=== PATIENT | female | born 1930 | race Caucasian/White ===

== ENCOUNTER → 2016-04-21 | Outpatient (CLI) | payer BC ==
[2016-04-21 17:35] LABS: ALT/SGPT 18 U/L (12-78); AST/SGOT 15 U/L (15-37); BLOOD UREA NITROGEN 17 mg/dl (7-18); BUN/CREATININE RATIO 27.5 (10-20); CALCIUM 9.4 mg/dl (8.5-10.1); CARBON DIOXIDE 28 mmol/L (21-32); CHLORIDE 104 mmol/L (98-107); CREATININE 0.61 mg/dl (0.60-1.20); GLUCOSE 84 mg/dl (70-99); SODIUM 141 mmol/L (136-145)
[2016-04-21 17:37] LABS: ALKALINE PHOSPHATASE 66 U/L (45-117)
[2016-04-21 17:57] LABS: BASO % 0.5 %; BASO ABS # 0.04 K/uL (0-0.2); COMPLETE YES; EOS % 2.4 %; HEMATOCRIT 42.9 % (37-47); IG% 0.3 %; LYMPH % 28.6 %; LYMPH ABS # 2.14 K/uL (1.2-3.4); MEAN CELL VOLUME 90.7 fL (80-100); MEAN CORPUSCULAR HEMOGLOBIN 30.2 pg (25-34); MEAN CORPUSCULAR HGB CONC 33.3 g/dl (32-36); MEAN PLATELET VOLUME 11.7 fL (7.4-10.4); MONO % 11.4 %; NEUT % 56.8 %; PLATELET COUNT 208 K/uL (130-400); RED BLOOD COUNT 4.73 M/uL (4.2-5.4); WHITE BLOOD COUNT 7.47 K/uL (4.8-10.8)
[2016-04-21 19:31] LABS: URINE PROTIEN/CREAT RATIO 0.9 (0-0.2); URINE TOTAL PROTEIN 74.5 mg/dl (0-11.9)
[2016-04-22 06:06] LABS: ESTIMATED AVERAGE GLUCOSE 151 mg/dl; HA1C FLAG Normal (Normal)
== END | disposition home or self-care (01) ==
LOC: C.LABBC 13:43
PROVIDERS: ATTEND Family Medicine
DX: R80.9 Proteinuria, unspecified (principal); I10 Essential (primary) hypertension; E11.8 Type 2 diabetes mellitus with unspecified complications; M81.0 Age-related osteoporosis without current pathological fracture; Z13.0 Encounter for screening for diseases of the blood and blood-forming organs and certain disorders involving the immune mechanism

== ENCOUNTER → 2016-08-08 | Outpatient (CLI) | payer BC ==
--- NOTE | 2016-08-08 16:01 | MAMMOGRAPHY REPORT ---
BILATERAL DIGITAL SCREENING MAMMOGRAM WITH CAD: 08/08/2016 CLINICAL HISTORY: Routine screening. Patient has no complaints. TECHNIQUE: Bilateral CC and MLO views were obtained. Current study was also evaluated with a Comput er Aided Detection (CAD) system. COMPARISON: Comparison is made to exams dated: 08/06/2015 mammogram, 03/13/2015 mammogram, 09/10/2014 mamm ogram, 08/04/2014 mammogram, 08/01/2013 mammogram, and 07/31/2012 mammogram - [facility] BREAST COMPOSITION: There are scattered areas of fibroglandular density in both breasts. FINDINGS: There are scattered stable benign-appearing microcalcifications. No new suspicious mass, a rchitectural distortion or cluster of microcalcifications is seen. IMPRESSION: ACR BI-RADS CATEGORY 1: NEGATIVE There is no mammographic evidence of malignancy. A 1 year screening mammogram is recommended. The pa tient will receive written notification of the results. Approximately 10% of breast cancers are not detected with mammography. A negative mammographic report should not delay biopsy if a clinically suggestive mass is present. Saida Mast M.D. ay/:08/08/2016 15:23:45 Home Lighting Adviser: Latoya SAPP(Eduard)(Hanny)([place]), [facility] letter sent: Normal 1/2 BI-RADS Code: ACR BI-RADS Category 1: Negative
== END | disposition home or self-care (01) ==
LOC: C.MAMM 11:51
PROVIDERS: ATTEND Family Medicine
DX: Z12.31 Encounter for screening mammogram for malignant neoplasm of breast (principal)

== ENCOUNTER → 2016-08-23 | Outpatient (CLI) | payer BC ==
--- NOTE | 2016-08-23 12:44 | DIAGNOSTIC IMAGING REPORT ---
LUMBAR SPINE 5 VIEWS HISTORY: Pain M54.16 Right lumbar radiculopathy COMPARISON: None. FINDINGS: There is no fracture. No subluxation. Considerable degenerative disc change throughout IMPRESSION: Considerable degenerative disc change. Electronically signed by: Burton Taylor M.D. 08/23/2016 12:42 PM Dictated Date/Time: 08/23/2016 12:41 PM
[2016-08-23 14:34] LABS: ALT/SGPT 19 U/L (12-78); AST/SGOT 12 U/L (15-37); BLOOD UREA NITROGEN 19 mg/dl (7-18); BUN/CREATININE RATIO 26.7 (10-20); CALCIUM 9.2 mg/dl (8.5-10.1); CARBON DIOXIDE 31 mmol/L (21-32); CHLORIDE 108 mmol/L (98-107); CREATININE 0.72 mg/dl (0.60-1.20); GLUCOSE 115 mg/dl (70-99); POTASSIUM 4.1 mmol/L (3.5-5.1); SODIUM 145 mmol/L (136-145)
[2016-08-23 14:36] LABS: ALB/GLOB RATIO 0.9 (0.9-2); ALKALINE PHOSPHATASE 61 U/L (45-117)
== END | disposition home or self-care (01) ==
LOC: C.LABBC 12:12
PROVIDERS: ATTEND Family Medicine
DX: M54.16 Radiculopathy, lumbar region (principal); M79.662 Pain in left lower leg; I10 Essential (primary) hypertension

== ENCOUNTER → 2016-11-17 | Outpatient (CLI) | payer BC ==
[2016-11-17 13:55] LABS: ALT/SGPT 14 U/L (12-78); BLOOD UREA NITROGEN 22 mg/dl (7-18); BUN/CREATININE RATIO 30.3 (10-20); CALCIUM 8.9 mg/dl (8.5-10.1); CARBON DIOXIDE 29 mmol/L (21-32); CHLORIDE 106 mmol/L (98-107); CHOLESTEROL 201 mg/dl (0-200); CREATININE 0.74 mg/dl (0.60-1.20); ESTIMATED AVERAGE GLUCOSE 151 mg/dl; GLUCOSE 127 mg/dl (70-99); HA1C FLAG Normal (Normal); SODIUM 139 mmol/L (136-145)
[2016-11-17 14:06] LABS: ALB/GLOB RATIO 0.9 (0.9-2); ALKALINE PHOSPHATASE 57 U/L (45-117); AST/SGOT 11 U/L (15-37); CHOLESTEROL/HDL RATIO 2.7; HDL CHOLESTEROL 75 mg/dl; LDL CHOLESTEROL CALCULATED 111 mg/dl; TRIGLYCERIDES 75 mg/dl (0-150); VERY LOW DENSITY LIPOPROT CALC 15 mg/dl
[2016-11-17 14:11] LABS: RATIO 357.5 mcg/mg (0-30.0)
== END | disposition home or self-care (01) ==
LOC: C.LABBC 09:54
PROVIDERS: ATTEND Physician Assistant
DX: E11.8 Type 2 diabetes mellitus with unspecified complications (principal)

== ENCOUNTER → 2017-02-16 | Outpatient (CLI) | payer BC ==
[~2017-02-16] MED LIST: ASPEC81 PO; ATOR-24 PO; CALC-354 PO; CHOL1000 PO; GLC/500 PO; LOSA1TAB PO; MULTCAP33 PO; NITR-5 PO; TIMO0.5S35 OPB
[2017-02-16 17:00] LABS: BASO % 0.4 %; BASO ABS # 0.03 K/uL (0-0.2); COMPLETE YES; HEMATOCRIT 42.1 % (37-47); IG% 0.2 %; LYMPH % 25.2 %; LYMPH ABS # 2.03 K/uL (1.2-3.4); MEAN CELL VOLUME 93.8 fL (80-100); MEAN CORPUSCULAR HEMOGLOBIN 30.5 pg (25-34); MEAN CORPUSCULAR HGB CONC 32.5 g/dl (32-36); MEAN PLATELET VOLUME 11.7 fL (7.4-10.4); MONO % 10.1 %; NEUT % 62.1 %; PLATELET COUNT 226 K/uL (130-400); RED BLOOD COUNT 4.49 M/uL (4.2-5.4); WHITE BLOOD COUNT 8.05 K/uL (4.8-10.8)
[2017-02-16 17:16] LABS: ALT/SGPT 16 U/L (12-78); AST/SGOT 10 U/L (15-37); BLOOD UREA NITROGEN 18 mg/dl (7-18); CALCIUM 9.2 mg/dl (8.5-10.1); CARBON DIOXIDE 30 mmol/L (21-32); CHLORIDE 102 mmol/L (98-107); CREATININE 0.69 mg/dl (0.60-1.20); GLUCOSE 85 mg/dl (70-99); POTASSIUM 3.7 mmol/L (3.5-5.1); SODIUM 138 mmol/L (136-145)
[2017-02-16 17:27] LABS: ALB/GLOB RATIO 0.9 (0.9-2); ALKALINE PHOSPHATASE 60 U/L (45-117)
[2017-02-16 17:35] LABS: LYME DISEASE AB IGG NEG (NEG); LYME DISEASE AB IGM NEG (NEG)
== END | disposition home or self-care (01) ==
LOC: C.LABBC 13:58
PROVIDERS: ATTEND Physician Assistant
DX: R53.83 Other fatigue (principal)

== ENCOUNTER 2017-02-20 16:00 | Inpatient (IN) | payer BC, OTHER ==
[~2017-02-20] VITALS: Ht 167.6 cm; Wt 76.1 kg
--- NOTE | 2017-02-20 16:25 | EMERGENCY ROOM VISIT NOTE ---
History Report prepared by Sully: Familia Vera Under the Supervision of: Dr. Tree Still D.O. First contact with patient: 16:04 Chief Complaint: EYE ASSESSMENT Stated Complaint: DOUBLE VISION, INTERMITTEN- DR REFERRED History of Present Illness The patient is an 87 year old diabetic female who presents to the Emergency Room with complaints of intermittent vision difficulties that started 2 days ago. She says that she sometimes is fine, but for hours at a time, her vision goes "completely double". She states that she is not seeing double at the moment , but feels off-balance. The patient was seen by Dr. Persaud of ophthalmology prior to arrival today, and was referred here for further evaluation. The patient denies any headaches, nausea, chest pain, shortness of breath, weakness in the arms or legs, or recent falls or hits to the head. She notes no stroke history. Source of History: patient Onset: 2 days ago Position: eye (bilateral) Symptom Intensity: referred by Dr. Persaud Quality: other (seeing double) Associated Symptoms: No headache, No chest pain, No SOB, No nausea, No weakness (arms or legs) Note: Associated symptoms: Feels off balance. Denies recent falls or hits to head. Review of Systems See HPI for pertinent positives & negatives. A total of 10 systems reviewed and were otherwise negative. Past Medical & Surgical Medical Problems: (1) Diabetes (2) HTN (hypertension) Surgical Problems: (1) History of cataract surgery Family History Family history omitted secondary to patient's advanced age. Social History Smoking Status: Never Smoker Marital Status: Occupation Status: retired Current/Historical Medications Scheduled Calcium Carbonate-Cholecalcife (Caltrate 600+D), 1 TAB PO DAILY Cholecalciferol (Vitamin D3), 1 TAB PO DAILY Losartan Potassium (Cozaar), 25 MG PO DAILY Metformin Hcl (Glucophage), 500 MG PO BID Multiple Vitamins W/ Minerals (Preservision Areds), 1 CAP PO DAILY Timolol Maleate (Ophth) (Timoptic), 1 DROPS OPB HS Allergies Coded Allergies: No Known Allergies (Unverified , 02/20/17) Physical Exam Vital Signs Date Time Temp Pulse Resp B/P (MAP) Pulse Ox O2 Delivery O2 Flow Rate FiO2 02/20/17 21:31 69 216/98 96 02/20/17 20:00 87 191/109 96 Room Air 02/20/17 18:19 80 16 180/106 98 Room Air 02/20/17 17:29 83 18 200/100 98 Room Air 02/20/17 16:57 Room Air 02/20/17 16:42 86 02/20/17 16:06 36.4 77 18 193/100 96 Room Air Physical Exam GENERAL: Patient is awake, alert, and in no acute distress. Patient is resting comfortably and showing no signs of anxiety EYES: The conjunctivae are clear. The pupils are round and reactive. EARS, NOSE, MOUTH AND THROAT: The nose is without any evidence of any deformity. Mucous membranes are moist tongue is midline NECK: The neck is nontender and supple. RESPIRATORY: Normal respiratory effort is noted there is no evidence of wheezing rhonchi or rales CARDIOVASCULAR: Regular rate and rhythm noted there no murmurs rubs or gallops normal S1 normal S2 GASTROINTESTINAL: The abdomen is soft. Bowel sounds are present in all quadrants. Abdomen is nontender MUSCULOSKELETAL/EXTREMITIES: There is no evidence of gross deformity full range of motion is noted in the hips and shoulders SKIN: There is no obvious evidence of any rash. There are no petechiae, pallor or cyanosis noted. NEUROLOGIC: Patient is awake alert and oriented x3 strength is symmetric patellar reflexes are 2+ bilaterally Medical Decision & Procedures ER Provider Diagnostic Interpretation: Radiology results as stated below per my review and radiologist interpretation: CHEST ONE VIEW PORTABLE CLINICAL HISTORY: 87 years-old Female presenting with EVALUATE ALTERED MENTAL STATUS/WEAKNESS. TECHNIQUE: Portable upright AP view of the chest was obtained. COMPARISON: None. FINDINGS: Atherosclerosis of aortic arch. Cardiac silhouette moderately enlarged. Nodular opacity at the right lung base. This is not clearly a calcified granuloma. No other focal infiltrate. No large effusion or pneumothorax. Osseous structures normal. Upper abdomen normal. IMPRESSION: 1. Nodular opacity at the right lung base, indeterminate. 2. Cardiomegaly. Electronically signed by: Matt Russ M.D. 02/20/2017 4:49 PM Dictated Date/Time: 02/20/2017 4:48 PM Laboratory Results Test 02/20/17 16:48 02/20/17 17:00 02/20/17 17:31 Prothrombin Time 11.8 SECONDS (9.0-12.0) Prothromb Time International Ratio 1.1 (0.9-1.1) Activated Partial Thromboplast Time 23.8 SECONDS (21.0-31.0) Partial Thromboplastin Ratio 0.9 Estimated Average Glucose 146 mg/dl Hemoglobin A1c 6.7 % (4.5-5.6) Magnesium Level 2.1 mg/dl (1.8-2.4) Total Bilirubin 0.3 mg/dl (0.2-1) Direct Bilirubin < 0.1 mg/dl (0-0.2) Aspartate Amino Transf (AST/SGOT) 10 U/L (15-37) Alanine Aminotransferase (ALT/SGPT) 15 U/L (12-78) Alkaline Phosphatase 63 U/L (45-117) Troponin I < 0.015 ng/ml (0-0.045) Total Protein 7.6 gm/dl (6.4-8.2) Albumin 3.7 gm/dl (3.4-5.0) Thyroid Stimulating Hormone (TSH) 1.250 uIu/ml (0.300-4.500) Bedside Hemoglobin 13.9 g/dl (12.0-16.0) Bedside Hematocrit 41 % (37-47) Bedside Sodium 142 mEq/L (135-144) Bedside Potassium 4.2 mEq/L (3.3-5.0) Bedside Chloride 103 mEq/L (101-112) Bedside Total CO2 30 mEq/l (24-31) Bedside Blood Urea Nitrogen 27 mg/dl (7-18) Bedside Creatinine 0.7 mg/dl (0.6-1.3) Bedside Glucose (other) 92 mg/dl (70-99) Bedside Ionized Calcium (Michaelle) 1.19 mmol/l (1.12-1.32) Urine Color YELLOW Urine Appearance TURBID (CLEAR) Urine pH 5.0 (4.5-7.5) Urine Specific [place] 1.021 (1.000-1.030) Urine Protein 2+ (NEG) Urine Glucose (UA) NEG (NEG) Urine Ketones NEG (NEG) Urine Occult Blood 2+ (NEG) Urine Nitrite POS (NEG) Urine Bilirubin NEG (NEG) Urine Urobilinogen NEG (NEG) Urine Leukocyte Esterase LARGE (NEG) Urine WBC (Auto) >30 /hpf (0-5) Urine RBC (Auto) 10-30 /hpf (0-4) Urine Hyaline Casts (Auto) 1-5 /lpf (0-5) Urine Epithelial Cells (Auto) 5-10 /lpf (0-5) Urine Bacteria (Auto) 4+ (NEG) Laboratory results per my review. Medications Administered Medications (Trade) Dose Ordered Sig/Abisai Route Start Time Stop Time Status Last Admin Dose Admin Ceftriaxone Sodium (Rocephin Inj) 1 gm NOW STAT IV 02/20/17 18:37 02/20/17 18:39 DC 02/20/17 19:56 1 GM Aspirin (Aspirin Chew) 324 mg NOW STAT PO 02/20/17 20:25 02/20/17 20:26 DC 02/20/17 20:31 324 MG ECG Indication: other (vision difficulties) Rate (beats per minute): 78 Rhythm: normal sinus Findings: Q waves (Inferior), no ectopy, other (no acute ST segment abnormalities) Change: no significant change ED Course 161: The patient was evaluated in room C11B. A complete history and physical examination were performed. 1652: I discussed the patient with Dr. Persaud - [facility] - Ophthalmology. 7: Ordered Rocephin Inj 1 gm IV. Medical Decision Differential diagnosis: Etiologies such as a trauma, corneal abrasion, corneal ulcer, foreign body, globe penetration, hyphema, hypopyon, and orbital cellulitis, periorbital cellulitis, as well as others were entertained. Nursing notes reviewed. 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 Through the weekend she's been complaining of diplopia. She was seen at the ophthalmology's office and was sent to the emergency department. I discussed the findings with the lottery office manager and he noted she had a subtle irregularity of the left third cranial nerve and felt that she would require an evaluation for possible compressive nerve palsy versus other intracranial findings. The patient had an MRI MRA of the brain. This did reveal an acute stroke in the left thalamus. I discussed patient's laboratory radiographic studies with her. She was treated with IV antibiotics for presumed urinary tract infection. She was also treated with aspirin. I discussed the patient's laboratory and radiographic studies with the on-call [facility] hospitalist. He is agreed to evaluate the patient in the emergency department for further management and disposition. The patient was found have elevated blood pressure. This was left to the management of the admitting group. Medication Reconcilliation Current Medication List: was personally reviewed by me Blood Pressure Screening Patient's blood pressure: Elevated blood pressure Blood pressure disposition: Elevated BP felt to be situational Consults Time Called: 1649 Consulting Physician: Dr. [facility] - Opthalmology Returned Call: 1652 I discussed the patient with Dr. [facility] - Ophthalmology. Additional Consults: Time Called: 2019 Consulted Physician: Dr Nicolás OCAMPO Hospitalist Returned Call: 2019 Impression Primary Impression: CVA (cerebral vascular accident) Additional Impressions: Diplopia UTI (urinary tract infection) Scribe Attestation The scribe's documentation has been prepared under my direction and personally reviewed by me in its entirety. I confirm that the note above accurately reflects all work, treatment, procedures, and medical decision making performed by me. Departure Information Referrals Sammie Delgado PA-C (PCP) Patient Instructions My [facility] Problem Qualifiers Primary Impression: CVA (cerebral vascular accident) CVA mechanism: unspecified Qualified Codes: I63.9 - Cerebral infarction, unspecified Additional Impressions: UTI (urinary tract infection) Urinary tract infection type: site unspecified Hematuria presence: without hematuria Qualified Codes: N39.0 - Urinary tract infection, site not specified
--- NOTE | 2017-02-20 16:51 | DIAGNOSTIC IMAGING REPORT ---
CHEST ONE VIEW PORTABLE CLINICAL HISTORY: 87 years-old Female presenting with EVALUATE ALTERED MENTAL STATUS/WEAKNESS. TECHNIQUE: Portable upright AP view of the chest was obtained. COMPARISON: None. FINDINGS: Atherosclerosis of aortic arch. Cardiac silhouette moderately enlarged. Nodular opacity at the right lung base. This is not clearly a calcified granuloma. No other focal infiltrate. No large effusion or pneumothorax. Osseous structures normal. Upper abdomen normal. IMPRESSION: 1. Nodular opacity at the right lung base, indeterminate. 2. Cardiomegaly. Electronically signed by: Matt Russ M.D. 02/20/2017 4:49 PM Dictated Date/Time: 02/20/2017 4:48 PM
[2017-02-20 17:04] LABS: BASO % 0.3 %; BASO ABS # 0.03 K/uL (0-0.2); EOS % 1.5 %; EOS ABS # 0.15 K/uL (0-0.5); HEMATOCRIT 41.4 % (37-47); HEMOGLOBIN 13.6 g/dL (12.0-16.0); IG# 0.02 K/uL (0.00-0.02); LYMPH % 22.8 %; LYMPH ABS # 2.22 K/uL (1.2-3.4); MEAN CELL VOLUME 93.5 fL (80-100); MEAN CORPUSCULAR HEMOGLOBIN 30.7 pg (25-34); MEAN CORPUSCULAR HGB CONC 32.9 g/dl (32-36); MONO % 9.3 %; MONO ABS # 0.91 K/uL (0.11-0.59); NEUT % 65.9 %; NEUT ABS # 6.41 K/uL (1.4-6.5); PLATELET COUNT 201 K/uL (130-400); RED CELL DISTRIBUTION WIDTH CV 13.5 % (11.5-14.5); WHITE BLOOD COUNT 9.74 K/uL (4.8-10.8)
[2017-02-20 17:12] LABS: ISTAT CREATININE 0.7 mg/dl (0.6-1.3); ISTAT IONIZED CALCIUM 1.19 mmol/l (1.12-1.32); ISTAT POTASSIUM 4.2 mEq/L (3.3-5.0)
[2017-02-20 17:15] LABS: INR 1.1 (0.9-1.1); PTT PATIENT 23.8 SECONDS (21.0-31.0)
[2017-02-20 17:27] LABS: ALBUMIN 3.7 gm/dl (3.4-5.0); ALT/SGPT 15 U/L (12-78); BLOOD UREA NITROGEN 22 mg/dl (7-18); CALCIUM 9.5 mg/dl (8.5-10.1); CARBON DIOXIDE 29 mmol/L (21-32); CREATININE 0.71 mg/dl (0.60-1.20); GLUCOSE 87 mg/dl (70-99); POTASSIUM 3.7 mmol/L (3.5-5.1); SODIUM 141 mmol/L (136-145)
[2017-02-20 17:38] LABS: ALKALINE PHOSPHATASE 63 U/L (45-117); AST/SGOT 10 U/L (15-37); TOTAL PROTEIN 7.6 gm/dl (6.4-8.2)
[2017-02-20] MEDS ORDERED: GLC/500 PO (17:40)
[2017-02-20] MEDS ORDERED: CALC-354 PO (17:40)
[2017-02-20] MEDS ORDERED: TIMO0.5S35 OPB (17:40)
[2017-02-20] MEDS ORDERED: CHOL1000 PO (17:40)
[2017-02-20] MEDS ORDERED: LOSA1TAB PO (17:40)
[2017-02-20] MEDS ORDERED: MULTCAP33 PO (17:47)
[2017-02-20] MEDS ORDERED: CEFTRIAXONE SOD INJ 1 GM ADDVIAL IV STA (18:37)
[2017-02-20] MEDS ORDERED: GADAVIST IV PRN (20:00)
--- NOTE | 2017-02-20 20:14 | DIAGNOSTIC IMAGING REPORT ---
MRI OF THE BRAIN WITHOUT AND WITH IV CONTRAST CLINICAL HISTORY: Diplopia and 3rd cranial nerve palsy. COMPARISON STUDY: No previous studies for comparison. TECHNIQUE: Utilizing a 1.5 Viridiana magnet and dedicated coil, multiplanar, multiecho imaging of the brain was performed pre and postcontrast administration. IV administration of 7.5 mL of Gadavist contrast was uneventful. FINDINGS: Note is made of a 4 mm focus of restricted diffusion within the left thalamus shown on axial image 12 of 44. This suggests an acute infarct. No additional acute infarcts are present. Ventricular system is unremarkable for age. Basilar cisterns are patent. There are no extra-axial collections. Old lacunar infarct within left cerebellar hemisphere is noted. White matter T2 hyperintense foci suggest small vessel disease. There is a left maxillary sinus mucous retention cyst. There is no intracranial mass or pathologic enhancement. IMPRESSION: 1. Punctate 4 mm acute infarct within the left thalamus. No mass effect or evidence of hemorrhagic conversion. 2. Mild atrophy and extensive small vessel disease. 3. No intracranial mass. Electronically signed by: Adam Dickson M.D. 02/20/2017 8:13 PM Dictated Date/Time: 02/20/2017 8:09 PM
--- NOTE | 2017-02-20 20:21 | DIAGNOSTIC IMAGING REPORT ---
MRA OF THE INTRACRANIAL CIRCULATION WITHOUT CONTRAST CLINICAL HISTORY: Diplopia and 3rd cranial nerve palsy. COMPARISON STUDY: None. TECHNIQUE: Utilizing a 1.5 Viridiana magnet and 3-D [id number] technique, unenhanced MRA of the intracranial circulation was obtained. FINDINGS: The bilateral M1, M2, A1 and A2 segments are patent. No abrupt vessel cut off is identified. There is no dissection within the major intracranial vessels. Left vertebral artery is dominant and patent. There is a possible 2 mm aneurysm arising from the proximal intracranial portion of the left vertebral artery as well as a possible 2 mm aneurysm arising from the supraclinoid left internal carotid artery. No additional aneurysms are identified. IMPRESSION: 1. No abrupt vessel cut off. 2. Possible tiny 2 mm aneurysm arising from the supraclinoid portion of the left internal carotid artery. This could reflect a tiny aneurysm or infundibulum. 3. Subtle irregularity of the proximal intracranial portion of the left vertebral artery which could reflect a tiny aneurysm, measuring 2 mm. Electronically signed by: Adam Dickson M.D. 02/20/2017 8:20 PM Dictated Date/Time: 02/20/2017 8:16 PM
[2017-02-20] MEDS ORDERED: ASPIRIN 81 MG CHEW PO STA (20:25)
[2017-02-20] MEDS ORDERED: NITROGLYCERIN 0.4 MG SL PER TAB CHARGE SL PRN (20:45)
[2017-02-20] MEDS ORDERED: PHARMACIST DISCHARGE MED REC CONSULT PRN (20:45)
[2017-02-20] MEDS ORDERED: ONDANSETRON INJ 2 MG/ML 2 ML VIAL IV PRN (20:45)
[2017-02-20] MEDS ORDERED: POLYETHYLENE (MIRALAX) 17 GM PACK PO PRN (20:45)
[2017-02-20] MEDS ORDERED: ACETAMINOPHEN 325 MG TAB PO PRN (20:45)
[2017-02-20] MEDS ORDERED: MAGNESIUM HYDROXIDE SUSP 30 ML UDC PO PRN (20:45)
[2017-02-20] MEDS ORDERED: ALUMINUM/MAGNESIUM/SIMETH (MAALOX MAX) 30 ML UDC PO PRN (20:45)
--- NOTE | 2017-02-20 21:56 | History and Physical ---
History & Physical Date & Time of Service: Feb 20, 2017 at 21:35 Chief Complaint: Double Vision, Intermitten- Dr Referred Primary Care Physician: Sammie Delgado PA-C History of Present Illness Source: patient, family This is an 87 y/o F who presents with double vision that started 2 days ago. She reports that it is intermittent and can last a few hours at a time. In the ER, currently she does not have any double vision or other neurological symptoms. She denies numbness/tingling or weakness of her extremities. She called her friend who is a retired construction management assistant yesterday and she was recommended to see Dr. Valencia. She did see him this morning and he recommended further eval in the ED. She also reports being slightly off balanced. She denies any trauma to the eye. Denies any eye pain or discharge. Does wear glasses but her prescription is not current. She was recently started on Metformin for an A1c of 6.9 She reports being on a statin previously but was taken off it a couple of years ago because she eats a grapefruit everyday. Denies history of smoking Denies previous strokes/[place] Denies chest pain, shortness of breath, Urinary symptoms. Past Medical/Surgical History Medical Problems: (1) Diabetes Status: Chronic (2) HTN (hypertension) Status: Chronic Surgical Problems: (1) History of cataract surgery Status: Resolved Social History Smoking Status: Never Smoker Alcohol Use: none Marital Status: Housing status: lives with family Occupational Status: retired Multi-Drug Resistant Organisms History of MDRO: No Allergies Coded Allergies: No Known Allergies (Unverified , 02/20/17) Home Medications Scheduled Calcium Carbonate-Cholecalcife (Caltrate 600+D), 1 TAB PO DAILY Cholecalciferol (Vitamin D3), 1 TAB PO DAILY Losartan Potassium (Cozaar), 25 MG PO DAILY Metformin Hcl (Glucophage), 500 MG PO BID Multiple Vitamins W/ Minerals (Preservision Areds), 1 CAP PO DAILY Timolol Maleate (Ophth) (Timoptic), 1 DROPS OPB HS Review of Systems Constitutional: No fever, No chills Eyes: + diplopia, No worsening of vision, No eye pain ENT: No hearing loss Respiratory: No cough, No sputum, No shortness of breath, No dyspnea on exertion, No dyspnea at rest Cardiovascular: No chest pain Abdomen: No pain, No nausea, No vomiting, No diarrhea, No constipation Genitourinary - Female: No dysuria, No urinary frequency Neurologic: + balance problems, No memory loss, No paralysis, No weakness, No numbness/tingling, No vertigo Physical Exam Vital Signs Date Time Temp Pulse Resp B/P (MAP) Pulse Ox O2 Delivery O2 Flow Rate FiO2 02/20/17 21:31 69 216/98 96 02/20/17 20:00 87 191/109 96 Room Air 02/20/17 18:19 80 16 180/106 98 Room Air 02/20/17 17:29 83 18 200/100 98 Room Air 02/20/17 16:57 Room Air 02/20/17 16:42 86 02/20/17 16:06 36.4 77 18 193/100 96 Room Air General Appearance: no apparent distress Head: normocephalic, atraumatic Eyes: normal inspection, PERRL, EOMI, sclerae normal ENT: hearing grossly normal Respiratory/Chest: lungs clear, normal breath sounds, no respiratory distress, no accessory muscle use Cardiovascular: regular rate, rhythm, no edema, no murmur, normal peripheral pulses Abdomen/GI: normal bowel sounds, non tender, soft Back: no CVA tenderness Extremities/Musculoskelatal: no calf tenderness, no pedal edema Neurologic/Psych: staff attorney II-XII nml as tested, alert, normal mood/affect, normal reflexes, oriented x 3, + motor weakness (RUE slightly weaker), + pertinent finding (no pronator drift, normal finger to nose, no dysarthria) Diagnostics Laboratory Results Results Past 24 Hours Test 02/20/17 16:48 02/20/17 17:00 02/20/17 17:31 Range/Units White Blood Count 9.74 4.8-10.8 K/uL Red Blood Count 4.43 4.2-5.4 M/uL Hemoglobin 13.6 12.0-16.0 g/dL Hematocrit 41.4 37-47 % Mean Corpuscular Volume 93.5 80-100 fL Mean Corpuscular Hemoglobin 30.7 25-34 pg Mean Corpuscular Hemoglobin Concent 32.9 32-36 g/dl Platelet Count 201 130-400 K/uL Mean Platelet Volume 11.0 7.4-10.4 fL Neutrophils (%) (Auto) 65.9 % Lymphocytes (%) (Auto) 22.8 % Monocytes (%) (Auto) 9.3 % Eosinophils (%) (Auto) 1.5 % Basophils (%) (Auto) 0.3 % Neutrophils # (Auto) 6.41 1.4-6.5 K/uL Lymphocytes # (Auto) 2.22 1.2-3.4 K/uL Monocytes # (Auto) 0.91 0.11-0.59 K/uL Eosinophils # (Auto) 0.15 0-0.5 K/uL Basophils # (Auto) 0.03 0-0.2 K/uL RDW Standard Deviation 46.0 36.4-46.3 fL RDW Coefficient of Variation 13.5 11.5-14.5 % Immature Granulocyte % (Auto) 0.2 % Immature Granulocyte # (Auto) 0.02 0.00-0.02 K/uL Prothrombin Time 11.8 9.0-12.0 SECONDS Prothromb Time International Ratio 1.1 0.9-1.1 Activated Partial Thromboplast Time 23.8 21.0-31.0 SECONDS Partial Thromboplastin Ratio 0.9 Sodium Level 141 136-145 mmol/L Potassium Level 3.7 3.5-5.1 mmol/L Chloride Level 104 98-107 mmol/L Carbon Dioxide Level 29 21-32 mmol/L Anion Gap 8.0 14.0 16-25 mmol/L Blood Urea Nitrogen 22 7-18 mg/dl Creatinine 0.71 0.60-1.20 mg/dl Est Creatinine Clear Calc Drug Dose 61.3 ml/min Estimated GFR () 90.0 Estimated GFR (Non- 77.7 BUN/Creatinine Ratio 30.6 10-20 Random Glucose 87 70-99 mg/dl Calcium Level 9.5 8.5-10.1 mg/dl Magnesium Level 2.1 1.8-2.4 mg/dl Total Bilirubin 0.3 0.2-1 mg/dl Direct Bilirubin < 0.1 0-0.2 mg/dl Aspartate Amino Transf (AST/SGOT) 10 15-37 U/L Alanine Aminotransferase (ALT/SGPT) 15 12-78 U/L Alkaline Phosphatase 63 45-117 U/L Troponin I < 0.015 0-0.045 ng/ml Total Protein 7.6 6.4-8.2 gm/dl Albumin 3.7 3.4-5.0 gm/dl Thyroid Stimulating Hormone (TSH) 1.250 0.300-4.500 uIu/ml Bedside Hemoglobin 13.9 12.0-16.0 g/dl Bedside Hematocrit 41 37-47 % Bedside Sodium 142 135-144 mEq/L Bedside Potassium 4.2 3.3-5.0 mEq/L Bedside Chloride 103 101-112 mEq/L Bedside Total CO2 30 24-31 mEq/l Bedside Blood Urea Nitrogen 27 7-18 mg/dl Bedside Creatinine 0.7 0.6-1.3 mg/dl Bedside Glucose (other) 92 70-99 mg/dl Bedside Ionized Calcium (Michaelle) 1.19 1.12-1.32 mmol/l Urine Color YELLOW Urine Appearance TURBID CLEAR Urine pH 5.0 4.5-7.5 Urine Specific [place] 1.021 1.000-1.030 Urine Protein 2+ NEG Urine Glucose (UA) NEG NEG Urine Ketones NEG NEG Urine Occult Blood 2+ NEG Urine Nitrite POS NEG Urine Bilirubin NEG NEG Urine Urobilinogen NEG NEG Urine Leukocyte Esterase LARGE NEG Urine WBC (Auto) >30 0-5 /hpf Urine RBC (Auto) 10-30 0-4 /hpf Urine Hyaline Casts (Auto) 1-5 0-5 /lpf Urine Epithelial Cells (Auto) 5-10 0-5 /lpf Urine Bacteria (Auto) 4+ NEG Microbiology Results 02/20/17 Urine Culture, Received Pending Impression Assessment and Plan 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 HTN Hold Losartan UTI: Rocephin 1 gm q24 h Cultures pending DM II Hold metformin ISS Accuchecks Can start Lantus based on bsgs DVT proph Lovenox 40 mg q24 Code: Full Resident Physician Supervision Note: I was present with Dr. Cherry during the history and exam. I discussed the case with the resident and agree with the findings and plan as documented in the note. Any exceptions or clarifications are listed here: 87 y/o F Hx HTN, DM II - [facility]est of her construction management assistant who had detected subtle visual deficits. She was sent for an MRI in the ER which confirmed an acute thalamic CVA. OE AAO x 3 S1,2 R CTAB NT, ND No CCE Full neuro exam does not reveal any significant focal deficits - her vision is affected subjectively without any overt field deficits P: Placed on ASA and statin Tx - admittted to telemetry with neurochecks - Losartan held to allow for HTN in the short-term Placed on SS for DM Documented By: Dale Monzon VTE Prophylaxis VTE Risk Assessment Done? Y/N: Yes Risk Level: Moderate
[2017-02-20 22:17] VITALS: BP_SYST 211; BP_SYST 224; BP_DIAS 106; BP_DIAS 109; PULSE 93; TEMP 36.6; O2SAT 98; BMI 27.5
[2017-02-20] MEDS ORDERED: GLUCOSE 40% GEL 15 GM TUBE PO PRN (22:30)
[2017-02-20] MEDS ORDERED: GLUCAGON FOR INJ 1 MG VIAL SQ PRN (22:30)
[2017-02-20] MEDS ORDERED: DEXTROSE 50% 50 ML SYR IV PRN (22:30)
[2017-02-20] MEDS ORDERED: GLUCOSE 10 TABS/TUBE PO PRN (22:30)
[2017-02-20 23:18] VITALS: BP 208/102; PULSE 78; TEMP 37; O2SAT 95
[2017-02-20] MEDS: ENOXAPARIN 40 MG/0.4 ML SYR SC SCH (23:18)
[2017-02-21] VITALS (8 sets, daily range): BP systolic 154–193; BP diastolic 82–105; PULSE 73–81; TEMP 36.4–36.8; O2SAT 93–96; Ht 167.6 cm; Wt 76.1 kg
[2017-02-21 06:15] LABS: BASO % 0.5 %; BASO ABS # 0.04 K/uL (0-0.2); EOS % 2.2 %; EOS ABS # 0.17 K/uL (0-0.5); HEMATOCRIT 39.5 % (37-47); HEMOGLOBIN 13.1 g/dL (12.0-16.0); LYMPH % 26.3 %; LYMPH ABS # 2.07 K/uL (1.2-3.4); MEAN CELL VOLUME 93.2 fL (80-100); MEAN CORPUSCULAR HEMOGLOBIN 30.9 pg (25-34); MEAN CORPUSCULAR HGB CONC 33.2 g/dl (32-36); MEAN PLATELET VOLUME 11.3 fL (7.4-10.4); MONO % 11.7 %; MONO ABS # 0.92 K/uL (0.11-0.59); NEUT % 59.3 %; NEUT ABS # 4.67 K/uL (1.4-6.5); PLATELET COUNT 175 K/uL (130-400); RED CELL DISTRIBUTION WIDTH CV 13.4 % (11.5-14.5); RED CELL DISTRIBUTION WIDTH SD 45.3 fL (36.4-46.3); WHITE BLOOD COUNT 7.87 K/uL (4.8-10.8)
[2017-02-21 06:43] LABS: HEMOGLOBIN A1C 6.7 % (4.5-5.6)
[2017-02-21] MEDS: INSULIN ASPART 100 UNITS/ML 3 ML PEN SC SCH ×4 (07:00→20:42)
[2017-02-21 07:04] LABS: CALCIUM 8.6 mg/dl (8.5-10.1); CREATININE 0.69 mg/dl (0.60-1.20)
[2017-02-21] MEDS: ASPIRIN 81 MG ECTAB PO SCH (09:26)
--- NOTE | 2017-02-21 09:41 | Neurology Consultation ---
Neurology Consultation Date of Consultation: Feb 21, 2017. Attending Physician: Dale Monzon M.D. Primary Care Physician: Sammie Delgado PA-C Reason for Consultation: Consultation for stroke History of Present Illness Source: patient, hospital records This is a 87-year-old right-handed female who presents with 2 days of diplopia. She reports that she started to have diplopia Monday afternoon. Describes it as vertical diplopia. Diplopia was intermittent. Seems to be appropriate and has not had a recent she's been in the hospital. She denies any other symptoms. Denies any dizziness. Denies any focal weakness or numbness. Denies any loss of vision. Denies any changes with her speech and swallowing. Denies any changes with her balance or gait. Reports poor balance at baseline and had done physical therapy over the summer and was recommended to walk with a cane. She denies any recent illnesses. She was not on any antiplatelets at the time of the events. She denies any chest pain, shortness of breath, or heart palpitation. MRI of the brain report and images reviewed by myself. The patient has a small subacute punctate left thalamus ischemic stroke and mild to moderate T2 hyperintensities in the subcortical white matter likely consistent with small vessel ischemic disease. MRA of the head was unremarkable. Total cholesterol 208, LDL 115, HDL 71, triglycerides 109, hemoglobin A1C 6.1 Past Medical/Surgical History Medical Problems: (1) CVA (cerebral vascular accident) Status: Acute (2) Diplopia Status: Acute (3) UTI (urinary tract infection) Status: Acute History of hypertension, diabetes, cataract surgery Family History Reports that her mother had a stroke in an elderly age Social History Patient is normally independent in her activities of daily living. Walks with the assistance of a cane. Denies any tobacco use. Alcohol Use: none Marital Status: Occupation Status: retired Allergies Coded Allergies: No Known Allergies (Unverified , 02/20/17) Current Inpatient Medications Current Inpatient Medications Medications (Trade) Dose Ordered Sig/Abisai Route Start Time Stop Time Status Last Admin Dose Admin Gadobutrol (Gadavist) 7.5 mmol UD PRN IV 02/20/17 20:00 02/24/17 19:59 Aspirin (Ecotrin Tab) 81 mg QAM PO 02/21/17 09:00 03/23/17 08:59 02/21/17 09:26 81 MG Miscellaneous Information (Pharmacist Discharge Med Rec Consult) 1 ea UD PRN N/A 02/20/17 20:45 03/22/17 20:44 Enoxaparin Sodium (Lovenox Inj) 40 mg QPM SC 02/20/17 22:30 03/22/17 22:29 02/20/17 23:18 40 MG Acetaminophen (Tylenol Tab) 650 mg Q4H PRN PO 02/20/17 20:45 03/22/17 20:44 Al Hydrox/Mg Hydrox/Simethicone (Maalox Max Susp) 15 ml Q4H PRN PO 02/20/17 20:45 03/22/17 20:44 Magnesium Hydroxide (Milk Of Magnesia Susp) 30 ml Q12H PRN PO 02/20/17 20:45 03/22/17 20:44 Ondansetron HCl (Zofran Inj) 4 mg Q6H PRN IV 02/20/17 20:45 03/22/17 20:44 Nitroglycerin (Nitrostat Tab) 0.4 mg UD PRN SL 02/20/17 20:45 03/22/17 20:44 Polyethylene (Miralax Powder Packet) 17 gm DAILY PRN PO 02/20/17 20:45 03/22/17 20:44 Simvastatin (Zocor Tab) 40 mg PM PO 02/21/17 21:00 03/23/17 20:59 Insulin Aspart (novoLOG ASPART) SLIDING SCALE G... ACHS SC 02/21/17 07:00 03/23/17 06:59 Glucose (Glucose 40% Gel) 15-30 GRAMS 15 GRAMS... UD PRN PO 02/20/17 22:30 03/22/17 22:29 Glucose (Glucose Chew Tab) 4-8 Tablets 4 Tabl... UD PRN PO 02/20/17 22:30 03/22/17 22:29 Dextrose (Dextrose 50% 50ML Syringe) 25-50ML OF 50% DW IV FOR... UD PRN IV 02/20/17 22:30 03/22/17 22:29 Glucagon (Glucagon Inj) 1 mg UD PRN SQ 02/20/17 22:30 03/22/17 22:29 Ceftriaxone Sodium 1 gm/ Dextrose 50 ml @ 100 mls/hr Q24H IV 02/21/17 19:00 02/26/17 18:59 Review of Systems Complete review systems otherwise negative except for the above-noted history of present illness Physical Exam Vital Signs (Past 24 Hrs): Date Time Temp Pulse Resp B/P (MAP) Pulse Ox O2 Delivery O2 Flow Rate FiO2 02/21/17 07:22 36.7 79 16 155/91 (112) 94 Room Air 02/21/17 04:00 Room Air 02/21/17 03:36 36.4 81 18 193/92 (125) 95 Room Air 02/21/17 00:01 95 Room Air 02/20/17 23:18 37.0 78 16 208/102 (137) 95 Room Air 02/20/17 22:17 36.6 93 16 224/109 98 Room Air 211/106 02/20/17 21:31 69 216/98 96 02/20/17 20:00 87 191/109 96 Room Air 02/20/17 18:19 80 16 180/106 98 Room Air 02/20/17 17:29 83 18 200/100 98 Room Air 02/20/17 16:57 Room Air 02/20/17 16:42 86 02/20/17 16:06 36.4 77 18 193/100 96 Room Air Gen.: Patient is alert and sitting in chair, in no acute distress. HEENT: Normocephalic /atraumatic, no scleral icterus Heart: Regular rate and rhythm Extremities: No gross deformities or rashes noted Neurological examination: Mental status: Patient is alert and oriented x3. Attention and concentration normal for the situation. Good fund of knowledge. Remote and recent memory intact. Speech is fluent without any dysarthria or aphasia noted Cranial nerve: Visual bella intact to counting. Funduscopic examination was unremarkable. No papilledema. Pupils equally round and reactive to light. Extraocular muscles intact without nystagmus. No facial asymmetry noted. Facial sensation intact. Tongue is midline. Good palatal elevation. Good shoulder shrug bilaterally. Hearing grossly intact to voice. Strength: 5/5 both proximal and distally in all extremities. There is no arm drift. Tone is normal. Sensation: Grossly intact to light touch in all extremities. Deep tendon reflexes: +1 in bilateral biceps, brachioradialis and patellar. Coordination: Patient had good finger to nose without dysmetria Station within the chair was normal Laboratory Results Past 24 Hours: 02/21/17 05:26 Red Blood Count 4.24, Mean Corpuscular Volume 93.2, Mean Corpuscular Hemoglobin 30.9, Mean Corpuscular Hemoglobin Concent 33.2, Mean Platelet Volume 11.3, Neutrophils (%) (Auto) 59.3, Lymphocytes (%) (Auto) 26.3, Monocytes (%) (Auto) 11.7, Eosinophils (%) (Auto) 2.2, Basophils (%) (Auto) 0.5, Neutrophils # (Auto ) 4.67, Lymphocytes # (Auto) 2.07, Monocytes # (Auto) 0.92, Eosinophils # (Auto ) 0.17, Basophils # (Auto) 0.04 02/21/17 05:26 02/21/17 07:21 Test 02/20/17 16:48 02/20/17 17:00 02/20/17 17:31 02/20/17 23:31 Prothrombin Time 11.8 SECONDS (9.0-12.0) Prothromb Time International Ratio 1.1 (0.9-1.1) Activated Partial Thromboplast Time 23.8 SECONDS (21.0-31.0) Partial Thromboplastin Ratio 0.9 Estimated Average Glucose 146 mg/dl Hemoglobin A1c 6.7 % (4.5-5.6) Magnesium Level 2.1 mg/dl (1.8-2.4) Total Bilirubin 0.3 mg/dl (0.2-1) Direct Bilirubin < 0.1 mg/dl (0-0.2) Aspartate Amino Transf (AST/SGOT) 10 U/L (15-37) Alanine Aminotransferase (ALT/SGPT) 15 U/L (12-78) Alkaline Phosphatase 63 U/L (45-117) Troponin I < 0.015 ng/ml (0-0.045) Total Protein 7.6 gm/dl (6.4-8.2) Albumin 3.7 gm/dl (3.4-5.0) Thyroid Stimulating Hormone (TSH) 1.250 uIu/ml (0.300-4.500) Bedside Hemoglobin 13.9 g/dl (12.0-16.0) Bedside Hematocrit 41 % (37-47) Bedside Sodium 142 mEq/L (135-144) Bedside Potassium 4.2 mEq/L (3.3-5.0) Bedside Chloride 103 mEq/L (101-112) Bedside Total CO2 30 mEq/l (24-31) Bedside Blood Urea Nitrogen 27 mg/dl (7-18) Bedside Creatinine 0.7 mg/dl (0.6-1.3) Bedside Glucose (other) 92 mg/dl (70-99) Bedside Ionized Calcium (Michaelle) 1.19 mmol/l (1.12-1.32) Urine Color YELLOW Urine Appearance TURBID (CLEAR) Urine pH 5.0 (4.5-7.5) Urine Specific [place] 1.021 (1.000-1.030) Urine Protein 2+ (NEG) Urine Glucose (UA) NEG (NEG) Urine Ketones NEG (NEG) Urine Occult Blood 2+ (NEG) Urine Nitrite POS (NEG) Urine Bilirubin NEG (NEG) Urine Urobilinogen NEG (NEG) Urine Leukocyte Esterase LARGE (NEG) Urine WBC (Auto) >30 /hpf (0-5) Urine RBC (Auto) 10-30 /hpf (0-4) Urine Hyaline Casts (Auto) 1-5 /lpf (0-5) Urine Epithelial Cells (Auto) 5-10 /lpf (0-5) Urine Bacteria (Auto) 4+ (NEG) Bedside Glucose 116 mg/dl (70-90) Test 02/21/17 05:26 White Blood Count 7.87 K/uL (4.8-10.8) Red Blood Count 4.24 M/uL (4.2-5.4) Hemoglobin 13.1 g/dL (12.0-16.0) Hematocrit 39.5 % (37-47) Mean Corpuscular Volume 93.2 fL (80-100) Mean Corpuscular Hemoglobin 30.9 pg (25-34) Mean Corpuscular Hemoglobin Concent 33.2 g/dl (32-36) Platelet Count 175 K/uL (130-400) Mean Platelet Volume 11.3 fL (7.4-10.4) Neutrophils (%) (Auto) 59.3 % Lymphocytes (%) (Auto) 26.3 % Monocytes (%) (Auto) 11.7 % Eosinophils (%) (Auto) 2.2 % Basophils (%) (Auto) 0.5 % Neutrophils # (Auto) 4.67 K/uL (1.4-6.5) Lymphocytes # (Auto) 2.07 K/uL (1.2-3.4) Monocytes # (Auto) 0.92 K/uL (0.11-0.59) Eosinophils # (Auto) 0.17 K/uL (0-0.5) Basophils # (Auto) 0.04 K/uL (0-0.2) RDW Standard Deviation 45.3 fL (36.4-46.3) RDW Coefficient of Variation 13.4 % (11.5-14.5) Immature Granulocyte % (Auto) 0.0 % Immature Granulocyte # (Auto) 0.00 K/uL (0.00-0.02) Anion Gap 7.0 mmol/L (3-11) Est Creatinine Clear Calc Drug Dose 62.5 ml/min Estimated GFR () 92.0 Estimated GFR (Non- 79.4 BUN/Creatinine Ratio 21.9 (10-20) Calcium Level 8.6 mg/dl (8.5-10.1) Triglycerides Level 109 mg/dl (0-150) Cholesterol Level 208 mg/dl (0-200) HDL Cholesterol 71 mg/dl LDL Cholesterol, Calculated 115 mg/dl VLDL Cholesterol, Calculated 22 mg/dl Cholesterol/HDL Ratio 2.9 Imaging As noted above in history of present illness Impression This is the 87-year-old female with a small punctate subacute left thalamus ischemic stroke and resolving diplopia. Stroke risk factors include dyslipidemia , hypertension and diabetes. No residual neurological deficits at this time. Plan I have ordered an echocardiogram and CTA of the neck to complete stroke workup to rule out cardioembolic sources for stroke or critical stenosis of the neck vessels. Agree with initiation of aspirin 81 mg daily and statin medication for secondary stroke prevention. Follow-up PT/OT and speech therapies for discharge planning. Blood pressure recommendations while in hospital 175/95-150/80 (MAPs 90-110) Avoid hypotension and dehydration Stroke risk factor modifications and recommendations: Blood pressure recommendations for the first month post hospital discharge 150/ 90-130/80, and after that blood pressure recommendations 130/80-110/70 Total cholesterol goal 100- 200 and LDL goal less than 100 Hemoglobin A1c goal less than 7 (at goal) Encourage cardiovascular exercise at least 3 times a week for 30 minutes. Follow-up in neurology clinic in 1 month for post stroke hospital follow-up. If no clear etiology for stroke, consider an outpatient Holter monitor to rule out A. fib If there is any questions or concerns, feel free to call/page me.
--- NOTE | 2017-02-21 11:33 | Family Medicine Progress Note ---
Progress Note Date of Service Feb 21, 2017. Subjective Pt evaluation today including: conversation w/ patient, conversation w/ family , physical exam, chart review, conversation w/ spa consultant, review of inpatient medication list Pain: none Voiding: no voiding problems Patient is feeling well this morning and denies any double vision overnight She denies any other stroke symptoms She is able to walk and is not unbalanced Eyes: No worsening of vision, No diplopia ENT: No hearing loss, No trouble swallowing Respiratory: No cough, No shortness of breath Cardiovascular: No chest pain, No palpitations Abdomen: No pain, No nausea Female : No dysuria, No urinary frequency Neurologic: No paralysis, No weakness, No numbness/tingling, No balance problems Medications Current Inpatient Medications Medications (Trade) Dose Ordered Sig/Abisai Route Start Time Stop Time Status Last Admin Dose Admin Gadobutrol (Gadavist) 7.5 mmol UD PRN IV 02/20/17 20:00 02/24/17 19:59 Aspirin (Ecotrin Tab) 81 mg QAM PO 02/21/17 09:00 03/23/17 08:59 02/21/17 09:26 81 MG Miscellaneous Information (Pharmacist Discharge Med Rec Consult) 1 ea UD PRN N/A 02/20/17 20:45 03/22/17 20:44 Enoxaparin Sodium (Lovenox Inj) 40 mg QPM SC 02/20/17 22:30 03/22/17 22:29 02/20/17 23:18 40 MG Acetaminophen (Tylenol Tab) 650 mg Q4H PRN PO 02/20/17 20:45 03/22/17 20:44 Al Hydrox/Mg Hydrox/Simethicone (Maalox Max Susp) 15 ml Q4H PRN PO 02/20/17 20:45 03/22/17 20:44 Magnesium Hydroxide (Milk Of Magnesia Susp) 30 ml Q12H PRN PO 02/20/17 20:45 03/22/17 20:44 Ondansetron HCl (Zofran Inj) 4 mg Q6H PRN IV 02/20/17 20:45 03/22/17 20:44 Nitroglycerin (Nitrostat Tab) 0.4 mg UD PRN SL 02/20/17 20:45 03/22/17 20:44 Polyethylene (Miralax Powder Packet) 17 gm DAILY PRN PO 02/20/17 20:45 03/22/17 20:44 Simvastatin (Zocor Tab) 40 mg PM PO 02/21/17 21:00 03/23/17 20:59 Insulin Aspart (novoLOG ASPART) SLIDING SCALE G... ACHS SC 02/21/17 07:00 03/23/17 06:59 Glucose (Glucose 40% Gel) 15-30 GRAMS 15 GRAMS... UD PRN PO 02/20/17 22:30 03/22/17 22:29 Glucose (Glucose Chew Tab) 4-8 Tablets 4 Tabl... UD PRN PO 02/20/17 22:30 03/22/17 22:29 Dextrose (Dextrose 50% 50ML Syringe) 25-50ML OF 50% DW IV FOR... UD PRN IV 02/20/17 22:30 03/22/17 22:29 Glucagon (Glucagon Inj) 1 mg UD PRN SQ 02/20/17 22:30 03/22/17 22:29 Ceftriaxone Sodium 1 gm/ Dextrose 50 ml @ 100 mls/hr Q24H IV 02/21/17 19:00 02/26/17 18:59 Objective Vital Signs Date Time Temp Pulse Resp B/P (MAP) Pulse Ox O2 Delivery O2 Flow Rate FiO2 02/21/17 07:22 36.7 79 16 155/91 (112) 94 Room Air 02/21/17 04:00 Room Air 02/21/17 03:36 36.4 81 18 193/92 (125) 95 Room Air 02/21/17 00:01 95 Room Air 02/20/17 23:18 37.0 78 16 208/102 (137) 95 Room Air 02/20/17 22:17 36.6 93 16 224/109 98 Room Air 211/106 02/20/17 21:31 69 216/98 96 02/20/17 20:00 87 191/109 96 Room Air 02/20/17 18:19 80 16 180/106 98 Room Air 02/20/17 17:29 83 18 200/100 98 Room Air 02/20/17 16:57 Room Air 02/20/17 16:42 86 02/20/17 16:06 36.4 77 18 193/100 96 Room Air Physical Exam General Appearance: WD/WN, no apparent distress Eyes: PERRL, EOMI, sclerae normal ENT: hearing grossly normal, pharynx normal Neck: supple, no JVD, no carotid bruits Respiratory/Chest: lungs clear, no respiratory distress, no accessory muscle use Cardiovascular: regular rate, rhythm, no edema, no murmur Neurologic/Psychiatric: freezer unloader II-XII nml as tested, no motor/sensory deficits, alert, normal mood/affect, oriented x 3 Assessment and Plan This is the 87-year-old female with a PMH of HTN, HLD and T2DM that presented with double vision and was found to have a small punctate subacute left thalamus ischemic stroke. Diplopia 2/2 thalamic infarct (diplopia resolved) - Confirmed via Brain MRI which also showed extensive small vessel disease - Aspirin 81, Start Simvastatin - HbA1c was 6.7, recently started on metformin as outpatient - LDL 115 and total 205, goal LDL <100 - Permissive HTN for 24-48 hours; hold Losartan for now - Blood pressure recommendations while in hospital 175/95-150/80 (MAPs 90-110) - Neurology consult - ordered echo and MRA of neck to assess for embolic source - Order PT/OT and swallow eval HTN - Hold Losartan UTI: - Rocephin 1 gm q24 h - cultures grew gram negative bacilli - sensitivities pending DM II - Hold metformin - ISS - Accuchecks DVT proph - Lovenox 40 mg q24 Code: Full Resident Physician Supervision Note: I interviewed and examined the patient. Discussed with Dr. Aleksander Mercado and agree with findings and plan as documented in the note. Any exceptions or clarifications are listed here: None This pt is having no residual diplopia, Neurology has recommended CTA of brain and neck, pending echo for cardiac embolic source, pt has not complaints and has done well with therapy modalities so far vitals are stable car is regular neurology has no focal deficits thalamic CVA will use aspirin and reduce risk factors via secondary prevention gram negative uti poa, on rocephin awaiting sensitivities Documented By: Glenn Maciel Continued [facility] stay due to: home environment unsafe for pt Discharge planning: home
--- NOTE | 2017-02-21 12:06 | ECHOCARDIOGRAM REPORT ---
*NOTICE TO RECEIVING [employer] This information is strictly Confidential and protected under [place] law. [place] law prohibits you from making any further disclosure of this information unless further disclosure is expressly permitted by the written consent of the person to whom it pertains or is authorized by law. A general authorization for the release of medical or other information is not sufficient for this purpose. Hospital accepts no responsibility if the information is made available to any other person, INCLUDING THE PATIENT. Interpretation Summary * Name: HSOBHA NICE Study Date: 02/21/2017 09:51 AM BP: 155/91 mmHg * Patient Location: C.2E\S\E212\S\1 HR: 79 * : 1930 (M/d/yyy) Gender: Female Height: 66 in * Age: 87 yrs Ethnicity: [place] Weight: 170 lb * Ordering Physician: Etta Zuñiga * Referring Physician: Steve Persaud * Performed By: Shobha Amaya RDCS * * Reason For Study: STROKE * BSA: 1.9 m2 * -- Conclusions -- * There is mild concentric left ventricular hypertrophy. * Left ventricular systolic function is normal. * Grade I diastolic dysfunction, (abnormal relaxation pattern). * No evidence of PFO during bubble study although image quality was poor. Procedure Details * A saline contrast injection was performed to assess for cardiac shunting. * The injection was performed through an intravenous line in the left arm. * The attending nurse who injected the saline contrast was AMY HODGSON RN. * A total of 20 cc of agitated saline was given. Left Ventricle * The left ventricle is normal in size. * There is mild concentric left ventricular hypertrophy. * Ejection Fraction = 60-65%. * Left ventricular systolic function is normal. * Grade I diastolic dysfunction, (abnormal relaxation pattern). * The left ventricular wall motion is normal. Right Ventricle * The right ventricle is normal in size and function. Atria * The left atrial size is normal. * Right atrial size is normal. * No evidence of PFO during bubble study although image quality was poor. Mitral Valve * The mitral valve is grossly normal. * Significant mitral regurgitation is absent. Tricuspid Valve * The tricuspid valve is not well visualized, but is grossly normal. * Significant tricuspid regurgitation is absent. Aortic Valve * The aortic valve is normal in structure and function. * No hemodynamically significant valvular aortic stenosis. * There is no significant aortic regurgitation. Great Vessels * The aortic root is normal size. Pericardium/Pleural * There is no pericardial effusion. MMode 2D Measurements and Calculations IVSd 1.5 cm IVSs 1.9 cm LVIDd 3.0 cm LVIDs 2.0 cm LVPWd 1.7 cm LVPWs 2.2 cm IVS/LVPW 0.87 FS 32.6 % EDV(Teich) 35.6 ml ESV(Teich) 13.3 ml EF(Teich) 62.6 % EDV(cubed) 27.6 ml ESV(cubed) 8.4 ml EF(cubed) 69.4 % % IVS thick 28.8 % % LVPW thick 30.5 % LV mass(C)d 174.8 grams LV mass(C)dI 93.6 grams/m\S\2 LV mass(C)s 186.6 grams LV mass(C)sI 99.9 grams/m\S\2 SV(Teich) 22.3 ml SI(Teich) 11.9 ml/m\S\2 SV(cubed) 19.1 ml SI(cubed) 10.2 ml/m\S\2 Ao root diam 3.3 cm Ao root area 8.4 cm\S\2 LVAd ap4 26.2 cm\S\2 LVLd ap4 7.5 cm EDV(MOD-sp4) 77.5 ml EDV(sp4-el) 77.6 ml LVAs ap4 13.6 cm\S\2 LVLs ap4 6.3 cm ESV(MOD-sp4) 25.3 ml ESV(sp4-el) 24.6 ml EF(MOD-sp4) 67.3 % EF(sp4-el) 68.3 % SV(MOD-sp4) 52.1 ml SI(MOD-sp4) 27.9 ml/m\S\2 SV(sp4-el) 53.0 ml SI(sp4-el) 28.4 ml/m\S\2 Doppler Measurements and Calculations MV E max gael 49.6 cm/sec MV A max gael 89.5 cm/sec MV E/A 0.55 MV dec time 0.26 sec Ao V2 max 146.4 cm/sec Ao max PG 8.6 mmHg Ao max PG (full) 4.8 mmHg LV V1 max PG 3.8 mmHg LV V1 max 97.1 cm/sec
--- NOTE | 2017-02-21 13:53 | DIAGNOSTIC IMAGING REPORT ---
NECK ANGIO WITH CONTRAST CLINICAL HISTORY: 87 years-old Female presenting with altered mental status, weakness. TECHNIQUE: Multidetector CT angiography of the neck was performed after the administration of intravenous contrast. 3-D volumetric and/or maximum intensity projection (MIP) images were subsequently reconstructed for review. IV contrast: 93 mL of Optiray 320. A dose lowering technique was used consistent with the principles of ALARA (as low as reasonably achievable). Stenosis measurements were based on NASCET-like criteria. COMPARISON: None. CT DOSE (mGy.cm): The estimated cumulative dose is 533.13 mGy.cm. FINDINGS: Ground Support Equipment Mechanic topogram: Cardiomegaly. Stippled calcification in the proximal left humerus could suggest a chondroid lesion. Atherosclerosis of aortic arch. Three-vessel aortic arch with patent origins of the branch vessels. Nonsignificant noncalcified atherosclerotic plaque narrows the proximal left subclavian artery. Calcified atherosclerotic plaque does not significantly narrow the proximal innominate artery. Bilateral common carotid arteries patent. The right internal carotid artery demonstrates slight tortuosity and irregularity proximal to the skull base at the level of C2. No luminal narrowing. There is a linear filling defect at the left carotid bulb (series 2 image 245), which raises concern for a web or limited focal dissection. Alternatively this may represent mixing artifact. The left internal carotid artery demonstrates similar tortuosity and irregularity at the level of C2. Limited intracranial evaluation demonstrates atherosclerosis of the cavernous segments of the internal carotid arteries. Left dominant vertebral artery. Collateral venous opacification in the lower cervical spine somewhat limits evaluation of the proximal courses of the vertebral arteries. Allowing for this, patent origins and courses noted. Polypoid mucosal thickening in the left maxillary sinus. No advanced degenerative change in the cervical spine. Lung apices clear. No gross evidence of lymphadenopathy. IMPRESSION: 1. No convincing evidence of acute dissection, occlusion, or significant stenosis in the cervical vessels. 2. Questionable linear filling defect in the left carotid bulb raises concern for a web or limited focal chronic dissection flap versus mixing artifact. If there is clinical concern, Doppler ultrasound of the cervical vessels could be obtained. 3. Tortuosity and irregularity of the bilateral distal internal carotid arteries proximal to the skull bases. This is likely congenital or secondary to chronic hypertension. Electronically signed by: Matt Russ M.D. 02/21/2017 1:51 PM Dictated Date/Time: 02/21/2017 1:45 PM
[2017-02-21] MEDS ORDERED: ASPEC81 PO (15:31)
--- NOTE | 2017-02-21 15:36 | Discharge Instructions ---
Discharge Instructions Date of Service Feb 21, 2017. Admission Reason for Admission: Cva, Diplopia Discharge Discharge Diagnosis / Problem: Stroke Discharge Goals Goal(s): Improve disease control Activity Recommendations Activity Limitations: per Instructions/Follow-up section Shower/Bathe: no limitations . Instructions / Follow-Up Instructions / Follow-Up You were found to have had a small stroke, you were also found to have had a urinary tract infection. You should continue antibiotics to finish a 7 day course. Follow up with your PCP within a week. Follow up with Neurology within a month. You should take as aspirin and statin daily to prevent further strokes from occurring. Risk Factors for Stroke: You can reduce your chances of stroke by working with your medical provider to adopt a healthy lifestyle. Some specific ways to lower your chance of stroke are: * If you are a smoker, now is the time to stop smoking cigarettes * If you are diabetic, improve the control of your blood sugars * Avoid excessive amounts of alcohol * Control high blood pressure * Lose weight if you are overweight * Be sure to lead an active lifestyle * Eat a healthy diet low in salt, cholesterol and fat You should know about other risk factors for stroke that you are unable to control. These include: * Age 55 years or older * Male gender * Certain racial groups: , or / * Family History of Stroke, Mini stroke or Heart Attack * Sickle Cell Disease Follow Up: It is important for you to keep your follow up appointments with your medical provider. Current Hospital Diet Patient's current hospital diet: Diabetes Type 2 Diet Discharge Diet Recommended Diet: Regular Diet, Diabetes Type 2 Diet Procedures Procedures Performed: Chest Xray, Brain MRI, Head Angiogram, CT of the neck Pending Studies Studies pending at discharge: no Laboratory Results Hemoglobin A1c Test 02/20/17 16:48 Range/Units Estimated Average Glucose 146 mg/dl Hemoglobin A1c 6.7 H 4.5-5.6 % Lipid Panel Test 02/21/17 05:26 Range/Units Triglycerides Level 109 0-150 mg/dl Cholesterol Level 208 H 0-200 mg/dl HDL Cholesterol 71 mg/dl Cholesterol/HDL Ratio 2.9 LDL Cholesterol, Calculated 115 mg/dl Medical Emergencies . Who to Call and When: Medical Emergencies: Call 911 immediately if you experience any of the following warning signs and symptoms of Stroke: * Sudden numbness or weakness of the face, arm or leg, especially on one side of the body * Sudden confusion, trouble speaking or understanding * Sudden trouble seeing in one or both eyes * Sudden trouble walking, dizziness, loss of balance or coordination * Sudden severe headache with no cause Do not delay calling 911 if you experience any warning signs or symptoms of a stroke. Delay in seeking medical attention may affect what treatments can be given to you. . Non-Emergent Contact Non-Emergency issues call your: Primary Care Provider . . "Provider Documentation" section prepared by Suzie Marx. . Stroke Core Measures Reason no t-PA for Stroke: Treatment not indicated Reason no antithrom by day 2: Treatment provided - N/A Reason no antithrom at D/C: Treatment provided - N/A Reason no statin at D/C: Treatment provided - N/A Reason no anticoag w/a fib: Treatment not indicated VTE Core Measure Inpt VTE Proph given/why not?: Enoxaparin (Lovenox)SQ, SCD's
[2017-02-21] MEDS ORDERED: ATOR-24 PO (15:41)
--- NOTE | 2017-02-21 16:32 | DIAGNOSTIC IMAGING REPORT ---
CAROTID DOPPLER NECK ART CLINICAL HISTORY: 87 years-old Female with filling defect noted on L on CTA . Questionable filling defect of the left carotid bulb seen on CTA neck of same day COMPARISON: CTA neck of same day TECHNIQUE: Multiple real time sonographic images of the carotid bifurcations were obtained assessing fernández scale, color Doppler and spectral wave form appearance FINDINGS: RIGHT INTERNAL CAROTID: The peak systolic velocity measured 41 cm/sec. The end diastolic velocity measured 11 cm/sec. The ICA to CCA ratio measured 0.9 which correlates with a stenosis of 0-50%. Minimal atherosclerotic plaquing of the right carotid bulb. LEFT INTERNAL CAROTID: The peak systolic velocity measured 55 cm/sec. The end diastolic velocity measured 15 cm/sec. The ICA to CCA ratio measured 1.3 which correlates with a stenosis of 0-50%. Minimal atherosclerotic plaquing of the left carotid bulb. No dissection identified within the left carotid bulb. There is normal antegrade vertebral flow bilaterally. IMPRESSION: 1. No hemodynamically significant stenosis or significant atherosclerotic plaquing. 2. Normal antegrade vertebral flow bilaterally. The above report was generated using voice recognition software. It may contain grammatical, syntax or spelling errors. Electronically signed by: Shreyas Pérez M.D. 02/21/2017 4:31 PM Dictated Date/Time: 02/21/2017 4:25 PM
[2017-02-21] MEDS ORDERED: NITR-5 PO (17:07)
[2017-02-21] MEDS ORDERED: CEFTRIAXONE SOD INJ 1 GM in DEXTROSE 5% ADD-VANTAGE 50ML 50 ML IV SCH (19:00)
[2017-02-21] MEDS: ENOXAPARIN 40 MG/0.4 ML SYR SC SCH (20:43)
[2017-02-21] MEDS ORDERED: SIMVASTATIN 40 MG TAB PO SCH (21:00)
[2017-02-21] MEDS ORDERED: ATORVASTATIN 40 MG TAB PO SCH (21:00)
[2017-02-22 04:39] VITALS: BP 163/91; PULSE 71; TEMP 36.6; O2SAT 94
[2017-02-22] MEDS: INSULIN ASPART 100 UNITS/ML 3 ML PEN SC SCH ×2 (07:00→11:00)
[2017-02-22 07:32] LABS: BASO % 0.3 %; BASO ABS # 0.02 K/uL (0-0.2); EOS % 2.6 %; EOS ABS # 0.16 K/uL (0-0.5); HEMATOCRIT 39.8 % (37-47); HEMOGLOBIN 13.2 g/dL (12.0-16.0); IG# 0.01 K/uL (0.00-0.02); MEAN CELL VOLUME 92.1 fL (80-100); MEAN CORPUSCULAR HEMOGLOBIN 30.6 pg (25-34); MEAN CORPUSCULAR HGB CONC 33.2 g/dl (32-36); MEAN PLATELET VOLUME 11.2 fL (7.4-10.4); MONO % 10.9 %; MONO ABS # 0.68 K/uL (0.11-0.59); NEUT ABS # 3.38 K/uL (1.4-6.5); PLATELET COUNT 189 K/uL (130-400); RED CELL DISTRIBUTION WIDTH CV 13.1 % (11.5-14.5); RED CELL DISTRIBUTION WIDTH SD 44.2 fL (36.4-46.3); WHITE BLOOD COUNT 6.25 K/uL (4.8-10.8)
[2017-02-22 07:56] VITALS: BP 174/68; PULSE 84; TEMP 36.5; O2SAT 94
[2017-02-22 08:01] LABS: CALCIUM 8.6 mg/dl (8.5-10.1); CREATININE 0.64 mg/dl (0.60-1.20); POTASSIUM 3.5 mmol/L (3.5-5.1)
[2017-02-22] MEDS: ASPIRIN 81 MG ECTAB PO SCH (08:41)
[2017-02-22 11:35] VITALS: BP 171/101; PULSE 76; TEMP 36.4; O2SAT 95
[2017-02-22 11:39] VITALS: BP 160/94
--- NOTE | 2017-02-22 12:15 | Discharge Summary ---
Discharge Summary Date of Service Feb 22, 2017. Discharge Summary Admission Date: Feb 20, 2017 at 21:42 Discharge Date: Feb 21, 2017 Discharge Disposition: Home Principal Diagnosis: Stroke Problems/Secondary Diagnoses: UTI diplopia - resolved Procedures: MRI brain - IMPRESSION: 1. Punctate 4 mm acute infarct within the left thalamus. No mass effect or evidence of hemorrhagic conversion. 2. Mild atrophy and extensive small vessel disease. 3. No masses. CTA neck - IMPRESSION: 1. No convincing evidence of acute dissection, occlusion, or significant stenosis in the cervical vessels. 2. Questionable linear filling defect in the left carotid bulb raises concern for a web or limited focal chronic dissection flap versus mixing artifact. If there is clinical concern, Doppler ultrasound of the cervical vessels could be obtained. 3. Tortuosity and irregularity of the bilateral distal internal carotid arteries proximal to the skull bases. This is likely congenital or secondary to chronic hypertension. Carotid duplex study - IMPRESSION: 1. No hemodynamically significant stenosis or significant atherosclerotic plaquing. 2. Normal antegrade vertebral flow bilaterally. echocardiogram - * -- Conclusions -- * There is mild concentric left ventricular hypertrophy. * Left ventricular systolic function is normal. * Grade I diastolic dysfunction, (abnormal relaxation pattern). * No evidence of PFO during bubble study although image quality was poor. Consultations: Neurology Medication Reconciliation New Medications: Atorvastatin (Lipitor) 40 Mg Tab 1 TAB PO DAILY for 30 Days, #30 TAB 5 Refills Nitrofurantoin Monohyd Macrocr (Macrobid) 100 Mg Cap 100 MG PO BID for 4 Days, #8 CAP Aspirin (Aspirin EC Low Dose) 81 Mg Ectab 81 MG PO QAM for 30 Days, #30 TAB Continued Medications: Calcium Carbonate-Cholecalcife (Caltrate 600+D) 1 Tab Tab 1 TAB PO DAILY Cholecalciferol (Vitamin D3) 1,000 Unit Tab 1 TAB PO DAILY for 30 Days, #30 TAB 5 Refills Losartan Potassium (Cozaar) 25 Mg Tab 25 MG PO DAILY, TAB Metformin Hcl (Glucophage) Unknown Strength Tab 500 MG PO BID, TAB Multiple Vitamins W/ Minerals (Preservision Areds) 1 Cap Cap 1 CAP PO DAILY Timolol Maleate (Ophth) (Timoptic) 0.5 % Norma 1 DROPS OPB HS for 60 Days, #10 ML 3 Refills Discharge Exam Patient had an episode of double vision that lasted for 7 minutes yesterday evening She denies any balance problems, denies arm/leg weakness, denies any palpitations, chest pain, slurred speech or difficulty swallowing Review of Systems: Constitutional: No chills, No sweats, No weight loss, No fatigue Eyes: + diplopia, No worsening of vision, No eye pain Respiratory: No cough, No sputum, No shortness of breath, No dyspnea on exertion Cardiovascular: No chest pain, No edema, No palpitations Abdomen: No pain, No nausea, No vomiting Musculoskeletal: No joint pain, No muscle pain Neurologic: No paralysis, No weakness, No numbness/tingling, No balance problems Physical Exam: General Appearance: WD/WN, no apparent distress Neck: supple, no JVD, no carotid bruits, trachea midline Respiratory/Chest: lungs clear, no respiratory distress, no accessory muscle use Cardiovascular: regular rate, rhythm, no murmur, normal peripheral pulses Abdomen / GI: normal bowel sounds, non tender, soft Neurologic/Psychiatric: 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 Diplopia 2/2 thalamic infarct (diplopia resolved) - Confirmed via Brain MRI which also showed extensive small vessel disease - MRA neck showed tortuosity and irregular bilateral internal carotid arteries ( likely congenital) - Carotid US = patent - Echo with grade 1 DD and normal EF - Aspirin 81, Start statin - HbA1c was 6.7, recently started on metformin as outpatient - LDL 115 and total 205, goal LDL <100 - Blood pressure recommendations while in hospital 175/95-150/80 (MAPs 90-110) - Blood pressure recommendations for the first month post hospital discharge 150 /90-130/80, and after that blood pressure recommendations 130/80-110/70 - Patient cleared by PT/OT and passed swallow evaluations - Patient is going to go home with 30 day event monitor to check for possible cause of the stroke - Follow up with Dr. Zuñiga in 2 weeks HTN - Continue losartan and view blood pressure recommendations above UTI: - Rocephin 1 gm q24 h - cultures grew gram negative bacilli - pansensitive - discharged on 4 days of macrobid DM II - HbA1c 6.7 - Continue metformin as outpatient DVT proph - Lovenox 40 mg q24 Code: Full Resident Physician Supervision Note: I was present with PGY2 Dr. Aleksander Mercado during the discharge history and exam. I discussed the case with the resident and agree with the findings and plan as documented in the note. Any exceptions or clarifications are listed here: none. 87yo female with h/o HTN & T2DM who presented with diplopia. Underwent extensive stroke work-up and on MRI brain a small left-sided thalamic infarct was seen. She was seen in consult by neurology, PT, OT, and speech. Aspirin for secondary stroke prevention was recommended as was high-intensity statin therapy. Her diplopia resolved prior to discharge. An exact etiology for the stroke was not found. To be complete a 30-day event monitor was recommended and will be set up for her after discharge. Discharge exam: gen - NAD eyes - EOMI, PERRL neck - no JVD heart - RRR lungs - CTA b/l abd - soft, NT ext - no edema neuro - strength 5/5 x 4 exts; no facial droop; speech clear/fluent Documented By: Zoltan Marcum MD Total Time Spent: Greater than 30 minutes This includes examination of the patient, discharge planning, medication reconciliation, and communication with other providers. Discharge Instructions Please refer to the electronic Patient Visit Report (Discharge Instructions) for additional information. Follow-Up 1. Sammie Delgado PA-C on MondayFebruary 24 at 11:15 am. 2. [facility] Neurology Office with Bernie Garcia PA-C on MondayMarch 20 at 10:00 am. Additional Copies To Sammie Delgado PA-C; Steve Persaud M.D.; Etta Zuñiga D.O.
--- NOTE | 2017-02-22 13:25 | Pharmacy Progress Note ---
Pharmacist Stroke Counseling Date of Service Feb 22, 2017. Scope Pharmacy has been consulted to provide medication discharge counseling for this patient admitted with ischemic stroke/hemorrhagic stroke/ transient ischemic attack as per the Pharmacist Discharge Counseling for Stroke Patients Protocol. Medications on Discharge New Medications: Atorvastatin (Lipitor) 40 Mg Tab 1 TAB PO DAILY for 30 Days, #30 TAB 5 Refills Nitrofurantoin Monohyd Macrocr (Macrobid) 100 Mg Cap 100 MG PO BID for 4 Days, #8 CAP Aspirin (Aspirin EC Low Dose) 81 Mg Ectab 81 MG PO QAM for 30 Days, #30 TAB Continued Medications: Calcium Carbonate-Cholecalcife (Caltrate 600+D) 1 Tab Tab 1 TAB PO DAILY Cholecalciferol (Vitamin D3) 1,000 Unit Tab 1 TAB PO DAILY for 30 Days, #30 TAB 5 Refills Losartan Potassium (Cozaar) 25 Mg Tab 25 MG PO DAILY, TAB Metformin Hcl (Glucophage) Unknown Strength Tab 500 MG PO BID, TAB Multiple Vitamins W/ Minerals (Preservision Areds) 1 Cap Cap 1 CAP PO DAILY Timolol Maleate (Ophth) (Timoptic) 0.5 % Norma 1 DROPS OPB HS for 60 Days, #10 ML 3 Refills Action The above medications, specifically ones for stroke treatment/prophylaxis, have been reviewed in detail with the patient and/or patient hospital insurance representative(s) prior to discharge. This includes indication, common adverse reactions, drug interactions, and medication administration. Medication counseling has been employed using the teach-back method to ensure understanding. Outcome The patient and/or patient hospital insurance representative(s) have demonstrated understanding of the medications. Please note, they are aware that the pharmacist will call them within 72 hours post-discharge to confirm that the appropriate medications are being taken and answer any further medication related questions the patient might have at that time. Contact information Individual to be contacted: Patient (Shobha Katy) or Tee Umaña Relationship to patient (if applicable): Friend- same number Phone number: [phone] Best time to call: Anytime (Patient says they might not get to phone first time it rings) Additional comments: Patient likes to eat grapefruit. Instructed patient to avoid grapefruit and grapefruit juice as it can increase the risk of adverse events including more serious events (described possible side effects). Thank you for allowing pharmacy to be involved in the care of this patient. Please call [phone] or [phone] with any additional questions
[2017-02-22] MEDS ORDERED: LOSA50TA54 PO (14:46)
[2017-02-22 15:29] VITALS: BP 155/87; PULSE 78; TEMP 36.4; O2SAT 98
--- NOTE | 2017-03-01 16:01 | Pharmacy Progress Note ---
Pharmacist Post D/C Phone Note Date of phone call: Mar 01, 2017. Individual with whom pharmacist spoke to: Simultaneously spoke with the patient, Shobha Katy and Tee Umaña (lives with her) The following questions were reviewed during the phone call with responses listed below each: Can you tell me the medications that you are currently taking as well as when and how you take each medication? - Taking aspirin and atorvastatin as prescribed as part of the stroke protocol When have you missed any doses of your medications? - She has been compliant with her new medications What side effects are you having from your medications? - She has tolerated the new medications without any side effects What questions do you have about your medications? - She asked if it was okay to take 2 x 25mg Losartan to use up her old supply. She was prescribed Losartan 50mg upon discharge. I assured her that taking 2 x 25mg tabs would result in the same effects as 1 x 50mg tabs. I also iterated it is crucial not to take both tablet forms concurrently which she understood. - She also mentioned the grapefruit drug interaction and questioned the necessity of not taking grapefruit. I assured her that this interaction is real and she conceded that she will willingly give up eating grapefruit. - Her final question was in regards to the time of day to take atorvastatin. Her primary care physician suggested that she take it in the evening. I assured her that evening dosing is generally a good idea with many of the statins. I also discussed that this is not absolutely necessary with atorvastatin and that compliance is the over riding importance. She thought should would not have a problem with evening dosing. What problems are you having obtaining your medications? - No problems When is your next appointment with your primary care doctor? 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 Thank you for allowing us to be involved in the care of this patient.
== END 2017-02-22 15:50 | disposition home or self-care (01) | DRG 65 ==
LOC: C.EDB 16:02 → EDBEDREQ 20:53 → ENRESERV 21:19 → C.2E 21:42
PROVIDERS: ADMIT Internal Medicine; ATTEND Internal Medicine
DX: I63.8 Other cerebral infarction (principal); Q28.1 Other malformations of precerebral vessels; N39.0 Urinary tract infection, site not specified; I67.89 Other cerebrovascular disease; B96.89 Other specified bacterial agents as the cause of diseases classified elsewhere; H53.2 Diplopia; I10 Essential (primary) hypertension; E11.9 Type 2 diabetes mellitus without complications; E78.5 Hyperlipidemia, unspecified; Z82.3 Family history of stroke; Z79.84 Long term (current) use of oral hypoglycemic drugs; Z79.899 Other long term (current) drug therapy

== ENCOUNTER 2021-05-04 13:16 | Inpatient (IN) ==
--- NOTE | 2021-05-04 13:40 | Emergency Department Note ---
History of Present Illness General Chief complaint: GI Bleed Time Seen by Provider: 05/04/21 13:29 Source: patient History of Present Illness Provider complaint: Abdominal pain and diarrhea Onset (ago): day(s) 2 Location: abdomen Pain Consistency: + constant Quality: + aching Relieved By: + none Associated symptoms: + weakness; no chest pain, no cough, no fever/chills, no nausea/vomiting or no shortness of breath This is an 89-year-old female who presents with abdominal pain and diarrhea since yesterday. She states the diarrhea is very loose and watery. She is not sure if there is any blood in it. She has also had diffuse abdominal pain which she describes as aching. No modifying factors. No associated vomiting. She has had no fevers, cough or cold symptoms, chest pain, or shortness of breath. She was just discharged from the hospital for kidney infection and had a nephrostomy tube placed in . She states that she feels weak. She is on a blood thinner for atrial fibrillation. She takes Eliquis daily. She last took a dose at 9 AM today. She denies ever having a partner integration planner or colonoscopy or endoscopy. I did later speak to her partner who came to the emergency department. He states that she has been having liquidy dark stools for 2 days. Home Medications Medication Instructions Recorded Confirmed Type aspirin 81 mg tablet,delayed 81 mg PO DAILY #90 tab 09/17/18 05/04/21 History release cholecalciferol (vitamin D3) 25 1,000 units PO DAILY cap 09/17/18 05/04/21 History mcg (1,000 unit) capsule timolol maleate 0.5 % once daily 1 drops OP HS ml 09/17/18 05/04/21 History eye drops vitamins A,C,W-nhkn-gdasva 14,320 1 cap PO BID 09/17/18 05/04/21 History unit-226 mg-200 unit capsule (PreserVision AREDS) amlodipine 5 mg tablet 5 mg PO DAILY #90 tab 10/19/20 05/04/21 Rx polyethylene glycol 3350 17 17 g PO DAILY PRN #119 g 10/21/20 05/04/21 Rx gram/dose oral powder (Miralax) telmisartan 80 mg tablet 80 mg PO DAILY #90 tab 11/13/20 05/04/21 Rx alendronate 70 mg tablet 70 mg PO WEEKLY #12 tab 11/30/20 05/04/21 Rx metformin 1,000 mg tablet 1,000 mg PO PM #90 tab 01/04/21 05/04/21 Rx rosuvastatin 20 mg tablet 20 mg PO DAILY #90 tab 01/04/21 05/04/21 Rx calcium citrate 200 mg 1 tab PO BID 04/23/21 05/04/21 History calcium-vitamin D3 3.125 mcg (125 unit) tablet apixaban 2.5 mg tablet (Eliquis) 0 mg PO BID 05/04/21 05/04/21 History diltiazem HCl 30 mg tablet 30 mg PO Q6H 05/04/21 05/04/21 History sulfamethoxazole 800 1 tab PO BID 05/04/21 05/04/21 History mg-trimethoprim 160 mg tablet Allergies Allergy/AdvReac Type Severity Reaction Status Date / Time No Known Allergies Allergy Verified 05/04/21 15:07 Past Med/Surg History Medical History Age-related macular degeneration, dry, both eyes Disc degeneration, lumbar Glaucoma Hyperlipidemia Left knee pain Microalbuminuria Osteoporosis Right lumbar radiculopathy Type II diabetes mellitus with complication Surgical History H/O hemorrhoidectomy History of tonsillectomy and adenoidectomy Family History Unknown Diabetes Denies family history of Ovarian cancer Prostate cancer Breast cancer Lung cancer Colorectal cancer Social History Smoking Status: Unknown if ever smoked Second Hand Exposure: No; Hx Alcohol Use: No Hx Substance Use: No Preferred Language: Turkmen Communication Ability: Effective Visual Impairment: Limited Hearing Ability: Normal Desilverizer Required: No marital status: / Current Living Situation: Family current occupational status: retired Feels Safe at Home: Yes Childhood Exposure to Second-Hand Smoke: No caffeine: Yes Dental Care, Regularly: Yes Physical Activity Frequency: Does not Exercise Seatbelt Use: always Sunscreen Use: Yes (does not go outside) Review of Systems See HPI for pertinent positives & negatives. and A total of 10 systems reviewed and were otherwise negative Physical Exam Vital Signs Vital Signs - 24 hr 05/04/21 14:04 05/04/21 14:47 05/04/21 15:40 Temperature 36.6 C 36.6 C Temperature Source Oral Oral Pulse Rate 94 H 88 96 H Pulse Rhythm Regular Regular Pulse Strength Normal Respiratory Rate 18 14 26 H Respiratory Effort / Characteristics Nasal Flaring Respiratory Depth Normal Normal Respiratory Pattern Regular Blood Pressure 91/57 L 88/51 L Blood Pressure Mean 68 63 Blood Pressure Position Lying Pulse Oximetry 100 99 99 Oxygen Delivery Method Room Air Room Air Sepsis Recent Fever Within 48 Hours Yes Sepsis New/Unexplained Change in Mental Status N/A Sepsis Action Taken by Nursing No Action Required 05/04/21 15:56 Temperature 36.4 C L Temperature Source Oral Pulse Rate 70 Pulse Rhythm Pulse Strength Respiratory Rate 24 Respiratory Effort / Characteristics Respiratory Depth Respiratory Pattern Blood Pressure 73/56 L Blood Pressure Mean 61 Blood Pressure Position Pulse Oximetry 99 Oxygen Delivery Method Sepsis Recent Fever Within 48 Hours Sepsis New/Unexplained Change in Mental Status Sepsis Action Taken by Nursing Constitutional: Vital signs reviewed. Hypotensive and pale. BP 91/57 Eyes: Pupils are equal round reactive to light. Conjunctiva are noninjected. ENT: Pharynx is clear without erythema or exudate. Mucous membranes are moist. Neck supple without meningeal signs. Respiratory: Clear to auscultation bilaterally. Breath sounds are equal bilaterally. Cardiovascular: Irregularly irregular rhythm. Normal rate. GI: Soft, nondistended with diffuse abdominal tenderness without guarding. Bowel sounds are present. Nephrostomy tube left flank with blood-tinged urine in the collection bag. Musculoskeletal: Bilateral pitting edema to lower extremities. No lower extremity tenderness. Integumentary: No cyanosis. or jaundice. Neurological: The patient is lethargic but answers questions appropriately. Psychiatric: Anxious appearing. Course Consultations Consultation #1: Dr. Castrejon. Discussed case with her. She will order 2000 units of Kcentra due to her critical illness. Time: 02:00 Consultation #2: Sammie Miller/Dr. Ruiz of gastroenterology. They will see her in the emergency department. They called back at 1420 to state that the patient is a [facility] patient and we should call [facility] gastroenterology. I did have the elementary secretary call. Time: 14:11 Consultation #3: Dr. Ardon of gastroenterology recommended keeping the patient n.p.o. for endoscopy once patient is more hemodynamically stable Time: 14:31 Administered Medications Prothrombin Complex Concent ( (Human) 2,000 units/ Syringe) 80 mls @ 10 mls/min IV 1430 MELONY; Protocol Stop: 05/04/21 17:00 Last Admin: 05/04/21 14:27 Dose: 10 mls/min Documented by: [id number] Parenteral Electrolytes (Plasma-Lyte A) 1,000 mls @ 999 mls/hr IV .Q1H1M ONE Stop: 05/04/21 16:13 Last Admin: 05/04/21 15:53 Dose: 999 mls/hr Documented by: [id number] Discontinued Medications Dextrose (Dextrose 50% 50 Ml Syringe) 20 ml IV NOW ONE Stop: 05/04/21 15:11 Last Admin: 05/04/21 15:47 Dose: 20 ml Documented by: [id number] Sodium Chloride (Nss 1000ml) 1,000 mls @ 999 mls/hr IV .Q1H1M MELONY Stop: 05/04/21 14:45 Last Admin: 05/04/21 14:02 Dose: 999 mls/hr Documented by: [id number] Pantoprazole Sodium (Protonix Bolus/Drip) 0 mls @ 1 mls/hr IV ONE STA Stop: 05/04/21 13:54 Last Admin: 05/04/21 14:28 Dose: Not Given Documented by: [id number] Pantoprazole Sodium 80 mg/ (Dextrose) 120 mls @ 400 mls/hr IV NOW ONE Stop: 05/04/21 14:10 Last Admin: 05/04/21 14:28 Dose: 400 mls/hr Documented by: [id number] Calcium Gluconate () 1,000 mg in 60 mls @ 240 mls/hr IV NOW STA Stop: 05/04/21 15:34 Last Admin: 05/04/21 15:48 Dose: 240 mls/hr Documented by: [id number] Insulin Human Regular (Novolin-R Insulin Per Unit Charge) 10 units IV NOW STA Stop: 05/04/21 15:11 Last Admin: 05/04/21 15:49 Dose: 10 units Documented by: [id number] Cosigned by: [id number] Critical Care Time Critical Care Time: Yes Total Critical Care Time: 75 I have personally spent approximately 75 minutes of critical care time in the direct management of this patient. This includes bedside care, interpretation of diagnostic studies, and testing, discussion with consultants, patient, and family members, and other required patient management activities. These minutes are in excess of all separately billable procedures. Medical Decision Making Differential Diagnosis C. difficile colitis, dehydration, electrolyte abnormality, GI bleed, anemia, enteritis Medical Records Attestation: I reviewed the patient's medical records. I did perform a limited focused review of portions of the patient's old chart on the electronic medical record. The patient was just discharged from the hospital April 27 at for OCTAVIO, pyelonephritis and a left UPJ stone. She had a nephrostomy tube placed. Her last available creatinine was 1.72 on April 24 per the [facility] records. She was started on Eliquis and diltiazem at . Home Medications Current Medication List: was personally reviewed by me Laboratory Data Attestation: I reviewed the patient's lab results. Result diagrams: 05/04/21 13:45 05/04/21 13:45 Lab Results 05/04/21 05/04/21 05/04/21 Range/Units 13:45 13:45 13:45 WBC 16.89 H (4.8-10.8) K/uL RBC 2.25 L (4.2-5.4) M/uL Hgb 6.9 L* (12.0-16.0) g/dL Hct 21.5 L (37-47) % MCV 95.6 (80-100) fL MCH 30.7 (25-34) pg MCHC 32.1 (32-36) g/dL RDW Std Deviation 53.6 H (36.4-46.3) fL RDW Coeff of Cas 15.3 H (11.5-14.5) % Plt Count 477 H (130-400) K/uL MPV 11.9 H (7.4-10.4) fL Immature Gran % (Auto) 3.1 % Neut % (Auto) 73.2 % Lymph % (Auto) 16.9 % [place] % (Auto) 6.1 % Eos % (Auto) 0.4 % Baso % (Auto) 0.3 % Neut # (Auto) 12.37 H (1.4-6.5) K/uL Lymph # (Auto) 2.85 (1.2-3.4) K/uL [place] # (Auto) 1.03 H (0.11-0.59) K/uL Eos # (Auto) 0.06 (0-0.5) K/uL Baso # (Auto) 0.05 (0-0.2) K/uL Immature Gran # (Auto) 0.53 H (0.00-0.02) K/uL Echinocytes 1+ Schistocytes 1+ PT 16.4 H (9.0-12.0) Seconds INR 1.6 H (0.9-1.1) APTT 23.4 (21.0-31.0) Seconds PTT Ratio 0.9 Sodium 136 (136-145) mmol/L Potassium 5.9 H (3.5-5.1) mmol/L Chloride 107 (98-107) mmol/L Carbon Dioxide 15 L (21-32) mmol/L Anion Gap 14 H (3-11) BUN 66 H (6-23) mg/dl Creatinine 1.89 H (0.6-1.2) mg/dl Est Cr Clr Drug Dosing 20.3 ml/min Est GFR ( Amer) 26.8 ml/min Est GFR (Non-Af Amer) 23.1 ml/min BUN/Creatinine Ratio 34.9 H (10-20) Glucose 246 H (70-99(Fasting)) mg/dl Lactate (0.4-2.0) mmol/L Calcium 8.9 (8.5-10.1) mg/dl Total Bilirubin 0.2 (0.2-1.0) mg/dl AST 23 (13-39) U/L ALT 35 (7-52) U/L Alkaline Phosphatase 61 (34-104) U/L Troponin I < 0.03 (0-0.04) ng/ml Total Protein 4.8 L (6.0-8.3) gm/dl Albumin 2.7 L (3.4-5.0) gm/dl Globulin 2.1 L (2.5-4.0) gm/dl Albumin/Globulin Ratio 1.3 (0.9-2) SARS-CoV-2, RNA, NAAT (NEGATIVE) Blood Type Blood Type Recheck Antibody Screen Crossmatch 05/04/21 05/04/21 05/04/21 Range/Units 14:13 14:13 14:15 WBC (4.8-10.8) K/uL RBC (4.2-5.4) M/uL Hgb (12.0-16.0) g/dL Hct (37-47) % MCV (80-100) fL MCH (25-34) pg MCHC (32-36) g/dL RDW Std Deviation (36.4-46.3) fL RDW Coeff of Cas (11.5-14.5) % Plt Count (130-400) K/uL MPV (7.4-10.4) fL Immature Gran % (Auto) % Neut % (Auto) % Lymph % (Auto) % [place] % (Auto) % Eos % (Auto) % Baso % (Auto) % Neut # (Auto) (1.4-6.5) K/uL Lymph # (Auto) (1.2-3.4) K/uL Denton # (Auto) (0.11-0.59) K/uL Eos # (Auto) (0-0.5) K/uL Baso # (Auto) (0-0.2) K/uL Immature Gran # (Auto) (0.00-0.02) K/uL Echinocytes Schistocytes PT (9.0-12.0) Seconds INR (0.9-1.1) APTT (21.0-31.0) Seconds PTT Ratio Sodium (136-145) mmol/L Potassium (3.5-5.1) mmol/L Chloride (98-107) mmol/L Carbon Dioxide (21-32) mmol/L Anion Gap (3-11) BUN (6-23) mg/dl Creatinine (0.6-1.2) mg/dl Est Cr Clr Drug Dosing ml/min Est GFR ( Amer) ml/min Est GFR (Non-Af Amer) ml/min BUN/Creatinine Ratio (10-20) Glucose (70-99(Fasting)) mg/dl Lactate 5.6 H* (0.4-2.0) mmol/L Calcium (8.5-10.1) mg/dl Total Bilirubin (0.2-1.0) mg/dl AST (13-39) U/L ALT (7-52) U/L Alkaline Phosphatase (34-104) U/L Troponin I (0-0.04) ng/ml Total Protein (6.0-8.3) gm/dl Albumin (3.4-5.0) gm/dl Globulin (2.5-4.0) gm/dl Albumin/Globulin Ratio (0.9-2) SARS-CoV-2, RNA, NAAT NEGATIVE (NEGATIVE) Blood Type A Positive Blood Type Recheck Antibody Screen NEGATIVE Crossmatch See Detail 05/04/21 Range/Units 14:39 WBC (4.8-10.8) K/uL RBC (4.2-5.4) M/uL Hgb (12.0-16.0) g/dL Hct (37-47) % MCV (80-100) fL MCH (25-34) pg MCHC (32-36) g/dL RDW Std Deviation (36.4-46.3) fL RDW Coeff of Cas (11.5-14.5) % Plt Count (130-400) K/uL MPV (7.4-10.4) fL Immature Gran % (Auto) % Neut % (Auto) % Lymph % (Auto) % [place] % (Auto) % Eos % (Auto) % Baso % (Auto) % Neut # (Auto) (1.4-6.5) K/uL Lymph # (Auto) (1.2-3.4) K/uL [place] # (Auto) (0.11-0.59) K/uL Eos # (Auto) (0-0.5) K/uL Baso # (Auto) (0-0.2) K/uL Immature Gran # (Auto) (0.00-0.02) K/uL Echinocytes Schistocytes PT (9.0-12.0) Seconds INR (0.9-1.1) APTT (21.0-31.0) Seconds PTT Ratio Sodium (136-145) mmol/L Potassium (3.5-5.1) mmol/L Chloride (98-107) mmol/L Carbon Dioxide (21-32) mmol/L Anion Gap (3-11) BUN (6-23) mg/dl Creatinine (0.6-1.2) mg/dl Est Cr Clr Drug Dosing ml/min Est GFR ( Amer) ml/min Est GFR (Non-Af Amer) ml/min BUN/Creatinine Ratio (10-20) Glucose (70-99(Fasting)) mg/dl Lactate (0.4-2.0) mmol/L Calcium (8.5-10.1) mg/dl Total Bilirubin (0.2-1.0) mg/dl AST (13-39) U/L ALT (7-52) U/L Alkaline Phosphatase (34-104) U/L Troponin I (0-0.04) ng/ml Total Protein (6.0-8.3) gm/dl Albumin (3.4-5.0) gm/dl Globulin (2.5-4.0) gm/dl Albumin/Globulin Ratio (0.9-2) SARS-CoV-2, RNA, NAAT (NEGATIVE) Blood Type Blood Type Recheck A Positive Antibody Screen Crossmatch Imaging Data Radiologist's Impression: Chest X-Ray 05/04/21 13:36 XR chest 1V portable CLINICAL HISTORY: weakness. Evaluate cardiopulmonary status COMPARISON STUDY: 02/20/2017 TECHNIQUE: 1 view of the chest FINDINGS: Single frontal view of the chest demonstrates the cardiomediastinal silhouette to be within normal limits. There is a decreased inspiratory effort with elevation of the hemidiaphragms and crowding of the bronchovascular markings at the lung bases and centrally. The lungs are clear of alveolar opacities. Subcentimeter calcified granulomas again seen at the right lung base. There is no evidence for pleural effusion. There is no evidence for vascular congestion. There is no acute osseous pathology. IMPRESSION: 1. Compared to the previous study, there is a decreased inspiratory effort with otherwise no acute chest disease. ACT 112: Negative or not required by law. Electronically signed by: Bravo Jackson M.D. 05/04/2021 3:33 PM Abdomen/Pelvis CT 05/04/21 13:[address] WITHOUT CONTRAST CT DOSE: 409.75 mGy.cm HISTORY: Generalized abdominal pain. Bloody stool. TECHNIQUE: Multiaxial CT images of the abdomen and pelvis were performed without contrast. A dose lowering technique was utilized adhering to the principles of ALARA. COMPARISON STUDY: Abdomen and pelvis CT 04/23/2021. FINDINGS: Calcified granuloma within the right lower lobe. The left lung base is clear. No pneumoperitoneum. No pneumatosis. Degenerative changes within the lower lumbar spine. Small fat-containing left inguinal hernia, unchanged. There is mild body wall edema. Subtle 2 cm hypodense focus within the left side of the bladder demonstrating peripheral density. This may represent a small amount of residual contrast or calcification within the bladder. This is best seen image 366. The bladder is decompressed. The uterus and bilateral adnexa are unremarkable. Fluid-filled nondilated loops of large and small bowel seen throughout the abdomen. This favors a gastroenteritis/diarrheal illness. No evidence for bowel obstruction. No retroperitoneal lymphadenopathy. Calcified plaque within the normal caliber abdominal aorta. Nodular contour to the right hepatic lobe measuring early cirrhosis. Punctate calcified splenic granulomas are noted. Stable hypodense lesion within the splenic dome. The adrenal glands are unremarkable. Normal pancreas. Mild wall thickening and adjacent inflammatory change at the second and third portions of the duodenum. This may represent mild duodenitis. Acute pancreatitis could also a similar appearance but is considered less likely. Stable cysts within the lower pole the right kidney measuring 5.8 cm. No right-sided hydronephrosis. Interval placement of a left percutaneous nephrostomy tube which appears in good position. The looped portion of the catheter surrounds the 2.2 cm stone within the left renal pelvis. Small focus of gas within the left renal collecting system persists. There is mild left perinephric edema, unchanged. No left-sided hydronephrosis. IMPRESSION: 1. Mild nonspecific wall thickening and adjacent inflammatory change at the se cond and third portion of the duodenum. This favors a duodenitis. Acute pancreatitis could also have a similar appearance but is considered less likely. Recommend correlation with pancreatic enzymes. 2. Nondilated fluid-filled loops of large and small bowel likely representing a diarrheal illness/gastroenteritis. 3. Interval placement left-sided percutaneous nephrostomy tube which appears in good position. The catheter loops around the 2.2 cm stone within the left renal pelvis. No hydronephrosis. Small of gas within the left renal collecting system is likely due to the nephrostomy tube. 4. Subtle 2 cm hypodense focus within the left side of the bladder demonstrating peripheral density. This may represent a small amount of residual contrast or calcification within the bladder. Consider follow-up cystoscopy for further evaluation. 5. Additional findings as described above. ACT 112: Negative or not required by law. Electronically signed by: Guillermo Siddiqui M.D. 05/04/2021 3:17 PM ECG Data Attestation: I personally reviewed and interpreted this ECG as follows: Indication: + weakness Rate (beats per minute): 96 Rhythm: + atrial fibrillation ECG Intervals/blocks: + Normal QRS ECG Findings: no PVCs or no Peaked T waves Comparison ECG Date: from (04/23/2021) Change: no significant change MDM Narrative I did evaluate the patient as noted above. She is presenting with abdominal pain and diarrhea since yesterday. She states the diarrhea is very watery. She has diffuse pain throughout her abdomen especially in the upper portion. She is tender on exam. She is hypotensive with a hemoglobin of 91/57. She did defecate in a commode here and it was filled with liquidy melanotic stools. 2 large-bore IV access was established. I did obtain informed consent for transfusion and ordered a type and cross with transfusion of 2 units. I-STAT labs demonstrate a hemoglobin of 7.1. She was given a bolus of normal saline IV. She was given a bolus of Protonix and started on a drip. I did speak to Dr. Castrejon who did order 2000 units of Kcentra. I did place an order for continuous cardiac monitoring. The monitor showed she has atrial fibrillation at a rate of 85 bpm. I did order and personally review the patient's 12-lead EKG as described above. She has atrial fibrillation without widening of the QRS or peaked T waves. I did order and personally reviewed the images of the patient's chest x-ray as described above. There is no evidence of pneumonia.I did order and review the patient's blood work as noted in the electronic medical record. Her white count is 16.8. Hemoglobin is down from 13-6.9 today. Platelet count is 477. INR is 1.6. Creatinine is 1.89 with hyperkalemia with a potassium of 5.9. I did treat her with 10 units of regular IV insulin and 20 mL of dextrose 50. I did not treat her with IV calcium and she has no significant EKG changes. Her glucose is 246 here. CO2 is 15 and BUN is 66. Lactate is e levated at 5.6. Troponin is negative. I did discuss the case with the partner integration planner on-call as noted above. I did discuss the case with the hospitalist and case consultant. I did order a CT of the abdomen and pelvis. I did review the images myself as well as the radiology report as described above. CT demonstrates a mild nonspecific thickening and inflammatory changes at the second and third portion of the duodenum. There are nondilated fluid-filled loops of large and small bowel. I did reassess the patient multiple times. I did update the patient as well as her partner. Her blood pressure improved significantly with IV fluids but then her blood pressure dropped again to 73/56. The blood transfusion was started here in the emergency department. The patient was sent to the ICU for further management. I did call back Dr. Ardon of GI to inform him of her status. Impression & Plan Acute upper gastrointestinal bleeding, Hypotension due to blood loss, Anemia due to blood loss, Acute hyperkalemia, Anticoagulated, Acute kidney injury superimposed on CKD, Hyperglycemia Discharge Plan Visit Data Chief Complaint: GI Bleed ED Provider: Glenn Jalloh Discharge Problem: Acute upper gastrointestinal bleeding, Hypotension due to blood loss, Anemia due to blood loss, Acute hyperkalemia, Anticoagulated, Acute kidney injury superimposed on CKD, Hyperglycemia Patient Disposition: Being Evaluated by Hospitalist Forms Stand Alone Forms: [facility] [employer] Prescriptions Prescriptions: No Action amlodipine 5 mg tablet 5 mg PO DAILY Qty: 90 RF: 3 telmisartan 80 mg tablet 80 mg PO DAILY Qty: 90 RF: 3 alendronate 70 mg tablet 70 mg PO WEEKLY Qty: 12 RF: 3 metformin 1,000 mg tablet 1,000 mg PO PM Qty: 90 RF: 3 rosuvastatin 20 mg tablet 20 mg PO DAILY Qty: 90 RF: 3 aspirin 81 mg tablet,delayed release (DR/EC) 81 mg PO DAILY Qty: 90 RF: 0 cholecalciferol (vitamin D3) 1,000 unit capsule 1,000 units PO DAILY RF: 0 PreserVision AREDS [id number] capsule 1 cap PO BID RF: 0 timolol maleate 0.5 % drops, once daily 1 drops OP HS RF: 0 polyethylene glycol 3350 [Miralax] 17 gram/dose powder 17 g PO DAILY PRN (Reason: constipation) Qty: 119 RF: 0 calcium citrate-vitamin D3 200 mg-3.125 mcg (125 unit) Tablet 1 tab PO BID RF: 0 sulfamethoxazole-trimethoprim 800-160 mg tablet 1 tab PO BID RF: 0 diltiazem HCl 30 mg tablet 30 mg PO Q6H RF: 0 Eliquis 2.5 mg Tablet 0 mg PO BID RF: 0 Referrals Referrals: Sabas Phillip, [Primary Care Provider] -
[2021-05-04] MEDS ORDERED: SODIUM CHLORIDE 0.9% 1000ML 1,000 ML IV SCH (13:45)
[2021-05-04] MEDS ORDERED: PANTOPRAZOLE BOLUS/DRIP 1 EA IV STA (13:53)
[2021-05-04] MEDS ORDERED: PANTOprazole 80 MG in DEXTROSE 5% 100 ML IV ONE (13:53)
[2021-05-04] MEDS ORDERED: SODIUM CHLORIDE 0.9% 250 ML IV PRN (13:53)
[2021-05-04 14:07] LABS: INR 1.6 (0.9-1.1); Partial Thromboplastin Ratio 0.9; Partial Thromboplastin Time 23.4 Seconds (21.0-31.0); Prothrombin Time 16.4 Seconds (9.0-12.0)
[2021-05-04 14:12] LABS: Basophils # (auto) 0.05 K/uL (0-0.2); Basophils % (auto) 0.3 %; Echinocytes 1+; Eosinophils # (auto) 0.06 K/uL (0-0.5); Eosinophils % (auto) 0.4 %; Hematocrit (blood only) 21.5 % (37-47); Hemoglobin 6.9 g/dL (12.0-16.0); Immature Granulocytes # (auto) 0.53 K/uL (0.00-0.02); Immature Granulocytes % (auto) 3.1 %; Lymphocytes # (auto) 2.85 K/uL (1.2-3.4); Lymphocytes % (auto) 16.9 %; Mean Corpuscular Hemoglobin 30.7 pg (25-34); Mean Corpuscular Hgb Conc 32.1 g/dL (32-36); Mean Corpuscular Volume 95.6 fL (80-100); Mean Platelet Volume 11.9 fL (7.4-10.4); Monocytes # (auto) 1.03 K/uL (0.11-0.59); Monocytes % (auto) 6.1 %; Neutrophils # (auto) 12.37 K/uL (1.4-6.5); Neutrophils % (auto) 73.2 %; Platelet Count 477 K/uL (130-400); RDW Coefficient of Variation 15.3 % (11.5-14.5); RDW Standard Deviation 53.6 fL (36.4-46.3); Red Blood Count 2.25 M/uL (4.2-5.4); Schistocytes 1+; White Blood Count 16.89 K/uL (4.8-10.8)
[2021-05-04] MEDS ORDERED: KCENTRA (500unit vial) 2000 units IVP IV SCH (14:30)
[2021-05-04] MEDS: PANTOprazole 40 MG in DEXTROSE 5% 100 ML IV SCH ×2 (14:30→21:10)
[2021-05-04 14:43] LABS: Troponin I < 0.03 ng/ml (0-0.04)
[2021-05-04 14:57] LABS: Alanine Aminotransferase 35 U/L (7-52); Albumin Globulin Ratio 1.3 (0.9-2); Albumin Level 2.7 gm/dl (3.4-5.0); Alkaline Phosphatase 61 U/L (34-104); Anion Gap 14 (3-11); Aspartate Aminotransferase 23 U/L (13-39); BUN Creatinine Ratio 34.9 (10-20); Bilirubin,Total 0.2 mg/dl (0.2-1.0); Blood Urea Nitrogen 66 mg/dl (6-23); Calcium 8.9 mg/dl (8.5-10.1); Carbon Dioxide 15 mmol/L (21-32); Chloride 107 mmol/L (98-107); Creatinine Clr Calc Pharmacy 20.3 ml/min; Est GFR (African American) 26.8 ml/min; Est GFR (Non-African American) 23.1 ml/min; Globulin 2.1 gm/dl (2.5-4.0); Glucose 246 mg/dl (70-99(Fasting)); Potassium 5.9 mmol/L (3.5-5.1); Sodium 136 mmol/L (136-145); Total Protein 4.8 gm/dl (6.0-8.3)
[2021-05-04] MEDS ORDERED: NovoLIN-R INSULIN PER UNIT CHARGE IV STA (15:10)
[2021-05-04] MEDS ORDERED: DEXTROSE 50% 50 ML SYRINGE IV ONE (15:10)
[2021-05-04] MEDS ORDERED: NORMOSOL-R 1,000 ML IV ONE (15:13)
--- NOTE | 2021-05-04 15:14 | History & Physical Report ---
Date of Service May 04, 2021 Assessment & Plan (1) Hypovolemic shock: Plan: -In the setting of acute blood loss, patient having frequent loss, dark stools. SBP initially in 90s down to 70s, has received 1L NS bolus in ED as well as 1L normosol bolus, along with 1 unit pRBCs. HR in 90s, SpO2 mid/high 90s on RA. -Transferred to ICU for further hemodynamic support. (2) GI bleed: Plan: -Patient reporting dark, watery stools for the past day or two, also reported some bright red blood in nephrostomy tube over the past day but states it has since stopped. Patient is on Eliquis for afibb/flutter diagnosed on 04/23/21 admission, last dose today @ 0900. CT A+P ordered due to possibility of intra-abdominal bleeding due to nephrostomy tube, scan showed mild nonspecific wall thickening and adjacent inflammatory change at the second and third portion of the duodenum, acute pancreatitis could also have a similar appearance but is considered less likely. -Protonix drip, IVF, started in ED. -Hgb 6.9 today in ED, was 13.7 on 04/23/21. 4 units pRBCs ordered, as well as type and cross by ED. -GI consulted by ED provider, Dr. Ardon recommended keeping pt NPO for endoscopy once she is hemodynamically stable. -Started on Zosyn for GI and coverage given duodenitis seen on CT. (3) Hyperkalemia: Plan: -K+ 5.9 in ED -Given calcium gluconate, insulin + D50, and patiromer -Will repeat BMP 2 hours after patiromer given. (4) Acute kidney injury: Plan: -BUN 66, Cr 1.89, likely prerenal due to GI bleed/hemorrhage. -Receiving IVF, vasopressor support. -Renally dose all medications, avoid nephrotoxic agents. -Trend BMP daily. (5) Left nephrolithiasis: Plan: -Nephrostomy tube placed on 04/[address] [facility] due to 2.7 cm UPJ stone w/ moderate hydroureteronephrosis and ? emphysematous pyelitis. -CT showed left-sided percutaneous nephrostomy tube which appears in good position. The catheter loops around the 2.2 cm stone within the left renal pelvis. No hydronephrosis. Small of gas within the left renal collecting system is likely due to the nephrostomy tube. -Elevated WBC at 16.9, elevated lactate initially 5.6, previous urine cx grew E.Coli, was d/c'd from [place] on Bactrim. Will start Zosyn. Blood and urine cultures pending. (6) Atrial fibrillation: Plan: -Initially diagnosed on 04/23 admission, rate controlled was achieved with diltiazem. Patient had TTE and started prophylactically on Eliquis, dose unknown, patient did take a dose this morning at 0900. -EKG currently shows patient in atrial flutter, HR in 90s. -Holding Eliquis now, Dr. Castrejon consulted by ED who ordered 2000 units of Kcentra. (7) Type II diabetes mellitus with complication: Plan: -On metformin at home, glucose 243 today. -D/C metformin during admission, pharmacy consulted for glycemic management. (8) HTN (hypertension): Plan: -Hypotensive in ED today, receiving IVF resuscitation and requiring vasopressor support. -Holding BP meds for now. (9) Hyperlipidemia: Plan: -Continue rosuvastatin. Plan: -Admit to ICU. -SCDs ordered, holding chemo ppx for now d/t ongoing blood loss. -Full Code. History of Present Illness Chief Complaint: massive GI bleed Primary Care Provider: Sabas Phillip DO Patient is an 89 y/o F with a PMH of diabetes, hypertension, and hyperlipidemia who presents today with loose, dark stools since 3 am this morning. States she had been feeling well up until this started with the exception of some mild, diffuse abdominal pain. Denies fever/chills, night sweats, chest pain, palpitations, SOB, syncope, new onset cough, increased urinary frequency, dysuria, hematuria. Patient was recently evaluated at [facility] on 04/[address] [facility] due to 2.7 cm UPJ stone w/ moderate hydroureteronephrosis and ? emphysematous pyelitis which required left percutaneous nephrostomy tube placement. During this admission, she was found to have new onset atrial flutter with RVR, rate controlled initially with diltiazem. Had TTE done, started prophylactically on Eliquis which she was been taking regularly, alst dose this morning @ 0900. In ED, patient was hypotensive with SBP in 90s, HR in 90s, afebrile with SpO2 in mid/high 90s on RA. CBC significant for WBC 16.89, Hgb 6.9. PT 16.4, INR 1.6. BMP significant for K+ 5.9, BUN 66, Cr 1.89, glucose 243. She was given 1 L NS bolus for volume resuscitation, 10 units insulin with 20 units D50 for hyperkalemia, 4 units pRBCs ordered and protonix drip started for GI bleed. Dr. Castrejon with hematology was consulted regarding anticoagulation reversal in the setting of massive GI bleed, who recommended 200 units Kcentra. [facility] consulted who recommended npo status for scheduled endoscopy tomorrow. Hospitalist service was consulted for further evaluation and admission. Patient continued to become increasingly hypotensive with BP down to 88/51 and eventually 73/56 despite fluid resuscitation. 1 L normosol bolus was ordered, first unit of pRBCs was started, and patient was transferred to ICU for vasopressor support. Additionally, calcium gluconate and patiromer was ordered for hyperkalemia. Allergies Allergy/AdvReac Type Severity Reaction Status Date / Time No Known Allergies Allergy Verified 05/04/21 15:07 Home Medications Medication Instructions Recorded Confirmed Type aspirin 81 mg tablet,delayed 81 mg PO DAILY #90 tab 09/17/18 05/04/21 History release cholecalciferol (vitamin D3) 25 1,000 units PO DAILY cap 09/17/18 05/04/21 History mcg (1,000 unit) capsule timolol maleate 0.5 % once daily 1 drops OP HS ml 09/17/18 05/04/21 History eye drops vitamins A,C,G-odad-rytfzi 14,320 1 cap PO BID 09/17/18 05/04/21 History unit-226 mg-200 unit capsule (PreserVision AREDS) amlodipine 5 mg tablet 5 mg PO DAILY #90 tab 10/19/20 05/04/21 Rx polyethylene glycol 3350 17 17 g PO DAILY PRN #119 g 10/21/20 05/04/21 Rx gram/dose oral powder (Miralax) telmisartan 80 mg tablet 80 mg PO DAILY #90 tab 11/13/20 05/04/21 Rx alendronate 70 mg tablet 70 mg PO WEEKLY #12 tab 11/30/20 05/04/21 Rx metformin 1,000 mg tablet 1,000 mg PO PM #90 tab 01/04/21 05/04/21 Rx rosuvastatin 20 mg tablet 20 mg PO DAILY #90 tab 01/04/21 05/04/21 Rx calcium citrate 200 mg 1 tab PO BID 04/23/21 05/04/21 History calcium-vitamin D3 3.125 mcg (125 unit) tablet apixaban 2.5 mg tablet (Eliquis) 0 mg PO BID 05/04/21 05/04/21 History diltiazem HCl 30 mg tablet 30 mg PO Q6H 05/04/21 05/04/21 History sulfamethoxazole 800 1 tab PO BID 05/04/21 05/04/21 History mg-trimethoprim 160 mg tablet Past Med/Surg History Medical History (Updated 05/05/21 @ 10:17 by Rivera Doss MD) Acute kidney injury Acute upper gastrointestinal bleeding Age-related macular degeneration, dry, both eyes Atrial fibrillation Bradycardia Disc degeneration, lumbar Duodenitis Glaucoma Hemorrhagic shock Hyperlipidemia Lactic acidosis Left knee pain Microalbuminuria Osteoporosis Right lumbar radiculopathy Type II diabetes mellitus with complication Surgical History H/O hemorrhoidectomy History of tonsillectomy and adenoidectomy Family History Unknown Diabetes Denies family history of Ovarian cancer Prostate cancer Breast cancer Lung cancer Colorectal cancer Social History Smoking Status: Unknown if ever smoked Second Hand Exposure: No; Preferred Language: Zimbabwean Communication Ability: Effective Visual Impairment: Limited Hearing Ability: Normal Realty Specialist Required: No Beliefs That Will Affect Care: None marital status: / Current Living Situation: Family current occupational status: retired Feels Safe at Home: Yes Childhood Exposure to Second-Hand Smoke: No caffeine: Yes Dental Care, Regularly: Yes Physical Activity Frequency: Does not Exercise Seatbelt Use: always Sunscreen Use: Yes (does not go outside) Assistive Devices: Oxygen - Continuous Review of Systems Review of Systems: Review of systems: Constitutional: No fever, sweats or chills Eyes: No diplopia, no worsening or blurred vision ENT: normal hearing, no trouble swallowing Respiratory: No cough, sputum, dyspnea at rest or on exertion Cardiovascular: No chest pain, tightness or palpitations Abdomen: Mild, diffuse pain for the past 1-2 days with dark, watery stools and ? blood; no nausea, vomiting, or constipation Musculoskeletal: No joint pain, calf pain, swelling Neurologic: No weakness, numbness/tingling, or balance problems Psychiatric: No anxiety or depression Skin: No rash or itch Physical Exam Physical Exam: General: Patient awake and mentating during my exam but appears somewhat, with pallor Head: Normocephalic, atraumatic ENT: PERRL, EOMI, no pharyngeal exudate, mucous membranes appear dry Chest: Clear to auscultation, on room air, no adventitious breath sounds Cardiac: Regular rate and rhythm, no murmur, no JVD, normal peripheral pulses, good capillary refill Abdominal: epigastric pain with light palpation, ecchymosis on lower abdomen; NABS x 4 quadrants, soft, no rebound or guarding Extremities: Normal inspection, no peripheral edema or erythema, calfs nontender to palpation Psych: Normal mood and affect Neuro: AAO x 3, strength intact bilaterally and rated 5/5, no motor deficits, speech is clear, no peripheral sensory deficits Skin: no rash or erythema Results & Data Results & Data ([facility]) Vital Signs (Past 12 Hours) Vital Signs Temp Pulse Resp BP Pulse Ox 05/04/21 14:47 88 14 99 05/04/21 14:04 36.6 C 94 H 18 91/57 L 100 Laboratory Results Abnormal lab results 05/04/21 05/04/21 05/04/21 Range/Units 13:45 13:45 13:45 WBC 16.89 H (4.8-10.8) K/uL RBC 2.25 L (4.2-5.4) M/uL Hgb 6.9 L* (12.0-16.0) g/dL Hct 21.5 L (37-47) % RDW Std Deviation 53.6 H (36.4-46.3) fL RDW Coeff of Cas 15.3 H (11.5-14.5) % Plt Count 477 H (130-400) K/uL MPV 11.9 H (7.4-10.4) fL Neut # (Auto) 12.37 H (1.4-6.5) K/uL Mineral # (Auto) 1.03 H (0.11-0.59) K/uL Immature Gran # (Auto) 0.53 H (0.00-0.02) K/uL PT 16.4 H (9.0-12.0) Seconds INR 1.6 H (0.9-1.1) Potassium 5.9 H (3.5-5.1) mmol/L Carbon Dioxide 15 L (21-32) mmol/L Anion Gap 14 H (3-11) BUN 66 H (6-23) mg/dl Creatinine 1.89 H (0.6-1.2) mg/dl BUN/Creatinine Ratio 34.9 H (10-20) Glucose 246 H (70-99(Fasting)) mg/dl Lactate (0.4-2.0) mmol/L Total Protein 4.8 L (6.0-8.3) gm/dl Albumin 2.7 L (3.4-5.0) gm/dl Globulin 2.1 L (2.5-4.0) gm/dl Crossmatch 05/04/21 05/04/21 Range/Units 14:13 14:13 WBC (4.8-10.8) K/uL RBC (4.2-5.4) M/uL Hgb (12.0-16.0) g/dL Hct (37-47) % RDW Std Deviation (36.4-46.3) fL RDW Coeff of Cas (11.5-14.5) % Plt Count (130-400) K/uL MPV (7.4-10.4) fL Neut # (Auto) (1.4-6.5) K/uL Mineral # (Auto) (0.11-0.59) K/uL Immature Gran # (Auto) (0.00-0.02) K/uL PT (9.0-12.0) Seconds INR (0.9-1.1) Potassium (3.5-5.1) mmol/L Carbon Dioxide (21-32) mmol/L Anion Gap (3-11) BUN (6-23) mg/dl Creatinine (0.6-1.2) mg/dl BUN/Creatinine Ratio (10-20) Glucose (70-99(Fasting)) mg/dl Lactate 5.6 H* (0.4-2.0) mmol/L Total Protein (6.0-8.3) gm/dl Albumin (3.4-5.0) gm/dl Globulin (2.5-4.0) gm/dl Crossmatch See Detail Diagnostic Findings Chest X-Ray 05/04/21 13:36 XR chest 1V portable CLINICAL HISTORY: weakness. Evaluate cardiopulmonary status COMPARISON STUDY: 02/20/2017 TECHNIQUE: 1 view of the chest FINDINGS: Single frontal view of the chest demonstrates the cardiomediastinal silhouette to be within normal limits. There is a decreased inspiratory effort with elevation of the hemidiaphragms and crowding of the bronchovascular markings at the lung bases and centrally. The lungs are clear of alveolar opacities. Subcentimeter calcified granulomas again seen at the right lung base. There is no evidence for pleural effusion. There is no evidence for vascular congestion. There is no acute osseous pathology. IMPRESSION: 1. Compared to the previous study, there is a decreased inspiratory effort with otherwise no acute chest disease. Abdomen/Pelvis CT 05/04/21 13:[address] WITHOUT CONTRAST CT DOSE: 409.75 mGy.cm HISTORY: Generalized abdominal pain. Bloody stool. TECHNIQUE: Multiaxial CT images of the abdomen and pelvis were performed without contrast. A dose lowering technique was utilized adhering to the principles of ALARA. COMPARISON STUDY: Abdomen and pelvis CT 04/23/2021. FINDINGS: Calcified granuloma within the right lower lobe. The left lung base is clear. No pneumoperitoneum. No pneumatosis. Degenerative changes within the lower lumbar spine. Small fat-containing left inguinal hernia, unchanged. There is mild body wall edema. Subtle 2 cm hypodense focus within the left side of the bladder demonstrating peripheral density. This may represent a small amount of residual contrast or calcification within the bladder. This is best seen image 366. The bladder is decompressed. The uterus and bilateral adnexa are unremarkable. Fluid-filled nondilated loops of large and small bowel seen throughout the abdomen. This favors a gastroenteritis/diarrheal illness. No evidence for bowel obstruction. No retroperitoneal lymphadenopathy. Calcified plaque within the normal caliber abdominal aorta. Nodular contour to the right hepatic lobe measuring early cirrhosis. Punctate calcified splenic granulomas are noted. Stable hypodense lesion within the splenic dome. The adrenal glands are unremarkable. Normal pancreas. Mild wall thickening and adjacent inflammatory change at the second and third portions of the duodenum. This may represent mild duodenitis. Acute pancreatitis could also a similar appearance but is considered less likely. Stable cysts within the lower pole the right kidney measuring 5.8 cm. No right-sided hydronephrosis. Interval placement of a left percutaneous nephrostomy tube which appears in good position. The looped portion of the catheter surrounds the 2.2 cm stone within the left renal pelvis. Small focus of gas within the left renal collecting system persists. There is mild left perinephric edema, unchanged. No left-sided hydronephrosis. IMPRESSION: 1. Mild nonspecific wall thickening and adjacent inflammatory change at the second and third portion of the duodenum. This favors a duodenitis. Acute pancreatitis could also have a similar appearance but is considered less likely. Recommend correlation with pancreatic enzymes. 2. Nondilated fluid-filled loops of large and small bowel likely representing a diarrheal illness/gastroenteritis. 3. Interval placement left-sided percutaneous nephrostomy tube which appears in good position. The catheter loops around the 2.2 cm stone within the left renal pelvis. No hydronephrosis. Small of gas within the left renal collecting system is likely due to the nephrostomy tube. 4. Subtle 2 cm hypodense focus within the left side of the bladder demonstrating peripheral density. This may represent a small amount of residual contrast or calcification within the bladder. Consider follow-up cystoscopy for further evaluation. 5. Additional findings as described above. ECG Additional Comments: Atrial fibrillation Inferior infarct , age undetermined Abnormal ECG When compared with ECG of 23-APR-2021 18:40, Incomplete right bundle branch block is no longer Present Minimal criteria for Anterior infarct are no longer Present Inferior infarct is now Present Code Status & VTE Plan Code Status Full Code. VTE Prophylaxis Plan VTE Prophylaxis will be ordered: Yes Critical Care Time 60 Supervising Physician Co-Signing Physician Notes Patient was seen and examined independently I discussed the case with Melany Cordon PAC I reviewed pertinent past medical social family history and also the plan of care and agree with the plan of care. Pt with acute blood loss anemia and hypovolemic shock. volume and blood given, protonix gtt, this is in setting of Eliquis started approx one week ago on the setting of new onset afib. Sent to ICU needed pressor support, may be endoscopy 05/05/21 Pt is very pale tachycardic and tachypneic, she is awake and alert, still having bloody bowel movements, bowel sounds are hyperactive management of shock in icu Any exceptions will be noted below PG Care Time/CCT Total # of Minutes Spent Total Time Spent with Patient: Total time spent is greater than 50% in coordination of care (as documented) at patient's floor/unit and/or counseling patient: Coding Level of Care Code 34511 Initial Inpt Care Lvl 3 Diagnoses Hypovolemic shock R57.1 GI bleed K92.2 Hyperkalemia E87.5 Type II diabetes mellitus with complication E11.8 HTN (hypertension) I10 Hyperlipidemia E78.5 Atrial fibrillation I48.91 Left nephrolithiasis N20.0 Acute kidney injury N17.9
--- NOTE | 2021-05-04 15:18 | CT Scan Report ---
ABDOMEN AND PELVIS CT WITHOUT CONTRAST CT DOSE: 409.75 mGy.cm HISTORY: Generalized abdominal pain. Bloody stool. TECHNIQUE: Multiaxial CT images of the abdomen and pelvis were performed without contrast. A dose lo wering technique was utilized adhering to the principles of ALARA. COMPARISON STUDY: Abdomen and pelvis CT 04/23/2021. FINDINGS: Calcified granuloma within the right lower lobe. The left lung base is clear. No pneumoperi toneum. No pneumatosis. Degenerative changes within the lower lumbar spine. Small fat-containing left inguinal hernia, unchanged. There is mild body wall edema. Subtle 2 cm hypodense focus within the le ft side of the bladder demonstrating peripheral density. This may represent a small amount of residua l contrast or calcification within the bladder. This is best seen image 366. The bladder is decompres sed. The uterus and bilateral adnexa are unremarkable. Fluid-filled nondilated loops of large and sma ll bowel seen throughout the abdomen. This favors a gastroenteritis/diarrheal illness. No evidence fo r bowel obstruction. No retroperitoneal lymphadenopathy. Calcified plaque within the normal caliber a bdominal aorta. Nodular contour to the right hepatic lobe measuring early cirrhosis. Punctate calcifi ed splenic granulomas are noted. Stable hypodense lesion within the splenic dome. The adrenal glands are unremarkable. Normal pancreas. Mild wall thickening and adjacent inflammatory change at the secon d and third portions of the duodenum. This may represent mild duodenitis. Acute pancreatitis could al so a similar appearance but is considered less likely. Stable cysts within the lower pole the right k idney measuring 5.8 cm. No right-sided hydronephrosis. Interval placement of a left percutaneous neph rostomy tube which appears in good position. The looped portion of the catheter surrounds the 2.2 cm stone within the left renal pelvis. Small focus of gas within the left renal collecting system persis ts. There is mild left perinephric edema, unchanged. No left-sided hydronephrosis. IMPRESSION: 1. Mild nonspecific wall thickening and adjacent inflammatory change at the second and third portion of the duodenum. This favors a duodenitis. Acute pancreatitis could also have a similar appearance bu t is considered less likely. Recommend correlation with pancreatic enzymes. 2. Nondilated fluid-filled loops of large and small bowel likely representing a diarrheal illness/gas troenteritis. 3. Interval placement left-sided percutaneous nephrostomy tube which appears in good position. The ca theter loops around the 2.2 cm stone within the left renal pelvis. No hydronephrosis. Small of gas wi thin the left renal collecting system is likely due to the nephrostomy tube. 4. Subtle 2 cm hypodense focus within the left side of the bladder demonstrating peripheral density. This may represent a small amount of residual contrast or calcification within the bladder. Consider follow-up cystoscopy for further evaluation. 5. Additional findings as described above. ACT 112: Negative or not required by law. Electronically signed by: Guillermo Siddiqui M.D. 05/04/2021 3:17 PM
[2021-05-04] MEDS ORDERED: CALCIUM GLUCONATE 1,000 MG/60 ML BAG IV STA (15:20)
--- NOTE | 2021-05-04 15:34 | XRay Report ---
XR chest 1V portable CLINICAL HISTORY: weakness. Evaluate cardiopulmonary status COMPARISON STUDY: 02/20/2017 TECHNIQUE: 1 view of the chest FINDINGS: Single frontal view of the chest demonstrates the cardiomediastinal silhouette to be within normal li mits. There is a decreased inspiratory effort with elevation of the hemidiaphragms and crowding of th e bronchovascular markings at the lung bases and centrally. The lungs are clear of alveolar opacities . Subcentimeter calcified granulomas again seen at the right lung base. There is no evidence for pleu ral effusion. There is no evidence for vascular congestion. There is no acute osseous pathology. IMPRESSION: 1. Compared to the previous study, there is a decreased inspiratory effort with otherwise no acute ch est disease. ACT 112: Negative or not required by law. Electronically signed by: Bravo Jackson M.D. 05/04/2021 3:33 PM
[2021-05-04] MEDS ORDERED: PATIROMER CALCIUM SORBITEX 8.4 GM PACK PO ONE (15:45)
[2021-05-04] MEDS ORDERED: ATROPINE SULFATE 0.1 MG/ML 10ML SYR IV ONE (16:25)
[2021-05-04] MEDS ORDERED: DOPamine 400MG / 250ML D5W IV ONE (16:26)
[2021-05-04] MEDS ORDERED: PIPERACILL/TAZOBAC CONSULT ACTIVE PRN (16:40)
--- NOTE | 2021-05-04 16:42 | Critical Care Consultation ---
Date of Consultation May 04, 2021 Assessment & Plan (1) Hemorrhagic shock: (2) Bradycardia: (3) Acute upper gastrointestinal bleeding: (4) Duodenitis: (5) Acute kidney injury: (6) Lactic acidosis: 89-year-old female with a past medical history of hypertension, atrial flutter/fib on Eliquis and recent large UPJ stone with left nephrostomy tube presenting to the hospital with hemorrhagic shock and possible sepsis. Neurologic: Mild delirium at times secondary to metabolic encephalopathy and hypoperfusion. Pulmonary: Continue supplemental oxygen via oxime mask. Maintaining her airway. Will need to consider intubation if worsening encephalopathy or worsening cardiogenic pulmonary edema. Cardiovascular: Maintain mean arterial pressure above 65. Patient with bradycardia likely related to hyperkalemia and metabolic derangements. Continue dopamine to maintain maps above 65. Given 2 A of bicarb emergently due to acidotic state with improvement of heart rate. Bedside [id number] echo completed. EF appears to be intact. No large pericardial effusion. IVC approximately 2.5 cm. EKG without clear signs of ischemia. We will hold anticoagulation at this point given the acute GI bleed. Hold all antihypertensives and beta blockade. Currently pacer pads in place. Will need to consider temporary intravenous pacer if she continues with bradycardia. Gastrointestinal: Concern for upper GI bleed. Kcentra given. Holding Eliquis. GI consulted. CT abdomen/pelvis with evidence of duodenitis. Will initiate Zosyn. Renal: OCTAVIO secondary to prerenal azotemia. Left nephrostomy tube in place. Woodard catheter in place. Given D50 and insulin to correct hyperkalemia. Given calcium chloride due to arrhythmia. Worsening lactic acidosis seen. Bicarb trending down due to hypoperfused state. Will initiate bicarb drip. We will give as needed boluses of crystalloids as needed and consider infusion of albumin. Infectious disease: Blood cultures pending. Obtain urinalysis. Obtain urinalysis from nephrostomy tube as well. Will initiate Zosyn for possible sepsis from duodenitis. Previous urine cultures positive for E. coli. Hematologic: DIC labs checked without evidence of DIC. Fibrinogen low, but not within the threshold to require cryoprecipitate. 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 Endocrine: We will check a TSH. Insulin drip per ICU protocol for hyperglycemia. F/E/N: N.p.o. Lines and tubes: 2 18-gauge IVs in place in 1 20-gauge IV. Nephrostomy tube on the left and Woodard catheter. VTE prophylaxis: SCDs CODE STATUS: Full Family at bedside: Patient's partner updated at bedside Disposition: Remain in the ICU I have personally spent 98 minutes of critical care time in the direct management of this patient. This is a life/limb threatening event. This includes time spent evaluating patient, direct bedside care, chart review, placing orders, interpretation of diagnostic studies, discussion with consultants, patient, and family members, as well as other required patient management activities. This time is exclusive of all separately billable procedures, and teaching time and separate from and in addition to any other critical care service time. Thank you for allowing us to participate in the care of this patient. History of Present Illness Reason for Consultation: Massive GI bleed with hemorrhagic shock Attending Physician: Glenn Maciel MD History of Present Illness 89-year-old female with a past medical history of diabetes, hypertension, hyperlipidemia and atrial fibrillation who was recently at and transferred to [facility] at that time due to a 2.7 cm UPJ stone with moderate hydronephrosis and pyelitis. She underwent a left percutaneous nephrostomy tube. During that admission she was discovered to be in atrial flutter with RVR and was ultimately started on Eliquis. Patient's partner was able to give collateral history in addition to the patient. She felt short of breath and had dark stools this morning. She had also been feeling unwell for the past week prior to the hospital admission. CT abdomen/pelvis was obtained which showed duodenitis. She was found to have acute blood loss anemia with a hemoglobin of 6.9. ER gave the patient Kcentra due to an elevated INR and due to the fact the patient is on Eliquis. Peripheral smear suggested schistocytes. Patient had an 18-gauge right AC IV and a 20-gauge left wrist IV in place. When she arrived to the ICU approximately half an unit of blood had infused. I called the blood bank and emergently 2 additional units of blood were released. We infused these bags of blood simultaneously via pressure bag. She was found to have A. fib with bradycardia and aberrancy to rates in the 30s while in the ICU. I gave her a gram of calcium chloride, 0.5 mg of atropine and started the patient on a dopamine drip. Eventually after approximately an hour and a half, her heart rates did improve to the mid 60s and low 70s. Maps have remained in the mid 60s. We additionally gave her a dose of Zosyn due to concerns of duodenitis seen on the CT abdomen/pelvis. Patient is currently alert. She is complaining of pain at the site of the Woodard catheter placement. She denies any abdominal pain. She denies chest pain. She is currently on a Protonix infusion. GI is consulted. Allergies Allergy/AdvReac Type Severity Reaction Status Date / Time No Known Allergies Allergy Verified 05/04/21 15:07 Home Medications Medication Instructions Recorded Confirmed Type aspirin 81 mg tablet,delayed 81 mg PO DAILY #90 tab 09/17/18 05/04/21 History release cholecalciferol (vitamin D3) 25 1,000 units PO DAILY cap 09/17/18 05/04/21 History mcg (1,000 unit) capsule timolol maleate 0.5 % once daily 1 drops OP HS ml 09/17/18 05/04/21 History eye drops vitamins A,C,L-uppb-tlarlz 14,320 1 cap PO BID 09/17/18 05/04/21 History unit-226 mg-200 unit capsule (PreserVision AREDS) amlodipine 5 mg tablet 5 mg PO DAILY #90 tab 10/19/20 05/04/21 Rx polyethylene glycol 3350 17 17 g PO DAILY PRN #119 g 10/21/20 05/04/21 Rx gram/dose oral powder (Miralax) telmisartan 80 mg tablet 80 mg PO DAILY #90 tab 11/13/20 05/04/21 Rx alendronate 70 mg tablet 70 mg PO WEEKLY #12 tab 11/30/20 05/04/21 Rx metformin 1,000 mg tablet 1,000 mg PO PM #90 tab 01/04/21 05/04/21 Rx rosuvastatin 20 mg tablet 20 mg PO DAILY #90 tab 01/04/21 05/04/21 Rx calcium citrate 200 mg 1 tab PO BID 04/23/21 05/04/21 History calcium-vitamin D3 3.125 mcg (125 unit) tablet apixaban 2.5 mg tablet (Eliquis) 0 mg PO BID 05/04/21 05/04/21 History diltiazem HCl 30 mg tablet 30 mg PO Q6H 05/04/21 05/04/21 History sulfamethoxazole 800 1 tab PO BID 05/04/21 05/04/21 History mg-trimethoprim 160 mg tablet Patient History Medical History (Updated 05/04/21 @ 18:13 by Cuong Shields MD) Acute kidney injury Age-related macular degeneration, dry, both eyes Bradycardia Disc degeneration, lumbar Duodenitis Glaucoma Hemorrhagic shock Hyperlipidemia Lactic acidosis Left knee pain Microalbuminuria Osteoporosis Right lumbar radiculopathy Type II diabetes mellitus with complication Surgical History H/O hemorrhoidectomy History of tonsillectomy and adenoidectomy Family History Unknown Diabetes Denies family history of Ovarian cancer Prostate cancer Breast cancer Lung cancer Colorectal cancer Social History Smoking Status: Unknown if ever smoked Second Hand Exposure: No; Preferred Language: Tristanian Communication Ability: Effective Visual Impairment: Limited Hearing Ability: Normal Beater Operator Required: No Beliefs That Will Affect Care: None marital status: / Current Living Situation: Family current occupational status: retired Other Information That Helps Us Care for You: No Feels Safe at Home: Yes Safety Concerns: Feels Safe At This Time Childhood Exposure to Second-Hand Smoke: No caffeine: Yes Dental Care, Regularly: Yes Physical Activity Frequency: Does not Exercise Seatbelt Use: always Sunscreen Use: Yes (does not go outside) Review of Systems Review of Systems: All systems reviewed & are unremarkable except as noted in HPI & below Physical Exam Physical Exam: Constitutional: Pale and clammy appearing female in moderate distress laying in bed. Eyes: Pupils are equal round and reactive to light. Conjunctivae are normal. Anicteric sclera. Ears nose, mouth and throat: Oral mucosa is very dry. Neck: Trachea is midline. Visual inspection is normal. Respiratory: Clear to auscultation bilaterally. No use of accessory muscles. No significant clubbing noted. Cardiovascular: Irregular rhythm. No murmurs. 1+ edema in the lower extremities. Decreased capillary refill. Gastrointestinal: Normal bowel sounds, soft, nontender and nondistended. No hepatosplenomegaly noted. Musculoskeletal: No cyanosis. Patient is able to move all extremities. Skin: No rashes, warm dry and intact. Neurologic: No obvious focal neurological deficits seen. Psychiatric: Alert and oriented x3 with a euthymic affect. Results & Data Results & Data ([facility]) Vital Signs (Past 12 Hours) Vital Signs Temp Pulse Resp BP Pulse Ox 05/04/21 16:38 36.4 C L 69 24 120/53 L 100 05/04/21 16:37 36.4 C L 69 24 120/53 L 100 05/04/21 15:56 36.4 C L 70 24 73/56 L 99 05/04/21 15:40 36.6 C 96 H 26 H 88/51 L 99 05/04/21 14:47 88 14 99 05/04/21 14:04 36.6 C 94 H 18 91/57 L 100 Coding Level of Care Code 85715 Prolonged Care (int'l) Diagnoses Hemorrhagic shock R57.8 Bradycardia R00.1 Acute upper gastrointestinal bleeding K92.2 Duodenitis K29.80 Acute kidney injury N17.9 Lactic acidosis E87.2 Time Spent (min) 98
[2021-05-04] MEDS ORDERED: cefTRIAXone SODIUM 1,000 MG in DEXTROSE 5% 50 ML IV SCH (16:49)
[2021-05-04] MEDS ORDERED: NORMOSOL-R 1,000 ML IV SCH (16:49)
[2021-05-04] MEDS ORDERED: ICU PROTOCOL FOR HYPERGLYCEMIA SCH (16:49)
[2021-05-04] MEDS ORDERED: ICU PROTOCOL FOR HYPERGLYCEMIA PRN (16:49)
[2021-05-04] MEDS ORDERED: PIPERACILLIN/TAZOBACTAM 3.375 GM in DEXTROSE 5% 100 ML IV ONE (17:00)
[2021-05-04 17:11] LABS: Fibrinogen 221 mg/dl (184-400)
[2021-05-04] MEDS ORDERED: CALCIUM CHLORIDE 10% 10 ML SYR IV ONE (17:12)
[2021-05-04 17:14] LABS: Hematocrit (blood only) 29.4 % (37-47); Hemoglobin 9.8 g/dL (12.0-16.0); Mean Corpuscular Hemoglobin 29.3 pg (25-34); Mean Corpuscular Hgb Conc 33.3 g/dL (32-36); Mean Platelet Volume 11.7 fL (7.4-10.4); Platelet Count 301 K/uL (130-400); RDW Coefficient of Variation 15.8 % (11.5-14.5); RDW Standard Deviation 50.3 fL (36.4-46.3); Red Blood Count 3.34 M/uL (4.2-5.4); White Blood Count 22.95 K/uL (4.8-10.8)
[2021-05-04 17:19] LABS: D Dimer 1970 ug/L FEU (0-500)
[2021-05-04] MEDS ORDERED: STAT IV Infusion **Titration per Protocol STA ×2 (17:19→17:22)
[2021-05-04] MEDS ORDERED: CALCIUM CHLORIDE 10% 1,000 MG in DEXTROSE 5% 50 ML IV STA (17:19)
[2021-05-04 17:24] LABS: BUN Creatinine Ratio 34.7 (10-20); Calcium 8.3 mg/dl (8.5-10.1); Creatinine Clr Calc Pharmacy 19.8 ml/min; Est GFR (African American) 26.1 ml/min; Est GFR (Non-African American) 22.5 ml/min; Potassium 5.3 mmol/L (3.5-5.1)
[2021-05-04] MEDS ORDERED: SODIUM BICARB 8.4% INJ 50 MEQ/50 ML SYR IV ONE (17:28)
[2021-05-04] MEDS ORDERED: DOPamine / D5W 400 MG/250 ML BAG IV SCH ×2 (17:30)
[2021-05-04 17:35] LABS: Basophils # (auto) 0.04 K/uL (0-0.2); Basophils % (auto) 0.2 %; Echinocytes 2+; Eosinophils # (auto) 0.02 K/uL (0-0.5); Eosinophils % (auto) 0.1 %; Immature Granulocytes # (auto) 0.81 K/uL (0.00-0.02); Immature Granulocytes % (auto) 3.5 %; Lymphocytes # (auto) 1.66 K/uL (1.2-3.4); Lymphocytes % (auto) 7.2 %; Monocytes # (auto) 2.16 K/uL (0.11-0.59); Monocytes % (auto) 9.4 %; Neutrophils # (auto) 18.26 K/uL (1.4-6.5); Neutrophils % (auto) 79.6 %
[2021-05-04] MEDS ORDERED: SODIUM BICARB 8.4% INJ 50 MEQ/50 ML SYR IV STA (17:42)
[2021-05-04 17:57] LABS: Base Excess ABG -4.6 mEq/L (-9-1.8); HCO3 ABG 19 mmol/L (19-24); Oxygen Saturation ABG 98.8 % (90-95); PCO2 ABG 29 mmHg (35-46); PO2 ABG 126 mmHg (80-95); pH ABG 7.43 (7.35-7.45)
[2021-05-04 17:58] LABS: Allen Test Pos (Pos)
[2021-05-04] MEDS: ICU ELECTROLYTE REPLACEMENT PROTOCOL SCH (18:05)
[2021-05-04] MEDS ORDERED: STAT IV STA (18:14)
[2021-05-04 19:53] LABS: INR 1.4 (0.9-1.1); Prothrombin Time 14.7 Seconds (9.0-12.0)
[2021-05-04] MEDS: SODIUM BICARBONATE 8.4% 100 MEQ in DEXTROSE 5% 1,000 ML IV SCH (19:58)
[2021-05-04 20:45] LABS: Hematocrit (blood only) 32.9 % (37-47); Hemoglobin 11.1 g/dL (12.0-16.0); Mean Corpuscular Hemoglobin 28.6 pg (25-34); Mean Corpuscular Hgb Conc 33.7 g/dL (32-36); Mean Corpuscular Volume 84.8 fL (80-100); Mean Platelet Volume 11.7 fL (7.4-10.4); Platelet Count 253 K/uL (130-400); RDW Coefficient of Variation 16.4 % (11.5-14.5); Red Blood Count 3.88 M/uL (4.2-5.4); White Blood Count 22.95 K/uL (4.8-10.8)
[2021-05-04] MEDS ORDERED: TIMOLOL MALEATE 0.5% OP SOLN 5 ML BTL OP SCH (21:00)
[2021-05-04] MEDS ORDERED: CALCIUM CITRATE VITAMIN D3 PO SCH (21:00)
[2021-05-04 21:16] LABS: Basophils # (auto) 0.05 K/uL (0-0.2); Basophils % (auto) 0.2 %; Echinocytes 1+; Eosinophils # (auto) 0.01 K/uL (0-0.5); Immature Granulocytes # (auto) 0.63 K/uL (0.00-0.02); Immature Granulocytes % (auto) 2.7 %; Lymphocytes # (auto) 1.95 K/uL (1.2-3.4); Lymphocytes % (auto) 8.5 %; Monocytes # (auto) 1.33 K/uL (0.11-0.59); Monocytes % (auto) 5.8 %; Neutrophils # (auto) 18.98 K/uL (1.4-6.5); Neutrophils % (auto) 82.8 %; Polychromasia 1+
[2021-05-05] MEDS: PANTOprazole 40 MG in DEXTROSE 5% 100 ML IV SCH ×5 (00:58→21:49)
[2021-05-05] MEDS: PIPERACILLIN/TAZOBACTAM 3.375 GM in DEXTROSE 5% 100 ML IV SCH ×2 (00:58→08:38)
[2021-05-05 05:56] LABS: Basophils # (auto) 0.06 K/uL (0-0.2); Basophils % (auto) 0.3 %; Eosinophils # (auto) 0.02 K/uL (0-0.5); Eosinophils % (auto) 0.1 %; Hemoglobin 10.4 g/dL (12.0-16.0); Immature Granulocytes # (auto) 0.19 K/uL (0.00-0.02); Lymphocytes # (auto) 2.09 K/uL (1.2-3.4); Lymphocytes % (auto) 11.4 %; Mean Corpuscular Hemoglobin 29.1 pg (25-34); Mean Corpuscular Hgb Conc 34.7 g/dL (32-36); Mean Corpuscular Volume 83.8 fL (80-100); Mean Platelet Volume 11.8 fL (7.4-10.4); Monocytes # (auto) 1.56 K/uL (0.11-0.59); Monocytes % (auto) 8.5 %; Neutrophils # (auto) 14.41 K/uL (1.4-6.5); Neutrophils % (auto) 78.7 %; Platelet Count 258 K/uL (130-400); RDW Coefficient of Variation 16.9 % (11.5-14.5); RDW Standard Deviation 51.5 fL (36.4-46.3); Red Blood Count 3.58 M/uL (4.2-5.4); White Blood Count 18.33 K/uL (4.8-10.8)
[2021-05-05 06:00] LABS: INR 1.4 (0.9-1.1); Prothrombin Time 14.3 Seconds (9.0-12.0)
[2021-05-05 06:13] LABS: Calcium 8.7 mg/dl (8.5-10.1); Creatinine Clr Calc Pharmacy 23.7 ml/min; Est GFR (African American) 31.8 ml/min; Est GFR (Non-African American) 27.4 ml/min; Magnesium 1.6 mg/dl (1.7-2.4); Phosphorus 3.5 mg/dl (2.5-4.9)
[2021-05-05] MEDS: ICU ELECTROLYTE REPLACEMENT PROTOCOL SCH ×2 (06:46→17:03)
[2021-05-05] MEDS ORDERED: MAGNESIUM SULFATE / D5W 1 GM/100 ML BAG IV ONE (07:00)
[2021-05-05 07:07] LABS: Appearance Urine Cloudy (Clear); Bilirubin Urine Negative (Negative); Blood Urine 3+ (Negative); Color Urine Yellow; Epithelial Cell Urine Auto >30 /lpf (0-5); Glucose Urine UA Negative (Negative); Ketones Urine Negative (Negative); Leukocyte Esterase Urine 2+ (Negative); Nitrite Urine Negative (Negative); Protein Urine Negative (Negative); Specific Gravity Urine 1.018 (1.000-1.030); Urobilinogen Urine Negative (Negative)
[2021-05-05 07:44] LABS: Calcium Oxalate Crystals Urine Present (None Prsent); RBC Urine Automated >30 /hpf (0-4)
[2021-05-05 07:45] LABS: Bacteria Urine Automated 1+ (Negative)
--- NOTE | 2021-05-05 08:15 | Critical Care Progress Note ---
Date of Service May 05, 2021 Assessment & Plan (1) Hemorrhagic shock: (2) Bradycardia: (3) Acute upper gastrointestinal bleeding: (4) Duodenitis: (5) Acute kidney injury: (6) Lactic acidosis: Plan: 89-year-old female with a past medical history of hypertension, atrial flutter/fib on Eliquis and recent large UPJ stone with left nephrostomy tube presenting to the hospital with hemorrhagic shock and possible sepsis. Neurologic: No significant issues at present. Some anxiety. Pulmonary: Continue supplemental oxygen via oxygen mask. Will consider diuresis more stable. Cardiovascular: Maintain mean arterial pressure above 65. Patient with bradycardia likely related to hyperkalemia and metabolic derangements. Continue dopamine to maintain maps above 65. Given 2 A of bicarb emergently due to acidotic state with improvement of heart rate. Bedside [id number] echo completed. EF appears to be intact. No large pericardial effusion. IVC approximately 2.5 cm. EKG without clear signs of ischemia. We will hold anticoagulation at this p oint given the acute GI bleed. Hold all antihypertensives and beta blockade. We will obtain a formal echocardiogram. Tropnins negative. Gastrointestinal: Concern for upper GI bleed. Kcentra given. Holding Eliquis. GI consulted. CT abdomen/pelvis with evidence of duodenitis. Continue zosyn. Renal: OCTAVIO secondary to prerenal azotemia. Left nephrostomy tube in place. Zelaya catheter in place. Given D50 and insulin to correct hyperkalemia. Given calcium chloride due to arrhythmia 05/04/21. Lactic acidosis is resolving with resolution of the hypoperfused state. Will discontinue bicarbonate drip. We will start lactated Ringer's at 80 cc/h. Infectious disease: Blood cultures pending. U/A from zelaya reviewed. Obtain urinalysis from nephrostomy tube as well. Continue Zosyn. Previous urine cultures positive for E. coli. White count is trending down. Hematologic: DIC labs checked without evidence of DIC. Likely upper GI bleeding with continued evidence of possible bleeding. Monitor hemoglobin closely. She is status post 4 units of blood received 05/04/2021. She was previously on Eliquis. This was partially reversed with Kcentra. INR currently is 1.4. Platelet count within normal limits. Endocrine: TSH within normal limits. Insulin drip per ICU protocol for hyperglycemia. F/E/N: N.p.o. Lines and tubes: 2 18-gauge IVs in place in 1 20-gauge IV. Nephrostomy tube on the left and Zelaya catheter. VTE prophylaxis: SCDs CODE STATUS: Full Family at bedside: Patient's partner updated at bedside 05/04/21 Disposition: Possible downgrade later today pending GI eval Admission and Anticipated Discharge Date Admission Date: May 04, 2021 Subjective Patient seen and examined at bedside. She has significantly more alert and oriented today. She is sleeping with her wounds with room and was easily arousable. She is complaining about pain in her back, but cannot localize the pain. Denies any chest pain. No fevers or chills. Remains hemodynamically stable. Currently on vasopressors. Heart rate in the low 100s. On 6 L oxygen mask. Review of Systems Review of Systems: All systems reviewed & are unremarkable except as noted in HPI & below Physical Exam Physical Exam: Constitutional: Elderly appearing female no apparent distress lying in bed. Eyes: Pupils are equal round and reactive to light. Conjunctivae are normal. Anicteric sclera. Ears nose, mouth and throat: Oral mucosa is dry. Neck: Trachea is midline. Visual inspection is normal. Respiratory: Clear to auscultation bilaterally. No use of accessory muscles. No significant clubbing noted. Cardiovascular: Irregular rhythm. No murmurs. 1+ edema in the lower extremities. Decreased capillary refill. Gastrointestinal: Normal bowel sounds, soft, nontender and nondistended. No hepatosplenomegaly noted. Musculoskeletal: No cyanosis. Patient is able to move all extremities. Skin: No rashes, warm dry and intact. Neurologic: No obvious focal neurological deficits seen. Psychiatric: Alert and oriented x3 with a euthymic affect. Results & Data Results & Data ([facility]) Vital Signs (Past 12 Hours) Vital Signs Temp Pulse Resp BP Pulse Ox 05/05/21 06:46 37.1 C 113 H 33 H 106/61 96 05/05/21 06:45 37.1 C 108 H 22 100 05/05/21 06:31 37.0 C 106 H 18 132/74 100 05/05/21 06:15 37.0 C 103 H 19 123/63 100 05/05/21 06:00 37.0 C 97 H 6 L 134/59 L 100 05/05/21 05:00 37.1 C 102 H 20 99 05/05/21 04:00 36.7 C 92 H 19 108/56 L 100 05/05/21 03:00 37.0 C 89 23 115/54 L 100 05/05/21 02:00 37.2 C 100 H 23 107/59 L 100 05/05/21 01:00 37.2 C 103 H 24 110/58 L 99 05/05/21 00:00 37.1 C 114 H 27 H 123/69 100 05/04/21 23:00 37.2 C 91 H 24 119/60 99 05/04/21 22:15 37.1 C 96 H 26 H 122/53 L 98 05/04/21 22:00 37.1 C 98 H 5 L 108/59 L 100 05/04/21 21:45 37.0 C 100 H 23 123/63 98 05/04/21 21:30 37.0 C 110 H 25 H 115/70 100 05/04/21 21:16 36.5 C 106 H 24 113/40 L 100 05/04/21 21:15 36.9 C 73 19 124/65 97 05/04/21 21:00 36.8 C 107 H 25 H 119/61 100 05/04/21 20:45 36.8 C 108 H 9 L 109/58 L 100 05/04/21 20:30 36.5 C 105 H 24 83/68 L 100 05/04/21 20:15 36.5 C 113 H 8 L 111/58 L 100 Coding Level of Care Code 91151 Subseq Hosp Care Lvl 3 Diagnoses Hemorrhagic shock R57.8 Bradycardia R00.1 Acute upper gastrointestinal bleeding K92.2 Duodenitis K29.80 Acute kidney injury N17.9 Lactic acidosis E87.2
[2021-05-05] MEDS ORDERED: MAGNESIUM SULFATE / D5W 1 GM/100 ML BAG IV SCH (08:30)
[2021-05-05] MEDS: CHOLECALCIFEROL 1,000 UNITS 25 MCG TAB PO SCH (08:40)
[2021-05-05] MEDS: ROSUVASTATIN CALCIUM 20 MG TAB PO SCH (08:40)
[2021-05-05] MEDS: LACTATED RINGER'S 1,000 ML IV SCH ×2 (08:40→23:54)
[2021-05-05] MEDS: SODIUM BICARBONATE 8.4% 100 MEQ in DEXTROSE 5% 1,000 ML IV SCH (08:41)
--- NOTE | 2021-05-05 09:21 | Gastrointestinal Consultation ---
Date of Consultation May 05, 2021 Assessment & Plan (1) Duodenitis: (2) Acute upper gastrointestinal bleeding: Patient is a 89 y.o. female with a history of atrial fibrillation admitted with weakness, melena and acute blood loss anemia and abnormal CT imaging suggestive of duodenitis at the level of the third portion, likely the source of GIB. * NPO for now. * Urgent Push enteroscopy in the OR today with Dr. Ardon. * Agree with holding NOAC. * Maintain 2 large bore IVs at all times. * Transfuse to maintain hemoglobin >8. * Continue PPI ggt at 8 mg/hr. * Further recommendations will be made pending results of testing. Supervising Physician Co-Signing Physician Notes I personally evaluated the patient and agree with the findings as documented by YAHAIRA Mcgill Exam: Constitutional: WD/WN, vitals as above General: EOM intact bilaterally Neck: normal visual inspection Respiratory: normal respiratory effort, lungs clear to auscultation Cardiovascular: RRR, no murmur, no edema Gastrointestinal: abdomennormal to inspection, nondistended, soft, nontender, no hepatosplenomegaly Musculoskeletal: no cyanosis, head normal to inspection Skin: no rashes, warm and dry Neurologic: moves all extremities Psychiatric: A and O x3, euthymic affect History of Present Illness Reason for Consultation: GIB Requesting Physician: Dr. Kraus Attending Physician: Glenn Maciel MD History of Present Illness Patient is a 89 y.o. 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 She has been noted to have dropped about 3 g in her hemoglobin since admission despite blood transfusion. Per nursing, the patient continues with copious amounts of melena, dark red blood with clots and some bright red blood per rectum. She has been made NPO and placed on a PPI ggt. She was previously on pressers but Dopamine has been d/c'd early this morning. She is noted to have OCTAVIO and she is slightly hypotensive and tachycardic. CT a/p with findings of thickening of the third portion of the duodenum. In regard to symptoms, she reports intermittent abdominal pain. N/V prior to admission but none since arrival. Denies any chest pain or shortness of breath. Remains on 4L oxymask for support. Anesthesia has been consulted and patient would need to be evaluated in the OR for any invasive GI work up. Allergies Allergy/AdvReac Type Severity Reaction Status Date / Time No Known Allergies Allergy Verified 05/04/21 15:07 Home Medications Medication Instructions Recorded Confirmed Type aspirin 81 mg tablet,delayed 81 mg PO DAILY #90 tab 09/17/18 05/04/21 History release cholecalciferol (vitamin D3) 25 1,000 units PO DAILY cap 09/17/18 05/04/21 History mcg (1,000 unit) capsule timolol maleate 0.5 % once daily 1 drops OP HS ml 09/17/18 05/04/21 History eye drops vitamins A,C,K-tuut-izylmp 14,320 1 cap PO BID 09/17/18 05/04/21 History unit-226 mg-200 unit capsule (PreserVision AREDS) amlodipine 5 mg tablet 5 mg PO DAILY #90 tab 10/19/20 05/04/21 Rx polyethylene glycol 3350 17 17 g PO DAILY PRN #119 g 10/21/20 05/04/21 Rx gram/dose oral powder (Miralax) telmisartan 80 mg tablet 80 mg PO DAILY #90 tab 11/13/20 05/04/21 Rx alendronate 70 mg tablet 70 mg PO WEEKLY #12 tab 11/30/20 05/04/21 Rx metformin 1,000 mg tablet 1,000 mg PO PM #90 tab 01/04/21 05/04/21 Rx rosuvastatin 20 mg tablet 20 mg PO DAILY #90 tab 01/04/21 05/04/21 Rx calcium citrate 200 mg 1 tab PO BID 04/23/21 05/04/21 History calcium-vitamin D3 3.125 mcg (125 unit) tablet apixaban 2.5 mg tablet (Eliquis) 0 mg PO BID 05/04/21 05/04/21 History diltiazem HCl 30 mg tablet 30 mg PO Q6H 05/04/21 05/04/21 History sulfamethoxazole 800 1 tab PO BID 05/04/21 05/04/21 History mg-trimethoprim 160 mg tablet Patient History Medical History (Updated 05/05/21 @ 10:17 by Rivera Doss MD) Acute kidney injury Acute upper gastrointestinal bleeding Age-related macular degeneration, dry, both eyes Atrial fibrillation Bradycardia Disc degeneration, lumbar Duodenitis Glaucoma Hemorrhagic shock Hyperlipidemia Lactic acidosis Left knee pain Microalbuminuria Osteoporosis Right lumbar radiculopathy Type II diabetes mellitus with complication Surgical History H/O hemorrhoidectomy History of tonsillectomy and adenoidectomy Family History Unknown Diabetes Denies family history of Ovarian cancer Prostate cancer Breast cancer Lung cancer Colorectal cancer Social History Smoking Status: Unknown if ever smoked Second Hand Exposure: No; Preferred Language: Sami Communication Ability: Effective Visual Impairment: Limited Hearing Ability: Normal Oyster Grower Required: No Beliefs That Will Affect Care: None marital status: / Current Living Situation: Family current occupational status: retired Feels Safe at Home: Yes Childhood Exposure to Second-Hand Smoke: No caffeine: Yes Dental Care, Regularly: Yes Physical Activity Frequency: Does not Exercise Seatbelt Use: always Sunscreen Use: Yes (does not go outside) Assistive Devices: Oxygen - Continuous Review of Systems Constitutional: as per Subjective / HPI Respiratory: as per Subjective / HPI Cardiovascular: as per Subjective / HPI Gastrointestinal: as per Subjective / HPI Physical Exam Constitutional: + frail appearing Eyes: + anicteric sclerae and EOM intact bilaterally Neck: normal visual inspection Respiratory: normal respiratory effort; no respiratory distress Auscultation: lungs clear to auscultation bilaterally Cardiovascular: Rate/Rhythm: + tachycardic and + irregularly irregular Gastrointestinal (Abdomen): Inspection/Auscultation: abdomen normal to in spection and + hyperactive bowel sounds Percussion/Palpation: abdomen soft; abdomen nontender, no guarding and abdomen not rigid Musculoskeletal: Extremities: + lower leg abnormality Bilateral (edema) Skin: + pallor Neurologic: slightly lethargic Psychiatric: A+Ox3, euthymic affect Results & Data ([place]) Vital Signs (Past 12 Hours) Vital Signs Temp Pulse Resp BP Pulse Ox 05/05/21 09:00 37.2 C 109 H 20 103/48 L 99 05/05/21 08:45 37.3 C 102 H 19 100 05/05/21 08:30 37.2 C 105 H 20 99 05/05/21 08:15 37.3 C 107 H 22 99 05/05/21 08:00 37.2 C 97 H 24 146/77 H 97 05/05/21 07:45 37.1 C 106 H 21 145/71 H 100 05/05/21 07:30 37.1 C 101 H 23 122/63 100 05/05/21 07:15 36.9 C 95 H 20 126/65 100 05/05/21 07:00 37.1 C 105 H 25 H 119/65 99 05/05/21 06:46 37.1 C 113 H 33 H 106/61 96 05/05/21 06:45 37.1 C 108 H 22 100 05/05/21 06:31 37.0 C 106 H 18 132/74 100 05/05/21 06:15 37.0 C 103 H 19 123/63 100 05/05/21 06:00 37.0 C 97 H 6 L 134/59 L 100 05/05/21 05:00 37.1 C 102 H 20 99 05/05/21 04:00 36.7 C 92 H 19 108/56 L 100 05/05/21 03:00 37.0 C 89 23 115/54 L 100 05/05/21 02:00 37.2 C 100 H 23 107/59 L 100 05/05/21 01:00 37.2 C 103 H 24 110/58 L 99 05/05/21 00:00 37.1 C 114 H 27 H 123/69 100 05/04/21 23:00 37.2 C 91 H 24 119/60 99 05/04/21 22:15 37.1 C 96 H 26 H 122/53 L 98 05/04/21 22:00 37.1 C 98 H 5 L 108/59 L 100 05/04/21 21:45 37.0 C 100 H 23 123/63 98 05/04/21 21:30 37.0 C 110 H 25 H 115/70 100 Diagnostic Findings Laboratory Results WBC 18.33 K/uL (4.8-10.8) H 05/05/21 05:44 RBC 3.58 M/uL (4.2-5.4) L 05/05/21 05:44 Hgb 10.4 g/dL (12.0-16.0) L 05/05/21 05:44 Hct 30.0 % (37-47) L 05/05/21 05:44 MCV 83.8 fL (80-100) 05/05/21 05:44 MCH 29.1 pg (25-34) 05/05/21 05:44 MCHC 34.7 g/dL (32-36) 05/05/21 05:44 RDW Std Deviation 51.5 fL (36.4-46.3) H 05/05/21 05:44 RDW Coeff of Cas 16.9 % (11.5-14.5) H 05/05/21 05:44 Plt Count 258 K/uL (130-400) 05/05/21 05:44 MPV 11.8 fL (7.4-10.4) H 05/05/21 05:44 Immature Gran % (Auto) 1.0 % 05/05/21 05:44 Neut % (Auto) 78.7 % 05/05/21 05:44 Lymph % (Auto) 11.4 % 05/05/21 05:44 Charlton % (Auto) 8.5 % 05/05/21 05:44 Eos % (Auto) 0.1 % 05/05/21 05:44 Baso % (Auto) 0.3 % 05/05/21 05:44 Neut # (Auto) 14.41 K/uL (1.4-6.5) H 05/05/21 05:44 Lymph # (Auto) 2.09 K/uL (1.2-3.4) 05/05/21 05:44 Charlton # (Auto) 1.56 K/uL (0.11-0.59) H 05/05/21 05:44 Eos # (Auto) 0.02 K/uL (0-0.5) 05/05/21 05:44 Baso # (Auto) 0.06 K/uL (0-0.2) 05/05/21 05:44 Immature Gran # (Auto) 0.19 K/uL (0.00-0.02) H 05/05/21 05:44 Polychromasia 1+ 05/04/21 20:36 Echinocytes 1+ 05/04/21 20:36 Schistocytes 1+ 05/04/21 13:45 PT 14.3 Seconds (9.0-12.0) H 05/05/21 05:38 INR 1.4 (0.9-1.1) H 05/05/21 05:38 APTT 23.4 Seconds (21.0-31.0) 05/04/21 13:45 PTT Ratio 0.9 05/04/21 13:45 Fibrinogen 221 mg/dl (184-400) 05/04/21 16:40 Fibrin Degrad Products 10-40 mcg/ml (<10) H 05/04/21 16:41 D-Dimer 1970 ug/L FEU (0-500) H* 05/04/21 16:40 ABG pH 7.43 (7.35-7.45) 05/04/21 17:39 ABG pCO2 29 mmHg (35-46) L 05/04/21 17:39 ABG pO2 126 mmHg (80-95) H 05/04/21 17:39 ABG HCO3 19 mmol/L (19-24) 05/04/21 17:39 ABG O2 Saturation 98.8 % (90-95) H 05/04/21 17:39 ABG Base Excess -4.6 mEq/L (-9-1.8) 05/04/21 17:39 Rafa Test Pos (Pos) 05/04/21 17:39 Barometric Pressure 729.5 mm/Hg 05/04/21 17:39 Oxygen Given 7L 05/04/21 17:39 Sodium 137 mmol/L (136-145) 05/05/21 05:44 Potassium 5.0 mmol/L (3.5-5.1) 05/05/21 05:44 Chloride 108 mmol/L (98-107) H 05/05/21 05:44 Carbon Dioxide 23 mmol/L (21-32) 05/05/21 05:44 Anion Gap 6 (3-11) 05/05/21 05:44 BUN 64 mg/dl (6-23) H 05/05/21 05:44 Creatinine 1.64 mg/dl (0.6-1.2) H 05/05/21 05:44 Est Cr Clr Drug Dosing 23.7 ml/min 05/05/21 05:44 Est GFR ( Amer) 31.8 ml/min 05/05/21 05:44 Est GFR (Non-Af Amer) 27.4 ml/min 05/05/21 05:44 BUN/Creatinine Ratio 39.0 (10-20) H 05/05/21 05:44 Glucose 201 mg/dl (70-99(Fasting)) H 05/05/21 05:44 Lactate 2.3 mmol/L (0.4-2.0) H* 05/04/21 20:36 Calcium 8.7 mg/dl (8.5-10.1) 05/05/21 05:44 Phosphorus 3.5 mg/dl (2.5-4.9) 05/05/21 05:44 Magnesium 1.6 mg/dl (1.7-2.4) L 05/05/21 05:44 Total Bilirubin 0.2 mg/dl (0.2-1.0) 05/04/21 13:45 AST 23 U/L (13-39) 05/04/21 13:45 ALT 35 U/L (7-52) 05/04/21 13:45 Alkaline Phosphatase 61 U/L (34-104) 05/04/21 13:45 Lactate Dehydrogenase 118 U/L (86-244) 05/04/21 16:41 Troponin I 0.04 ng/ml (0-0.04) 05/04/21 17:44 Total Protein 4.8 gm/dl (6.0-8.3) L 05/04/21 13:45 Albumin 2.7 gm/dl (3.4-5.0) L 05/04/21 13:45 Globulin 2.1 gm/dl (2.5-4.0) L 05/04/21 13:45 Albumin/Globulin Ratio 1.3 (0.9-2) 05/04/21 13:45 Lipase 92 U/L (11-82) H 05/04/21 16:41 TSH 3.121 uIu/ml (0.300-4.500) 05/04/21 16:41 Urine Color Yellow 05/05/21 06:24 Urine Appearance Cloudy (Clear) A 05/05/21 06:24 Urine pH 5.0 (4.5-7.5) 05/05/21 06:24 Ur Specific [place] Site 1.018 (1.000-1.030) 05/05/21 06:24 Urine Protein Negative (Negative) 05/05/21 06:24 Urine Glucose (UA) Negative (Negative) 05/05/21 06:24 Urine Ketones Negative (Negative) 05/05/21 06:24 Urine Blood 3+ (Negative) H 05/05/21 06:24 Urine Nitrite Negative (Negative) 05/05/21 06:24 Urine Bilirubin Negative (Negative) 05/05/21 06:24 Urine Urobilinogen Negative (Negative) 05/05/21 06:24 Ur Leukocyte Esterase 2+ (Negative) H 05/05/21 06:24 Urine WBC (Auto) 10-30 /hpf (0-5) H 05/05/21 06:24 Urine RBC (Auto) >30 /hpf (0-4) H 05/05/21 06:24 U Hyaline Cast (Auto) 1-5 /lpf (0-5) 05/05/21 06:24 U Epithel Cells (Auto) >30 /lpf (0-5) H 05/05/21 06:24 Urine Bacteria (Auto) 1+ (Negative) H 05/05/21 06:24 Ur Renal Epithelial Cell Not Reportable 05/05/21 06:24 Calcium Oxalate Crystal Present (None Prsent) A 05/05/21 06:24 Urine Yeast Not Reportable 05/05/21 06:24 Nasal Screen MRSA (PCR) Negative (Negative) 05/05/21 06:24 SARS-CoV-2, RNA, NAAT NEGATIVE (NEGATIVE) 05/04/21 14:15 Blood Type A Positive 05/04/21 14:13 Blood Type Recheck A Positive 05/04/21 14:39 Antibody Screen NEGATIVE 05/04/21 14:13 Crossmatch See Detail 05/04/21 14:13 Impressions Chest X-Ray 05/04/21 13:36 XR chest 1V portable CLINICAL HISTORY: weakness. Evaluate cardiopulmonary status COMPARISON STUDY: 02/20/2017 TECHNIQUE: 1 view of the chest FINDINGS: Single frontal view of the chest demonstrates the cardiomediastinal silhouette to be within normal limits. There is a decreased inspiratory effort with elevation of the hemidiaphragms and crowding of the bronchovascular markings at the lung bases and centrally. The lungs are clear of alveolar opacities. Subcentimeter calcified granulomas again seen at the right lung base. There is no evidence for pleural effusion. There is no evidence for vascular congestion. There is no acute osseous pathology. IMPRESSION: 1. Compared to the previous study, there is a decreased inspiratory effort with otherwise no acute chest disease. ACT 112: Negative or not required by law. Electronically signed by: Bravo Jackson M.D. 05/04/2021 3:33 PM Abdomen/Pelvis CT 05/04/21 13:[address] WITHOUT CONTRAST CT DOSE: 409.75 mGy.cm HISTORY: Generalized abdominal pain. Bloody stool. TECHNIQUE: Multiaxial CT images of the abdomen and pelvis were performed without contrast. A dose lowering technique was utilized adhering to the principles of ALARA. COMPARISON STUDY: Abdomen and pelvis CT 04/23/2021. FINDINGS: Calcified granuloma within the right lower lobe. The left lung base is clear. No pneumoperitoneum. No pneumatosis. Degenerative changes within the lower lumbar spine. Small fat-containing left inguinal hernia, unchanged. There is mild body wall edema. Subtle 2 cm hypodense focus within the left side of the bladder demonstrating peripheral density. This may represent a small amount of residual contrast or calcification within the bladder. This is best seen image 366. The bladder is decompressed. The uterus and bilateral adnexa are unremarkable. Fluid-filled nondilated loops of large and small bowel seen throughout the abdomen. This favors a gastroenteritis/diarrheal illness. No evidence for bowel obstruction. No retroperitoneal lymphadenopathy. Calcified plaque within the normal caliber abdominal aorta. Nodular contour to the right hepatic lobe measuring early cirrhosis. Punctate calcified splenic granulomas are noted. Stable hypodense lesion within the splenic dome. The adrenal glands are unremarkable. Normal pancreas. Mild wall thickening and adjacent inflammatory change at the second and third portions of the duodenum. This may represent mild duodenitis. Acute pancreatitis could also a similar appearance but is considered less likely. Stable cysts within the lower pole the right kidney measuring 5.8 cm. No right-sided hydronephrosis. Interval placement of a left percutaneous nephrostomy tube which appears in good position. The looped portion of the catheter surrounds the 2.2 cm stone within the left renal pelvis. Small focus of gas within the left renal collecting system persists. There is mild left perinephric edema, unchanged. No left-sided hydronephrosis. IMPRESSION: 1. Mild nonspecific wall thickening and adjacent inflammatory change at the second and third portion of the duodenum. This favors a duodenitis. Acute pancreatitis could also have a similar appearance but is considered less likely. Recommend correlation with pancreatic enzymes. 2. Nondilated fluid-filled loops of large and small bowel likely representing a diarrheal illness/gastroenteritis. 3. Interval placement left-sided percutaneous nephrostomy tube which appears in good position. The catheter loops around the 2.2 cm stone within the left renal pelvis. No hydronephrosis. Small of gas within the left renal collecting system is likely due to the nephrostomy tube. 4. Subtle 2 cm hypodense focus within the left side of the bladder demonstrating peripheral density. This may represent a small amount of residual contrast or calcification within the bladder. Consider follow-up cystoscopy for further evaluation. 5. Additional findings as described above. ACT 112: Negative or not required by law. Electronically signed by: Guillermo Siddiqui M.D. 05/04/2021 3:17 PM PG Care Time/CCT Total # of Minutes Spent Total Time Spent with Patient: Total time spent is greater than 50% in coordination of care (as documented) at patient's floor/unit and/or counseling patient: Coding Level of Care Code 77191 Initial Inpt Care Lvl 3 Diagnoses Duodenitis K29.80 Acute upper gastrointestinal bleeding K92.2
[2021-05-05] MEDS ORDERED: STAT IV Infusion **Titration per Protocol STA (09:39)
--- NOTE | 2021-05-05 10:11 | Anesthesiology Consultation ---
Date of Service May 05, 2021 Assessment & Plan (1) Encounter for pre-operative examination: Renzo neg 05/04/21 Chart Review ICU note 05/05/21: Cardiovascular: Maintain mean arterial pressure above 65. Patient with bradycardia likely related to hyperkalemia and metabolic derangements. Continue dopamine to maintain maps above 65. Given 2 A of bicarb emergently due to acidotic state with improvement of heart rate. Bedside [id number] echo completed. EF appears to be intact. No large pericardial effusion. IVC approximately 2.5 cm. EKG without clear signs of ischemia. We will hold anticoagulation at this point given the acute GI bleed. Hold all antihypertensives and beta blockade. We will obtain a formal echocardiogram. Tropnins negative. History Surgery Operation Date: 05/05/21 10:45 Proposed Procedures p Push Enteroscopy - Edwin Ardon MD Height/Weight Height: 5 ft 4 in Weight: 79.2 kg Allergies Allergy/AdvReac Type Severity Reaction Status Date / Time No Known Allergies Allergy Verified 05/04/21 15:07 Medications Home Medications Medication Instructions Recorded Confirmed Last Taken aspirin 81 mg tablet,delayed 81 mg PO DAILY #90 tab 09/17/18 05/04/21 05/04/21 release cholecalciferol (vitamin D3) 25 1,000 units PO DAILY cap 09/17/18 05/04/21 05/04/21 mcg (1,000 unit) capsule timolol maleate 0.5 % once daily 1 drops OP HS ml 09/17/18 05/04/21 05/03/21 eye drops vitamins A,C,N-ffas-dzrhyf 14,320 1 cap PO BID 09/17/18 05/04/21 05/04/21 09:00 unit-226 mg-200 unit capsule (PreserVision AREDS) amlodipine 5 mg tablet 5 mg PO DAILY #90 tab 10/19/20 05/04/21 05/04/21 polyethylene glycol 3350 17 17 g PO DAILY PRN #119 g 10/21/20 05/04/21 Unknown gram/dose oral powder (Miralax) telmisartan 80 mg tablet 80 mg PO DAILY #90 tab 11/13/20 05/04/21 05/04/21 alendronate 70 mg tablet 70 mg PO WEEKLY #12 tab 11/30/20 05/04/21 05/04/21 metformin 1,000 mg tablet 1,000 mg PO PM #90 tab 01/04/21 05/04/21 05/03/21 rosuvastatin 20 mg tablet 20 mg PO DAILY #90 tab 01/04/21 05/04/21 05/04/21 calcium citrate 200 mg 1 tab PO BID 04/23/21 05/04/21 05/04/21 08:00 calcium-vitamin D3 3.125 mcg (125 unit) tablet apixaban 2.5 mg tablet (Eliquis) 0 mg PO BID 05/04/21 05/04/21 Unknown diltiazem HCl 30 mg tablet 30 mg PO Q6H 05/04/21 05/04/21 05/04/21 12:00 sulfamethoxazole 800 1 tab PO BID 05/04/21 05/04/21 05/04/21 09:00 mg-trimethoprim 160 mg tablet Active Medications Generic Name Dose Route Start Last Admin Trade Name Freq PRN Reason Stop Dose Admin Pantoprazole Sodium 40 mg/ 100 mls @ 20 mls/hr 05/04/21 14:15 05/05/21 06:17 Dextrose IV 06/03/21 14:14 8 mg/hr Q5H MELONY 20 mls/hr Administration 8 MG/HR Lactated Ringer's 1,000 mls @ 80 mls/hr 05/05/21 08:15 05/05/21 08:40 Lr IV 06/04/21 08:14 80 mls/hr .[id number] MELONY Administration Miscellaneous 1 ea 05/04/21 18:00 05/05/21 06:46 Icu Electrolyte Replacement Protocol N/A 05/11/21 17:59 1 ea BID@06,18 MELONY Administration Protocol Rosuvastatin Calcium 20 mg 05/05/21 09:00 05/05/21 08:40 Rosuvastatin Calcium 20 Mg Tab PO 06/04/21 08:59 Not Given DAILY MELONY Vitamin D 1,000 units 05/05/21 09:00 05/05/21 08:40 Cholecalciferol 1,000 Units 25 Mcg Tab PO 06/04/21 08:59 Not Given DAILY MELONY Past Medical History Medical History (Updated 05/05/21 @ 10:17 by Rivera Doss MD) Acute kidney injury Acute upper gastrointestinal bleeding Age-related macular degeneration, dry, both eyes Atrial fibrillation Bradycardia Disc degeneration, lumbar Duodenitis Glaucoma Hemorrhagic shock Hyperlipidemia Lactic acidosis Left knee pain Microalbuminuria Osteoporosis Right lumbar radiculopathy Type II diabetes mellitus with complication Past Family History Family History Unknown Diabetes Denies family history of Ovarian cancer Prostate cancer Breast cancer Lung cancer Colorectal cancer Past Surgical History Surgical History H/O hemorrhoidectomy History of tonsillectomy and adenoidectomy Social History Smoking Status: Unknown if ever smoked Physical Exam Vital Signs Last Vital Signs Temp 37.2 C 05/05/21 09:00 Pulse 109 H 05/05/21 09:00 Resp 20 05/05/21 09:00 BP 103/48 L 05/05/21 09:00 Pulse Ox 99 05/05/21 09:00 Testing Laboratory Results 05/05/21 05:44 05/05/21 05:44 PT 14.3 Seconds (9.0-12.0) H 05/05/21 05:38 INR 1.4 (0.9-1.1) H 05/05/21 05:38 APTT 23.4 Seconds (21.0-31.0) 05/04/21 13:45 Urine Color Yellow 05/05/21 06:24 Urine Appearance Cloudy (Clear) A 05/05/21 06:24 Urine pH 5.0 (4.5-7.5) 05/05/21 06:24 Ur Specific [place] 1.018 (1.000-1.030) 05/05/21 06:24 Urine Protein Negative (Negative) 05/05/21 06:24 Urine Glucose (UA) Negative (Negative) 05/05/21 06:24 Urine Ketones Negative (Negative) 05/05/21 06:24 Urine Nitrite Negative (Negative) 05/05/21 06:24 Ur Leukocyte Esterase 2+ (Negative) H 05/05/21 06:24 Urine WBC (Auto) 10-30 /hpf (0-5) H 05/05/21 06:24 Urine RBC (Auto) >30 /hpf (0-4) H 05/05/21 06:24 U Hyaline Cast (Auto) 1-5 /lpf (0-5) 05/05/21 06:24 U Epithel Cells (Auto) >30 /lpf (0-5) H 05/05/21 06:24 Urine Bacteria (Auto) 1+ (Negative) H 05/05/21 06:24 Blood Type A Positive 05/04/21 14:13 Antibody Screen NEGATIVE 05/04/21 14:13 Electrocardiogram Date: 05/04/21 HR 55. Poor data quality, interpretation may be adversely affected Sinus bradycardia with marked sinus arrhythmia with Premature ventricular complexes or Fusion complexes Incomplete right bundle branch block Cannot rule out Inferior infarct (cited on or before 04-MAY-2021) Cannot rule out Anterior infarct , age undetermined Abnormal ECG When compared with ECG of 04-MAY-2021 15:12, (unconfirmed) Sinus rhythm has replaced Atrial fibrillation Vent. rate has decreased BY 41 BPM Incomplete right bundle branch block is now Present .. Chest X-Ray Date: 05/04/21 XR chest 1V portable CLINICAL HISTORY: weakness. Evaluate cardiopulmonary status COMPARISON STUDY: 02/20/2017 TECHNIQUE: 1 view of the chest FINDINGS: Single frontal view of the chest demonstrates the cardiomediastinal silhouette to be within normal limits. There is a decreased inspiratory effort with elevation of the hemidiaphragms and crowding of the bronchovascular markings at the lung bases and centrally. The lungs are clear of alveolar opacities. Subcentimeter calcified granulomas again seen at the right lung base. There is no evidence for pleural effusion. There is no evidence for vascular congestion. There is no acute osseous pathology. IMPRESSION: 1. Compared to the previous study, there is a decreased inspiratory effort with otherwise no acute chest disease Echocardiogram Date: 04/26/21 Normal LV size and systolic function. EF 65% No wall motion abnormalities No LVH. No significant valvular abnormality.
[2021-05-05] MEDS: NOREPINEPHRINE/D5W 8 MG/508 ML BAG IV SCH (10:37)
[2021-05-05] MEDS ORDERED: PROPOFOL IV EMULSION 10 MG/ML 20 ML VIAL IV ONE (11:16)
[2021-05-05] MEDS ORDERED: LIDOCAINE 2% 2 ML VIAL/AMP(20MG/ML) INFIL ONE (11:16)
[2021-05-05] MEDS ORDERED: KETAMINE 50 MG/5 ML SYRINGE ONE (11:16)
[2021-05-05 11:24] LABS: Basophils # (auto) 0.07 K/uL (0-0.2); Basophils % (auto) 0.4 %; Eosinophils # (auto) 0.06 K/uL (0-0.5); Eosinophils % (auto) 0.3 %; Hematocrit (blood only) 29.3 % (37-47); Hemoglobin 10.1 g/dL (12.0-16.0); Immature Granulocytes # (auto) 0.17 K/uL (0.00-0.02); Immature Granulocytes % (auto) 0.9 %; Lymphocytes % (auto) 11.5 %; Mean Corpuscular Hemoglobin 29.1 pg (25-34); Mean Corpuscular Volume 84.4 fL (80-100); Mean Platelet Volume 11.8 fL (7.4-10.4); Monocytes # (auto) 1.68 K/uL (0.11-0.59); Monocytes % (auto) 9.2 %; Neutrophils # (auto) 14.17 K/uL (1.4-6.5); Neutrophils % (auto) 77.7 %; Platelet Count 265 K/uL (130-400); RDW Coefficient of Variation 17.2 % (11.5-14.5); RDW Standard Deviation 52.4 fL (36.4-46.3); Red Blood Count 3.47 M/uL (4.2-5.4); White Blood Count 18.25 K/uL (4.8-10.8)
[2021-05-05] MEDS ORDERED: BENZOCAINE/TETRACAIN/BUTAM 50 APPLN/5 GM CAN EXT ONE (11:28)
[2021-05-05 11:32] LABS: Mean Corpuscular Hgb Conc 34.5 g/dL (32-36)
[2021-05-05] MEDS: INSULIN ASPART PER UNIT SC SCH ×3 (11:48→20:51)
[2021-05-05] MEDS ORDERED: fentaNYL citrate 100 MCG/2 ML VIAL ONE (12:22)
[2021-05-05] MEDS ORDERED: ONDANSETRON INJ 2 MG/ML 2 ML VIAL IV PRN (13:13)
[2021-05-05] MEDS ORDERED: fentaNYL citrate 100 MCG/2 ML VIAL IV PRN ×2 (13:13→18:16)
[2021-05-05] MEDS ORDERED: ATROPINE SULFATE 0.1 MG/ML 10ML SYR IV PRN (13:13)
[2021-05-05] MEDS ORDERED: ePHEDrine sulfate 50 MG/ML AMP IV PRN (13:13)
--- NOTE | 2021-05-05 13:13 | Procedure Note ---
Procedure Note Date of Service May 05, 2021 Note GI procedure note/post op note EGD findings: multiple actively bleeding duodenal ulcers found in the bulb and the duodenal sweep, surrounded by malignant appearing tissue, biopsied. suctioned and washed, treated with epi, bipolar, and clips with hemostasis achieved. no ulcers in the stomach or d2,d3. 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
--- NOTE | 2021-05-05 13:20 | GI REPORT ---
Patient Name: Shobha Burns Procedure Date: 05/05/2021 10:46 AM Date of : 1930 Admit Type: Inpatient Age: 89 Gender: Female Attending MD: Edwin Ardon MD Procedure: Small bowel enteroscopy Providers: Edwin Ardon MD Referring MD: Glenn Maciel Indications: Hematochezia, Melena Medicines: Monitored Anesthesia Care Complications: No immediate complications. Estimated blood loss: None. Estimated Blood Loss: Estimated blood loss: none. Procedure: Pre-Anesthesia Assessment: - Prior Anticoagulants: The patient has taken Eliquis (apixaban), last dose was 1 day prior to procedure. - ASA Grade Assessment: IV - A patient with severe systemic disease that is a constant threat to life. After obtaining informed consent, the endoscope was passed under direct vision. Throughout the procedure, the patient's blood pressure, pulse, and oxygen saturations were monitored continuously. The Colonoscope was introduced through the mouth, and advanced to the third part of duodenum. After obtaining informed consent, the endoscope was passed under direct vision. Throughout the procedure, the patient's blood pressure, pulse, and oxygen saturations were monitored continuously.The small bowel enteroscopy was accomplished without difficulty. The patient tolerated the procedure well. Findings: The esophagus was normal. Hematin (altered blood/ngnsod-niqakj-bexr material) was found in the gastric fundus. suctioned out. A medium-sized infiltrative mass with bleeding was found in the duodenal bulb and in the first portion of the duodenum. several bleeding ulcers associated with this abnormal tissue/malignant appearing mucosa were noted as well. Area was successfully injected with 6 mL of a 1:10,000 solution of epinephrine for hemostasis. Coagulation for hemostasis using bipolar probe was successful. Estimated blood loss: none. For hemostasis, three hemostatic clips were successfully placed. There was no bleeding at the end of the procedure. Impression: - Normal esophagus. - Hematin (altered blood/yucbxi-glhwre-fxfy material) in the gastric fundus. - Duodenal mass. Injected. Treated with bipolar cautery. Clips were placed. - No specimens collected. Recommendation: - Return patient to ICU for ongoing care. --NPO, can advance to clear liquid diet tonight if stable --f/u path results --protonix drip for 72 hours then BID thereafter --supportive care, IVFs --hold eliquis for 14 days Edwin Ardon MD 05/05/2021 1:20:16 PM This report has been signed electronically. Note Initiated On: 05/05/2021 10:46 AM Number of Addenda: 0 I attest to the content of the Intraoperative Record and orders documented therein, exceptions below {[id number]}
[2021-05-05] MEDS ORDERED: ONDANSETRON INJ 2 MG/ML 2 ML VIAL ONE (13:23)
--- NOTE | 2021-05-05 13:33 | Anesthesiology Progress Note ---
Date of Service May 05, 2021 Anesthesia Post Procedure Vital Signs Vital Signs: Temp Pulse Pulse Pulse Resp BP BP 05/05/21 13:15 36.1 C L 93 H 16 121/47 L 05/05/21 10:52 37.2 C 05/05/21 10:25 37.2 C 104 H 20 05/05/21 09:00 37.2 C 109 H 20 103/48 L 05/05/21 08:45 37.3 C 102 H 19 05/05/21 08:30 37.2 C 105 H 20 05/05/21 08:15 37.3 C 107 H 22 05/05/21 08:00 37.2 C 97 H 24 146/77 H 05/05/21 07:45 37.1 C 106 H 21 145/71 H 05/05/21 07:30 37.1 C 101 H 23 122/63 05/05/21 07:15 36.9 C 95 H 20 126/65 05/05/21 07:00 37.1 C 105 H 25 H 119/65 05/05/21 06:46 37.1 C 113 H 33 H 106/61 05/05/21 06:45 37.1 C 108 H 22 05/05/21 06:31 37.0 C 106 H 18 132/74 05/05/21 06:15 37.0 C 103 H 19 123/63 05/05/21 06:00 37.0 C 97 H 6 L 134/59 L 05/05/21 05:00 37.1 C 102 H 20 05/05/21 04:00 36.7 C 92 H 19 108/56 L 05/05/21 03:00 37.0 C 89 23 115/54 L 05/05/21 02:00 37.2 C 100 H 23 107/59 L 05/05/21 01:00 37.2 C 103 H 24 110/58 L 05/05/21 00:00 37.1 C 114 H 27 H 123/69 05/04/21 23:00 37.2 C 91 H 24 119/60 05/04/21 22:15 37.1 C 96 H 26 H 122/53 L 05/04/21 22:00 37.1 C 98 H 5 L 108/59 L 05/04/21 21:45 37.0 C 100 H 23 123/63 05/04/21 21:30 37.0 C 110 H 25 H 115/70 05/04/21 21:16 36.5 C 106 H 24 113/40 L 05/04/21 21:15 36.9 C 73 19 124/65 05/04/21 21:00 36.8 C 107 H 25 H 119/61 05/04/21 20:45 36.8 C 108 H 9 L 109/58 L 05/04/21 20:30 36.5 C 105 H 24 83/68 L 05/04/21 20:15 36.5 C 113 H 8 L 111/58 L 05/04/21 20:00 36.5 C 107 H 22 107/56 L 05/04/21 19:45 36.6 C 110 H 22 118/49 L 05/04/21 18:33 36.3 C L 121 H 28 H 88/63 L 05/04/21 17:45 69 23 108/58 L 05/04/21 17:37 54 L 28 H 141/80 H 05/04/21 17:30 47 L 26 H 05/04/21 17:16 47 L 31 H 90/51 L 05/04/21 17:15 56 L 19 05/04/21 17:12 51 L 19 105/49 L 05/04/21 17:07 32 L 16 108/46 L 05/04/21 16:55 93 H 108/46 L 05/04/21 16:46 72 25 H 113/59 L 05/04/21 16:45 73 28 H 05/04/21 16:39 75 24 113/59 L 05/04/21 16:38 36.4 C L 69 24 120/53 L 05/04/21 16:37 36.4 C L 69 24 120/53 L 05/04/21 16:30 58 L 24 05/04/21 16:21 58 L 25 H 93/64 L 05/04/21 16:18 75 23 05/04/21 15:56 36.4 C L 70 24 73/56 L 05/04/21 15:40 36.6 C 96 H 26 H 88/51 L 05/04/21 14:47 88 14 05/04/21 14:04 36.6 C 94 H 18 91/57 L BP Pulse Ox 05/05/21 13:15 99 05/05/21 10:52 05/05/21 10:25 131/59 L 98 05/05/21 09:00 99 05/05/21 08:45 100 05/05/21 08:30 99 05/05/21 08:15 99 05/05/21 08:00 97 05/05/21 07:45 100 05/05/21 07:30 100 05/05/21 07:15 100 05/05/21 07:00 99 05/05/21 06:46 96 05/05/21 06:45 100 05/05/21 06:31 100 05/05/21 06:15 100 05/05/21 06:00 100 05/05/21 05:00 99 05/05/21 04:00 100 05/05/21 03:00 100 05/05/21 02:00 100 05/05/21 01:00 99 05/05/21 00:00 100 05/04/21 23:00 99 05/04/21 22:15 98 05/04/21 22:00 100 05/04/21 21:45 98 05/04/21 21:30 100 05/04/21 21:16 100 05/04/21 21:15 97 05/04/21 21:00 100 05/04/21 20:45 100 05/04/21 20:30 100 05/04/21 20:15 100 05/04/21 20:00 97 05/04/21 19:45 98 05/04/21 18:33 100 05/04/21 17:45 97 05/04/21 17:37 98 05/04/21 17:30 96 05/04/21 17:16 96 05/04/21 17:15 98 05/04/21 17:12 05/04/21 17:07 05/04/21 16:55 05/04/21 16:46 05/04/21 16:45 88 L 05/04/21 16:39 95 05/04/21 16:38 100 05/04/21 16:37 100 05/04/21 16:30 92 05/04/21 16:21 05/04/21 16:18 05/04/21 15:56 99 05/04/21 15:40 99 05/04/21 14:47 99 03/01/22 14:04 100 Transfer of Care Handoff Completed per policy Notes Mental Status: alert / awake / arousable and participated in evaluation Patient Amnestic to Procedure: Yes Nausea / Vomiting: adequately controlled Pain: adequately controlled Airway Patency, RR, SpO2: stable & adequate BP & HR: stable & adequate Hydration State: stable & adequate Anesthetic Complications: no major complications apparent and Pt Satisfied with anesthetic care
--- NOTE | 2021-05-05 13:42 | XCELERA ---
[id number]
[2021-05-05 14:36] LABS: iSTAT Creatinine 1.8 mg/dl (0.6-1.3); iSTAT Hemoglobin 7.1 g/dl (12.0-16.0); iSTAT Ionized Calcium 1.2 mmol/l (1.12-1.32); iSTAT Potassium 5.6 mmol/L (3.3-5.0)
--- NOTE | 2021-05-05 16:09 | Cardiology Consultation ---
Date of Consultation May 05, 2021 Assessment & Plan (1) Atrial fibrillation: -the patient was recently diagnosed with paroxysmal atrial fibrillation. -she does demonstrate a rapid ventricular response when in her dysrhythmia. -Eliquis currently on hold due to GI bleeding. -diltiazem currently on hold due to hypotension. -her acute illness is likely a factor in her dysrhythmia. (2) Bradycardia: -she has demonstrated sinus bradycardia, type 2 second-degree AV block, and Wenckebach. -this was in the face of her acute illness. -seems reasonable to follow her on telemetry. -she may eventually require permanent pacemaking. -a possible duodenal malignancy may play into our decision. -will ask Dr. Riley for his opinion tomorrow. (3) Hyperlipidemia: -resume rosuvastatin when able. History of Present Illness Attending Physician: Glenn Maciel MD History of Present Illness Mrs. Burns is an 89-year-old female admitted yesterday with hypovolemic for shock from an upper GI bleeding. This consultation was ordered to address her tachycardia/bradycardia syndrome. The patient's recent history began on April 21 when she presented to our emergency room with left flank pain. CT scan of the abdomen showed a large, 2.7 cm stone within the left UPJ and moderate hydro utero nephrosis. The patient developed atrial fibrillation with a rapid ventricular response treated with intravenous diltiazem. Fortunately, she converted to sinus rhythm. She was transferred [facility] on April 24 were she had a left percutaneous nephrostomy tube placed. She also developed atrial fibrillation wi th a rapid ventricular response treated with diltiazem. She was started on Eliquis. An echocardiogram noted normal systolic function without valvular pathology. She was discharged home in stable fashion on April 28. Two days prior to presentation, the patient began to note abdominal discomfort and watery stools which were very dark in color. She presented to our emergency room and was found to have a hemoglobin of 6.9. Her Eliquis therapy was reversed with Kcentra and she received 4 units of packed red blood cells. She required dopamine for blood pressure support. She has demonstrated atrial fibrillation with a rapid ventricular response. She has also demonstrated bradycardia with evidence of type 2 second-degree AV block. The patient underwent an endoscopy today which revealed several bleeding to wall normal ulcers which looks suspicious for a malignancy. Electrocautery was performed and biopsies were sent to pathology. Currently, the patient is resting comfortably in bed and without complaints. Past medical and surgical history 1. Hypertension 2. Hypercholesterolemia 3. Paroxysmal atrial fibrillation 4. Diabetes mellitus 5. Osteoporosis 6. Glaucoma 7. Right lumbar radiculopathy 8. Macular degeneration 9. Hemorrhoidectomy 10. Tonsillectomy Social history , lives with her No tobacco alcohol Family history Noncontributory Review of systems A 10 review systems was negative except that described above. Allergies Allergy/AdvReac Type Severity Reaction Status Date / Time No Known Allergies Allergy Verified 05/04/21 15:07 Home Medications Medication Instructions Recorded Confirmed Type aspirin 81 mg tablet,delayed 81 mg PO DAILY #90 tab 09/17/18 05/04/21 History release cholecalciferol (vitamin D3) 25 1,000 units PO DAILY cap 09/17/18 05/04/21 History mcg (1,000 unit) capsule timolol maleate 0.5 % once daily 1 drops OP HS ml 09/17/18 05/04/21 History eye drops vitamins A,C,Q-fvfm-tecvno 14,320 1 cap PO BID 09/17/18 05/04/21 History unit-226 mg-200 unit capsule (PreserVision AREDS) amlodipine 5 mg tablet 5 mg PO DAILY #90 tab 10/19/20 05/04/21 Rx polyethylene glycol 3350 17 17 g PO DAILY PRN #119 g 10/21/20 05/04/21 Rx gram/dose oral powder (Miralax) telmisartan 80 mg tablet 80 mg PO DAILY #90 tab 11/13/20 05/04/21 Rx alendronate 70 mg tablet 70 mg PO WEEKLY #12 tab 11/30/20 05/04/21 Rx metformin 1,000 mg tablet 1,000 mg PO PM #90 tab 01/04/21 05/04/21 Rx rosuvastatin 20 mg tablet 20 mg PO DAILY #90 tab 01/04/21 05/04/21 Rx calcium citrate 200 mg 1 tab PO BID 04/23/21 05/04/21 History calcium-vitamin D3 3.125 mcg (125 unit) tablet apixaban 2.5 mg tablet (Eliquis) 0 mg PO BID 05/04/21 05/04/21 History diltiazem HCl 30 mg tablet 30 mg PO Q6H 05/04/21 05/04/21 History sulfamethoxazole 800 1 tab PO BID 05/04/21 05/04/21 History mg-trimethoprim 160 mg tablet Patient History Medical History (Updated 05/05/21 @ 10:17 by Rivera Doss MD) Acute kidney injury Acute upper gastrointestinal bleeding Age-related macular degeneration, dry, both eyes Atrial fibrillation Bradycardia Disc degeneration, lumbar Duodenitis Glaucoma Hemorrhagic shock Hyperlipidemia Lactic acidosis Left knee pain Microalbuminuria Osteoporosis Right lumbar radiculopathy Type II diabetes mellitus with complication Surgical History H/O hemorrhoidectomy History of tonsillectomy and adenoidectomy Family History Unknown Diabetes Denies family history of Ovarian cancer Prostate cancer Breast cancer Lung cancer Colorectal cancer Social History Smoking Status: Unknown if ever smoked Second Hand Exposure: No; Preferred Language: Swedish Communication Ability: Effective Visual Impairment: Limited Hearing Ability: Normal Manager Of Case Required: No Beliefs That Will Affect Care: None marital status: / Current Living Situation: Family current occupational status: retired Feels Safe at Home: Yes Childhood Exposure to Second-Hand Smoke: No caffeine: Yes Dental Care, Regularly: Yes Physical Activity Frequency: Does not Exercise Seatbelt Use: always Sunscreen Use: Yes (does not go outside) Assistive Devices: Oxygen - Continuous Results & Data ([facility]) Vital Signs (Past 12 Hours) Vital Signs Temp Pulse Pulse Pulse Resp BP BP 05/05/21 14:30 37.3 C 105 H 21 123/54 L 05/05/21 14:16 37.3 C 107 H 20 134/61 05/05/21 14:15 37.3 C 108 H 17 05/05/21 14:09 37.3 C 106 H 14 05/05/21 13:55 100 H 16 108/49 L 05/05/21 13:45 97 H 16 123/50 L 05/05/21 13:35 36.7 C 92 H 16 114/43 L 05/05/21 13:25 114 H 16 110/45 L 05/05/21 13:15 36.1 C L 93 H 16 121/47 L 05/05/21 12:00 37.2 C 102 H 19 130/66 05/05/21 11:45 37.3 C 103 H 19 05/05/21 11:30 37.2 C 105 H 19 125/54 L 05/05/21 11:15 37.1 C 101 H 18 05/05/21 11:00 37.2 C 106 H 17 05/05/21 10:52 37.2 C 05/05/21 10:45 37.3 C 96 H 16 05/05/21 10:30 37.1 C 104 H 19 144/67 H 05/05/21 10:25 37.2 C 104 H 20 05/05/21 10:15 37.3 C 104 H 17 05/05/21 10:00 37.3 C 93 H 18 131/59 L 05/05/21 09:53 37.3 C 93 H 17 127/64 05/05/21 09:45 37.3 C 95 H 10 L 05/05/21 09:30 37.3 C 109 H 21 05/05/21 09:15 37.3 C 106 H 19 05/05/21 09:00 37.2 C 109 H 20 103/48 L 05/05/21 08:45 37.3 C 102 H 19 05/05/21 08:30 37.2 C 105 H 20 05/05/21 08:15 37.3 C 107 H 22 05/05/21 08:00 37.2 C 97 H 24 146/77 H 05/05/21 07:45 37.1 C 106 H 21 145/71 H 05/05/21 07:30 37.1 C 101 H 23 122/63 05/05/21 07:15 36.9 C 95 H 20 126/65 05/05/21 07:00 37.1 C 105 H 25 H 119/65 05/05/21 06:46 37.1 C 113 H 33 H 106/61 05/05/21 06:45 37.1 C 108 H 22 05/05/21 06:31 37.0 C 106 H 18 132/74 05/05/21 06:15 37.0 C 103 H 19 123/63 05/05/21 06:00 37.0 C 97 H 6 L 134/59 L 05/05/21 05:00 37.1 C 102 H 20 05/05/21 04:00 36.7 C 92 H 19 108/56 L BP Pulse Ox 05/05/21 14:30 95 05/05/21 14:16 99 05/05/21 14:15 97 05/05/21 14:09 97 05/05/21 13:55 100 05/05/21 13:45 100 05/05/21 13:35 100 05/05/21 13:25 99 05/05/21 13:15 99 05/05/21 12:00 100 05/05/21 11:45 100 05/05/21 11:30 100 05/05/21 11:15 100 05/05/21 11:00 100 05/05/21 10:52 05/05/21 10:45 100 05/05/21 10:30 100 05/05/21 10:25 131/59 L 98 05/05/21 10:15 100 05/05/21 10:00 100 05/05/21 09:53 100 05/05/21 09:45 100 05/05/21 09:30 100 05/05/21 09:15 100 05/05/21 09:00 99 05/05/21 08:45 100 05/05/21 08:30 99 05/05/21 08:15 99 05/05/21 08:00 97 05/05/21 07:45 100 05/05/21 07:30 100 05/05/21 07:15 100 05/05/21 07:00 99 05/05/21 06:46 96 05/05/21 06:45 100 05/05/21 06:31 100 05/05/21 06:15 100 05/05/21 06:00 100 05/05/21 05:00 99 05/05/21 04:00 100 Laboratory Results CBC notes hemoglobin 10.1, hematocrit 29.3, white count 18.25, and platelet count [id number]. Electrolytes note a sodium of 137, potassium 5.0, chloride 108, bicarb 23, BUN 64, creatinine 1.64, glucose of 201. Magnesium level is low at 1.6. Initial troponin was less than 0.03 with a follow-up value of 0.04. Diagnostic Findings Initial EKG noted normal sinus rhythm with frequent PACs and old inferior ND pattern. Second tracing noted sinus rhythm with evidence of type 2 second- degree AV block. Echocardiogram notes hyperdynamic systolic function with ejection fraction greater than 70%. There was evidence of left ventricular hypertrophy. coffee taster is described above. PG Care Time/CCT Total # of Minutes Spent Total Time Spent with Patient: Total time spent is greater than 50% in coordination of care (as documented) at patient's floor/unit and/or counseling patient: Coding Level of Care Code 49026 Initial Inpt Care Lvl 3 Diagnoses Atrial fibrillation I48.91 Bradycardia R00.1 Hyperlipidemia E78.5
--- NOTE | 2021-05-05 16:17 | Electrocardiogram Report ---
Test Reason : Blood Pressure : / mmHG Vent. Rate : 096 BPM Atrial Rate : 096 BPM P-R Int : 000 ms QRS Dur : 074 ms QT Int : 362 ms P-R-T Axes : 000 -23 043 degrees QTc Int : 457 ms Normal sinus rhythm with frequent Premature atrial complexes Inferior infarct , age undetermined Abnormal ECG When compared with ECG of 23-APR-2021 18:40, Incomplete right bundle branch block is no longer Present Minimal criteria for Anterior infarct are no longer Present Inferior infarct is now Present Confirmed by Tree Verduzco ([id number]) on 05/05/2021 4:16:55 PM Referred By: REFERRED SELF Confirmed By:Tree Verduzco
--- NOTE | 2021-05-05 16:19 | Electrocardiogram Report ---
Test Reason : Blood Pressure : / mmHG Vent. Rate : 055 BPM Atrial Rate : 055 BPM P-R Int : 180 ms QRS Dur : 112 ms QT Int : 408 ms P-R-T Axes : 039 -12 007 degrees QTc Int : 390 ms Poor data quality, interpretation may be adversely affected Sinus bradycardia with with 2nd degree A-V block (Mobitz II) Incomplete right bundle branch block Poor R wave progression, consider anterior VT vs. lead placement vs. LVH Abnormal ECG When compared with ECG of 04-MAY-2021 15:12, (unconfirmed) Significant changes have occurred Confirmed by Tree Verduzco ([id number]) on 05/05/2021 4:18:53 PM Referred By: REFERRED SELF Confirmed By:Tree Verduzco
[2021-05-05] MEDS: AMPICILLIN/SULBACTAM SOD 3,000 MG in 0.9 % SODIUM CHLORIDE 100 ML IV SCH ×2 (16:33→23:54)
--- NOTE | 2021-05-05 18:00 | Hospitalist Progress Note ---
Date of Service May 05, 2021 Assessment & Plan (1) Hypovolemic shock: Plan: resolved-In the setting of acute blood loss, patient having frequent loss, dark stools. did receive 4 units prbc (2) Atrial fibrillation: Plan: -Initially diagnosed on 04/23 admission, rate controlled was achieved with diltiazem. Patient had TTE and started prophylactically on Eliquis, dose unknown, patient did take a dose the morning of admission has both tachy and valerie rhythms, requiring dopamine while needing pressors for her acutee hemorrhagic shock -EKG currently shows patient in atrial flutter, HR in 90s. Cardiology is following (3) GI bleed: Plan: -Patient reporting dark, watery stools for the past day or two, also reported some bright red blood in nephrostomy tube over the past day but states it has since stopped. Patient is on Eliquis for afibb/flutter diagnosed on 04/23/21 admission, last dose today @ 0900. CT A+P ordered due to possibility of intra-abdominal bleeding due to nephrostomy tube, scan showed mild nonspecific wall thickening and adjacent inflammatory change at the second and third portion of the duodenum, acute pancreatitis could also have a similar appearance but is considered less likely. -Protonix drip, IVF, started in ED. -GI consulted by ED provider, Dr. Ardon endoscopy shows mass in stomach needed epi injections and clip,as was actively bleeding with visable vessel -Started on Zosyn for GI and coverage given duodenitis seen on CT. (4) Hyperkalemia: Plan: resolved (5) Acute kidney injury: Plan: -resolving with CKD 3 (6) Left nephrolithiasis: Plan: -Nephrostomy tube placed on 04/24 at [facility] due to 2.7 cm UPJ stone w/ moderate hydroureteronephrosis and ? emphysematous pyelitis. -CT showed left-sided percutaneous nephrostomy tube which appears in good position. The catheter loops around the 2.2 cm stone within the left renal pelvis. No hydronephrosis. Small of gas within the left renal collecting system is likely due to the nephrostomy tube. - remains on unasyn. Blood and urine cultures pending. (7) Type II diabetes mellitus with complication: Plan: -On metformin at home, glucose 243 today. -D/C metformin during admission, pharmacy consulted for glycemic management. (8) HTN (hypertension): Plan: -Holding BP meds for now. (9) Hyperlipidemia: Plan: -hold rosuvastatin. Plan: -continues in ICU high re bleed risk -SCDs ordered, holding chemo ppx for now d/t ongoing blood loss. -Full Code. Admission and Anticipated Discharge Date Admission Date: May 04, 2021 Subjective pt is now hemodynamically stable, upper endoscpy did show active bleeding with concern of mass that looks suspicious for malignancy Review of Systems Review of Systems: Mild distress and fatigue no headache, no visual changes no speech or swallowing issues no chest pain, pressure or palpitations no shortness of breath, cough or wheezes Centralized epigastric abdominal pain and persistent melena no dysuria, hematuria or frequency no focal joint pain or swelling no back pain, CVA tenderness or radicular pain no bruising, bleeding or rashes no focal signs of weakness or numbness or altered sensation no complaints of anxiety or depression.. Physical Exam Physical Exam: The patient appeared well nourished and normally developed. Vital signs as documented. Head exam is normocephalic atraumatic Neck is without JVD, thyromegaly, or carotid bruits. Lungs are clear to auscultation, but diminished at the bases Cardiac exam, regular but rate controlled Abdominal exam gastric discomfort so nephrostomy tube is noted in her left CVA area Extremities are nonedematous and both pedal pulses are present Neurologic exam is alert and oriented, no focal loss of strength or sensation Skin is without bruises or rashes Psychologically is without concerns for anxiety or depression.. Results & Data Results & Data ([facility]) Vital Signs (Past 12 Hours) Vital Signs Temp Pulse Pulse Pulse Resp BP BP 05/05/21 16:45 99.1 F 103 H 15 05/05/21 16:30 99.1 F 100 H 22 123/67 05/05/21 16:15 99.3 F 104 H 19 05/05/21 16:00 99.3 F 107 H 16 136/59 L 05/05/21 15:45 99.3 F 107 H 21 05/05/21 15:30 99.3 F 104 H 24 132/59 L 05/05/21 15:15 99.3 F 103 H 21 05/05/21 15:00 99.3 F 102 H 18 136/58 L 05/05/21 14:45 99.3 F 105 H 17 05/05/21 14:30 99.1 F 105 H 21 123/54 L 05/05/21 14:16 99.1 F 107 H 20 134/61 05/05/21 14:15 99.1 F 108 H 17 05/05/21 14:09 99.1 F 106 H 14 05/05/21 13:55 100 H 16 108/49 L 05/05/21 13:45 97 H 16 123/50 L 05/05/21 13:35 98.1 F 92 H 16 114/43 L 05/05/21 13:25 114 H 16 110/45 L 05/05/21 13:15 97.0 F L 93 H 16 121/47 L 05/05/21 12:00 99.0 F 102 H 19 130/66 05/05/21 11:45 99.1 F 103 H 19 05/05/21 11:30 99.0 F 105 H 19 125/54 L 05/05/21 11:15 98.8 F 101 H 18 05/05/21 11:00 99.0 F 106 H 17 05/05/21 10:52 99.0 F 05/05/21 10:45 99.1 F 96 H 16 05/05/21 10:30 98.8 F 104 H 19 144/67 H 05/05/21 10:25 99.0 F 104 H 20 05/05/21 10:15 99.1 F 104 H 17 05/05/21 10:00 99.1 F 93 H 18 131/59 L 05/05/21 09:53 99.1 F 93 H 17 127/64 05/05/21 09:45 99.1 F 95 H 10 L 05/05/21 09:30 99.1 F 109 H 21 05/05/21 09:15 99.1 F 106 H 19 05/05/21 09:00 99.0 F 109 H 20 103/48 L 05/05/21 08:45 99.1 F 102 H 19 05/05/21 08:30 99.0 F 105 H 20 05/05/21 08:15 99.1 F 107 H 22 05/05/21 08:00 99.0 F 97 H 24 146/77 H 05/05/21 07:45 98.8 F 106 H 21 145/71 H 05/05/21 07:30 98.8 F 101 H 23 122/63 05/05/21 07:15 98.4 F 95 H 20 126/65 05/05/21 07:00 98.8 F 105 H 25 H 119/65 05/05/21 06:46 98.8 F 113 H 33 H 106/61 05/05/21 06:45 98.8 F 108 H 22 05/05/21 06:31 98.6 F 106 H 18 132/74 05/05/21 06:15 98.6 F 103 H 19 123/63 05/05/21 06:00 98.6 F 97 H 6 L 134/59 L BP Pulse Ox 05/05/21 16:45 87 L 05/05/21 16:30 92 05/05/21 16:15 95 05/05/21 16:00 97 05/05/21 15:45 95 05/05/21 15:30 95 05/05/21 15:15 96 05/05/21 15:00 93 05/05/21 14:45 94 05/05/21 14:30 95 05/05/21 14:16 99 05/05/21 14:15 97 05/05/21 14:09 97 05/05/21 13:55 100 05/05/21 13:45 100 05/05/21 13:35 100 05/05/21 13:25 99 05/05/21 13:15 99 05/05/21 12:00 100 05/05/21 11:45 100 05/05/21 11:30 100 05/05/21 11:15 100 05/05/21 11:00 100 05/05/21 10:52 05/05/21 10:45 100 05/05/21 10:30 100 05/05/21 10:25 131/59 L 98 05/05/21 10:15 100 05/05/21 10:00 100 05/05/21 09:53 100 05/05/21 09:45 100 05/05/21 09:30 100 05/05/21 09:15 100 05/05/21 09:00 99 05/05/21 08:45 100 05/05/21 08:30 99 05/05/21 08:15 99 05/05/21 08:00 97 05/05/21 07:45 100 05/05/21 07:30 100 05/05/21 07:15 100 05/05/21 07:00 99 05/05/21 06:46 96 05/05/21 06:45 100 05/05/21 06:31 100 05/05/21 06:15 100 05/05/21 06:00 100 PG Care Time/CCT Total # of Minutes Spent Total Time Spent with Patient: Total time spent is greater than 50% in coordination of care (as documented) at patient's floor/unit and/or counseling patient: Coding Level of Care Code 58800 Subseq Hosp Care Lvl 3 Diagnoses Hypovolemic shock R57.1 GI bleed K92.2 Hyperkalemia E87.5 Acute kidney injury N17.9 Left nephrolithiasis N20.0 Atrial fibrillation I48.91 Type II diabetes mellitus with complication E11.8 HTN (hypertension) I10 Hyperlipidemia E78.5
[2021-05-05] MEDS ORDERED: LORazepam 2 MG/1 ML VIAL IV PRN (18:15)
[2021-05-06] MEDS: INSULIN ASPART PER UNIT SC SCH ×6 (01:57→23:44)
[2021-05-06] MEDS: PANTOprazole 40 MG in DEXTROSE 5% 100 ML IV SCH ×5 (03:00→19:55)
[2021-05-06 05:29] LABS: Basophils # (auto) 0.05 K/uL (0-0.2); Basophils % (auto) 0.4 %; Eosinophils # (auto) 0.12 K/uL (0-0.5); Eosinophils % (auto) 0.9 %; Hematocrit (blood only) 25.2 % (37-47); Hemoglobin 8.6 g/dL (12.0-16.0); Immature Granulocytes % (auto) 0.8 %; Lymphocytes # (auto) 1.68 K/uL (1.2-3.4); Lymphocytes % (auto) 13.1 %; Mean Corpuscular Hemoglobin 29.7 pg (25-34); Mean Corpuscular Hgb Conc 34.1 g/dL (32-36); Mean Corpuscular Volume 86.9 fL (80-100); Mean Platelet Volume 11.6 fL (7.4-10.4); Monocytes # (auto) 1.35 K/uL (0.11-0.59); Monocytes % (auto) 10.6 %; Neutrophils # (auto) 9.49 K/uL (1.4-6.5); Neutrophils % (auto) 74.2 %; Platelet Count 249 K/uL (130-400); RDW Coefficient of Variation 17.3 % (11.5-14.5); RDW Standard Deviation 54.7 fL (36.4-46.3); White Blood Count 12.79 K/uL (4.8-10.8)
[2021-05-06 06:11] LABS: Calcium 8.4 mg/dl (8.5-10.1); Creatinine Clr Calc Pharmacy 27.2 ml/min; Est GFR (African American) 37.5 ml/min; Est GFR (Non-African American) 32.4 ml/min; Phosphorus 3.3 mg/dl (2.5-4.9); Potassium 4.4 mmol/L (3.5-5.1)
[2021-05-06] MEDS: ICU ELECTROLYTE REPLACEMENT PROTOCOL SCH ×2 (06:17→17:06)
[2021-05-06] MEDS ORDERED: MAGNESIUM SULFATE / D5W 1 GM/100 ML BAG IV ONE (06:19)
[2021-05-06] MEDS: AMPICILLIN/SULBACTAM SOD 3,000 MG in 0.9 % SODIUM CHLORIDE 100 ML IV SCH ×2 (07:54→19:55)
[2021-05-06] MEDS: ROSUVASTATIN CALCIUM 20 MG TAB PO SCH (08:06)
[2021-05-06] MEDS: CHOLECALCIFEROL 1,000 UNITS 25 MCG TAB PO SCH (08:06)
[2021-05-06] MEDS: NOREPINEPHRINE/D5W 8 MG/508 ML BAG IV SCH (08:07)
--- NOTE | 2021-05-06 09:15 | Critical Care Progress Note ---
Date of Service May 06, 2021 Assessment & Plan (1) Hemorrhagic shock: (2) Bradycardia: (3) Acute upper gastrointestinal bleeding: (4) Duodenitis: (5) Acute kidney injury: (6) Lactic acidosis: Plan: 89-year-old female with a past medical history of hypertension, atrial flutter/fib on Eliquis and recent large UPJ stone with left nephrostomy tube presenting to the hospital with hemorrhagic shock and possible sepsis. Neurologic: No significant issues at present. Some anxiety. Pulmonary: Continue supplemental oxygen via oxygen mask. Cardiovascular: Possible tachybradycardia syndrome/sick sinus syndrome. Suspect this is provoked by her shock state which is now resolving. Appreciate cardiology input. We will hold AV magdaleno blocking agents and anticoagulation at this point in time. EF within normal limits. Echo reviewed. Gastrointestinal: Concern for mass in the small intestine. GI following. Continue Protonix continue IV Zosyn for duodenitis. Renal: OCTAVIO secondary to prerenal azotemia. Left nephrostomy tube in place. Woodard catheter in place. Has resolved. Infectious disease: Thus far urine cultures and blood cultures negative. Sent for presumptive duodenitis. Hematologic: Bleeding closely. Status post 4 units of packed RBCs. Received Kcentra upon hospitalization. Was previously on Eliquis due to a flutter. We will hold anticoagulation indefinitely. Endocrine: TSH within normal limits. F/E/N: N.p.o. Lines and tubes: 2 18-gauge IVs in place in 1 20-gauge IV. Nephrostomy tube on the left and Woodard catheter. VTE prophylaxis: SCDs CODE STATUS: Full Family at bedside: Patient's daughter updated at bedside yesterday. Disposition: Possible downgrade later today pending GI eval Admission and Anticipated Discharge Date Admission Date: May 04, 2021 Subjective Patient seen and examined. Hemodynamically stable. Denies abdominal complaints currently. Status post EGD yesterday with clips and bipolar cautery. Continues to have maroon-colored stools. Review of Systems Review of Systems: All systems reviewed & are unremarkable except as noted in Subjective Physical Exam Physical Exam: Constitutional: Elderly appearing female no apparent distress lying in bed. Eyes: Pupils are equal round and reactive to light. Conjunctivae are normal. Anicteric sclera. Ears nose, mouth and throat: Oral mucosa is dry. Neck: Trachea is midline. Visual inspection is normal. Respiratory: Clear to auscultation bilaterally. No use of accessory muscles. No significant clubbing noted. Cardiovascular: Irregular rhythm. No murmurs. 1+ edema in the lower extremities. Decreased capillary refill. Gastrointestinal: Normal bowel sounds, soft, nontender and nondistended. No hepatosplenomegaly noted. Musculoskeletal: No cyanosis. Patient is able to move all extremities. Skin: No rashes, warm dry and intact. Neurologic: No obvious focal neurological deficits seen. Psychiatric: Alert and oriented x3 with a euthymic affect. Results & Data Results & Data ([facility]) Vital Signs (Past 12 Hours) Vital Signs Temp Pulse Resp BP Pulse Ox 05/06/21 09:00 37.3 C 100 H 8 L 134/59 L 92 05/06/21 08:30 37.2 C 107 H 16 124/70 86 L 05/06/21 08:00 37.2 C 111 H 20 131/75 84 L 05/06/21 07:30 37.1 C 102 H 29 H 109/59 L 78 L 05/06/21 07:00 37.0 C 107 H 15 144/65 H 93 05/06/21 06:00 37.1 C 120 H 17 146/74 H 87 L 05/06/21 05:30 36.8 C 124 H 11 L 127/70 85 L 05/06/21 05:00 37.1 C 101 H 4 L 130/64 87 L 05/06/21 04:30 37.1 C 109 H 18 126/77 84 L 05/06/21 04:00 37.3 C 106 H 12 127/82 83 L 05/06/21 03:30 37.3 C 106 H 0 L 128/48 L 83 L 05/06/21 03:00 37.3 C 107 H 0 L 107/49 L 85 L 05/06/21 02:30 37.3 C 0 L 0 L 104/62 87 L 05/06/21 02:00 37.3 C 90 0 L 104/57 L 86 L 05/06/21 01:30 37.2 C 110 H 20 99/66 L 84 L 05/06/21 01:00 37.0 C 116 H 19 135/67 83 L 05/06/21 00:30 37.2 C 95 H 14 118/70 82 L 05/06/21 00:00 37.3 C 105 H 16 123/60 88 L 05/05/21 23:30 37.3 C 119 H 27 H 137/60 86 L 05/05/21 23:00 37.3 C 97 H 29 H 143/59 H 89 L 05/05/21 22:30 37.3 C 101 H 21 118/65 82 L 05/05/21 22:00 37.3 C 101 H 23 122/66 81 L 05/05/21 21:30 37.2 C 105 H 15 137/58 L 92 Coding Level of Care Code 57169 Subseq Hosp Care Lv 3 Diagnoses Hemorrhagic shock R57.8 Bradycardia R00.1 Acute upper gastrointestinal bleeding K92.2 Duodenitis K29.80 Acute kidney injury N17.9 Lactic acidosis E87.2
[2021-05-06 10:04] LABS: Hematocrit (blood only) 24.6 % (37-47); Hemoglobin 8.2 g/dL (12.0-16.0)
[2021-05-06] MEDS: LACTATED RINGER'S 1,000 ML IV SCH ×2 (12:20→15:37)
--- NOTE | 2021-05-06 12:54 | Anesthesiology Consultation ---
Date of Service May 06, 2021 Assessment & Plan Chart Review Chart Review: Acceptable Risk for Surgery and Patient NOT seen in Pre Admission Testing Consults Requested none ASA ASA4 Proposed Anesthesia Anesthesia Type: MAC Risk / Benefits Reviewed With: PT / POA / Parent / Guardian, Accepts Plan and Informed Consent Obtained History Surgery Operation Date: 05/05/21 10:45 Proposed Procedures p Push Enteroscopy - Edwin Ardon MD Operation Date: 05/06/21 17:00 Proposed Procedures p Esophagogastroduodenoscopy Dr. Ardon - Edwin Ardon MD Height/Weight Height: 5 ft 4 in Weight: 76.5 kg Allergies Allergy/AdvReac Type Severity Reaction Status Date / Time No Known Allergies Allergy Verified 05/04/21 15:07 Medications Home Medications Medication Instructions Recorded Confirmed Last Taken aspirin 81 mg tablet,delayed 81 mg PO DAILY #90 tab 09/17/18 05/04/21 05/04/21 release cholecalciferol (vitamin D3) 25 1,000 units PO DAILY cap 09/17/18 05/04/21 05/04/21 mcg (1,000 unit) capsule timolol maleate 0.5 % once daily 1 drops OP HS ml 09/17/18 05/04/21 05/03/21 eye drops vitamins A,C,F-qqew-mvegiv 14,320 1 cap PO BID 09/17/18 05/04/21 05/04/21 09:00 unit-226 mg-200 unit capsule (PreserVision AREDS) amlodipine 5 mg tablet 5 mg PO DAILY #90 tab 10/19/20 05/04/21 05/04/21 polyethylene glycol 3350 17 17 g PO DAILY PRN #119 g 10/21/20 05/04/21 Unknown gram/dose oral powder (Miralax) telmisartan 80 mg tablet 80 mg PO DAILY #90 tab 11/13/20 05/04/21 05/04/21 alendronate 70 mg tablet 70 mg PO WEEKLY #12 tab 11/30/20 05/04/21 05/04/21 metformin 1,000 mg tablet 1,000 mg PO PM #90 tab 01/04/21 05/04/21 05/03/21 rosuvastatin 20 mg tablet 20 mg PO DAILY #90 tab 01/04/21 05/04/21 05/04/21 calcium citrate 200 mg 1 tab PO BID 04/23/21 05/04/21 05/04/21 08:00 calcium-vitamin D3 3.125 mcg (125 unit) tablet apixaban 2.5 mg tablet (Eliquis) 0 mg PO BID 05/04/21 05/04/21 Unknown diltiazem HCl 30 mg tablet 30 mg PO Q6H 05/04/21 05/04/21 05/04/21 12:00 sulfamethoxazole 800 1 tab PO BID 05/04/21 05/04/21 05/04/21 09:00 mg-trimethoprim 160 mg tablet Active Medications Generic Name Dose Route Start Last Admin Trade Name Pumaq PRN Reason Stop Dose Admin Pantoprazole Sodium 40 mg/ 100 mls @ 20 mls/hr 05/04/21 14:15 05/06/21 12:45 Dextrose IV 06/03/21 14:14 0 mg/hr Q5H MELONY 0 mls/hr Infusion 8 MG/HR Lactated Ringer's 1,000 mls @ 80 mls/hr 05/05/21 08:15 05/06/21 12:45 Lr IV 06/04/21 08:14 Infused .[id number] MELONY Infusion Norepinephrine Bitartrate 8 mg in 508 mls @ 15.088 mls/hr 05/05/21 09:45 05/06/21 08:07 Levophed/D5w IV 06/04/21 09:44 Not Given .Q24H MELONY Protocol 0.05 MCG/KG/MIN Ampicillin Sodium/Sulbactam 108 mls @ 216 mls/hr 05/05/21 16:00 05/06/21 08:25 Sodium 3,000 mg/ Sodium IV 05/12/21 23:59 Infused Chloride Q12 MELONY Infusion Protocol Insulin Aspart 0 units 05/06/21 12:00 05/06/21 12:46 Insulin Aspart Per Unit SC 06/05/21 11:59 Not Given Q6 MELONY Miscellaneous 1 ea 05/04/21 18:00 05/06/21 06:17 Icu Electrolyte Replacement Protocol N/A 05/11/21 17:59 1 ea BID@06,18 MELONY Administration Protocol Rosuvastatin Calcium 20 mg 05/05/21 09:00 05/06/21 08:06 Rosuvastatin Calcium 20 Mg Tab PO 06/04/21 08:59 20 mg DAILY MELONY Administration Vitamin D 1,000 units 05/05/21 09:00 05/06/21 08:06 Cholecalciferol 1,000 Units 25 Mcg Tab PO 06/04/21 08:59 1,000 units DAILY MELONY Administration NPO Date Last Intake of Fluids: 05/04/21 Time Last Intake of Fluids: 09:00 Date Last Intake of Solids: 05/04/21 Time Last Intake of Solids: 09:00 Past Medical History Medical History (Updated 05/05/21 @ 10:17 by Rivera Doss MD) Acute kidney injury Acute upper gastrointestinal bleeding Age-related macular degeneration, dry, both eyes Atrial fibrillation Bradycardia Disc degeneration, lumbar Duodenitis Glaucoma Hemorrhagic shock Hyperlipidemia Lactic acidosis Left knee pain Microalbuminuria Osteoporosis Right lumbar radiculopathy Type II diabetes mellitus with complication Exercise / Class Metabolic Activity III < 4 Walking/Shop/Light housework Past Family History Family History Unknown Diabetes Denies family history of Ovarian cancer Prostate cancer Breast cancer Lung cancer Colorectal cancer Past Surgical History Surgical History H/O hemorrhoidectomy History of tonsillectomy and adenoidectomy Past Anesthesia History No Hx of Anesthesia Complications and No Family Hx of Anesthesia Complications History of PONV No Hx of PONV and No Hx of Motion Sickness Social History Smoking Status: Unknown if ever smoked Physical Exam Vital Signs Last Vital Signs Temp 37.5 C 05/06/21 11:30 Pulse 110 H 05/06/21 11:30 Resp 23 05/06/21 11:30 BP 134/79 05/06/21 11:30 Pulse Ox 93 05/06/21 11:30 ENMT Mouth: no dentition abnormality Thyromental Distance: > or= 3.5 Finger Breadths Mallampati Class: II Neck normal visual inspection Respiratory normal respiratory effort Auscultation: lungs clear to auscultation bilaterally Cardiovascular Rate/Rhythm: regular rate and regular rhythm Psychiatric Orientation: alert Testing Laboratory Results 05/06/21 09:46 05/06/21 05:02 PT 14.3 Seconds (9.0-12.0) H 05/05/21 05:38 INR 1.4 (0.9-1.1) H 05/05/21 05:38 APTT 23.4 Seconds (21.0-31.0) 05/04/21 13:45 Urine Color Yellow 05/05/21 06:24 Urine Appearance Cloudy (Clear) A 05/05/21 06:24 Urine pH 5.0 (4.5-7.5) 05/05/21 06:24 Ur Specific Roy 1.018 (1.000-1.030) 05/05/21 06:24 Urine Protein Negative (Negative) 05/05/21 06:24 Urine Glucose (UA) Negative (Negative) 05/05/21 06:24 Urine Ketones Negative (Negative) 05/05/21 06:24 Urine Nitrite Negative (Negative) 05/05/21 06:24 Ur Leukocyte Esterase 2+ (Negative) H 05/05/21 06:24 Urine WBC (Auto) 10-30 /hpf (0-5) H 05/05/21 06:24 Urine RBC (Auto) >30 /hpf (0-4) H 05/05/21 06:24 U Hyaline Cast (Auto) 1-5 /lpf (0-5) 05/05/21 06:24 U Epithel Cells (Auto) >30 /lpf (0-5) H 05/05/21 06:24 Urine Bacteria (Auto) 1+ (Negative) H 05/05/21 06:24 Blood Type A Positive 05/04/21 14:13 Antibody Screen NEGATIVE 05/04/21 14:13 05/05/21 06:24 Urine Culture - Preliminary Urine,Straight Cath No growth - Less than 1,000 colonies/mL, Final report to follow. 05/04/21 13:45 Aerobic Blood Culture - Preliminary Blood No growth in Aerobic bottle after 24 hours. Anaerobic Blood Culture - Preliminary No growth in Anaerobic bottle after 24 hours. 05/04/21 14:13 Aerobic Blood Culture - Preliminary Blood No growth in Aerobic bottle after 24 hours. Anaerobic Blood Culture - Preliminary No growth in Anaerobic bottle after 24 hours. 05/06/21 05/06/21 05/06/21 12:25 07:51 03:28 POC Glucose 117 H 139 H 118 H Electrocardiogram Date: 05/04/21 HR 55. Poor data quality, interpretation may be adversely affected Sinus bradycardia with marked sinus arrhythmia with Premature ventricular complexes or Fusion complexes Incomplete right bundle branch block Cannot rule out Inferior infarct (cited on or before 04-MAY-2021) Cannot rule out Anterior infarct , age undetermined Abnormal ECG When compared with ECG of 04-MAY-2021 15:12, (unconfirmed) Sinus rhythm has replaced Atrial fibrillation Vent. rate has decreased BY 41 BPM Incomplete right bundle branch block is now Present .. Chest X-Ray Date: 05/04/21 XR chest 1V portable CLINICAL HISTORY: weakness. Evaluate cardiopulmonary status COMPARISON STUDY: 02/20/2017 TECHNIQUE: 1 view of the chest FINDINGS: Single frontal view of the chest demonstrates the cardiomediastinal silhouette to be within normal limits. There is a decreased inspiratory effort with elevation of the hemidiaphragms and crowding of the bronchovascular markings at the lung bases and centrally. The lungs are clear of alveolar opacities. Subcentimeter calcified granulomas again seen at the right lung base. There is no evidence for pleural effusion. There is no evidence for vascular congestion. There is no acute osseous pathology. IMPRESSION: 1. Compared to the previous study, there is a decreased inspiratory effort with otherwise no acute chest disease Echocardiogram Date: 04/26/21 Normal LV size and systolic function. EF 65% No wall motion abnormalities No LVH. No significant valvular abnormality.
[2021-05-06] MEDS ORDERED: LIDOCAINE 2% 2 ML VIAL/AMP(20MG/ML) INFIL ONE (13:17)
[2021-05-06] MEDS ORDERED: PROPOFOL IV EMULSION 10 MG/ML 20 ML VIAL IV ONE (13:17)
--- NOTE | 2021-05-06 13:19 | Hospitalist Progress Note ---
Date of Service May 06, 2021 Assessment & Plan (1) Hypovolemic shock: Plan: resolved with IV fluids and blood transfusion. did receive 4 units prbc to date (2) Atrial fibrillation: Plan: -Initially diagnosed on 04/23 admission, rate controlled was achieved with diltiazem. Patient had TTE and started prophylactically on Eliquis, dose unknown, patient did take a dose the morning of admission has both tachy and valerie rhythms, required dopamine transiently for her acute hemorrhagic shock -EKG currently shows patient in atrial flutter, HR in 90s. Cardiology is following (3) GI bleed: Plan: -Patient reporting dark, watery stools prior to admission . also reported some bright red blood in nephrostomy tube over the past day but states it has since stopped. Patient is on Eliquis for afib/flutter diagnosed on 04/23/[address] A+P showed mild nonspecific wall thickening and adjacent inflammatory change at the second and third portion of the duodenum. -Protonix drip, IVF. -GI consult appreciated. Dr. Ardon endoscopy shows mass in stomach needed epi injections and clip, and was actively bleeding with visable vessel -now on Zosyn for GI and coverage given duodenitis seen on CT. (4) Hyperkalemia: Plan: resolved (5) Acute kidney injury: Plan: -resolving with CKD 3. Monitor intake and output. Serial labs (6) Left nephrolithiasis: Plan: -Nephrostomy tube placed on 04/24 at [facility] due to 2.7 cm UPJ stone w/ moderate hydroureteronephrosis and ? emphysematous pyelitis. -CT showed left-sided percutaneous nephrostomy tube which appears in good position. The catheter loops around the 2.2 cm stone within the left renal pelvis. No hydronephrosis. Small amount of gas within the left renal collecting system is likely due to the nephrostomy tube. - remains on Zosyn (7) Type II diabetes mellitus with complication: Plan: -On metformin at home. Currently on hold. SSI. ADA diet. (8) HTN (hypertension): Plan: Med management (9) Hyperlipidemia: Plan: -hold rosuvastatin. Resume at discharge Plan: -SCDs ordered, holding chemo ppx for now d/t ongoing blood loss. -Full Code. Disposition: Eventual discharge to home Admission and Anticipated Discharge Date Admission Date: May 04, 2021 Subjective Alert and pleasant. No acute distress. Creatinine has improved to 1.4. Glucose 120 this morning. Metformin remains on hold. She remains on Zosyn and a Protonix drip. Pathology report from EGD is still pending. Av remains on hold. I believe she has received 4 units of packed red blood cells so far this admission Review of Systems Review of Systems: Constitutional-no fever or chills ENT-no blurred vision, no double vision, no epistaxis, no sore throat Respiratory-no cough, no wheezing, no shortness of breath Cardiac-no palpitations, no chest pain, no syncope GI-no nausea, vomiting, diarrhea, melena, hematochezia -no urinary retention, no urinary incontinence, no dysuria, no hematuria Musculoskeletal-no joint pain, no muscle tenderness Skin-no bruising, no rashes, no pruritus Neuro-no isolated weakness, no paresthesia, no weakness Psych-no depression, no anxiety Physical Exam Physical Exam: General-alert and oriented x3, no fevers, no chills HEENT-head atraumatic and normocephalic, TMs intact bilaterally, pupils equal and reactive to light, extraocular muscles intact Neck-no lymphadenopathy or thyromegaly, trachea midline Chest-clear to auscultation percussion. No rales wheezing or rhonchi Cardiac-regular rate and rhythm, normal S1 and S2, no murmurs Abdomen-normal bowel sounds, nontender, no hepatosplenomegaly Extremities-no cyanosis, clubbing, or edema Neuro-cranial nerves II through XII intact, motor and sensory function within normal limits, strength symmetrical 5/5, no focal deficits Psych-normal affect, normal mood Results & Data Results & Data ([facility]) Vital Signs (Past 12 Hours) Vital Signs Temp Pulse Pulse Pulse Resp BP BP 05/06/21 12:57 37.1 C 106 H 18 97/69 L 05/06/21 11:30 37.5 C 110 H 23 134/79 05/06/21 11:00 37.4 C 112 H 23 147/72 H 05/06/21 10:45 107 H 05/06/21 10:30 37.4 C 108 H 22 127/68 05/06/21 10:00 37.3 C 109 H 21 145/84 H 05/06/21 09:30 37.3 C 100 H 13 137/56 L 05/06/21 09:00 37.3 C 100 H 8 L 134/59 L 05/06/21 08:30 37.2 C 107 H 16 124/70 05/06/21 08:00 37.2 C 110 H 20 131/75 05/06/21 07:30 37.1 C 102 H 29 H 109/59 L 05/06/21 07:00 37.0 C 107 H 15 144/65 H 05/06/21 06:00 37.1 C 120 H 17 146/74 H 05/06/21 05:30 36.8 C 124 H 11 L 127/70 05/06/21 05:00 37.1 C 101 H 4 L 130/64 05/06/21 04:30 37.1 C 109 H 18 126/77 05/06/21 04:00 37.3 C 106 H 12 127/82 05/06/21 03:30 37.3 C 106 H 0 L 128/48 L 05/06/21 03:00 37.3 C 107 H 0 L 107/49 L 05/06/21 02:30 37.3 C 0 L 0 L 104/62 05/06/21 02:00 37.3 C 90 0 L 104/57 L 05/06/21 01:30 37.2 C 110 H 20 99/66 L Pulse Ox 05/06/21 12:57 96 05/06/21 11:30 93 05/06/21 11:00 93 05/06/21 10:45 05/06/21 10:30 89 L 05/06/21 10:00 88 L 05/06/21 09:30 93 05/06/21 09:00 92 05/06/21 08:30 86 L 05/06/21 08:00 84 L 05/06/21 07:30 78 L 05/06/21 07:00 93 05/06/21 06:00 87 L 05/06/21 05:30 85 L 05/06/21 05:00 87 L 05/06/21 04:30 84 L 05/06/21 04:00 83 L 05/06/21 03:30 83 L 05/06/21 03:00 85 L 05/06/21 02:30 87 L 05/06/21 02:00 86 L 05/06/21 01:30 84 L Laboratory Results 05/06/21 09:46 05/06/21 05:02 PG Care Time/CCT Total # of Minutes Spent Total Time Spent with Patient: Total time spent is greater than 50% in coordination of care (as documented) at patient's floor/unit and/or counseling patient: Coding Level of Care Code 17245 Subseq Hosp Care Lvl 3 Diagnoses Hypovolemic shock R57.1 Atrial fibrillation I48.91 GI bleed K92.2 Hyperkalemia E87.5 Acute kidney injury N17.9 Left nephrolithiasis N20.0 Type II diabetes mellitus with complication E11.8 HTN (hypertension) I10 Hyperlipidemia E78.5
--- NOTE | 2021-05-06 13:26 | History & Physical Bridge Note ---
Date of Service May 06, 2021 History & Physical Bridge Note I have examined the patient, reviewed the History & Physical and in the interval since the performance of the History & Physical I have noted the following changes of clinical significance: no changes noted still with some black tarry stools, hgb is 8.2 this morning from 10 yesterday, will proceed with EGD to reevaluate ulcers today Proceed with EGD. risks/benefits and procedure discussed with patient, who agrees to proceed
--- NOTE | 2021-05-06 13:53 | GI REPORT ---
Patient Name: Shobha Burns Procedure Date: 05/06/2021 1:26 PM Date of : 1930 Admit Type: Inpatient Age: 89 Gender: Female Attending MD: Edwin Ardon MD Procedure: Upper GI endoscopy Providers: Edwin Ardon MD Referring MD: Rayray Duncan Indications: Melena Medicines: Monitored Anesthesia Care Complications: No immediate complications. Estimated blood loss: None. Estimated Blood Loss: Estimated blood loss: none. Procedure: Pre-Anesthesia Assessment: - Prior Anticoagulants: The patient has taken no previous anticoagulant or antiplatelet agents. - ASA Grade Assessment: II - A patient with mild systemic disease. - ASA Grade Assessment: IV - A patient with severe systemic disease that is a constant threat to life. After obtaining informed consent, the endoscope was passed under direct vision. Throughout the procedure, the patient's blood pressure, pulse, and oxygen saturations were monitored continuously. The Endoscope was introduced through the mouth, and advanced to the second part of duodenum. The upper GI endoscopy was accomplished without difficulty. The patient tolerated the procedure well. Findings: The examined esophagus was normal. The entire examined stomach was normal. A medium-sized infiltrative mass with no bleeding was found in the duodenal bulb and in the first portion of the duodenum. the ulcers that were bleeding on prior EGD were no longer bleeding, no evidence of blood. Impression: - Normal esophagus. - Normal stomach. 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 - No specimens collected. Recommendation: - Return patient to hospital [place] for ongoing care. - Advance diet as tolerated today. -protonix drip for 72 hours total then BID thereafter -f/u path results from biopsies on EGD 05/05 Edwin Ardon MD 05/06/2021 1:53:09 PM This report has been signed electronically. Note Initiated On: 05/06/2021 1:26 PM Number of Addenda: 0 I attest to the content of the Intraoperative Record and orders documented therein, exceptions below {[id number]}
--- NOTE | 2021-05-06 14:09 | Anesthesiology Progress Note ---
Date of Service May 06, 2021 Anesthesia Post Procedure Vital Signs Vital Signs: Temp Pulse Pulse Pulse Resp BP BP 05/06/21 14:01 110 H 18 129/66 05/06/21 13:46 110 H 12 113/50 L 05/06/21 12:57 37.1 C 106 H 18 97/69 L 05/06/21 12:00 37.5 C 115 H 21 05/06/21 11:30 37.5 C 110 H 23 134/79 05/06/21 11:00 37.4 C 112 H 23 147/72 H 05/06/21 10:45 107 H 05/06/21 10:30 37.4 C 108 H 22 127/68 05/06/21 10:00 37.3 C 109 H 21 145/84 H 05/06/21 09:30 37.3 C 100 H 13 137/56 L 05/06/21 09:00 37.3 C 100 H 8 L 134/59 L 05/06/21 08:30 37.2 C 107 H 16 124/70 05/06/21 08:00 37.2 C 110 H 20 131/75 05/06/21 07:30 37.1 C 102 H 29 H 109/59 L 05/06/21 07:00 37.0 C 107 H 15 144/65 H 05/06/21 06:00 37.1 C 120 H 17 146/74 H 05/06/21 05:30 36.8 C 124 H 11 L 127/70 05/06/21 05:00 37.1 C 101 H 4 L 130/64 05/06/21 04:30 37.1 C 109 H 18 126/77 05/06/21 04:00 37.3 C 106 H 12 127/82 05/06/21 03:30 37.3 C 106 H 0 L 128/48 L 05/06/21 03:00 37.3 C 107 H 0 L 107/49 L 05/06/21 02:30 37.3 C 0 L 0 L 104/62 05/06/21 02:00 37.3 C 90 0 L 104/57 L 05/06/21 01:30 37.2 C 110 H 20 99/66 L 05/06/21 01:00 37.0 C 116 H 19 135/67 05/06/21 00:30 37.2 C 95 H 14 118/70 05/06/21 00:00 37.3 C 105 H 16 123/60 05/05/21 23:30 37.3 C 119 H 27 H 137/60 05/05/21 23:00 37.3 C 97 H 29 H 143/59 H 05/05/21 22:30 37.3 C 101 H 21 118/65 05/05/21 22:00 37.3 C 101 H 23 122/66 05/05/21 21:30 37.2 C 105 H 15 137/58 L 05/05/21 21:00 37.3 C 112 H 10 L 05/05/21 20:30 37.3 C 110 H 15 124/74 05/05/21 20:00 37.2 C 106 H 10 L 119/60 05/05/21 19:31 37.3 C 85 10 L 98/63 L 05/05/21 19:00 37.3 C 102 H 19 134/61 05/05/21 18:15 37.1 C 102 H 16 05/05/21 18:00 37.0 C 106 H 22 139/63 05/05/21 17:45 37.2 C 102 H 19 05/05/21 17:30 37.3 C 105 H 24 125/57 L 05/05/21 17:15 37.4 C 105 H 19 05/05/21 17:00 37.3 C 101 H 18 132/60 05/05/21 16:45 37.3 C 103 H 15 05/05/21 16:30 37.3 C 100 H 22 123/67 05/05/21 16:15 37.4 C 104 H 19 05/05/21 16:00 37.4 C 107 H 16 136/59 L 05/05/21 15:45 37.4 C 107 H 21 05/05/21 15:30 37.4 C 104 H 24 132/59 L 05/05/21 15:15 37.4 C 103 H 21 05/05/21 15:00 37.4 C 102 H 18 136/58 L 05/05/21 14:45 37.4 C 105 H 17 05/05/21 14:30 37.3 C 105 H 21 123/54 L 05/05/21 14:16 37.3 C 107 H 20 134/61 05/05/21 14:15 37.3 C 108 H 17 Pulse Ox 05/06/21 14:01 93 05/06/21 13:46 93 05/06/21 12:57 96 05/06/21 12:00 94 05/06/21 11:30 93 05/06/21 11:00 93 05/06/21 10:45 05/06/21 10:30 89 L 05/06/21 10:00 88 L 05/06/21 09:30 93 05/06/21 09:00 92 05/06/21 08:30 86 L 05/06/21 08:00 84 L 05/06/21 07:30 78 L 05/06/21 07:00 93 05/06/21 06:00 87 L 05/06/21 05:30 85 L 05/06/21 05:00 87 L 05/06/21 04:30 84 L 05/06/21 04:00 83 L 05/06/21 03:30 83 L 05/06/21 03:00 85 L 05/06/21 02:30 87 L 05/06/21 02:00 86 L 05/06/21 01:30 84 L 05/06/21 01:00 83 L 05/06/21 00:30 82 L 05/06/21 00:00 88 L 05/05/21 23:30 86 L 05/05/21 23:00 89 L 05/05/21 22:30 82 L 05/05/21 22:00 81 L 05/05/21 21:30 92 05/05/21 21:00 92 05/05/21 20:30 91 05/05/21 20:00 94 05/05/21 19:31 92 05/05/21 19:00 88 L 05/05/21 18:15 92 05/05/21 18:00 94 05/05/21 17:45 94 05/05/21 17:30 93 05/05/21 17:15 95 05/05/21 17:00 91 05/05/21 16:45 87 L 05/05/21 16:30 92 05/05/21 16:15 95 05/05/21 16:00 97 05/05/21 15:45 95 05/05/21 15:30 95 05/05/21 15:15 96 05/05/21 15:00 93 05/05/21 14:45 94 05/05/21 14:30 95 05/05/21 14:16 99 05/05/21 14:15 97 Pain Intensity Bilateral Leg: Pain Intensity: 4 Transfer of Care Handoff Completed per policy Notes Mental Status: alert / awake / arousable Patient Amnestic to Procedure: Yes Nausea / Vomiting: adequately controlled Pain: adequately controlled Airway Patency, RR, SpO2: stable & adequate BP & HR: stable & adequate Hydration State: stable & adequate Anesthetic Complications: no major complications apparent
[2021-05-06] MEDS ORDERED: METOPROLOL TARTRATE 1 MG/ML VIAL IV ONE (15:49)
[2021-05-06] MEDS ORDERED: ACETAMINOPHEN 500 MG TAB ONE (15:49)
[2021-05-06] MEDS ORDERED: ACETAMINOPHEN 500 MG TAB PO STA (15:52)
[2021-05-06] MEDS ORDERED: METOPROLOL TARTRATE 1 MG/ML VIAL IV STA (15:52)
[2021-05-06] MEDS ORDERED: METOPROLOL TARTRATE 1 MG/ML VIAL IV PRN (16:36)
[2021-05-06] MEDS ORDERED: METOPROLOL TARTRATE 1 MG/ML VIAL IV SCH (20:00)
[2021-05-06] MEDS: MoRPHine SULFATE 2 MG/ML CARP IV PRN (23:41)
--- NOTE | 2021-05-07 01:03 | Procedure Note ---
Procedure Note Date of Service May 07, 2021 Note Procedure: Dietary Supervisor Indwelling Peripherally Inserted IV Catheter Placement Attending: Dr. Shields APC: Ayush King PA-C Indication: Need for IV Access, Poor Vascular Access Anesthesia: None Verbal consent was obtained from patient prior to performing the procedure. A time-out was completed verifying correct patient, procedure, site, positioning, and implant(s) or special equipment if applicable. Utilizing bedside ultrasound, vascularity of the LEFT upper extremity was assessed. Vessel size was noted for appropriate catheter selection and skin was marked with gentle pressure. Patients LEFT upper extremity was prepped and draped in the usual sterile fashion utilizing chlorhexidine. Ultrasound guidance was used to aid needle placement. A 20 g Endurance Catheter was introduced into the LEFT cephalic vein under direct ultrasound guidance. Guide wire was easily deployed without resistance. Catheter was threaded over the guide wire without resistance and the entire apparatus was removed intact. Good venous blood return was noted in the catheter. The IV catheter was easily flushed with sterile saline flush. Sterile clave was attached to the end of the catheter and good blood return was again noted. Tourniquet was released. StatLock device and sterile dressing were applied. The patient tolerated the procedure well. Blood Loss: Minimal Complications: None Procedural Ultrasound Guidance: Procedure Date: 05/07/2021 Indication: Poor Vascular Access Attending: Dr. Shields APC: Ayush King PA-C Artery/Veins Identified: YES Access confirmed in Vein with ultrasound: YES Complications: NONE Patient tolerated procedure: WELL Coding CPT Codes Tubes, Drains, and Vasc Access - Tubes, Drains, and Vasc Access: [id number] Venipuncture, Age 5/>Req phys skill, (sep proc), Dx/Tx (not rtn) ([id number]) [facility] [place] Procedure Codes (Charges) Tubes, Drains, and Vasc Access Procedure 1: Tubes, Drains, and Vasc Access: [id number] Venipuncture, Age 5/>Req phys skill, (sep proc), Dx/Tx (not rtn)
[2021-05-07] MEDS: PANTOprazole 40 MG in DEXTROSE 5% 100 ML IV SCH ×5 (01:50→21:09)
[2021-05-07] MEDS: LACTATED RINGER'S 1,000 ML IV SCH (04:34)
[2021-05-07 05:27] LABS: Basophils # (auto) 0.04 K/uL (0-0.2); Basophils % (auto) 0.4 %; Eosinophils # (auto) 0.15 K/uL (0-0.5); Eosinophils % (auto) 1.3 %; Hematocrit (blood only) 25.5 % (37-47); Hemoglobin 8.3 g/dL (12.0-16.0); Immature Granulocytes # (auto) 0.15 K/uL (0.00-0.02); Immature Granulocytes % (auto) 1.3 %; Lymphocytes # (auto) 2.36 K/uL (1.2-3.4); Lymphocytes % (auto) 21.1 %; Mean Corpuscular Hgb Conc 32.5 g/dL (32-36); Mean Corpuscular Volume 89.2 fL (80-100); Mean Platelet Volume 11.2 fL (7.4-10.4); Monocytes # (auto) 1.36 K/uL (0.11-0.59); Monocytes % (auto) 12.2 %; Neutrophils % (auto) 63.7 %; Nucleated RBC # (auto) 0.07 K/uL (0-0); Nucleated RBC % (auto) 0.6 %; Platelet Count 266 K/uL (130-400); RDW Coefficient of Variation 17.2 % (11.5-14.5); RDW Standard Deviation 55.6 fL (36.4-46.3); Red Blood Count 2.86 M/uL (4.2-5.4); White Blood Count 11.16 K/uL (4.8-10.8)
[2021-05-07 05:36] LABS: INR 1.4 (0.9-1.1); Prothrombin Time 14.7 Seconds (9.0-12.0)
[2021-05-07 05:48] LABS: BUN Creatinine Ratio 22.5 (10-20); Calcium 8.4 mg/dl (8.5-10.1); Creatinine Clr Calc Pharmacy 37.4 ml/min; Est GFR (African American) 56.5 ml/min; Est GFR (Non-African American) 48.7 ml/min; Magnesium 1.9 mg/dl (1.7-2.4); Phosphorus 3.1 mg/dl (2.5-4.9); Potassium 4.5 mmol/L (3.5-5.1)
[2021-05-07] MEDS: ICU ELECTROLYTE REPLACEMENT PROTOCOL SCH (05:53)
[2021-05-07] MEDS: INSULIN ASPART PER UNIT SC SCH ×4 (05:53→20:56)
[2021-05-07] MEDS: MAGNESIUM SULFATE / D5W 1 GM/100 ML BAG IV SCH ×2 (07:32→09:32)
[2021-05-07] MEDS: MoRPHine SULFATE 2 MG/ML CARP IV PRN (07:40)
[2021-05-07] MEDS: AMPICILLIN/SULBACTAM SOD 3,000 MG in 0.9 % SODIUM CHLORIDE 100 ML IV SCH ×3 (08:49→21:08)
[2021-05-07] MEDS ORDERED: METOPROLOL TARTRATE 25 MG TAB PO SCH (09:00)
[2021-05-07] MEDS: NOREPINEPHRINE/D5W 8 MG/508 ML BAG IV SCH (09:32)
--- NOTE | 2021-05-07 09:44 | Gastroenterology Progress Note ---
Date of Service May 07, 2021 Assessment & Plan (1) Acute upper gastrointestinal bleeding: (2) Duodenal mass: Plan: * NPO for now awaiting cardiac evaluation. * Continue PPI ggt for a total of 72 hours from yesterday's endoscopy, then switch to Pantoprazole 40 mg twice daily. * Await pathology as pending. * Continue supportive care. Admission and Anticipated Discharge Date Admission Date: May 04, 2021 Subjective Patient reports she is not feeling well today. Did not sleep well and was reporting both abdominal and leg pains. Per nursing, stools are becoming more normal in color. H&H is stable. Remains on a PPI ggt. No abdominal pain, nausea or vomiting at present. Currently in atrial flutter and tachycardic. Awaiting cardiology evaluation. Review of Systems Constitutional: + fatigue and + weakness Respiratory: no cough and no dyspnea Cardiovascular: as per Subjective / HPI; no chest pain Gastrointestinal: as per Subjective / HPI Physical Exam Constitutional: WD/WN, vitals as above Respiratory: normal respiratory effort Auscultation: lungs clear to auscultation bilaterally Cardiovascular: Rate/Rhythm: + tachycardic Gastrointestinal (Abdomen): normal bowel sounds, soft, nontender, no hepatosplenomegaly Psychiatric: A+Ox3, euthymic affect Results & Data Results & Data ([facility]) Vital Signs (Past 12 Hours) Vital Signs Temp Pulse Resp BP Pulse Ox 05/07/21 09:00 37.2 C 94 H 18 134/66 96 05/07/21 08:01 37.2 C 117 H 14 119/74 93 05/07/21 07:39 139 H 172/84 H 05/07/21 07:00 37.0 C 111 H 20 172/84 H 94 05/07/21 06:00 37.0 C 98 H 18 157/64 H 92 05/07/21 05:00 36.7 C 111 H 15 162/89 H 93 05/07/21 04:00 37.0 C 103 H 22 137/66 88 L 05/07/21 03:01 36.6 C 99 H 16 167/78 H 96 05/07/21 03:00 36.4 C L 101 H 17 97 05/07/21 02:00 37.1 C 95 H 4 L 114/68 100 05/07/21 01:00 37.1 C 102 H 18 136/74 96 05/07/21 00:44 37.2 C 106 H 26 H 155/78 H 96 05/07/21 00:00 37.2 C 96 H 9 L 130/70 95 05/06/21 23:00 37.0 C 99 H 19 05/06/21 22:00 37.2 C 77 24 113/57 L 93 Laboratory Results Abnormal lab results 05/06/21 05/06/21 05/06/21 Range/Units 09:46 12:25 18:25 WBC (4.8-10.8) K/uL RBC (4.2-5.4) M/uL Hgb 8.2 L (12.0-16.0) g/dL Hct 24.6 L (37-47) % RDW Std Deviation (36.4-46.3) fL RDW Coeff of Cas (11.5-14.5) % MPV (7.4-10.4) fL Neut # (Auto) (1.4-6.5) K/uL Towner # (Auto) (0.11-0.59) K/uL Immature Gran # (Auto) (0.00-0.02) K/uL Absolute Nucleated RBC (0-0) K/uL PT (9.0-12.0) Seconds INR (0.9-1.1) Chloride (98-107) mmol/L BUN/Creatinine Ratio (10-20) Glucose (70-99(Fasting)) mg/dl POC Glucose 117 H 192 H (70-99) mg/dl Calcium (8.5-10.1) mg/dl 05/07/21 05/07/21 05/07/21 Range/Units 05:01 05:01 05:01 WBC 11.16 H (4.8-10.8) K/uL RBC 2.86 L (4.2-5.4) M/uL Hgb 8.3 L (12.0-16.0) g/dL Hct 25.5 L (37-47) % RDW Std Deviation 55.6 H (36.4-46.3) fL RDW Coeff of Cas 17.2 H (11.5-14.5) % MPV 11.2 H (7.4-10.4) fL Neut # (Auto) 7.10 H (1.4-6.5) K/uL Towner # (Auto) 1.36 H (0.11-0.59) K/uL Immature Gran # (Auto) 0.15 H (0.00-0.02) K/uL Absolute Nucleated RBC 0.07 H (0-0) K/uL PT 14.7 H (9.0-12.0) Seconds INR 1.4 H (0.9-1.1) Chloride 110 H (98-107) mmol/L BUN/Creatinine Ratio 22.5 H (10-20) Glucose 123 H (70-99(Fasting)) mg/dl POC Glucose (70-99) mg/dl Calcium 8.4 L (8.5-10.1) mg/dl PG Care Time/CCT Total # of Minutes Spent Total Time Spent with Patient: Total time spent is greater than 50% in coordination of care (as documented) at patient's floor/unit and/or counseling patient: Coding Level of Care Code 17405 Subseq Hosp Care Lvl 3 Diagnoses Acute upper gastrointestinal bleeding K92.2 Duodenal mass K31.89
--- NOTE | 2021-05-07 09:46 | Critical Care Progress Note ---
Date of Service May 07, 2021 Assessment & Plan (1) Hemorrhagic shock: (2) Acute upper gastrointestinal bleeding: (3) Duodenitis: (4) Acute kidney injury: (5) Lactic acidosis: (6) Atrial flutter: Plan: 89-year-old female with a past medical history of hypertension, atrial flutter/fib on Eliquis and recent large UPJ stone with left nephrostomy tube presenting to the hospital with hemorrhagic shock and possible sepsis. Neurologic: No significant issues at present. Some anxiety. Pulmonary: Continue supplemental oxygen via oxygen mask. Cardiovascular: Possible tachybradycardia syndrome/sick sinus syndrome. Suspect this is provoked by her shock state which is now resolving. Appreciate cardiology input. EF within normal limits. Echo reviewed. Continue metoprolol. Gastrointestinal: Concern for mass in the small intestine. Follow bx results. GI following. Continue Protonix and continue IV Zosyn for duodenitis. Repeat EGD from 05/06 without signs of GI bleeding. Renal: OCTAVIO secondary to prerenal azotemia, resolved Left nephrostomy tube in place. Woodard catheter in place. Infectious disease: Blood and urine cultures negative continue Unasyn. Hematologic: Status post 4 units of packed RBCs. Received Kcentra upon hospitalization. Was previously on Eliquis due to a flutter. We will hold anticoagulation indefinitely. Endocrine: TSH within normal limits. F/E/N: N.p.o. Lines and tubes: 2 18-gauge IVs in place in 1 20-gauge IV. Nephrostomy tube on the left and Woodard catheter. VTE prophylaxis: SCDs CODE STATUS: Full Family at bedside: Patient's daughter updated at bedside yesterday. Disposition: Downgrade to PCU status today. Admission and Anticipated Discharge Date Admission Date: May 04, 2021 Subjective Patient seen and examined. She has nausea and abdominal discomfort this morning. She continues to have periods of tachycardia letter. Receiving as needed IV metoprolol. Review of Systems Review of Systems: All systems reviewed & are unremarkable except as noted in HPI & below Physical Exam Physical Exam: Constitutional: Elderly appearing female no apparent distress lying in bed. Eyes: Pupils are equal round and reactive to light. Conjunctivae are normal. Anicteric sclera. Ears nose, mouth and throat: Oral mucosa is dry. Neck: Trachea is midline. Visual inspection is normal. Respiratory: Clear to auscultation bilaterally. No use of accessory muscles. No significant clubbing noted. Cardiovascular: Irregular rhythm. No murmurs. 1+ edema in the lower extremities. Decreased capillary refill. Gastrointestinal: Normal bowel sounds, soft, nontender and nondistended. No hepatosplenomegaly noted. Musculoskeletal: No cyanosis. Patient is able to move all extremities. Skin: No rashes, warm dry and intact. Neurologic: No obvious focal neurological deficits seen. Psychiatric: Alert and oriented x3 with a euthymic affect. Results & Data Results & Data ([facility]) Vital Signs (Past 12 Hours) Vital Signs Temp Pulse Resp BP Pulse Ox 05/07/21 09:00 37.2 C 94 H 18 134/66 96 05/07/21 08:01 37.2 C 117 H 14 119/74 93 05/07/21 07:39 139 H 172/84 H 05/07/21 07:00 37.0 C 111 H 20 172/84 H 94 05/07/21 06:00 37.0 C 98 H 18 157/64 H 92 05/07/21 05:00 36.7 C 111 H 15 162/89 H 93 05/07/21 04:00 37.0 C 103 H 22 137/66 88 L 05/07/21 03:01 36.6 C 99 H 16 167/78 H 96 05/07/21 03:00 36.4 C L 101 H 17 97 05/07/21 02:00 37.1 C 95 H 4 L 114/68 100 05/07/21 01:00 37.1 C 102 H 18 136/74 96 05/07/21 00:44 37.2 C 106 H 26 H 155/78 H 96 05/07/21 00:00 37.2 C 96 H 9 L 130/70 95 05/06/21 23:00 37.0 C 99 H 19 05/06/21 22:00 37.2 C 77 24 113/57 L 93 Coding Level of Care Code 17981 Subseq Hosp Care Lvl 3 Diagnoses Hemorrhagic shock R57.8 Acute upper gastrointestinal bleeding K92.2 Duodenitis K29.80 Acute kidney injury N17.9 Lactic acidosis E87.2 Atrial flutter I48.92
--- NOTE | 2021-05-07 11:29 | Hospitalist Progress Note ---
Date of Service May 07, 2021 Assessment & Plan (1) Hypovolemic shock: Plan: resolved with IV fluids and blood transfusion. did receive 4 units prbc to date (2) Atrial fibrillation: Plan: -Initially diagnosed on 04/23 admission, rate controlled was achieved with diltiazem. Patient had TTE and started prophylactically on Eliquis 5mg PO BID, patient did take a dose the morning of admission has both tachy and valerie rhythms, required dopamine transiently for her acute hemorrhagic shock Cardiology is following - starting amiodarone IV drip today Not on anticoagulation due to hemorrhagic shock on admission. (3) GI bleed: Plan: -Patient reporting dark, watery stools prior to admission . also reported some bright red blood in nephrostomy tube over the past day but states it has since stopped. Patient is on Eliquis for afib/flutter diagnosed on 04/23/[address] A+P showed mild nonspecific wall thickening and adjacent inflammatory change at the second and third portion of the duodenum. -Protonix drip, IVF. -GI consult appreciated. Dr. Ardon endoscopy shows mass in stomach needed epi injections and clip, and was actively bleeding with visible vessel -remains on Unasyn to cover for duodenitis, in setting of negative blood cultures reasonable to (4) Hyperkalemia: Plan: resolved (5) Acute kidney injury: Plan: -resolving with CKD 3. Monitor intake and output. Serial labs (6) Left nephrolithiasis: Plan: -Nephrostomy tube placed on 04/24 at [facility] due to 2.7 cm UPJ stone w/ moderate hydroureteronephrosis and ? emphysematous pyelitis. -CT showed left-sided percutaneous nephrostomy tube which appears in good position. The catheter loops around the 2.2 cm stone within the left renal pelvis. No hydronephrosis. Small amount of gas within the left renal collecting system is likely due to the nephrostomy tube. -Patient placed on Bactrim for 14 days on discharge from 04/27 which would have her taking antibiotics until May 11. Unasyn should adequately treat the E. coli bacteremia (cultures taken on 04/23) and blood cultures were negative on this admission. (7) Type II diabetes mellitus with complication: Plan: -On metformin at home. Currently on hold. SSI. ADA diet. (8) HTN (hypertension): Plan: Holding oral antihypertensives due to shock on admission. (9) Hyperlipidemia: Plan: -hold rosuvastatin. Resume at discharge Plan: -SCDs ordered, holding chemo ppx for now d/t ongoing blood loss. -Full Code. Disposition: Eventual discharge to home Admission and Anticipated Discharge Date Admission Date: May 04, 2021 Subjective No current concerns or questions. No pain. Pantoprazole IV drip continues till tomorrow and then switch to IV twice daily. Discussed atrial flutter with Dr. Riley this morning and will start on amiodarone drip as she is flipping in and out of atrial flutter therefore no need for cardioversion at this time. Review of Systems Review of Systems: All systems reviewed & are unremarkable except as noted in HPI & below Physical Exam Constitutional: WD/WN, vitals as above Respiratory: normal respiratory effort, lungs clear to auscultation Cardiovascular: Rate/Rhythm: regular rate and + irregularly irregular Heart Sounds: no murmur Extremities: + pedal edema (Trace equal bilaterally) Gastrointestinal (Abdomen): Percussion/Palpation: abdomen soft; abdomen nontender Skin: no rashes, warm and dry Results & Data Results & Data ([facility]) Vital Signs (Past 12 Hours) Vital Signs Temp Pulse Resp BP Pulse Ox 05/07/21 11:00 37.2 C 138 H 17 165/89 H 96 05/07/21 10:00 37.1 C 98 H 19 150/81 H 96 05/07/21 09:00 37.2 C 94 H 18 134/66 96 05/07/21 08:01 37.2 C 117 H 14 119/74 93 05/07/21 07:39 139 H 172/84 H 05/07/21 07:00 37.0 C 111 H 20 172/84 H 94 05/07/21 06:00 37.0 C 98 H 18 157/64 H 92 05/07/21 05:00 36.7 C 111 H 15 162/89 H 93 05/07/21 04:00 37.0 C 103 H 22 137/66 88 L 05/07/21 03:01 36.6 C 99 H 16 167/78 H 96 05/07/21 03:00 36.4 C L 101 H 17 97 05/07/21 02:00 37.1 C 95 H 4 L 114/68 100 05/07/21 01:00 37.1 C 102 H 18 136/74 96 05/07/21 00:44 37.2 C 106 H 26 H 155/78 H 96 05/07/21 00:00 37.2 C 96 H 9 L 130/70 95 PG Care Time/CCT Total # of Minutes Spent Total Time Spent with Patient: Total time spent is greater than 50% in coordination of care (as documented) at patient's floor/unit and/or counseling patient: Coding Level of Care Code 50454 Subseq Hosp Care Lvl 2 Diagnoses Hypovolemic shock R57.1 Atrial fibrillation I48.91 GI bleed K92.2 Hyperkalemia E87.5 Acute kidney injury N17.9 Left nephrolithiasis N20.0 Type II diabetes mellitus with complication E11.8 HTN (hypertension) I10 Hyperlipidemia E78.5
[2021-05-07] MEDS: ROSUVASTATIN CALCIUM 20 MG TAB PO SCH (12:00)
[2021-05-07] MEDS: CHOLECALCIFEROL 1,000 UNITS 25 MCG TAB PO SCH (12:00)
[2021-05-07] MEDS ORDERED: AMIODARONE IV BOLUS & DRIP IV STA (12:19)
[2021-05-07] MEDS ORDERED: AMIODARONE / D5W 150 MG/100 ML BAG IV STA (12:19)
[2021-05-07] MEDS ORDERED: 0.2 MICRON FILTER SET 1 EA IV ONE (12:19)
[2021-05-07] MEDS ORDERED: STAT IV Infusion **Titration per Protocol STA (12:19)
--- NOTE | 2021-05-07 12:19 | Cardiology Progress Note ---
Date of Service May 07, 2021 Assessment & Plan (1) Atrial flutter: (2) Atrial fibrillation: (3) Bradycardia: Plan: 1. Atrial flutter She appears to be cycling in and out of an atrial flutter. No 12 lead EKG has been obtained of the arrhythmia at this point, but I suspect this is a typical right atrial flutter. This would likely respond well to catheter based therapy. However, the patient has had documented atrial fibrillation as well. Given the history of both arrhythmias, she is likely better served with medical therapy. I think we can attempt a rhythm control strategy with amiodarone. While she is not symptomatic from the arrhythmias, this may obviate the need for more aggressive rate control in the setting of prior hypotension and bradycardia. She cannot currently be anticoagulated given her recent gastrointestinal hemorrhage, but there seemed to be plans to reinitiate Eliquis in a couple of weeks. 2. Bradycardia: On the 04 of May she did have an episode of bradycardia with evidence of high-degree AV block. The patient was certainly sicker at that time. Since that time she does not appear to have demonstrated any additional episodes despite cycling in and out of atrial arrhythmias and being administered some rate control agents. She does have periods of sinus rhythm and what appeared to be blocked PACs. No significant pauses or bradycardia recently. She has a narrow complex QRS at baseline with normal SC interval which is uncommon for significant infra-Hisian disease. As noted above I think we can institute some therapy with amiodarone and monitor her response. If she has significant bradycardia or evidence of high-degree AV block on amiodarone, she would be a appropriate candidate for permanent pacing. Admission and Anticipated Discharge Date Admission Date: May 04, 2021 Subjective This morning the patient complained of some abdominal discomfort. This was treated with analgesics. She also complained of her lower extremities feeling heavy. She has not been out of bed by her report. She does not have any nausea. She is not aware of any palpitations. No chest pain. No breathing difficulty. Review of Systems Review of Systems: Per HPI Physical Exam Physical Exam: She is alert and oriented x3. Mood affect appear normal. She answered all questions appropriately. HEENT: Sclerae are anicteric. Pupils are equal and reactive to light and accommodation. Extraocular movements were intact. Neuro: Cranial nerves intact Lungs: Lungs are clear to auscultation bilaterally. There are no rales wheezes or rhonchi. She has normal respiratory effort without use of accessory muscles. There is normal pulmonary excursion. Cardiac: The rhythm was irregular. S1 and S2 were normal. There are no murmurs on examination. The PMI was not markedly displaced on palpation. Skin: There are no rashes noted on examination today. Results & Data ([facility]) Vital Signs (Past 12 Hours) Vital Signs Temp Pulse Resp BP Pulse Ox 05/07/21 11:00 37.2 C 138 H 17 165/89 H 96 05/07/21 10:00 37.1 C 98 H 19 150/81 H 96 05/07/21 09:00 37.2 C 94 H 18 134/66 96 05/07/21 08:01 37.2 C 117 H 14 119/74 93 05/07/21 07:39 139 H 172/84 H 05/07/21 07:00 37.0 C 111 H 20 172/84 H 94 05/07/21 06:00 37.0 C 98 H 18 157/64 H 92 05/07/21 05:00 36.7 C 111 H 15 162/89 H 93 05/07/21 04:00 37.0 C 103 H 22 137/66 88 L 05/07/21 03:01 36.6 C 99 H 16 167/78 H 96 05/07/21 03:00 36.4 C L 101 H 17 97 05/07/21 02:00 37.1 C 95 H 4 L 114/68 100 05/07/21 01:00 37.1 C 102 H 18 136/74 96 05/07/21 00:44 37.2 C 106 H 26 H 155/78 H 96 Laboratory Results Abnormal Lab Results 05/04/21 05/06/21 05/06/21 16:40 12:25 18:25 WBC RBC Hgb Hct MCV MCH MCHC RDW Std Deviation RDW Coeff of Cas Plt Count MPV Immature Gran % (Auto) Neut % (Auto) Lymph % (Auto) [place] % (Auto) Eos % (Auto) Baso % (Auto) Neut # (Auto) Lymph # (Auto) [place] # (Auto) Eos # (Auto) Baso # (Auto) Immature Gran # (Auto) Absolute Nucleated RBC Nucleated RBC % (auto) PT INR Factor VIII Activity 295 Sodium Potassium Chloride Carbon Dioxide Anion Gap BUN Creatinine Est Cr Clr Drug Dosing Est GFR ( Amer) Est GFR (Non-Af Amer) BUN/Creatinine Ratio Glucose POC Glucose 117 H 192 H Calcium Phosphorus Magnesium 05/06/21 05/07/21 05/07/21 23:43 05:01 05:01 WBC 11.16 H RBC 2.86 L Hgb 8.3 L Hct 25.5 L MCV 89.2 MCH 29.0 MCHC 32.5 RDW Std Deviation 55.6 H RDW Coeff of Cas 17.2 H Plt Count 266 MPV 11.2 H Immature Gran % (Auto) 1.3 Neut % (Auto) 63.7 Lymph % (Auto) 21.1 [place] % (Auto) 12.2 Eos % (Auto) 1.3 Baso % (Auto) 0.4 Neut # (Auto) 7.10 H Lymph # (Auto) 2.36 [place] # (Auto) 1.36 H Eos # (Auto) 0.15 Baso # (Auto) 0.04 Immature Gran # (Auto) 0.15 H Absolute Nucleated RBC 0.07 H Nucleated RBC % (auto) 0.6 PT INR Factor VIII Activity Sodium 140 Potassium 4.5 Chloride 110 H Carbon Dioxide 25 Anion Gap 5 BUN 23 Creatinine 1.02 D Est Cr Clr Drug Dosing 37.4 Est GFR ( Amer) 56.5 Est GFR (Non-Af Amer) 48.7 BUN/Creatinine Ratio 22.5 H Glucose 123 H POC Glucose 92 Calcium 8.4 L Phosphorus 3.1 Magnesium 1.9 05/07/21 05/07/21 05:01 12:09 WBC RBC Hgb Hct MCV MCH MCHC RDW Std Deviation RDW Coeff of Cas Plt Count MPV Immature Gran % (Auto) Neut % (Auto) Lymph % (Auto) [place] % (Auto) Eos % (Auto) Baso % (Auto) Neut # (Auto) Lymph # (Auto) [place] # (Auto) Eos # (Auto) Baso # (Auto) Immature Gran # (Auto) Absolute Nucleated RBC Nucleated RBC % (auto) PT 14.7 H INR 1.4 H Factor VIII Activity Sodium Potassium Chloride Carbon Dioxide Anion Gap BUN Creatinine Est Cr Clr Drug Dosing Est GFR ( Amer) Est GFR (Non-Af Amer) BUN/Creatinine Ratio Glucose POC Glucose 126 H Calcium Phosphorus Magnesium Diagnostic Findings Echocardiogram performed 05/05/2021: Hyperdynamic left ventricle with ejection fraction greater than 70%. Moderate LVH. PG Care Time/CCT Total # of Minutes Spent Total Time Spent with Patient: Total time spent is greater than 50% in coordination of care (as documented) at patient's floor/unit and/or counseling patient: Coding Level of Care Code 52427 Subseq Hosp Care Lvl 3 Diagnoses Atrial flutter I48.92 Atrial fibrillation I48.91 Bradycardia R00.1
[2021-05-07] MEDS ORDERED: AMIODARONE / D5W 360 MG/200 ML BAG IV ONE (12:45)
[2021-05-07] MEDS ORDERED: Nursing to Pharmacy Communication SCH (16:30)
[2021-05-07] MEDS: AMIODARONE / D5W 360 MG/200 ML BAG IV SCH (19:24)
[2021-05-08] MEDS: PANTOprazole 40 MG in DEXTROSE 5% 100 ML IV SCH ×2 (02:41→10:26)
[2021-05-08] MEDS: AMPICILLIN/SULBACTAM SOD 3,000 MG in 0.9 % SODIUM CHLORIDE 100 ML IV SCH ×3 (04:03→16:19)
[2021-05-08 05:44] LABS: Hematocrit (blood only) 26.6 % (37-47); Hemoglobin 8.5 g/dL (12.0-16.0); Mean Corpuscular Hemoglobin 29.1 pg (25-34); Mean Corpuscular Volume 91.1 fL (80-100); Mean Platelet Volume 10.8 fL (7.4-10.4); Nucleated RBC # (auto) 0.07 K/uL (0-0); Nucleated RBC % (auto) 0.7 %; Platelet Count 262 K/uL (130-400); RDW Coefficient of Variation 16.8 % (11.5-14.5); RDW Standard Deviation 55.5 fL (36.4-46.3); Red Blood Count 2.92 M/uL (4.2-5.4); White Blood Count 10.48 K/uL (4.8-10.8)
[2021-05-08 06:22] LABS: BUN Creatinine Ratio 16.7 (10-20); Calcium 8.2 mg/dl (8.5-10.1); Creatinine Clr Calc Pharmacy 54.9 ml/min; Est GFR (African American) 86.1 ml/min; Est GFR (Non-African American) 74.3 ml/min; Magnesium 1.8 mg/dl (1.7-2.4); Phosphorus 2.9 mg/dl (2.5-4.9); Potassium 4.2 mmol/L (3.5-5.1)
[2021-05-08] MEDS: MoRPHine SULFATE 2 MG/ML CARP IV PRN (06:25)
[2021-05-08] MEDS: AMIODARONE / D5W 360 MG/200 ML BAG IV SCH (07:23)
[2021-05-08] MEDS: INSULIN ASPART PER UNIT SC SCH ×4 (09:02→20:54)
[2021-05-08] MEDS: ROSUVASTATIN CALCIUM 20 MG TAB PO SCH (09:03)
[2021-05-08] MEDS: CHOLECALCIFEROL 1,000 UNITS 25 MCG TAB PO SCH (09:03)
--- NOTE | 2021-05-08 16:31 | Ultrasound Report ---
US venous doppler UE LT CLINICAL HISTORY: swollen left arm PROCEDURE: Left upper extremity real-time compression venous ultrasound with Duplex and Color Doppler imaging. FINDINGS: Utilizing real-time ultrasonic imaging multiple real time high-resolution ultrasonic images of the de ep venous system were performed from the forearm through the subclavian vein including evaluation of the jugular vein. Compression real time ultrasonic imaging was performed in addition to color Dopple r imaging and duplex Doppler ultrasound with velocity spectral profile analysis. There is a deep venous thrombus in the proximal brachial vein. This is nonocclusive and chronic in ap pearance. Evaluation of the distal upper arm and the antecubital fossa is limited. An additional superficial venous thrombus is seen in the cephalic vein in the proximal and midportion surrounding the venous access line. This measures approximately 10 cm in length is visualized and ma y extend further due to lack of visualization of the distal upper arm. Impression: Nonocclusive deep venous thrombus in the brachial vein. Superficial venous thrombus is seen surroundi ng the venous access line in the cephalic vein. ACT 112: Negative or not required by law. Electronically signed by: Jose Francisco Herbert M.D. 05/08/2021 4:30 PM
--- NOTE | 2021-05-08 17:48 | Cardiology Progress Note ---
Date of Service May 08, 2021 Assessment & Plan (1) Paroxysmal atrial flutter: (2) Paroxysmal atrial fibrillation: (3) Edema of left upper arm: (4) Bradycardia: (5) Hemorrhagic shock: Plan: ASSESSMENT/PLAN: 1. Paroxysmal atrial fibrillation/flutter: Diagnosed with AFib in April of 2021. Currently in sinus rhythm with short atrial runs noted on telemetry. On amiodarone as per electrophysiology, Dr. Riley. Can transition from intravenous amiodarone to p.o. amiodarone 400 mg twice daily for approximately 1 week and then 200 mg daily or as per Dr. Verduzco when he returns. Currently not on anticoagulation after presenting with hemorrhagic shock, with a hemoglobin as low as 6.9. Can resume anticoagulation therapy if/when safe from a GI perspective. Monitor transaminase levels and TSH closely while on amiodarone. 2. Bradycardia: Bradycardia with evidence of high-grade AV block on 05/04/2021, while quite ill with hemorrhagic shock. If recurrent issues, EP plans for permanent pacemaker. 3. Left upper extremity edema: Not clear if this is new today or throughout the hospital stay. Communicated with Dr. Funk of the primary hospitalist service. Dr. Funk arranged for ultrasound. 4. Hemorrhagic shock: No further obvious bleeding. Was found to have duodenal infiltrative mass. As per GI and primary service. 5. Disposition: Dr. Verduzco will continue her cardiology care on 05/10/2021. In the meantime, please call with any other questions or concerns. Patient care discussed with Dr. Funk of the primary hospitalist service. Admission and Anticipated Discharge Date Admission Date: May 04, 2021 Subjective Patient was seen at approximately 2:10 p.m.. Her daughter, Yecenia, was present at the bedside. Intravenous amiodarone was initiated yesterday by Dr. Riley, and she has maintained sinus rhythm as per telemetry. She denies chest pain, shortness of breath, syncope, palpitations. They did inquire about overall deconditioning. Physical Exam Physical Exam: Gen.: No acute distress. Alert. HEENT: Anicteric sclera. Neck: No JVD. Cardiac: Regular. Normal S1-S2. 2/6 systolic murmur. Pulmonary: Clear to auscultation bilaterally without wheezes, rales, or rhonchi. Abdomen: Soft, nontender, nondistended, with normoactive bowel sounds. No bruits noted. Extremities: 2+ radial pulses bilaterally. 2+ posterior tibialis pulses bilaterally. Left upper extremity 1 to 2+ edema. Trace bilateral lower extr emity edema. No cyanosis. Psychiatric: Affect appears appropriate. Results & Data ([facility]) Vital Signs (Past 12 Hours) Vital Signs Temp Pulse Pulse Pulse Resp BP Pulse Ox 05/08/21 16:21 37.1 C 97 H 18 154/85 H 93 05/08/21 16:00 93 H 05/08/21 11:51 36.6 C 86 22 169/89 H 92 05/08/21 08:13 36.5 C 99 H 22 153/89 H 92 05/08/21 08:00 100 H Laboratory Results Laboratory Results - last 24 hr 05/07/21 05/08/21 05/08/21 20:25 05:25 05:25 WBC 10.48 RBC 2.92 L Hgb 8.5 L Hct 26.6 L MCV 91.1 MCH 29.1 MCHC 32.0 RDW Std Deviation 55.5 H RDW Coeff of Cas 16.8 H Plt Count 262 MPV 10.8 H Absolute Nucleated RBC 0.07 H Nucleated RBC % (auto) 0.7 Sodium 139 Potassium 4.2 Chloride 110 H Carbon Dioxide 25 Anion Gap 4 BUN 12 Creatinine 0.72 D Est Cr Clr Drug Dosing 54.9 Est GFR ( Amer) 86.1 Est GFR (Non-Af Amer) 74.3 BUN/Creatinine Ratio 16.7 Glucose 151 H POC Glucose 140 H Calcium 8.2 L Phosphorus 2.9 Magnesium 1.8 05/08/21 05/08/21 05/08/21 07:23 11:31 16:32 WBC RBC Hgb Hct MCV MCH MCHC RDW Std Deviation RDW Coeff of Cas Plt Count MPV Absolute Nucleated RBC Nucleated RBC % (auto) Sodium Potassium Chloride Carbon Dioxide Anion Gap BUN Creatinine Est Cr Clr Drug Dosing Est GFR ( Amer) Est GFR (Non-Af Amer) BUN/Creatinine Ratio Glucose POC Glucose 144 H 135 H 161 H Calcium Phosphorus Magnesium Diagnostic Findings Telemetry personally reviewed: Sinus rhythm with PACs and nonsustained atrial runs. Medications Administered Current Inpatient Medications Amiodarone HCl (Amiodarone 200 Mg Tab) 400 mg PO BIDM [facility] Stop: 05/15/21 17:09 Amoxicillin/Clavulanate Potassium (Amoxicillin/Clavulanate 875 Mg Tab) 1 tab PO BIDM [facility] Stop: 05/12/21 22:00 Pantoprazole Sodium 40 mg/ (Syringe) 10 mls @ 5 mls/min IV BID [facility] Stop: 06/07/21 20:59 Insulin Aspart (Insulin Aspart Per Unit) 0 units SC ACHS [facility] Stop: 06/05/21 11:59 Last Admin: 05/08/21 12:36 Dose: 3 units Documented by: Lorazepam (Lorazepam 2 Mg/1 Ml Vial) 0.5 mg IV Q6H PRN PRN Reason: Agitation Stop: 06/04/21 18:14 Morphine Sulfate (Morphine Sulfate 2 Mg/Ml Carp) 2 mg IV Q4 PRN PRN Reason: Pain Scale: 2,3,4,5,6 Stop: 05/19/21 18:14 Last Admin: 05/08/21 06:25 Dose: 2 mg Documented by: Rosuvastatin Calcium (Rosuvastatin Calcium 20 Mg Tab) 20 mg PO DAILY [facility] Stop: 06/04/21 08:59 Last Admin: 05/08/21 09:03 Dose: 20 mg Documented by: Vitamin D (Cholecalciferol 1,000 Units 25 Mcg Tab) 1,000 units PO DAILY [facility] Stop: 06/04/21 08:59 Last Admin: 05/08/21 09:03 Dose: 1,000 units Documented by: PG Care Time/CCT Total # of Minutes Spent Total Time Spent with Patient: Total time spent is greater than 50% in coordination of care (as documented) at patient's floor/unit and/or counseling patient: Coding Level of Care Code 51831 Subseq Hosp Care Lvl 3 Diagnoses Paroxysmal atrial flutter I48.92 Paroxysmal atrial fibrillation I48.0 Edema of left upper arm R60.0 Bradycardia R00.1 Hemorrhagic shock R57.8
[2021-05-08] MEDS: AMIODARONE 200 MG TAB PO SCH (17:51)
--- NOTE | 2021-05-08 17:56 | Hospitalist Progress Note ---
Date of Service May 08, 2021 Assessment & Plan (1) Hypovolemic shock: Plan: resolved with IV fluids and blood transfusion. did receive 4 units prbc to date (2) Left upper extremity deep vein thrombosis: Plan: DVT confirmed on venous doppler 05/08 Unable to start on anticogulation due to recent bleed and highly likely to restart if placed on anticoagulation US venous doppler b/l LE to assess liklihood of PE. Restrict left arm and elevate as much as possible (3) Atrial fibrillation: Plan: -Initially diagnosed on 04/23 admission, rate controlled was achieved with diltiazem. Patient had TTE and started prophylactically on Eliquis 5mg PO BID, patient did take a dose the morning of admission has both tachy and valerie rhythms, required dopamine transiently for her acute hemorrhagic shock Cardiology is following - Switch from IV amiodarone to PO today Not on anticoagulation due to hemorrhagic shock on admission. (4) GI bleed: Plan: -Patient reporting dark, watery stools prior to admission . also reported some bright red blood in nephrostomy tube over the past day but states it has since stopped. Patient is on Eliquis for afib/flutter diagnosed on 04/23/[address] A+P showed mild nonspecific wall thickening and adjacent inflammatory change at the second and third portion of the duodenum. -Protonix drip, IVF. -GI consult appreciated. Dr. Ardon endoscopy shows mass in stomach needed epi injections and clip, and was actively bleeding with visible vessel -Switch unasyn to Augmentin to reduce amount of IV fluids and need for a second line (5) Hyperkalemia: Plan: resolved (6) Acute kidney injury: Plan: -resolving with CKD 3. Monitor intake and output. Serial labs (7) Left nephrolithiasis: Plan: -Nephrostomy tube placed on 04/24 at [facility] due to 2.7 cm UPJ stone w/ moderate hydroureteronephrosis and ? emphysematous pyelitis. -CT showed left-sided percutaneous nephrostomy tube which appears in good position. The catheter loops around the 2.2 cm stone within the left renal pelvis. No hydronephrosis. Small amount of gas within the left renal collecting system is likely due to the nephrostomy tube. -Patient placed on Bactrim for 14 days on discharge from 04/27 which would have her taking antibiotics until May 11. Unasyn/augmentin should adequately treat the E. coli bacteremia (cultures taken on 04/23) and blood cultures were negative on this admission. (8) Type II diabetes mellitus with complication: Plan: -On metformin at home. Currently on hold. SSI. ADA diet. (9) HTN (hypertension): Plan: Holding oral antihypertensives due to shock on admission. (10) Hyperlipidemia: Plan: -hold rosuvastatin. Resume at discharge Plan: VTE Prophylaxis - SCDs ordered, holding chemo ppx for now due to blood loss anemia. Code - Full Code. Disposition - continue on PCU while coming off IV amiodarone. PT/OT assessments ordered. Admission and Anticipated Discharge Date Admission Date: May 04, 2021 Subjective Noted increased swelling of left upper extremity. Otherwise just generally weak. Nephrostomy tube is working well with clear yellow drainage. No further melena or bright red blood in stool per patient recollection. No nausea vomiting. Tolerating liquid diet. Review of Systems Review of Systems: All systems reviewed & are unremarkable except as noted in Subjective Physical Exam Constitutional: WD/WN, vitals as above Respiratory: normal respiratory effort, lungs clear to auscultation Cardiovascular: Rate/Rhythm: regular rate and + irregularly irregular Heart Sounds: no murmur Extremities: + pedal edema (1+ pre-tibial b/l equal) and + edema (LUE) Gastrointestinal (Abdomen): Percussion/Palpation: abdomen soft; abdomen n ontender Skin: no rashes, warm and dry Neurologic: moves all extremities (generalized b/l LE > UE weakness) and awake; not confused Psychiatric: A+Ox3, euthymic affect Results & Data Results & Data ([facility]) Vital Signs (Past 12 Hours) Vital Signs Temp Pulse Pulse Pulse Resp BP Pulse Ox 05/08/21 16:21 37.1 C 97 H 18 154/85 H 93 05/08/21 16:00 93 H 05/08/21 11:51 36.6 C 86 22 169/89 H 92 05/08/21 08:13 36.5 C 99 H 22 153/89 H 92 05/08/21 08:00 100 H PG Care Time/CCT Total # of Minutes Spent Total Time Spent with Patient: Total time spent is greater than 50% in coordination of care (as documented) at patient's floor/unit and/or counseling patient: Coding Level of Care Code 88124 Subseq Hosp Care Lvl 2 Diagnoses Hypovolemic shock R57.1 Atrial fibrillation I48.91 GI bleed K92.2 Hyperkalemia E87.5 Acute kidney injury N17.9 Left nephrolithiasis N20.0 Type II diabetes mellitus with complication E11.8 HTN (hypertension) I10 Hyperlipidemia E78.5 Left upper extremity deep vein thrombosis I82.622
[2021-05-08] MEDS: PANTOprazole 40 MG in SYRINGE 0 ML IV SCH (21:59)
--- NOTE | 2021-05-08 22:55 | Ultrasound Report ---
US venous doppler LE BI CLINICAL HISTORY: b/l lower extremity swelling ?DVT COMPARISON: None available at the time of this dictation. TECHNIQUE: Bilateral lower extremity real-time compression venous ultrasound with Color Doppler imagi ng. Utilizing real-time ultrasonic imaging multiple real time high-resolution ultrasonic images with comp ression and noncompression maneuvers of the deep venous system in addition to color doppler imaging w ere performed from the common femoral vein through the proximal calf veins. FINDINGS: There is a nonocclusive but acute appearing thrombus in the left posterior tibial vein. The right seda ous system is without intravenous thrombus. Impression: Acute thrombus in the left posterior tibial vein. ACT 112: Negative or not required by law. Electronically signed by: Jose Francisco Herbert M.D. 05/08/2021 10:54 PM
[2021-05-09 03:31] LABS: Basophils # (auto) 0.04 K/uL (0-0.2); Basophils % (auto) 0.3 %; Eosinophils # (auto) 0.19 K/uL (0-0.5); Eosinophils % (auto) 1.6 %; Hematocrit (blood only) 22.7 % (37-47); Hemoglobin 7.2 g/dL (12.0-16.0); Immature Granulocytes # (auto) 0.23 K/uL (0.00-0.02); Immature Granulocytes % (auto) 1.9 %; Lymphocytes # (auto) 2.01 K/uL (1.2-3.4); Lymphocytes % (auto) 16.4 %; Mean Corpuscular Hgb Conc 31.7 g/dL (32-36); Mean Corpuscular Volume 91.5 fL (80-100); Mean Platelet Volume 10.7 fL (7.4-10.4); Monocytes # (auto) 1.08 K/uL (0.11-0.59); Monocytes % (auto) 8.8 %; Nucleated RBC # (auto) 0.06 K/uL (0-0); Nucleated RBC % (auto) 0.5 %; Platelet Count 273 K/uL (130-400); RDW Coefficient of Variation 16.8 % (11.5-14.5); RDW Standard Deviation 53.1 fL (36.4-46.3); Red Blood Count 2.48 M/uL (4.2-5.4); White Blood Count 12.25 K/uL (4.8-10.8)
[2021-05-09 03:32] LABS: Hematocrit (blood only) 22.3 % (37-47); Hemoglobin 7.1 g/dL (12.0-16.0)
[2021-05-09 03:52] LABS: BUN Creatinine Ratio 28.2 (10-20); Creatinine Clr Calc Pharmacy 55.6 ml/min; Est GFR (African American) 87.5 ml/min; Est GFR (Non-African American) 75.5 ml/min; Magnesium 1.6 mg/dl (1.7-2.4); Phosphorus 2.9 mg/dl (2.5-4.9); Potassium 4.2 mmol/L (3.5-5.1)
[2021-05-09 03:58] LABS: Anisocytosis Present; Polychromasia 1+
[2021-05-09] MEDS ORDERED: SODIUM CHLORIDE 0.9% 250 ML IV PRN ×2 (04:13→12:33)
--- NOTE | 2021-05-09 06:41 | Electrocardiogram Report ---
Test Reason : Blood Pressure : / mmHG Vent. Rate : 097 BPM Atrial Rate : 097 BPM P-R Int : 208 ms QRS Dur : 084 ms QT Int : 386 ms P-R-T Axes : 046 -13 039 degrees QTc Int : 490 ms Normal sinus rhythm Possible Anterolateral infarct (cited on or before 08-MAY-2021) Abnormal ECG When compared with ECG of 04-MAY-2021 17:03, Sinus rhythm is no longer with 2nd degree A-V block (Mobitz II) Vent. rate has increased BY 42 BPM Confirmed by Randolph Frias ([id number]) on 05/09/2021 6:41:25 AM Referred By: REFERRED SELF Confirmed By:Randolph Frias
[2021-05-09] MEDS: AMIODARONE 200 MG TAB PO SCH (07:24)
[2021-05-09] MEDS ORDERED: AMOXICILLIN/CLAVULANATE 875 MG TAB PO SCH (08:00)
[2021-05-09] MEDS: CHOLECALCIFEROL 1,000 UNITS 25 MCG TAB PO SCH (08:58)
[2021-05-09] MEDS: ROSUVASTATIN CALCIUM 20 MG TAB PO SCH (08:58)
[2021-05-09] MEDS: INSULIN ASPART PER UNIT SC SCH ×4 (08:58→21:13)
[2021-05-09] MEDS: PANTOprazole 40 MG in SYRINGE 0 ML IV SCH (11:10)
--- NOTE | 2021-05-09 11:52 | Surgery Consultation ---
Date of Consultation May 09, 2021 Assessment & Plan (1) Acute upper gastrointestinal bleeding: (2) Duodenal mass: This is an 89yF with a PMH of HTN, CKD, DM, recent diagnosis of UPJ obstruction requiring percutaneous nephrostomy tube at [place] (04/27) at that time she was also diagnosed with of afib/aflutter now on eliquis, who presented to the [facility] ED on 05/04/21 with complaints of bloody stools. The patient was found to have a bleeding duodenal mass by push enteroscopy and EGD with GI that was evaluated on 05/05 & 05/06. The area of concern was cauterized and clips used. Pathology showing no evidence of malignancy, however suspicion remains. Initially her bloody stools resolved, but have returned since this AM and was found to have a drop in her Hbg to 7.1 (8.5). She received a unit of blood this AM. Given patient's age and co-morbidities would like to reserve surgical intervention for last resort. We would recommend transferring patient to a tertiary center for advanced endoscopy +/- facility with intervention radiology capabilities should she need it. A repeat Hbg is pending. She may need further transfusion. Keep NPO w/ IVF. Eliquis on hold. This was discussed with the hospitalist service who is working on setting up transfer. Pt was seen with Dr. Ricks. Supervising Physician Co-Signing Physician Notes Dr. 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 and bleeding which was clipped She apparently has had melanotic stools with decrease in her hematocrit suggesting an additional bleeding I believe the first treatment would be aggressive gastroenterology and possible interventional radiology This would likely be performed at a tertiary care center and I suggest transfer of the patient History of Present Illness Attending Physician: Zoltan Funk MD History of Present Illness This is an 89yF with a PMH of HTN, CKD, DM, recent diagnosis of UPJ obstruction requiring percutaneous nephrostomy tube at [place] (04/27) at that time she was also diagnosed with of afib/aflutter now on eliquis, who presented to the [facility] ED on 05/04/21 with complaints of bloody stools. She was admitted to the hospitalist service and received multiple units of pRBCs. GI performed a push enteroscopy where she was found to have a malignant appearing mass of the duodenum that was bleeding with surrounding ulcerations. The area of concern was treated with cauterization and clips. Biopsies taken. Follow up EGD thereafter revealed no signs of active bleeding. Since procedure patient's diet was advanced to clears of which she tolerated. Yesterday she had no evidence of bloody stools and hbg 8.5 (8.3). However since starting overnight she began having loose dark bloody BM's, ~10 overall. She was again given a unit of blood this AM for a Hbg drop to 7.1 (8.5). Patient reports feeling fatigued and weak. She denies any abdominal pain, nausea/vomiting. Surgery was consulted given recurrent bleeding. Her eliquis has been held since admission. Allergies Allergy/AdvReac Type Severity Reaction Status Date / Time No Known Allergies Allergy Verified 05/04/21 15:07 Home Medications Medication Instructions Recorded Confirmed Type aspirin 81 mg tablet,delayed 81 mg PO DAILY #90 tab 09/17/18 05/04/21 History release cholecalciferol (vitamin D3) 25 1,000 units PO DAILY cap 09/17/18 05/04/21 History mcg (1,000 unit) capsule timolol maleate 0.5 % once daily 1 drops OP HS ml 09/17/18 05/04/21 History eye drops vitamins A,C,Z-hcco-phhutw 14,320 1 cap PO BID 09/17/18 05/04/21 History unit-226 mg-200 unit capsule (PreserVision AREDS) amlodipine 5 mg tablet 5 mg PO DAILY #90 tab 10/19/20 05/04/21 Rx polyethylene glycol 3350 17 17 g PO DAILY PRN #119 g 10/21/20 05/04/21 Rx gram/dose oral powder (Miralax) telmisartan 80 mg tablet 80 mg PO DAILY #90 tab 11/13/20 05/04/21 Rx alendronate 70 mg tablet 70 mg PO WEEKLY #12 tab 11/30/20 05/04/21 Rx metformin 1,000 mg tablet 1,000 mg PO PM #90 tab 01/04/21 05/04/21 Rx rosuvastatin 20 mg tablet 20 mg PO DAILY #90 tab 01/04/21 05/04/21 Rx calcium citrate 200 mg 1 tab PO BID 04/23/21 05/04/21 History calcium-vitamin D3 3.125 mcg (125 unit) tablet apixaban 2.5 mg tablet (Eliquis) 0 mg PO BID 05/04/21 05/04/21 History diltiazem HCl 30 mg tablet 30 mg PO Q6H 05/04/21 05/04/21 History sulfamethoxazole 800 1 tab PO BID 05/04/21 05/04/21 History mg-trimethoprim 160 mg tablet Patient History Medical History Acute kidney injury Acute upper gastrointestinal bleeding Age-related macular degeneration, dry, both eyes Atrial fibrillation Atrial flutter Bradycardia Disc degeneration, lumbar Duodenitis Glaucoma Hemorrhagic shock Hyperlipidemia Lactic acidosis Left knee pain Microalbuminuria Osteoporosis Right lumbar radiculopathy Type II diabetes mellitus with complication Surgical History H/O hemorrhoidectomy History of tonsillectomy and adenoidectomy Family History Unknown Diabetes Denies family history of Ovarian cancer Prostate cancer Breast cancer Lung cancer Colorectal cancer Social History Smoking Status: Unknown if ever smoked Second Hand Exposure: No; Preferred Language: Serbian Communication Ability: Effective Visual Impairment: Limited Hearing Ability: Normal 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 Required: No Beliefs That Will Affect Care: None marital status: / Current Living Situation: Family current occupational status: retired Feels Safe at Home: Yes Childhood Exposure to Second-Hand Smoke: No caffeine: Yes Dental Care, Regularly: Yes Physical Activity Frequency: Does not Exercise Seatbelt Use: always Sunscreen Use: Yes (does not go outside) Assistive Devices: Cane Review of Systems Constitutional: + fatigue Respiratory: no dyspnea Gastrointestinal: + diarrhea/loose stools and + blood in stools; no abdominal pain, no nausea and no vomiting Physical Exam Physical Exam: awake, appears fatigued Gastrointestinal (Abdomen): Inspection/Auscultation: abdomen not distended Percussion/Palpation: abdomen soft; abdomen nontender Skin: pale Results & Data ([facility]) Vital Signs (Past 12 Hours) Vital Signs Temp Pulse Pulse Resp BP BP Pulse Ox 05/09/21 11:27 36.4 C L 05/09/21 10:50 36.5 C 113 H 22 131/79 94 05/09/21 09:50 36.5 C 92 H 22 146/82 H 94 05/09/21 08:50 36.4 C L 128 H 20 150/86 H 96 05/09/21 08:20 36.4 C L 102 H 20 147/70 H 95 05/09/21 08:05 36.4 C L 112 H 20 139/62 94 05/09/21 08:00 97 H 05/09/21 07:46 36.3 C L 107 H 22 134/73 94 05/09/21 07:37 36.4 C L 95 H 16 132/80 93 05/09/21 03:04 36.7 C 105 H 18 141/80 H 95 05/09/21 00:00 87 Diagnostic Findings Procedure: Small bowel enteroscopy Providers: Edwin Ardon MD Referring MD: Glenn Maciel Indications: Hematochezia, Melena Medicines: Monitored Anesthesia Care Complications: No immediate complications. Estimated blood loss: None. Estimated Blood Loss: Estimated blood loss: none. Procedure: Pre-Anesthesia Assessment: - Prior Anticoagulants: The patient has taken Eliquis (apixaban), last dose was 1 day prior to procedure. - ASA Grade Assessment: IV - A patient with severe systemic disease that is a constant threat to life. After obtaining informed consent, the endoscope was passed under direct vision. Throughout the procedure, the patient's blood pressure, pulse, and oxygen saturations were monitored continuously. The Colonoscope was introduced through the mouth, and advanced to the third part of duodenum. After obtaining informed consent, the endoscope was passed under direct vision. Throughout the procedure, the patient's blood pressure, pulse, and oxygen saturations were monitored continuously.The small bowel enteroscopy was accomplished without difficulty. The patient tolerated the procedure well. Findings: The esophagus was normal. Hematin (altered blood/pvqerk-qxbzeg-mvsr material) was found in the gastric fundus. suctioned out. A medium-sized infiltrative mass with bleeding was found in the duodenal bulb and in the first portion of the duodenum. several bleeding ulcers associated with this abnormal tissue/malignant appearing mucosa were noted as well. Area was successfully injected with 6 mL of a 1:10,000 solution of epinephrine for hemostasis. Coagulation for hemostasis using bipolar probe was successful. Estimated blood loss: none. For hemostasis, three hemostatic clips were successfully placed. There was no bleeding at the end of the procedure. Impression: - Normal esophagus. - Hematin (altered blood/ifxlbi-txmyxh-aurs material) in the gastric fundus. - Duodenal mass. Injected. Treated with bipolar cautery. Clips were placed. - No specimens collected. Recommendation: - Return patient to ICU for ongoing care. --NPO, can advance to clear liquid diet tonight if stable --f/u path results --protonix drip for 72 hours then BID thereafter --supportive care, IVFs --hold eliquis for 14 days Edwin Ardon MD 05/05/2021 1:20:16 PM Procedure: Upper GI endoscopy Providers: Edwin Ardon MD Referring MD: Rayray Duncan Indications: Melena Medicines: Monitored Anesthesia Care Complications: No immediate complications. Estimated blood loss: None. Estimated Blood Loss: Estimated blood loss: none. Procedure: Pre-Anesthesia Assessment: - Prior Anticoagulants: The patient has taken no previous anticoagulant or antiplatelet agents. - ASA Grade Assessment: II - A patient with mild systemic disease. - ASA Grade Assessment: IV - A patient with severe systemic disease that is a constant threat to life. After obtaining informed consent, the endoscope was passed under direct vision. Throughout the procedure, the patient's blood pressure, pulse, and oxygen saturations were monitored continuously. The Endoscope was introduced through the mouth, and advanced to the second part of duodenum. The upper GI endoscopy was accomplished without difficulty. The patient tolerated the procedure well. Findings: The examined esophagus was normal. The entire examined stomach was normal. A medium-sized infiltrative mass with no bleeding was found in the duodenal bulb and in the first portion of the duodenum. the ulcers that were bleeding on prior EGD were no longer bleeding, no evidence of blood. Impression: - Normal esophagus. - Normal stomach. 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 - No specimens collected. Recommendation: - Return patient to hospital [place] for ongoing care. - Advance diet as tolerated today. -protonix drip for 72 hours total then BID thereafter -f/u path results from biopsies on EGD 05/05 Edwin Ardon MD PG Care Time/CCT Total # of Minutes Spent Total Time Spent with Patient: Total time spent is greater than 50% in coordination of care (as documented) at patient's floor/unit and/or counseling patient: Coding Level of Care Code 66944 Initial Inpt Care Lvl 2 Diagnoses Acute upper gastrointestinal bleeding K92.2 Duodenal mass K31.89
[2021-05-09] MEDS: PANTOprazole 40 MG in DEXTROSE 5% 100 ML IV SCH ×3 (11:57→22:59)
[2021-05-09] MEDS ORDERED: AMIODARONE IV BOLUS & DRIP IV STA ×2 (12:40→14:37)
[2021-05-09] MEDS ORDERED: 0.2 MICRON FILTER SET 1 EA IV ONE ×2 (12:43→14:37)
[2021-05-09] MEDS ORDERED: STAT IV Infusion **Titration per Protocol STA ×2 (12:43→14:37)
[2021-05-09] MEDS ORDERED: AMIODARONE / D5W 150 MG/100 ML BAG IV STA ×2 (12:50→14:37)
[2021-05-09] MEDS ORDERED: AMIODARONE / D5W 360 MG/200 ML BAG IV ONE ×2 (12:53→14:47)
[2021-05-09] MEDS ORDERED: PANTOprazole 40 MG in SYRINGE 0 ML IV ONE (13:00)
--- NOTE | 2021-05-09 14:09 | Hospitalist Progress Note ---
Date of Service May 09, 2021 Assessment & Plan (1) GI bleed: Plan: -Patient reporting dark, watery stools prior to admission. also reported some bright red blood in nephrostomy tube over the past day but states it has since stopped. Patient is on Eliquis for afib/flutter diagnosed on 04/23/[address] A+P showed mild nonspecific wall thickening and adjacent inflammatory change at the second and third portion of the duodenum. -NPO, Protonix drip restarted today due to melena overnight - GI consult appreciated. Dr. Ardon endoscopy shows mass in stomach needed epi injections and clip, and was actively bleeding with visible vessel. Dr Pleitez not recommend repeat EGD today. [place] will ongoing accept patient is bleed on CT angio. - switch back to Unasyn for duodentitis as put back on NPO. - x1 PRBCs transfusion this morning, ongoing melena throughout today, repeat H&H but will transfuse second unit before result of this. (2) Hypovolemic shock: Plan: resolved with IV fluids and blood transfusion. did receive 4 units prbc to date. Additional 1 unit PRBCs this morning. Will get another when down in the ICU. (3) Left upper extremity deep vein thrombosis: Plan: DVT confirmed on venous doppler 05/08 Unable to start on anticoagulation due to ongoing bleed Restrict left arm and elevate as much as possible (4) Deep vein thrombosis, lower left extremity: Plan: Consult vascular surgery for consideration of IVC filter (5) Atrial fibrillation: Plan: -Initially diagnosed on 04/23 admission, rate controlled was achieved with diltiazem. Patient had TTE and started prophylactically on Eliquis 5mg PO BID, patient did take a dose the morning of admission has both tachy and valerie rhythms, required dopamine transiently for her acute hemorrhagic shock Switched to PO amiodarone yesterday but back in sustained atrial flutter today - place back on IV amiodarone once PICC line placed Cardiology is following Not on anticoagulation due to ongoing GI bleed (6) Hyperkalemia: Plan: resolved (7) Acute kidney injury: Plan: -resolving with CKD 3. Monitor intake and output. Serial labs (8) Left nephrolithiasis: Plan: -Nephrostomy tube placed on 04/24 at [facility] due to 2.7 cm UPJ stone w/ moderate hydroureteronephrosis and ? emphysematous pyelitis. -CT showed left-sided percutaneous nephrostomy tube which appears in good position. The catheter loops around the 2.2 cm stone within the left renal pelvis. No hydronephrosis. Small amount of gas within the left renal collecting system is likely due to the nephrostomy tube. -Patient placed on Bactrim for 14 days on discharge from 04/27 which would have her taking antibiotics until May 11. Unasyn should adequately treat the E. coli bacteremia (cultures taken on 04/23) and blood cultures were negative on this admission. (9) Type II diabetes mellitus with complication: Plan: -On metformin at home. Currently on hold. SSI. ADA diet. (10) HTN (hypertension): Plan: Holding oral antihypertensives due to shock on admission. (11) Hyperlipidemia: Plan: -hold rosuvastatin. Resume at discharge Plan: VTE Prophylaxis - SCDs ordered, holding chemo ppx for now due to blood loss anemia. Code - Full Code Disposition - transfer to ICU due to ongoing melena with lack of reversible cause. Admission and Anticipated Discharge Date Admission Date: May 04, 2021 Subjective Having melena overnight. Also noted she was having calf pain after ultrasound venous Doppler which confirmed nonocclusive but acute appearing thrombus in left posterior tibial vein. No abdominal pain. Discussed case with Dr Pleitez who in turn discussed with Dr Ardon and did not recommend re-doing EGD at this time. Discussed with Dr Ricks and agree patient is too high risk surgical candidate. Pathology did not show malignant tissue. Discussed with Dr Shields and will move patient to ICU due to active bleeding and no significant reversal strategies at this time. Discussed with ICU and gastroenterology at [place]. Gastroenterology do not think they would have anything more to offer there than what could be done here and since plan is not to repeat endoscopy here then this is not a reason for transfer. Recommend CT angiogram to assess whether there is a large active bleed enough for IR to intervene. Review of Systems Review of Systems: All systems reviewed & are unremarkable except as noted in Subjective Physical Exam Constitutional: WD/WN, vitals as above no acute distress Eyes: + conjunctival abnormality ([place]) Respiratory: normal respiratory effort, lungs clear to auscultation Cardiovascular: Rate/Rhythm: regular rate and + irregularly irregular Heart Sounds: no murmur Extremities: + calf tenderness (left), + pedal edema (1+ pre-tibial b/l equal) and + edema (LUE) Gastrointestinal (Abdomen): Percussion/Palpation: abdomen soft; abdomen nontender Skin: no rashes, warm and dry Neurologic: moves all extremities (generalized b/l LE > UE weakness) and a wake; not confused Psychiatric: A+Ox3, euthymic affect Results & Data Results & Data ([facility]) Vital Signs (Past 12 Hours) Vital Signs Temp Pulse Pulse Resp BP BP Pulse Ox 05/09/21 12:06 36.5 C 124 H 22 126/71 97 05/09/21 11:27 36.4 C L 05/09/21 10:50 36.5 C 113 H 22 131/79 94 05/09/21 09:50 36.5 C 92 H 22 146/82 H 94 05/09/21 08:50 36.4 C L 128 H 20 150/86 H 96 05/09/21 08:20 36.4 C L 102 H 20 147/70 H 95 05/09/21 08:05 36.4 C L 112 H 20 139/62 94 05/09/21 08:00 97 H 05/09/21 07:46 36.3 C L 107 H 22 134/73 94 05/09/21 07:37 36.4 C L 95 H 16 132/80 93 05/09/21 03:04 36.7 C 105 H 18 141/80 H 95 PG Care Time/CCT Total # of Minutes Spent Total Time Spent with Patient: Total time spent is greater than 50% in coordination of care (as documented) at patient's floor/unit and/or counseling patient: Coding Level of Care Code 55498 Subseq Hosp Care Lvl 3 Diagnoses Hypovolemic shock R57.1 Left upper extremity deep vein thrombosis I82.622 Atrial fibrillation I48.91 GI bleed K92.2 Hyperkalemia E87.5 Acute kidney injury N17.9 Left nephrolithiasis N20.0 Type II diabetes mellitus with complication E11.8 HTN (hypertension) I10 Hyperlipidemia E78.5 Deep vein thrombosis, lower left extremity I82.402
--- NOTE | 2021-05-09 14:15 | XRay Report ---
XR chest 1V portable CLINICAL HISTORY: PICC line placement. COMPARISON STUDY: 05/04/2021 TECHNIQUE: 1 view of the chest FINDINGS: Single frontal view of the chest demonstrates the heart size to be enlarged. Right-sided PICC line goddard s been placed with its tip in the distal SVC. There is no evidence for pneumothorax. The lungs are cl ear of alveolar opacities. There is mild haziness at both lung bases which can represent pleural flui d layering along the posterior gutter. There is no evidence for vascular congestion. There is no acut e osseous pathology. IMPRESSION: 1. Tip of PICC line in distal SVC with no pneumothorax. 2. Haziness at both lung bases suspicious for pleural fluid layering along the posterior gutters. ACT 112: Negative or not required by law. Electronically signed by: Bravo Jackson M.D. 05/09/2021 2:13 PM
[2021-05-09] MEDS ORDERED: MAGNESIUM SULFATE / D5W 1 GM/100 ML BAG IV STA (14:39)
[2021-05-09] MEDS: MAGNESIUM SULFATE / D5W 1 GM/100 ML BAG IV SCH ×2 (15:14→17:36)
[2021-05-09 15:20] LABS: Hematocrit (blood only) 21.8 % (37-47); Hemoglobin 7.1 g/dL (12.0-16.0)
[2021-05-09 15:31] LABS: INR 1.6 (0.9-1.1); Partial Thromboplastin Ratio 0.8; Partial Thromboplastin Time 21.1 Seconds (21.0-31.0); Prothrombin Time 16.6 Seconds (9.0-12.0)
[2021-05-09 15:38] LABS: BUN Creatinine Ratio 32.5 (10-20); Calcium 7.9 mg/dl (8.5-10.1); Creatinine Clr Calc Pharmacy 51.3 ml/min; Est GFR (African American) 79.3 ml/min; Est GFR (Non-African American) 68.5 ml/min; Magnesium 1.6 mg/dl (1.7-2.4); Potassium 3.9 mmol/L (3.5-5.1)
--- NOTE | 2021-05-09 15:39 | Critical Care Progress Note ---
Date of Service May 09, 2021 Assessment & Plan (1) Hemorrhagic shock: (2) Acute upper gastrointestinal bleeding: (3) Duodenitis: (4) Acute kidney injury: (5) Lactic acidosis: (6) Atrial flutter: Plan: 89-year-old female with a past medical history of hypertension, atrial flutter/fib on Eliquis and recent large UPJ stone with left nephrostomy tube presenting to the hospital with hemorrhagic shock and possible sepsis. Neurologic: No significant issues at present. Some anxiety. Pulmonary: Continue supplemental oxygen via oxygen mask. Cardiovascular: Possible tachybradycardia syndrome/sick sinus syndrome. Atrial flutter with rapid ventricular response. Given 150 mg amnio bolus with initiation of drip. Heart rates improved significantly. Hold antihypertensives and blood thinning agents. Optimize electrolytes. Magnesium being replaced. Gastrointestinal: Concern for mass in the small intestine, but biopsy was negative for malignancy. There is still high suspicion for GI malignancy. He is status post EGD x2 earlier in the week with clips and cautery. Discussed the case with general surgery. We will obtain a CT abdomen pelvis with contrast to evaluate for active bleeding. If active bleeding is seen, will need transfer to tertiary care center for interventional radiology/embolization. Renal: OCTAVIO secondary to prerenal azotemia, resolved earlier this hospitalization. Left nephrostomy tube in place. Woodard catheter in place. Replacing magnesium as noted previously. Infectious disease: Blood and urine cultures negative. Continue Unasyn given concern of duodenitis. Hematologic: Status post 6 units of packed RBCs this hospital admission Received Kcentra upon hospitalization. Was previously on Eliquis due to a flutter. We will hold anticoagulation indefinitely. INR currently 1.6. Will give vitamin K. Unfortu nately she was found to have acute thrombus in the left posterior tibial vein on lower extremity ultrasound 05/08. She was also found to have a nonocclusive DVT in the brachial vein and a superficial venous thrombus surrounding an intravenous line in the cephalic vein on ultrasound done 05/08 of the left upper extremity. She is likely hypercoagulable for malignancy. Cannot anticoagulate at this time given active GI bleed. Will consult with vascular surgery for IVC filter placement. Endocrine: TSH within normal limits. F/E/N: N.p.o. Lines and tubes: Double-lumen PICC line placed in the right arm 05/09. 18-gauge IV present in the right forearm. Nephrostomy tube on the left and Woodard catheter. VTE prophylaxis: SCDs CODE STATUS: Full Family at bedside: Patient's daughter updated at bedside extensively. Patient and daughter understand that surgical option is likely a poor option at this point given her comorbidities and age. Patient clearly indicates that she would like to be a DNR/DNI in the event of cardiac arrest or respiratory failure. This was told to me in the presence of daughter and patient's bedside nurse. Disposition: ICU Multidisciplinary discussion was had with the patient's nurse, general surgeon and hospitalist. CRITICAL CARE TIME - I have personally spent 58 minutes of critical care time in the direct management of this patient. This is a life/limb threatening event. This includes time spent evaluating patient, direct bedside care, chart review, placing orders, interpretation of diagnostic studies, discussion with consultants, patient, and family members, as well as other required patient management activities. This time is exclusive of all separately billable procedures, and teaching time and separate from and in addition to any other critical care service time. Admission and Anticipated Discharge Date Admission Date: May 04, 2021 Subjective Patient had evidence of further GI bleeding this morning with melanotic stools. She she began having atrial fibrillation with rapid ventricular response with rates in the 140s. Blood pressures remained stable. I had several discussions with hospitalist service if they are requesting transfer to the ICU due to increasing complexity of the patient and concern for hemorrhagic shock. I also discussed the case with Dr. Ricks of general surgery. He indicated that surgery to remove bowel would be quite complex and risky in her case given her significant comorbidities. She was in the ICU earlier this week due to hemorrhagic shock and received 4 units of packed RBCs on initial presentation. This morning she received 1 unit of blood and now is receiving an additional unit. I suggested insertion of a PICC line due to the need for possible vasopressor support and additional IV access. This was inserted by IV team. Additionally an ultrasound-guided 18-gauge IV was placed in the forearm by IV team. Patient denies any abdominal complaints at present. Denies chest pain. She is anxious. Her daughter is at bedside. We had a lengthy discussion regarding CODE STATUS and her wishes. Patient indicated that she would like to be a DNR/DNI in the event of a cardiac arrest or worsening respiratory failure. Review of Systems Review of Systems: All systems reviewed & are unremarkable except as noted in HPI & below Physical Exam Physical Exam: Constitutional: Elderly appearing female no apparent distress lying in bed. Eyes: Pupils are equal round and reactive to light. Conjunctivae are normal. A nicteric sclera. Ears nose, mouth and throat: Oral mucosa is dry. Neck: Trachea is midline. Visual inspection is normal. Respiratory: Clear to auscultation bilaterally. No use of accessory muscles. No significant clubbing noted. Cardiovascular: Irregular rhythm. No murmurs. 1+ edema in the lower extremities. Decreased capillary refill. Gastrointestinal: Normal bowel sounds, soft, nontender and nondistended. No hepatosplenomegaly noted. Musculoskeletal: No cyanosis. Patient is able to move all extremities. Skin: No rashes, warm dry and intact. Neurologic: No obvious focal neurological deficits seen. Psychiatric: Alert and oriented x3 with a euthymic affect. Results & Data Results & Data ([facility]) Vital Signs (Past 12 Hours) Vital Signs Temp Pulse Pulse Resp BP BP Pulse Ox 05/09/21 15:25 36.3 C L 134/68 05/09/21 12:06 36.5 C 124 H 22 126/71 97 05/09/21 11:27 36.4 C L 05/09/21 10:50 36.5 C 113 H 22 131/79 94 05/09/21 09:50 36.5 C 92 H 22 146/82 H 94 05/09/21 08:50 36.4 C L 128 H 20 150/86 H 96 05/09/21 08:20 36.4 C L 102 H 20 147/70 H 95 05/09/21 08:05 36.4 C L 112 H 20 139/62 94 05/09/21 08:00 97 H 05/09/21 07:46 36.3 C L 107 H 22 134/73 94 05/09/21 07:37 36.4 C L 95 H 16 132/80 93 Coding Level of Care Code Critical Care 1st 30-74 mins Diagnoses Hemorrhagic shock R57.8 Acute upper gastrointestinal bleeding K92.2 Duodenitis K29.80 Acute kidney injury N17.9 Lactic acidosis E87.2 Atrial flutter I48.92 Time Spent (min) 58
[2021-05-09] MEDS ORDERED: PHYTONADIONE 5 MG in DEXTROSE 5% 50 ML IV ONE (16:45)
[2021-05-09] MEDS ORDERED: OPTIRAY 320 125ml IV ONE (17:15)
--- NOTE | 2021-05-09 19:03 | CT Scan Report ---
CT angio abdomen pelvis w con CLINICAL HISTORY: eval for active bleed COMPARISON STUDY: CT abdomen pelvis without contrast 05/04/2021 CT DOSE: 342.12 mGy.cm TECHNIQUE: Standard CT Angiogram of the aorta was performed with IV contrast followed by image post p rocessing with coronal, and sagittal MIP reformats... This CT exam was performed using one or more of the following dose reduction techniques: Automated ex posure control, adjustment of the mA and/or kV according to patient size, or use of iterative reconst ruction technique. CONTRAST: Optiray 320, 120 mL nonionic intravenous contrast. VASCULAR FINDINGS: Abdominal aorta: patent without aneurysm or dissection. Mild diffuse atherosclerotic calcification is present. Celiac trunk: patent without stenosis. Superior mesenteric artery: patent without stenosis. Right renal artery: patent without stenosis. Left renal artery: patent without stenosis. Inferior mesenteric artery: patent without stenosis. Right common iliac artery: patent without stenosis. Right internal iliac artery: patent without stenosis. Right external iliac artery: patent without stenosis. Left common iliac artery: patent without stenosis. Left internal iliac artery: patent without stenosis. Left external iliac artery: patent without stenosis NONVASCULAR FINDINGS: Lung base: Compared to previous examination, there is now a small to moderate size right pleural effu salo with compressive atelectasis/collapse in the right lung base. There is a small left pleural effu salo with compressive atelectasis at the left lung base as well. There is again a calcified granuloma within the right lower lobe. Abdominal cavity: There is no evidence for abdominal mass, adenopathy or ascites. Liver: There is homogeneous attenuation of the liver parenchyma. There is no evidence for enhancing m ass lesion. Spleen: There is homogeneous attenuation of the splenic parenchyma. There is no enhancing mass lesion . Pancreas: There is homogeneous attenuation of the pancreatic parenchyma. There is no evidence for mas s lesion or peripancreatic fluid collection. Gall Bladder: The gallbladder is well distended with no evidence for intraluminal calculi, wall thick ening or pericholecystic edema. Adrenal glands: The adrenal glands are normal in size and attenuation. There is no evidence for enhan cing mass lesion. Kidneys: Compared to previous examination, there is again a large calculus within the left renal pelv is with nephrostomy tube in place. There is mild residual hydronephrosis. There is no evidence for ri ght renal calculus or hydronephrosis. Right renal cyst is again seen. There is no evidence for enhanc ing mass. Bowel: The bowel loops are normally placed within the abdomen and pelvis without evidence for dilatat ion or obstruction. There is fluid seen within the colon with fluid levels seen in the rectosigmoid c olon. These findings can be seen with diarrhea. There are no inflammatory changes present. There is n o evidence for free air. There is evidence for a normal appendix in the right lower quadrant. Bladder: Woodard catheter is present within the bladder. : There is no evidence for pelvic mass or adenopathy. There is no evidence for pelvic ascites. Osseous structures: There is no acute osseous pathology. Degenerative changes are present within the spine. IMPRESSION: 1. Normal CT angiogram. No CT evidence for active bleeding. Radionuclide RBC bleeding scan would be t he study of choice for further evaluation. 2. Interval development of small to moderate size right pleural effusion and small left pleural effus ion with bibasilar atelectasis/collapse, right greater than left. 3. Fluid within the colon which can be seen with diarrhea. 4. Additional nonacute findings as delineated above. ACT 112: Negative or not required by law. Electronically signed by: Bravo Jackson M.D. 05/09/2021 7:02 PM
[2021-05-09] MEDS: AMIODARONE / D5W 360 MG/200 ML BAG IV SCH (20:38)
[2021-05-09] MEDS ORDERED: AMIODARONE / D5W 360 MG/200 ML BAG IV SCH (20:45)
[2021-05-09 21:02] LABS: Hematocrit (blood only) 21.2 % (37-47)
[2021-05-09] MEDS: MoRPHine SULFATE 2 MG/ML CARP IV PRN (21:16)
[2021-05-10] MEDS: MoRPHine SULFATE 2 MG/ML CARP IV PRN ×2 (01:57→21:57)
[2021-05-10 03:17] LABS: Hematocrit (blood only) 18.9 % (37-47); Hemoglobin 6.2 g/dL (12.0-16.0)
[2021-05-10] MEDS ORDERED: SODIUM CHLORIDE 0.9% 250 ML IV PRN ×4 (03:19→19:37)
[2021-05-10] MEDS: PANTOprazole 40 MG in DEXTROSE 5% 100 ML IV SCH ×4 (04:28→19:45)
[2021-05-10 07:37] LABS: Basophils # (auto) 0.04 K/uL (0-0.2); Basophils % (auto) 0.3 %; Eosinophils # (auto) 0.22 K/uL (0-0.5); Eosinophils % (auto) 1.6 %; Hematocrit (blood only) 26.3 % (37-47); Hemoglobin 8.8 g/dL (12.0-16.0); Immature Granulocytes # (auto) 0.31 K/uL (0.00-0.02); Immature Granulocytes % (auto) 2.3 %; Lymphocytes # (auto) 2.43 K/uL (1.2-3.4); Lymphocytes % (auto) 17.8 %; Mean Corpuscular Hemoglobin 30.8 pg (25-34); Mean Corpuscular Hgb Conc 33.5 g/dL (32-36); Mean Platelet Volume 10.9 fL (7.4-10.4); Monocytes # (auto) 1.58 K/uL (0.11-0.59); Monocytes % (auto) 11.5 %; Neutrophils # (auto) 9.11 K/uL (1.4-6.5); Neutrophils % (auto) 66.5 %; Nucleated RBC # (auto) 0.19 K/uL (0-0); Nucleated RBC % (auto) 1.4 %; Platelet Count 206 K/uL (130-400); RDW Coefficient of Variation 15.4 % (11.5-14.5); Red Blood Count 2.86 M/uL (4.2-5.4); White Blood Count 13.69 K/uL (4.8-10.8)
[2021-05-10] MEDS: INSULIN ASPART PER UNIT SC SCH ×4 (07:55→21:12)
[2021-05-10 07:57] LABS: BUN Creatinine Ratio 24.3 (10-20); Calcium 6.8 mg/dl (8.5-10.1); Creatinine Clr Calc Pharmacy 38.5 ml/min; Est GFR (African American) 55.8 ml/min; Est GFR (Non-African American) 48.2 ml/min; Magnesium 2.1 mg/dl (1.7-2.4); Phosphorus 4.1 mg/dl (2.5-4.9); Potassium 3.8 mmol/L (3.5-5.1)
[2021-05-10] MEDS: AMIODARONE / D5W 360 MG/200 ML BAG IV SCH ×2 (09:03→19:45)
[2021-05-10] MEDS ORDERED: CALCIUM GLUCONATE 10% 3,000 MG in DEXTROSE 5% 100 ML IV ONE (09:29)
[2021-05-10] MEDS ORDERED: STAT IV STA (09:29)
--- NOTE | 2021-05-10 09:33 | Critical Care Progress Note ---
Date of Service May 10, 2021 Assessment & Plan (1) Hemorrhagic shock: (2) Acute upper gastrointestinal bleeding: (3) Duodenitis: (4) Acute kidney injury: (5) Lactic acidosis: (6) Atrial flutter: Plan: Impression: 89-year-old female with a past medical history of hypertension, atrial flutter/fib on Eliquis and recent large UPJ stone with left nephrostomy tube presenting to the hospital with hemorrhagic shock and possible sepsis. 24-hour events: Patient transferred back to the ICU. Received an additional unit of packed red blood cells, for total of 7 units of packed cells this hospitalization. Her hemoglobin responded appropriately. She is been continued on amiodarone infusion. She is rate controlled and hypertensive. Recommendations: Neurologic: No significant issues at present. Mildly encephalopathic but reorients easily verbally. Pulmonary: Continue supplemental oxygen via oxygen mask. Cardiovascular: Discussed with cardiology. Currently on amiodarone infusion and cardiology recommends continuing. Given issues with bleeding, cannot anticoagulate for now. Given her significant hypertension, use of beta-rosaura may be appropriate however there was concern previously about potential tachybradycardia syndrome and would need to monitor closely to avoid significant bradycardia. Gastrointestinal: Concern for mass in the small intestine, but biopsy was negative for malignancy. There is still high suspicion for GI malignancy. He is status post EGD x2 earlier in the week with clips and cautery. Surgery does not feel they can offer the patient appropriate intervention currently and recommended transfer to a tertiary care facility. Unclear if repeat EGD with repeat biopsy and/or cauterization might be appropriate at this point time. Discussed with ho spitalist who will take this up with GI. Continue PPI for now. Keep n.p.o. in the event the patient requires repeat endoscopy. If we are unable to perform endoscopic evaluation at this facility, consideration for transfer the patient to a tertiary care facility for GI evaluation may be appropriate. Renal: OCTAVIO secondary to prerenal azotemia, resolved earlier this hospitalization. Left nephrostomy tube in place. Woodard catheter in place. Replace calcium. Infectious disease: Blood and urine cultures negative. Curretnly on D#7 abx (Zosyn,Unasyn,augemntin) given concern of duodenitis and prior E coli (has been adequtely treated for bacteremia). Can discontinue abx and follow clinically. Hematologic: Status post 7 units of packed RBCs this hospital admission Received Kcentra upon hospitalization. Was previously on Eliquis due to a flutter. We will hold anticoagulation indefinitely. Nonocclusive upper extremity and lower extremity superficial thrombosis. At this point time will continue to perform radiographic surveillance with serial ultrasound. Cannot anticoagulate due to active ongoing bleeding. Given the upper extremity clot, and potential hypercoagulable state, not sure that IVC filter would be appropriate in this patient. Continue to transfuse as needed although we definitely require some endpoint in this patient. Replacing calcium and will check fibrinogen. Endocrine: TSH within normal limits. F/E/N: N.p.o. Lines and tubes: Double-lumen PICC line placed in the right arm 05/09. 18-gauge IV present in the right forearm. Nephrostomy tube on the left and Woodard catheter. VTE prophylaxis: SCDs CODE STATUS: Full Family at bedside: No family available at bedside. Disposition: Appears OK to transfer out of ICU to floor. Discussed with ATTRACTION ATTENDANT, hospi taleriberto, and on MDR. CRITICAL CARE TIME - I have personally spent 58 minutes of critical care time in the direct management of this patient. This is a life/limb threatening event. This includes time spent evaluating patient, direct bedside care, chart review, placing orders, interpretation of diagnostic studies, discussion with consultants, patient, and family members, as well as other required patient management activities. This time is exclusive of all separately billable procedures, and teaching time and separate from and in addition to any other critical care service time. Admission and Anticipated Discharge Date Admission Date: May 04, 2021 Subjective Patient seen and examined. EMR reviewed. Discussed with cardiology and bedside critical care nurse as well as with off going blunger machine operator. Patient denies abdominal complaints this morning. She is not nauseous or vomiting. Her blood pressure has been on the hypertensive side. She is rate controlled currently on amiodarone infusion. She continues to have melena. She received her transfusion with appropriate response in her blood counts. Review of Systems Review of Systems: All systems reviewed & are unremarkable except as noted in Subjective Physical Exam Constitutional: WD/WN, vitals as above no acute distress Eyes: + conjunctival abnormality (P[place]or) Respiratory: normal respiratory effort, lungs clear to auscultation Cardiovascular: Rate/Rhythm: regular rate and + irregularly irregular Heart Sounds: no murmur Extremities: + calf tenderness (left), + pedal edema (1+ pre-tibial b/l equal) and + edema (LUE) Gastrointestinal (Abdomen): Percussion/Palpation: abdomen soft; abdomen nontender Skin: no rashes, warm and dry Neurologic: moves all extremities (generalized b/l LE > UE weakness) and awake; not confused Psychiatric: A+Ox3, euthymic affect Results & Data Results & Data ([facility]) Vital Signs (Past 12 Hours) Vital Signs Temp Pulse Resp BP Pulse Ox 05/10/21 08:00 36.3 C L 92 H 21 162/73 H 99 05/10/21 07:30 36.0 C L 88 19 169/78 H 98 05/10/21 07:01 36.2 C L 97 H 21 161/72 H 05/10/21 07:00 35.9 C L 97 H 22 05/10/21 06:31 36.4 C L 94 H 14 132/86 92 05/10/21 06:30 36.4 C L 91 H 32 H 100 05/10/21 06:00 36.4 C L 86 28 H 134/73 100 05/10/21 05:45 36.3 C L 80 14 125/69 97 05/10/21 05:30 36.5 C 72 18 125/69 100 05/10/21 05:15 36.3 C L 86 15 96 05/10/21 05:01 36.3 C L 87 17 139/100 94 05/10/21 05:00 36.6 C 85 16 93 05/10/21 04:45 36.6 C 85 15 96 05/10/21 04:30 36.6 C 87 16 132/60 94 05/10/21 04:16 36.6 C 87 16 141/55 H 94 05/10/21 04:15 36.6 C 84 26 H 141/55 H 100 05/10/21 04:01 36.6 C 86 33 H 147/70 H 98 05/10/21 04:00 36.5 C 84 26 H 99 05/10/21 03:56 36.5 C 88 18 144/65 H 99 05/10/21 03:30 36.5 C 89 33 H 96 05/10/21 03:00 36.4 C L 88 24 97 05/10/21 02:30 36.8 C 91 H 27 H 97 05/10/21 02:01 36.7 C 104 H 21 158/77 H 96 05/10/21 02:00 36.6 C 86 18 92 05/10/21 01:30 36.5 C 103 H 17 100 05/10/21 01:00 37.1 C 87 27 H 106/69 95 05/10/21 00:31 37.2 C 92 H 38 H 118/54 L 95 05/10/21 00:30 37.2 C 93 H 28 H 100 05/10/21 00:00 37.2 C 94 H 14 96 05/09/21 23:30 37.3 C 97 H 31 H 131/55 L 90 05/09/21 23:00 37.4 C 94 H 25 H 98 05/09/21 22:31 37.5 C 97 H 29 H 124/50 L 99 05/09/21 22:30 37.5 C 94 H 31 H 97 05/09/21 22:00 37.7 C H 96 H 21 115/52 L 94 05/09/21 21:30 37.7 C H 94 H 31 H 120/78 98 Laboratory Results Pathology from EGD biopsy showed no evidence of malignancy. Critical Care Results & Data Vital Signs (Past 12 Hours) Vital Signs Temp Pulse Resp BP Pulse Ox 05/10/21 08:00 36.3 C L 92 H 21 162/73 H 99 05/10/21 07:30 36.0 C L 88 19 169/78 H 98 05/10/21 07:01 36.2 C L 97 H 21 161/72 H 05/10/21 07:00 35.9 C L 97 H 22 05/10/21 06:31 36.4 C L 94 H 14 132/86 92 05/10/21 06:30 36.4 C L 91 H 32 H 100 05/10/21 06:00 36.4 C L 86 28 H 134/73 100 05/10/21 05:45 36.3 C L 80 14 125/69 97 05/10/21 05:30 36.5 C 72 18 125/69 100 05/10/21 05:15 36.3 C L 86 15 96 05/10/21 05:01 36.3 C L 87 17 139/100 94 05/10/21 05:00 36.6 C 85 16 93 05/10/21 04:45 36.6 C 85 15 96 05/10/21 04:30 36.6 C 87 16 132/60 94 05/10/21 04:16 36.6 C 87 16 141/55 H 94 05/10/21 04:15 36.6 C 84 26 H 141/55 H 100 05/10/21 04:01 36.6 C 86 33 H 147/70 H 98 05/10/21 04:00 36.5 C 84 26 H 99 05/10/21 03:56 36.5 C 88 18 144/65 H 99 05/10/21 03:30 36.5 C 89 33 H 96 05/10/21 03:00 36.4 C L 88 24 97 05/10/21 02:30 36.8 C 91 H 27 H 97 05/10/21 02:01 36.7 C 104 H 21 158/77 H 96 05/10/21 02:00 36.6 C 86 18 92 05/10/21 01:30 36.5 C 103 H 17 100 05/10/21 01:00 37.1 C 87 27 H 106/69 95 05/10/21 00:31 37.2 C 92 H 38 H 118/54 L 95 05/10/21 00:30 37.2 C 93 H 28 H 100 05/10/21 00:00 37.2 C 94 H 14 96 05/09/21 23:30 37.3 C 97 H 31 H 131/55 L 90 05/09/21 23:00 37.4 C 94 H 25 H 98 05/09/21 22:31 37.5 C 97 H 29 H 124/50 L 99 05/09/21 22:30 37.5 C 94 H 31 H 97 05/09/21 22:00 37.7 C H 96 H 21 115/52 L 94 05/09/21 21:30 37.7 C H 94 H 31 H 120/78 98 Lab & Micro Results (Past 24 Hours) RBC 2.86 M/uL (4.2-5.4) L 05/10/21 WBC 13.69 K/uL (4.8-10.8) H 05/10/21 Hgb 8.8 g/dL (12.0-16.0) L 05/10/21 Hct 26.3 % (37-47) L 05/10/21 MCV 92.0 fL (80-100) 05/10/21 MCH 30.8 pg (25-34) 05/10/21 MCHC 33.5 g/dL (32-36) 05/10/21 RDW Standard Deviation 50.0 fL (36.4-46.3) H 05/10/21 RDW Coefficient of Variation 15.4 % (11.5-14.5) H 05/10/21 Plt Count 206 K/uL (130-400) 05/10/21 MPV 10.9 fL (7.4-10.4) H 05/10/21 Nucleated Red Blood Cells % (auto) 1.4 % 05/10/21 Nucleated RBC Absolute Count (auto) 0.19 K/uL (0-0) H 05/10/21 Neutrophils (%) (Auto) 66.5 % 05/10/21 Lymphocytes (%) (Auto) 17.8 % 05/10/21 Monocytes # (Auto) 1.58 K/uL (0.11-0.59) H 05/10/21 Eosinophils # (Auto) 0.22 K/uL (0-0.5) 05/10/21 Immature Granulocyte % (Auto) 2.3 % 05/10/21 Neutrophils # (Auto) 9.11 K/uL (1.4-6.5) H 05/10/21 Lymphocytes # (Auto) 2.43 K/uL (1.2-3.4) 05/10/21 Monocytes # (Auto) 1.58 K/uL (0.11-0.59) H 05/10/21 Eosinophils # (Auto) 0.22 K/uL (0-0.5) 05/10/21 Basophils # (Auto) 0.04 K/uL (0-0.2) 05/10/21 Immature Granulocyte # (Auto) 0.31 K/uL (0.00-0.02) H 05/10/21 Na 144 mmol/L (136-145) 05/10/21 K 3.8 mmol/L (3.5-5.1) 05/10/21 Cl 115 mmol/L (98-107) H 05/10/21 CO2 24 mmol/L (21-32) 05/10/21 Anion Gap 5 (3-11) 05/10/21 BUN 25 mg/dl (6-23) H 05/10/21 Creatinine 1.03 mg/dl (0.6-1.2) 05/10/21 Estimated GFR ( Amer) 55.8 ml/min 05/10/21 Estimated GFR (Non-Af Amer) 48.2 ml/min 05/10/21 BUN/Creatinine Ratio 24.3 (10-20) H 05/10/21 Glu 151 mg/dl (70-99(Fasting)) H 05/10/21 Ca 6.8 mg/dl (8.5-10.1) L 05/10/21 Phosphorus Level 4.1 mg/dl (2.5-4.9) 05/10/21 Mg 2.1 mg/dl (1.7-2.4) 05/10/21 07:22 05/10/21 Calcium Level 6.8 mg/dl (8.5-10.1) L 05/10/21 07:22 05/10/21 Prothromb Time International Ratio 1.6 (0.9-1.1) H 05/09/21 15:10 05/09/21 Microbiology 05/04/21 13:45 Aerobic Blood Culture - Final Blood No growth in Aerobic bottle after 5 days. Anaerobic Blood Culture - Final No growth in Anaerobic bottle after 5 days. 05/04/21 14:13 Aerobic Blood Culture - Final Blood No growth in Aerobic bottle after 5 days. Anaerobic Blood Culture - Final No growth in Anaerobic bottle after 5 days. Diagnostic Findings (Past 24 Hours) Chest X-Ray 05/09/21 13:46 XR chest 1V portable CLINICAL HISTORY: PICC line placement. COMPARISON STUDY: 05/04/2021 TECHNIQUE: 1 view of the chest FINDINGS: Single frontal view of the chest demonstrates the heart size to be enlarged. Right-sided PICC line has been placed with its tip in the distal SVC. There is no evidence for pneumothorax. The lungs are clear of alveolar opacities. There is mild haziness at both lung bases which can represent pleural fluid layering along the posterior gutter. There is no evidence for vascular congestion. There is no acute osseous pathology. IMPRESSION: 1. Tip of PICC line in distal SVC with no pneumothorax. 2. Haziness at both lung bases suspicious for pleural fluid layering along the posterior gutters. ACT 112: Negative or not required by law. Electronically signed by: Bravo Jackson M.D. 05/09/2021 2:13 PM Abdomen/Pelvis CTA 05/09/21 15:39 CT angio abdomen pelvis w con CLINICAL HISTORY: eval for active bleed COMPARISON STUDY: CT abdomen pelvis without contrast 05/04/2021 CT DOSE: 342.12 mGy.cm TECHNIQUE: Standard CT Angiogram of the aorta was performed with IV contrast followed by image post processing with coronal, and sagittal MIP reformats... This CT exam was performed using one or more of the following dose reduction techniques: Automated exposure control, adjustment of the mA and/or kV according to patient size, or use of iterative reconstruction technique. CONTRAST: Optiray 320, 120 mL nonionic intravenous contrast. VASCULAR FINDINGS: Abdominal aorta: patent without aneurysm or dissection. Mild diffuse atherosclerotic calcification is present. Celiac trunk: patent without stenosis. Superior mesenteric artery: patent without stenosis. Right renal artery: patent without stenosis. Left renal artery: patent without stenosis. Inferior mesenteric artery: patent without stenosis. Right common iliac artery: patent without stenosis. Right internal iliac artery: patent without stenosis. Right external iliac artery: patent without stenosis. Left common iliac artery: patent without stenosis. Left internal iliac artery: patent without stenosis. Left external iliac artery: patent without stenosis NONVASCULAR FINDINGS: Lung base: Compared to previous examination, there is now a small to moderate size right pleural effusion with compressive atelectasis/collapse in the right lung base. There is a small left pleural effusion with compressive atelectasis at the left lung base as well. There is again a calcified granuloma within the right lower lobe. Abdominal cavity: There is no evidence for abdominal mass, adenopathy or ascites. Liver: There is homogeneous attenuation of the liver parenchyma. There is no evidence for enhancing mass lesion. Spleen: There is homogeneous attenuation of the splenic parenchyma. There is no enhancing mass lesion. Pancreas: There is homogeneous attenuation of the pancreatic parenchyma. There is no evidence for mass lesion or peripancreatic fluid collection. Gall Bladder: The gallbladder is well distended with no evidence for intralu mabel calculi, wall thickening or pericholecystic edema. Adrenal glands: The adrenal glands are normal in size and attenuation. There is no evidence for enhancing mass lesion. Kidneys: Compared to previous examination, there is again a large calculus within the left renal pelvis with nephrostomy tube in place. There is mild residual hydronephrosis. There is no evidence for right renal calculus or hydronephrosis. Right renal cyst is again seen. There is no evidence for enhancing mass. Bowel: The bowel loops are normally placed within the abdomen and pelvis without evidence for dilatation or obstruction. There is fluid seen within the colon with fluid levels seen in the rectosigmoid colon. These findings can be seen with diarrhea. There are no inflammatory changes present. There is no evidence for free air. There is evidence for a normal appendix in the right lower quadrant. Bladder: Woodard catheter is present within the bladder. : There is no evidence for pelvic mass or adenopathy. There is no evidence for pelvic ascites. Osseous structures: There is no acute osseous pathology. Degenerative changes are present within the spine. IMPRESSION: 1. Normal CT angiogram. No CT evidence for active bleeding. Radionuclide RBC bleeding scan would be the study of choice for further evaluation. 2. Interval development of small to moderate size right pleural effusion and small left pleural effusion with bibasilar atelectasis/collapse, right greater than left. 3. Fluid within the colon which can be seen with diarrhea. 4. Additional nonacute findings as delineated above. ACT 112: Negative or not required by law. Electronically signed by: Bravo Jackson M.D. 05/09/2021 7:02 PM I & O Totals 24 Hours 05/09/21 05/10/21 05/11/21 06:59 06:59 06:59 Intake Total 1242.463 / 0115.976 3013.167 / 1516.167 292 / 292 Output Total 2385 / 2385 1187 / 1187 101 / 101 Balance -1142.537 / -1142.537 329.167 / 329.167 191 / 191 Cumulative 05/04/21 13:03 thru 05/10/21 09:22 Intake Total 27219.353 Output Total 8594 Balance 7107.353 RT Ventilator Mngmt (Last Documented) Ventilator Ordered Settings Respiratory Rate 21 05/10/21 08:00 Ventilator - PT Measurements Respiratory Rate 21 Coding Level of Care Code 26172 Subseq Hosp Care Lvl 3 Diagnoses Hemorrhagic shock R57.8 Acute upper gastrointestinal bleeding K92.2 Duodenitis K29.80 Acute kidney injury N17.9 Lactic acidosis E87.2 Atrial flutter I48.92
--- NOTE | 2021-05-10 09:51 | Cardiology Progress Note ---
Date of Service May 10, 2021 Assessment & Plan (1) Atrial fibrillation: Plan: -remains in sinus rhythm on intravenous amiodarone. -would continue intravenous amiodarone over the next 24 hours. -Av currently on hold due to GI bleeding. (2) Bradycardia: Plan: -type 2 second-degree AV block, and Wenckebach at the time of presentation when quite ill. -no bradycardia while on intravenous amiodarone. -appreciate Dr. Riley's opinion. -she may eventually require permanent pacemaking. -a possible duodenal malignancy may play into our decision. (3) Hyperlipidemia: Plan: -resume rosuvastatin when able. (4) Acute upper gastrointestinal bleeding: Plan: -secondary to a duodenal mass. -original pathology negative for malignancy. -further management per ICU and primary care team. -Av remains on hold. Admission and Anticipated Discharge Date Admission Date: May 04, 2021 Subjective Patient is resting comfortably in bed without signs of distress. Physical Exam Physical Exam: In general this is pale white female. HEENT exam is negative. Neck is supple full carotid upstrokes. No obvious bruits. Jugular is pressure is difficult assess. Cardiovascular exam reveals regular rhythm with distant heart sounds. No obvious murmurs. No S3. Lungs are clear anteriorly. Abdomen is soft. Extremities reveal trace pretibial edema. Results & Data ([facility]) Vital Signs (Past 12 Hours) Vital Signs Temp Pulse Resp BP Pulse Ox 05/10/21 08:00 36.3 C L 92 H 21 162/73 H 99 05/10/21 07:30 36.0 C L 88 19 169/78 H 98 05/10/21 07:01 36.2 C L 97 H 21 161/72 H 05/10/21 07:00 35.9 C L 97 H 22 05/10/21 06:31 36.4 C L 94 H 14 132/86 92 05/10/21 06:30 36.4 C L 91 H 32 H 100 05/10/21 06:00 36.4 C L 86 28 H 134/73 100 05/10/21 05:45 36.3 C L 80 14 125/69 97 05/10/21 05:30 36.5 C 72 18 125/69 100 05/10/21 05:15 36.3 C L 86 15 96 05/10/21 05:01 36.3 C L 87 17 139/100 94 05/10/21 05:00 36.6 C 85 16 93 05/10/21 04:45 36.6 C 85 15 96 05/10/21 04:30 36.6 C 87 16 132/60 94 05/10/21 04:16 36.6 C 87 16 141/55 H 94 05/10/21 04:15 36.6 C 84 26 H 141/55 H 100 05/10/21 04:01 36.6 C 86 33 H 147/70 H 98 05/10/21 04:00 36.5 C 84 26 H 99 05/10/21 03:56 36.5 C 88 18 144/65 H 99 05/10/21 03:30 36.5 C 89 33 H 96 05/10/21 03:00 36.4 C L 88 24 97 05/10/21 02:30 36.8 C 91 H 27 H 97 05/10/21 02:01 36.7 C 104 H 21 158/77 H 96 05/10/21 02:00 36.6 C 86 18 92 05/10/21 01:30 36.5 C 103 H 17 100 05/10/21 01:00 37.1 C 87 27 H 106/69 95 05/10/21 00:31 37.2 C 92 H 38 H 118/54 L 95 05/10/21 00:30 37.2 C 93 H 28 H 100 05/10/21 00:00 37.2 C 94 H 14 96 05/09/21 23:30 37.3 C 97 H 31 H 131/55 L 90 05/09/21 23:00 37.4 C 94 H 25 H 98 05/09/21 22:31 37.5 C 97 H 29 H 124/50 L 99 05/09/21 22:30 37.5 C 94 H 31 H 97 05/09/21 22:00 37.7 C H 96 H 21 115/52 L 94 Diagnostic Findings No atrial fibrillation over the last 18 hours. Remains in sinus rhythm and sinus tachycardia PG Care Time/CCT Total # of Minutes Spent Total Time Spent with Patient: Total time spent is greater than 50% in coordination of care (as documented) at patient's floor/unit and/or counseling patient: Coding Level of Care Code 51969 Subseq Hosp Care Lvl 3 Diagnoses Atrial fibrillation I48.91 Bradycardia R00.1 Hyperlipidemia E78.5 Acute upper gastrointestinal bleeding K92.2
--- NOTE | 2021-05-10 10:13 | Hospitalist Progress Note ---
Date of Service May 10, 2021 Assessment & Plan (1) GI bleed: Plan: -Patient reporting dark, watery stools prior to admission. also reported some bright red blood in nephrostomy tube over the past day but states it has since stopped. Patient is on Eliquis for afib/flutter diagnosed on 04/23/[address] A+P showed mild nonspecific wall thickening and adjacent inflammatory change at the second and third portion of the duodenum. Was started on PPI gtt and continues to have BRBPR Transferred back to ICU on 05/09 - GI consult appreciated. Dr. Ardon endoscopy shows mass in stomach needed epi injections and clip, and was actively bleeding with visible vessel. With recurrent bleeding, CTA abd/pel done and no active bleeding [place] will ongoing accept patient is bleed on CT angio. Surgery says too high risk for surgical resection -check urgent bleeding scan today-unfortunately cannot be done till 1700 as per Radiology -if bleeding scan shows bleeding anywhere other than duodenum, would transfer for IR -otherwise keep NPO for possible EGD later after bleeding scan -transfusional support in the meantime-has received 7 units PRBCs thus far -type and cross for 2 more units now given current active bleeding -HD stable now and can downgrade from ICU -give calcium gluconate 3 grams for multiple transfusions -Completed 7 days of Unasyn for duodentitis -stop today -follow serial CBC (2) Hypovolemic shock: Plan: Secondary to acute blood loss anemia from GI bleed in the setting of ELiquis use and duodenal mass resolved with IV fluids and blood transfusion. as above, improved with total 7 units PRBCs now no pressors stable for downgrade out of ICU (3) Left upper extremity deep vein thrombosis: Plan: DVT confirmed on venous doppler 05/08 Unable to start on anticoagulation due to ongoing bleed Restrict left arm and elevate as much as possible (4) Deep vein thrombosis, lower left extremity: Plan: Consult vascular surgery for consideration of IVC filter (5) Atrial fibrillation: Plan: -Initially diagnosed on 04/23 admission, rate controlled was achieved with diltiazem. Patient had TTE and started prophylactically on Eliquis 5mg PO BID, patient did take a dose the morning of admission has both tachy and valerie rhythms, required dopamine transiently for her acute hemorrhagic shock Switched to PO amiodarone on 05/08 but back in sustained atrial flutter on 05/09 - placed back on IV amiodarone and now in sinus rhythm Cardiology is following Not on anticoagulation due to ongoing GI bleed -continue IV amiodarone for now continue tele monitoring ECHO normal (6) Hyperkalemia: Plan: resolved (7) Acute kidney injury: Plan: -resolving with CKD 3. Monitor intake and output. Serial labs follow [employer], Mag (8) Left nephrolithiasis: Plan: -Nephrostomy tube placed on 04/24 at [facility] due to 2.7 cm UPJ stone w/ moderate hydroureteronephrosis and ? emphysematous pyelitis. -CT showed left-sided percutaneous nephrostomy tube which appears in good position. The catheter loops around the 2.2 cm stone within the left renal pelvis. No hydronephrosis. Small amount of gas within the left renal collecting system is likely due to the nephrostomy tube. -Patient placed on Bactrim for 14 days on discharge from 04/27 which would have her taking antibiotics until May 11. Unasyn should adequately treat the E. coli bacteremia (cultures taken on 04/23) and blood cultures were negative on this admission. Ok to stop Unasyn now (9) Type II diabetes mellitus with complication: Plan: -On metformin at home. Currently on hold. SSI. ADA diet. (10) HTN (hypertension): Plan: Holding oral antihypertensives due to shock (11) Hyperlipidemia: Plan: -hold rosuvastatin. Resume at discharge (12) Hypocalcemia: Plan: secondary to citrate effect from massive blood transfusion replace follow level Plan: VTE Prophylaxis - SCDs ordered, holding chemo ppx for now due to blood loss anemia. Code - DNR/DNI Disposition - stable for downgrade to PCU but low threshold to tx back to ICU WIll call daughter to discuss care Admission and Anticipated Discharge Date Admission Date: May 04, 2021 Subjective Pt had more kaleb BRBPR overnight x 2. Is lethargic but denies abd pain. No N/V, no CP, SOB. Had more PRBCs transfused through the night I discussed her care with [employer] and GI. Tele with NSR in the 80s and some Afib Review of Systems Review of Systems: All systems reviewed & are unremarkable except as noted in HPI & below Physical Exam Constitutional: + ill appearing Eyes: + anicteric sclerae Neck: trachea midline, no thyromegaly Respiratory: normal respiratory effort, lungs clear to auscultation Cardiovascular: RRR, no murmur, no edema Chest (Breasts): Chest: normal inspection of chest Gastrointestinal (Abdomen): normal bowel sounds, soft, nontender, no hepatosplenomegaly Musculoskeletal: Extremities: extremities normal to inspection; no cyanosis and no clubbing Skin: no rashes, warm and dry (pallor) Neurologic: moves all extremities and awake; no focal motor deficits Psychiatric: Orientation: alert, oriented to person, oriented to place and cooperative Lymphatic: no lymphedema Results & Data Results & Data ([facility]) Vital Signs (Past 12 Hours) Vital Signs Temp Pulse Resp BP Pulse Ox 05/10/21 08:00 36.3 C L 92 H 21 162/73 H 99 05/10/21 07:30 36.0 C L 88 19 169/78 H 98 05/10/21 07:01 36.2 C L 97 H 21 161/72 H 05/10/21 07:00 35.9 C L 97 H 22 05/10/21 06:31 36.4 C L 94 H 14 132/86 92 05/10/21 06:30 36.4 C L 91 H 32 H 100 05/10/21 06:00 36.4 C L 86 28 H 134/73 100 05/10/21 05:45 36.3 C L 80 14 125/69 97 05/10/21 05:30 36.5 C 72 18 125/69 100 05/10/21 05:15 36.3 C L 86 15 96 05/10/21 05:01 36.3 C L 87 17 139/100 94 05/10/21 05:00 36.6 C 85 16 93 05/10/21 04:45 36.6 C 85 15 96 05/10/21 04:30 36.6 C 87 16 132/60 94 05/10/21 04:16 36.6 C 87 16 141/55 H 94 05/10/21 04:15 36.6 C 84 26 H 141/55 H 100 05/10/21 04:01 36.6 C 86 33 H 147/70 H 98 05/10/21 04:00 36.5 C 84 26 H 99 05/10/21 03:56 36.5 C 88 18 144/65 H 99 05/10/21 03:30 36.5 C 89 33 H 96 05/10/21 03:00 36.4 C L 88 24 97 05/10/21 02:30 36.8 C 91 H 27 H 97 05/10/21 02:01 36.7 C 104 H 21 158/77 H 96 05/10/21 02:00 36.6 C 86 18 92 05/10/21 01:30 36.5 C 103 H 17 100 05/10/21 01:00 37.1 C 87 27 H 106/69 95 05/10/21 00:31 37.2 C 92 H 38 H 118/54 L 95 05/10/21 00:30 37.2 C 93 H 28 H 100 05/10/21 00:00 37.2 C 94 H 14 96 05/09/21 23:30 37.3 C 97 H 31 H 131/55 L 90 05/09/21 23:00 37.4 C 94 H 25 H 98 05/09/21 22:31 37.5 C 97 H 29 H 124/50 L 99 05/09/21 22:30 37.5 C 94 H 31 H 97 Laboratory Results 05/10/21 05/10/21 05/10/21 Range/Units 09:53 07:54 07:22 WBC (4.8-10.8) K/uL RBC (4.2-5.4) M/uL Hgb Hct MCV (80-100) fL MCH (25-34) pg MCHC (32-36) g/dL RDW Std Deviation (36.4-46.3) fL RDW Coeff of Cas (11.5-14.5) % Plt Count (130-400) K/uL MPV (7.4-10.4) fL Immature Gran % (Auto) % Neut % (Auto) % Lymph % (Auto) % [place] % (Auto) % Eos % (Auto) % Baso % (Auto) % Neut # (Auto) (1.4-6.5) K/uL Lymph # (Auto) (1.2-3.4) K/uL [place] # (Auto) (0.11-0.59) K/uL Eos # (Auto) (0-0.5) K/uL Baso # (Auto) (0-0.2) K/uL Immature Gran # (Auto) (0.00-0.02) K/uL Absolute Nucleated RBC (0-0) K/uL Nucleated RBC % (auto) % PT INR APTT PTT Ratio Fibrinogen Pending Sodium 144 (136-145) mmol/L Potassium 3.8 (3.5-5.1) mmol/L Chloride 115 H (98-107) mmol/L Carbon Dioxide 24 (21-32) mmol/L Anion Gap 5 (3-11) BUN 25 H (6-23) mg/dl Creatinine 1.03 (0.6-1.2) mg/dl Est Cr Clr Drug Dosing 38.5 ml/min Est GFR ( Amer) 55.8 ml/min Est GFR (Non-Af Amer) 48.2 ml/min BUN/Creatinine Ratio 24.3 H (10-20) Glucose 151 H (70-99(Fasting)) mg/dl POC Glucose 129 H (70-99) mg/dl Lactate (0.4-2.0) mmol/L Calcium 6.8 L (8.5-10.1) mg/dl Phosphorus 4.1 D (2.5-4.9) mg/dl Magnesium 2.1 (1.7-2.4) mg/dl Blood Type Antibody Screen Crossmatch 05/10/21 05/10/21 05/09/21 Range/Units 07:22 02:54 20:47 WBC 13.69 H (4.8-10.8) K/uL RBC 2.86 L (4.2-5.4) M/uL Hgb 8.8 L 6.2 L* 7.0 L Hct 26.3 L 18.9 L* 21.2 L MCV 92.0 (80-100) fL MCH 30.8 (25-34) pg MCHC 33.5 (32-36) g/dL RDW Std Deviation 50.0 H (36.4-46.3) fL RDW Coeff of Cas 15.4 H (11.5-14.5) % Plt Count 206 (130-400) K/uL MPV 10.9 H (7.4-10.4) fL Immature Gran % (Auto) 2.3 % Neut % (Auto) 66.5 % Lymph % (Auto) 17.8 % [place] % (Auto) 11.5 % Eos % (Auto) 1.6 % Baso % (Auto) 0.3 % Neut # (Auto) 9.11 H (1.4-6.5) K/uL Lymph # (Auto) 2.43 (1.2-3.4) K/uL [place] # (Auto) 1.58 H (0.11-0.59) K/uL Eos # (Auto) 0.22 (0-0.5) K/uL Baso # (Auto) 0.04 (0-0.2) K/uL Immature Gran # (Auto) 0.31 H (0.00-0.02) K/uL Absolute Nucleated RBC 0.19 H (0-0) K/uL Nucleated RBC % (auto) 1.4 % PT INR APTT PTT Ratio Fibrinogen Sodium (136-145) mmol/L Potassium (3.5-5.1) mmol/L Chloride (98-107) mmol/L Carbon Dioxide (21-32) mmol/L Anion Gap (3-11) BUN (6-23) mg/dl Creatinine (0.6-1.2) mg/dl Est Cr Clr Drug Dosing ml/min Est GFR ( Amer) ml/min Est GFR (Non-Af Amer) ml/min BUN/Creatinine Ratio (10-20) Glucose (70-99(Fasting)) mg/dl POC Glucose (70-99) mg/dl Lactate (0.4-2.0) mmol/L Calcium (8.5-10.1) mg/dl Phosphorus (2.5-4.9) mg/dl Magnesium (1.7-2.4) mg/dl Blood Type Antibody Screen Crossmatch 05/09/21 05/09/21 05/09/21 Range/Units 20:41 16:50 15:10 WBC (4.8-10.8) K/uL RBC (4.2-5.4) M/uL Hgb Hct MCV (80-100) fL MCH (25-34) pg MCHC (32-36) g/dL RDW Std Deviation (36.4-46.3) fL RDW Coeff of Cas (11.5-14.5) % Plt Count (130-400) K/uL MPV (7.4-10.4) fL Immature Gran % (Auto) % Neut % (Auto) % Lymph % (Auto) % [place] % (Auto) % Eos % (Auto) % Baso % (Auto) % Neut # (Auto) (1.4-6.5) K/uL Lymph # (Auto) (1.2-3.4) K/uL [place] # (Auto) (0.11-0.59) K/uL Eos # (Auto) (0-0.5) K/uL Baso # (Auto) (0-0.2) K/uL Immature Gran # (Auto) (0.00-0.02) K/uL Absolute Nucleated RBC (0-0) K/uL Nucleated RBC % (auto) % PT 16.6 H INR 1.6 H APTT 21.1 PTT Ratio 0.8 Fibrinogen Sodium (136-145) mmol/L Potassium (3.5-5.1) mmol/L Chloride (98-107) mmol/L Carbon Dioxide (21-32) mmol/L Anion Gap (3-11) BUN (6-23) mg/dl Creatinine (0.6-1.2) mg/dl Est Cr Clr Drug Dosing ml/min Est GFR ( Amer) ml/min Est GFR (Non-Af Amer) ml/min BUN/Creatinine Ratio (10-20) Glucose (70-99(Fasting)) mg/dl POC Glucose 149 H 186 H (70-99) mg/dl Lactate (0.4-2.0) mmol/L Calcium (8.5-10.1) mg/dl Phosphorus (2.5-4.9) mg/dl Magnesium (1.7-2.4) mg/dl Blood Type Antibody Screen Crossmatch 05/09/21 05/09/21 05/09/21 Range/Units 15:10 15:10 15:10 WBC (4.8-10.8) K/uL RBC (4.2-5.4) M/uL Hgb 7.1 L Hct 21.8 L MCV (80-100) fL MCH (25-34) pg MCHC (32-36) g/dL RDW Std Deviation (36.4-46.3) fL RDW Coeff of Cas (11.5-14.5) % Plt Count (130-400) K/uL MPV (7.4-10.4) fL Immature Gran % (Auto) % Neut % (Auto) % Lymph % (Auto) % [place] % (Auto) % Eos % (Auto) % Baso % (Auto) % Neut # (Auto) (1.4-6.5) K/uL Lymph # (Auto) (1.2-3.4) K/uL [place] # (Auto) (0.11-0.59) K/uL Eos # (Auto) (0-0.5) K/uL Baso # (Auto) (0-0.2) K/uL Immature Gran # (Auto) (0.00-0.02) K/uL Absolute Nucleated RBC (0-0) K/uL Nucleated RBC % (auto) % PT INR APTT PTT Ratio Fibrinogen Sodium 144 (136-145) mmol/L Potassium 3.9 (3.5-5.1) mmol/L Chloride 114 H (98-107) mmol/L Carbon Dioxide 23 (21-32) mmol/L Anion Gap 7 (3-11) BUN 25 H (6-23) mg/dl Creatinine 0.77 (0.6-1.2) mg/dl Est Cr Clr Drug Dosing 51.3 ml/min Est GFR ( Amer) 79.3 ml/min Est GFR (Non-Af Amer) 68.5 ml/min BUN/Creatinine Ratio 32.5 H (10-20) Glucose 153 H (70-99(Fasting)) mg/dl POC Glucose (70-99) mg/dl Lactate 1.3 (0.4-2.0) mmol/L Calcium 7.9 L (8.5-10.1) mg/dl Phosphorus (2.5-4.9) mg/dl Magnesium 1.6 L (1.7-2.4) mg/dl Blood Type Antibody Screen Crossmatch 05/09/21 05/09/21 05/09/21 Range/Units 14:27 14:27 11:58 WBC (4.8-10.8) K/uL RBC (4.2-5.4) M/uL Hgb Cancelled Hct Cancelled MCV (80-100) fL MCH (25-34) pg MCHC (32-36) g/dL RDW Std Deviation (36.4-46.3) fL RDW Coeff of Cas (11.5-14.5) % Plt Count (130-400) K/uL MPV (7.4-10.4) fL Immature Gran % (Auto) % Neut % (Auto) % Lymph % (Auto) % [place] % (Auto) % Eos % (Auto) % Baso % (Auto) % Neut # (Auto) (1.4-6.5) K/uL Lymph # (Auto) (1.2-3.4) K/uL [place] # (Auto) (0.11-0.59) K/uL Eos # (Auto) (0-0.5) K/uL Baso # (Auto) (0-0.2) K/uL Immature Gran # (Auto) (0.00-0.02) K/uL Absolute Nucleated RBC (0-0) K/uL Nucleated RBC % (auto) % PT Cancelled INR Cancelled APTT Cancelled PTT Ratio Cancelled Fibrinogen Sodium (136-145) mmol/L Potassium (3.5-5.1) mmol/L Chloride (98-107) mmol/L Carbon Dioxide (21-32) mmol/L Anion Gap (3-11) BUN (6-23) mg/dl Creatinine (0.6-1.2) mg/dl Est Cr Clr Drug Dosing ml/min Est GFR ( Amer) ml/min Est GFR (Non-Af Amer) ml/min BUN/Creatinine Ratio (10-20) Glucose (70-99(Fasting)) mg/dl POC Glucose 145 H (70-99) mg/dl Lactate (0.4-2.0) mmol/L Calcium (8.5-10.1) mg/dl Phosphorus (2.5-4.9) mg/dl Magnesium (1.7-2.4) mg/dl Blood Type Antibody Screen Crossmatch 05/09/21 Range/Units 04:39 WBC (4.8-10.8) K/uL RBC (4.2-5.4) M/uL Hgb Hct MCV (80-100) fL MCH (25-34) pg MCHC (32-36) g/dL RDW Std Deviation (36.4-46.3) fL RDW Coeff of Cas (11.5-14.5) % Plt Count (130-400) K/uL MPV (7.4-10.4) fL Immature Gran % (Auto) % Neut % (Auto) % Lymph % (Auto) % [place] % (Auto) % Eos % (Auto) % Baso % (Auto) % Neut # (Auto) (1.4-6.5) K/uL Lymph # (Auto) (1.2-3.4) K/uL [place] # (Auto) (0.11-0.59) K/uL Eos # (Auto) (0-0.5) K/uL Baso # (Auto) (0-0.2) K/uL Immature Gran # (Auto) (0.00-0.02) K/uL Absolute Nucleated RBC (0-0) K/uL Nucleated RBC % (auto) % PT INR APTT PTT Ratio Fibrinogen Sodium (136-145) mmol/L Potassium (3.5-5.1) mmol/L Chloride (98-107) mmol/L Carbon Dioxide (21-32) mmol/L Anion Gap (3-11) BUN (6-23) mg/dl Creatinine (0.6-1.2) mg/dl Est Cr Clr Drug Dosing ml/min Est GFR ( Amer) ml/min Est GFR (Non-Af Amer) ml/min BUN/Creatinine Ratio (10-20) Glucose (70-99(Fasting)) mg/dl POC Glucose (70-99) mg/dl Lactate (0.4-2.0) mmol/L Calcium (8.5-10.1) mg/dl Phosphorus (2.5-4.9) mg/dl Magnesium (1.7-2.4) mg/dl Blood Type A Positive Antibody Screen NEGATIVE Crossmatch See Detail PG Care Time/CCT Total # of Minutes Spent Total Time Spent with Patient: Total time spent is greater than 50% in coordination of care (as documented) at patient's floor/unit and/or counseling patient: Coding Level of Care Code 63281 Subseq Hosp Care Lvl 3 Diagnoses GI bleed K92.2 Hypovolemic shock R57.1 Left upper extremity deep vein thrombosis I82.622 Deep vein thrombosis, lower left extremity I82.402 Atrial fibrillation I48.91 Hyperkalemia E87.5 Acute kidney injury N17.9 Left nephrolithiasis N20.0 Type II diabetes mellitus with complication E11.8 HTN (hypertension) I10 Hyperlipidemia E78.5 Hypocalcemia E83.51
--- NOTE | 2021-05-10 10:23 | Gastroenterology Progress Note ---
Date of Service May 10, 2021 Assessment & Plan (1) Duodenal mass: Plan: -Biopsies negative for malignancy, though endoscopic appearance is suspicious for malignancy. May need EUS as an outpatinet for further biopsies and evaluation. (2) Melena: Plan: -Nuclear medicine bleeding scan today to isolate source of bleed; pending results may need IR intervention -Continue Protonix gtt -Continue to monitor H/H; anticipate further drop based on blood loss Admission and Anticipated Discharge Date Admission Date: May 04, 2021 Supervising Physician Co-Signing Physician Notes I personally evaluated the patient and agree with the findings as documented by Hiwot Ramirez, PAC Exam: Constitutional: WD/WN, vitals as above General: EOM intact bilaterally Neck: normal visual inspection Respiratory: normal respiratory effort, lungs clear to auscultation Cardiovascular: RRR, no murmur, no edema Gastrointestinal: abdomennormal to inspection, nondistended, soft, nontender, no hepatosplenomegaly Musculoskeletal: no cyanosis, head normal to inspection Skin: no rashes, warm and dry Neurologic: moves all extremities Psychiatric: A and O x3, euthymic affect Subjective Patient is an 89 yo female with a duodenal mass. Biopsies were not consistent with malignancy. Unfortunately, patient has been having significant GI bleeding overnight and into this morning. H/H is 8.8/26.3 at present. She denies abdominal pain at the time of my visit. She reports fatigue. She has undergone an EGD with injection and small bowel enteroscopy with injection, cautery, & clips placed. She had a CTA yesterday that was unremarkable in terms of bleeding source. Review of Systems Constitutional: + fatigue Respiratory: no cough and no dyspnea Cardiovascular: no chest pain Gastrointestinal: + blood in stools Physical Exam Constitutional: well developed Respiratory: normal respiratory effort Cardiovascular: Rate/Rhythm: + tachycardic Gastrointestinal (Abdomen): Inspection/Auscultation: abdomen normal to inspection Musculoskeletal: Head/Neck/Chest: normocephalic Psychiatric: Orientation: alert and oriented x 3 Results & Data Results & Data ([facility]) Vital Signs (Past 12 Hours) Vital Signs Temp Pulse Resp BP Pulse Ox 05/10/21 08:00 36.3 C L 92 H 21 162/73 H 99 05/10/21 07:30 36.0 C L 88 19 169/78 H 98 05/10/21 07:01 36.2 C L 97 H 21 161/72 H 05/10/21 07:00 35.9 C L 97 H 22 05/10/21 06:31 36.4 C L 94 H 14 132/86 92 05/10/21 06:30 36.4 C L 91 H 32 H 100 05/10/21 06:00 36.4 C L 86 28 H 134/73 100 05/10/21 05:45 36.3 C L 80 14 125/69 97 05/10/21 05:30 36.5 C 72 18 125/69 100 05/10/21 05:15 36.3 C L 86 15 96 05/10/21 05:01 36.3 C L 87 17 139/100 94 05/10/21 05:00 36.6 C 85 16 93 05/10/21 04:45 36.6 C 85 15 96 05/10/21 04:30 36.6 C 87 16 132/60 94 05/10/21 04:16 36.6 C 87 16 141/55 H 94 05/10/21 04:15 36.6 C 84 26 H 141/55 H 100 05/10/21 04:01 36.6 C 86 33 H 147/70 H 98 05/10/21 04:00 36.5 C 84 26 H 99 05/10/21 03:56 36.5 C 88 18 144/65 H 99 05/10/21 03:30 36.5 C 89 33 H 96 05/10/21 03:00 36.4 C L 88 24 97 05/10/21 02:30 36.8 C 91 H 27 H 97 05/10/21 02:01 36.7 C 104 H 21 158/77 H 96 05/10/21 02:00 36.6 C 86 18 92 05/10/21 01:30 36.5 C 103 H 17 100 05/10/21 01:00 37.1 C 87 27 H 106/69 95 05/10/21 00:31 37.2 C 92 H 38 H 118/54 L 95 05/10/21 00:30 37.2 C 93 H 28 H 100 05/10/21 00:00 37.2 C 94 H 14 96 05/09/21 23:30 37.3 C 97 H 31 H 131/55 L 90 05/09/21 23:00 37.4 C 94 H 25 H 98 05/09/21 22:31 37.5 C 97 H 29 H 124/50 L 99 05/09/21 22:30 37.5 C 94 H 31 H 97 PG Care Time/CCT Total # of Minutes Spent Total Time Spent with Patient: Total time spent is greater than 50% in coordination of care (as documented) at patient's floor/unit and/or counseling patient: Coding Level of Care Code 14241 Subseq Hosp Care Lvl 3 Diagnoses Duodenal mass K31.89 Melena K92.1
--- NOTE | 2021-05-10 10:31 | Consultation ---
Date of Consultation May 10, 2021 Assessment & Plan (1) Deep vein thrombosis, lower left extremity: Pt with small non occlusive DVT in post tib vein LLE, but is without any significant edema. Pt discussed with Dr Lacey, who reviewed venous US. Recommends pt undergo repeat US in 2 days to eval for propagation of DVT. If propagation of thrombus noted, then will consider for IVC filter. Order placed for repeat venous US. 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 Pt admits pain in L posterior knee area, swelling of L arm. Denies RUDD, fever, chest pain, SOB, abd pain, N/V, rest pain, lower ext edema, claudication, other complaints. No prior hx of DVT per pt. AC has been held d/t bleeding, has required multiple units PRBC since admission. Also noted L axillary DVT and cephalic v thrombus on US. Allergies Allergy/AdvReac Type Severity Reaction Status Date / Time No Known Allergies Allergy Verified 05/04/21 15:07 Home Medications Medication Instructions Recorded Confirmed Type aspirin 81 mg tablet,delayed 81 mg PO DAILY #90 tab 09/17/18 05/04/21 History release cholecalciferol (vitamin D3) 25 1,000 units PO DAILY cap 09/17/18 05/04/21 History mcg (1,000 unit) capsule timolol maleate 0.5 % once daily 1 drops OP HS ml 09/17/18 05/04/21 History eye drops vitamins A,C,D-ikly-axpbdz 14,320 1 cap PO BID 09/17/18 05/04/21 History unit-226 mg-200 unit capsule (PreserVision AREDS) amlodipine 5 mg tablet 5 mg PO DAILY #90 tab 10/19/20 05/04/21 Rx polyethylene glycol 3350 17 17 g PO DAILY PRN #119 g 10/21/20 05/04/21 Rx gram/dose oral powder (Miralax) telmisartan 80 mg tablet 80 mg PO DAILY #90 tab 11/13/20 05/04/21 Rx alendronate 70 mg tablet 70 mg PO WEEKLY #12 tab 11/30/20 05/04/21 Rx metformin 1,000 mg tablet 1,000 mg PO PM #90 tab 01/04/21 05/04/21 Rx rosuvastatin 20 mg tablet 20 mg PO DAILY #90 tab 01/04/21 05/04/21 Rx calcium citrate 200 mg 1 tab PO BID 04/23/21 05/04/21 History calcium-vitamin D3 3.125 mcg (125 unit) tablet apixaban 2.5 mg tablet (Eliquis) 0 mg PO BID 05/04/21 05/04/21 History diltiazem HCl 30 mg tablet 30 mg PO Q6H 05/04/21 05/04/21 History sulfamethoxazole 800 1 tab PO BID 05/04/21 05/04/21 History mg-trimethoprim 160 mg tablet Patient History Medical History Acute kidney injury Acute upper gastrointestinal bleeding Age-related macular degeneration, dry, both eyes Atrial fibrillation Atrial flutter Bradycardia Disc degeneration, lumbar Duodenitis Glaucoma Hemorrhagic shock Hyperlipidemia Lactic acidosis Left knee pain Microalbuminuria Osteoporosis Right lumbar radiculopathy Type II diabetes mellitus with complication Surgical History H/O hemorrhoidectomy History of tonsillectomy and adenoidectomy Family History Unknown Diabetes Denies family history of Ovarian cancer Prostate cancer Breast cancer Lung cancer Colorectal cancer Social History Smoking Status: Unknown if ever smoked Second Hand Exposure: No; Preferred Language: Yakut Communication Ability: Effective Visual Impairment: Limited Hearing Ability: Normal Anime Designer Required: No Beliefs That Will Affect Care: None marital status: / Current Living Situation: Family current occupational status: retired Feels Safe at Home: Yes Childhood Exposure to Second-Hand Smoke: No caffeine: Yes Dental Care, Regularly: Yes Physical Activity Frequency: Does not Exercise Seatbelt Use: always Sunscreen Use: Yes (does not go outside) Assistive Devices: None Review of Systems Review of Systems: All systems reviewed & are unremarkable except as noted in HPI & below Physical Exam Constitutional: WD/WN, vitals as above + ill appearing and cooperative; not in distress Neck: trachea midline Respiratory: normal respiratory effort, lungs clear to auscultation Auscultation: + diminished lung sounds Cardiovascular: Rate/Rhythm: + irregularly irregular Vessels: femoral pulses present, posterior tibial pulses present, dorsalis pedis pulses present a nd radial pulses present; + abnormal peripheral pulses Extremities: normal capillary refill and + edema (L arm) Gastrointestinal (Abdomen): Inspection/Auscultation: abdomen normal to inspection and normal bowel sounds; abdomen not distended Percussion/Palpation: abdomen soft; abdomen nontender Musculoskeletal: no cyanosis or clubbing, extremities motor strength 5/5 Skin: no rashes, warm and dry Neurologic: moves all extremities and awake; no focal motor deficits and not confused Psychiatric: A+Ox3, euthymic affect Results & Data ([facility]) Vital Signs (Past 12 Hours) Vital Signs Temp Pulse Resp BP Pulse Ox 05/10/21 08:00 36.3 C L 92 H 21 162/73 H 99 05/10/21 07:30 36.0 C L 88 19 169/78 H 98 05/10/21 07:01 36.2 C L 97 H 21 161/72 H 05/10/21 07:00 35.9 C L 97 H 22 05/10/21 06:31 36.4 C L 94 H 14 132/86 92 05/10/21 06:30 36.4 C L 91 H 32 H 100 05/10/21 06:00 36.4 C L 86 28 H 134/73 100 05/10/21 05:45 36.3 C L 80 14 125/69 97 05/10/21 05:30 36.5 C 72 18 125/69 100 05/10/21 05:15 36.3 C L 86 15 96 05/10/21 05:01 36.3 C L 87 17 139/100 94 05/10/21 05:00 36.6 C 85 16 93 05/10/21 04:45 36.6 C 85 15 96 05/10/21 04:30 36.6 C 87 16 132/60 94 05/10/21 04:16 36.6 C 87 16 141/55 H 94 05/10/21 04:15 36.6 C 84 26 H 141/55 H 100 05/10/21 04:01 36.6 C 86 33 H 147/70 H 98 05/10/21 04:00 36.5 C 84 26 H 99 05/10/21 03:56 36.5 C 88 18 144/65 H 99 05/10/21 03:30 36.5 C 89 33 H 96 05/10/21 03:00 36.4 C L 88 24 97 05/10/21 02:30 36.8 C 91 H 27 H 97 05/10/21 02:01 36.7 C 104 H 21 158/77 H 96 05/10/21 02:00 36.6 C 86 18 92 05/10/21 01:30 36.5 C 103 H 17 100 05/10/21 01:00 37.1 C 87 27 H 106/69 95 05/10/21 00:31 37.2 C 92 H 38 H 118/54 L 95 05/10/21 00:30 37.2 C 93 H 28 H 100 05/10/21 00:00 37.2 C 94 H 14 96 05/09/21 23:30 37.3 C 97 H 31 H 131/55 L 90 05/09/21 23:00 37.4 C 94 H 25 H 98 05/09/21 22:31 37.5 C 97 H 29 H 124/50 L 99 05/09/21 22:30 37.5 C 94 H 31 H 97
[2021-05-10 10:34] LABS: Fibrinogen 239 mg/dl (184-400)
[2021-05-10 12:22] LABS: Hematocrit (blood only) 24.2 % (37-47); Hemoglobin 8.1 g/dL (12.0-16.0); Mean Corpuscular Hemoglobin 30.5 pg (25-34); Mean Corpuscular Hgb Conc 33.5 g/dL (32-36); Mean Platelet Volume 11.2 fL (7.4-10.4); Nucleated RBC # (auto) 0.21 K/uL (0-0); Nucleated RBC % (auto) 1.6 %; Platelet Count 195 K/uL (130-400); RDW Coefficient of Variation 15.5 % (11.5-14.5); RDW Standard Deviation 49.5 fL (36.4-46.3); Red Blood Count 2.66 M/uL (4.2-5.4); White Blood Count 13.09 K/uL (4.8-10.8)
[2021-05-10 16:08] LABS: Hematocrit (blood only) 21.9 % (37-47); Hemoglobin 7.4 g/dL (12.0-16.0); Mean Corpuscular Hemoglobin 31.1 pg (25-34); Mean Corpuscular Hgb Conc 33.8 g/dL (32-36); Mean Platelet Volume 10.9 fL (7.4-10.4); Nucleated RBC # (auto) 0.16 K/uL (0-0); Nucleated RBC % (auto) 1.2 %; Platelet Count 182 K/uL (130-400); RDW Coefficient of Variation 15.8 % (11.5-14.5); RDW Standard Deviation 50.6 fL (36.4-46.3); Red Blood Count 2.38 M/uL (4.2-5.4); White Blood Count 12.76 K/uL (4.8-10.8)
--- NOTE | 2021-05-10 19:51 | Nuclear Medicine Report ---
NM GI bleeding CLINICAL HISTORY: 89 years-old Female with GI bleeding despite intervention with EGD. Acute GI bleed TECHNIQUE: Following the intravenous administration of red cells labeled with 20.9 mCi/5.7 mL of belkis hnetium-99m Ultratag, sequential abdominal images were obtained for 60 minutes. COMPARISON: CTA abdomen and pelvis 05/09/2021, CT abdomen and pelvis 05/04/2021 FINDINGS: There is a subtle focus of abnormal labeled red cell accumulation activity within the central abdomen within the expected location of the duodenum which peristalses distally throughout several loops of small bowel. There is expected activity in the blood pool. IMPRESSION: Findings are compatible with active gastro intestinal bleeding which appears to originat e from the duodenum. Findings were discussed with Dr. Karlene Moreau on 05/10/2021 at 7:45 PM. ACT 112: Negative or not required by law. The above report was generated using voice recognition software. It may contain grammatical, syntax o r spelling errors. Electronically signed by: Nilo Pérez M.D. 05/10/2021 7:50 PM
--- NOTE | 2021-05-10 20:22 | Discharge Summary ---
Date of Service May 10, 2021 Admission HPI Per Admitting Provider Patient is an 89 y/o F with a PMH of diabetes, hypertension, and hyperlipidemia who presents today with loose, dark stools since 3 am this morning. States she had been feeling well up until this started with the exception of some mild, diffuse abdominal pain. Denies fever/chills, night sweats, chest pain, palpitations, SOB, syncope, new onset cough, increased urinary frequency, dysuria, hematuria. Patient was recently evaluated at [facility] on 04/23 and transferred to [facility] due to 2.7 cm UPJ stone w/ moderate hydroureteronephrosis and ? emphysematous pyelitis which required left percutaneous nephrostomy tube placement. During this admission, she was found to have new onset atrial flutter with RVR, rate controlled initially with diltiazem. Had TTE done, started prophylactically on Eliquis which she was been taking regularly, alst dose this morning @ 0900. In ED, patient was hypotensive with SBP in 90s, HR in 90s, afebrile with SpO2 in mid/high 90s on RA. CBC significant for WBC 16.89, Hgb 6.9. PT 16.4, INR 1.6. BMP significant for K+ 5.9, BUN 66, Cr 1.89, glucose 243. She was given 1 L NS bolus for volume resuscitation, 10 units insulin with 20 units D50 for hyperkalemia, 4 units pRBCs ordered and protonix drip started for GI bleed. Dr. Castrejon with hematology was consulted regarding anticoagulation reversal in the setting of massive GI bleed, who recommended 200 units Kcentra. [facility] GI consulted who recommended npo status for scheduled endoscopy tomorrow. Hospitalist service was consulted for further evaluation and admission. Patient continued to become increasingly hypotensive with BP down to 88/51 and eventually 73/56 despite fluid resuscitation. 1 L normosol bolus was ordered, first unit of pRBCs was started, and patient was transferred to ICU for vasopressor support. Additionally, calcium gluconate and patiromer was ordered for hyperkalemia. Principal Diagnosis Acute blood loss anemia, hemorrhagic shock, GI Bleed, OCTAVIO, hyperkalemia, Acute DVTs Discharge Exam Constitutional + ill appearing Eyes + anicteric sclerae Neck trachea midline, no thyromegaly Respiratory normal respiratory effort, lungs clear to auscultation Cardiovascular Rate/Rhythm: regular rhythm and + tachycardic Heart Sounds: no murmur Extremities: + edema (mild LUE) Chest (Breasts) Chest: normal inspection of chest Gastrointestinal (Abdomen) normal bowel sounds, soft, nontender, no hepatosplenomegaly Musculoskeletal Extremities: extremities normal to inspection; no cyanosis and no clubbing Skin no rashes, warm and dry (pallor) Neurologic moves all extremities and awake; no focal motor deficits Psychiatric Orientation: alert, oriented to person, oriented to place and cooperative Lymphatic no lymphedema Discharge Data Allergies Allergy/AdvReac Type Severity Reaction Status Date / Time No Known Allergies Allergy Verified 05/04/21 15:07 Consultations 05/04/21 14:23 ED Decision to Admit Stat 05/04/21 16:49 Consult Needle Control [place] Routine 05/05/21 07:44 Consult Gastroenterology Routine 05/05/21 10:22 Consult Cardiology Routine 05/09/21 11:00 Consult Vascular Surgery Routine 05/09/21 11:26 Consult General Surgery Routine 05/09/21 14:19 Consult Needle Control [place] Routine Procedures Performed Operation Date: 05/05/21 10:45 Actual Procedures p Push Enteroscopy, Duodenum Biopsy, Control of Bleeding with Cauterization and Endoclip(Not Applicable) - Edwin Ardon MD Operation Date: 05/06/21 17:00 Actual Procedures p Esophagogastroduodenoscopy - Edwin Ardon MD Ordered Studies 05/04/21 13:37 CT abd pelvis wo con Stat 05/08/21 14:59 US venous doppler UE LT Urgent 05/08/21 17:00 US venous doppler LE BI Routine 05/09/21 15:39 CT angio abdomen pelvis w con Stat 05/12/21 07:00 US venous doppler LE LT Routine Hospital Course (1) GI bleed: -Patient reporting dark, watery stools prior to admission. also reported some bright red blood in nephrostomy tube over the past day but states it has since stopped. Patient is on Eliquis for afib/flutter diagnosed on 04/23/[address] A/P showed mild nonspecific wall thickening and adjacent inflammatory change at the second and third portion of the duodenum. Admitted to ICU and was on dopamine Was started on PPI gtt and had EGD on 05/05 which showed multiple duodenal ulcers bleeding, surrounding a duodenal mass that was biopsied - GI consult appreciated. Dr. Ardon treated with ulcers with epi injections and clip, and was actively bleeding with visible vessel. Had repeat EGD 05/06 for ongoing BP issues and had no bleeding at that time With recurrent bleeding, CTA abd/pel done 05/09 and no active bleeding seen on imaging Surgery says too high risk for surgical resection Had 3 large amounts of dark red liquid blood per rectum between AM of 05/10 and then evening of 05/10 BPs remained stable and she received 3 more total units of PRBCs along with 3 grams of IV Calcium gluconate GI did not want to do EGD again until after tagged RBC bleeding scan performed as they suspected possible other source of bleeding Bleeding scan positive for bleeding in duodenum GI contacted and recommended transfer for IR due to recurrent bleeding and with duodenal mass not amenable to surgery at this facility due to high risk patient Hgb dropped throughout the day again to 7.4 -keep NPO -transfusional support in the meantime-has received 7 units PRBCs thus far and now getting units 8 and 9 on evening of 05/10 -Completed 7 days of Unasyn for duodenitis -stopped -follow serial CBC, check coags--> was given Vit K for INR 1.6 on 05/09 -give IV calcium as needed for massive transfusion (2) Hypovolemic shock: Secondary to acute blood loss anemia from GI bleed in the setting of ELiquis use and duodenal mass resolved with IV fluids and blood transfusion, given PCC as above, improved with total 7 units PRBCs now and giving 2 more now was on dopamine but now weaned off (3) Left upper extremity deep vein thrombosis: DVT confirmed on venous doppler 05/08 Unable to start on anticoagulation due to ongoing bleed Restrict left arm and elevate as much as possible (4) Deep vein thrombosis, lower left extremity: Consult vascular surgery for consideration of IVC filter checking repeat Doppler LLE to see if has propagation (5) Atrial fibrillation: -Initially diagnosed on 04/23 admission, rate controlled was achieved with diltiazem. Patient had TTE and started prophylactically on Eliquis 5mg PO BID, patient did take a dose the morning of admission has both tachy and valerie rhythms, required dopamine transiently for her acute hemorrhagic shock Switched to PO amiodarone on 05/08 but back in sustained atrial flutter on 05/09 - placed back on IV amiodarone and now in sinus rhythm Cardiology is following Not on anticoagulation due to ongoing GI bleed -continue IV amiodarone for now continue tele monitoring ECHO normal (6) Hyperkalemia: resolved with volume resuscitation, sodium bicarb gtt, and [place] (7) Acute kidney injury: -resolving with CKD 3. Monitor intake and output. Serial labs follow CMP, Mag (8) Left nephrolithiasis: -Nephrostomy tube placed on 04/24 at [facility] due to 2.7 cm UPJ stone w/ moderate hydroureteronephrosis and ? emphysematous pyelitis. -CT showed left-sided percutaneous nephrostomy tube which appears in good position. The catheter loops around the 2.2 cm stone within the left renal pelvis. No hydronephrosis. Small amount of gas within the left renal collecting system is likely due to the nephrostomy tube. -Patient placed on Bactrim for 14 days on discharge from 04/27 which would have her taking antibiotics until May 11. Unasyn should adequately treat the E. coli bacteremia (cultures taken on 04/23) and blood cultures were negative on this admission. Ok to stop Unasyn now (9) Type II diabetes mellitus with complication: -On metformin at home. Currently on hold. SSI. ADA diet. (10) HTN (hypertension): Holding oral antihypertensives due to shock (11) Hyperlipidemia: -hold rosuvastatin. Resume at discharge (12) Hypocalcemia: secondary to citrate effect from massive blood transfusion replaced follow level VTE Prophylaxis - SCDs ordered, holding chemo ppx for now due to blood loss anemia. Code - DNR/DNI Disposition -transfer to tertiary care facility for IR vs surgical intervention Discussed all care with daughter and patient Total Time Total Time Spent Total Time Spent (In Minutes): 60 min Discharge Plan Discharge Items Patient Disposition: Transfer Acute Care Hospital Reason For Visit: HYPOVOLEMIC SHOCK, GI BLEED Discharge Diagnosis: Hemorrhagic shock, GI Bleed Condition on Discharge: Critical Activity: As commented below Exercise/Sports: Rest today Non-emergency contact: Primary Care Provider Call non-emergency contact if: you have any medication questions Follow-up/Referrals: Sabas Phillip DO [Primary Care Provider] - Diet: Nothing by Mouth Addtl Attending Provider Instructions: Transferred to [place] Pending Studies at Discharge: No Stand-Alone Forms: My [facility] Skilled Items Patient informed of condition?: Yes DNR: Yes Discharge Level of Care: Other Communicable Disease: No Discharge Prognosis: Deteriorating Lines: Peripheral IV and PICC Urinary Catheter: Yes (Nephrostomy tube) Medications and DC Order Prescriptions: Continued cholecalciferol (vitamin D3) 1,000 unit capsule 1,000 units PO DAILY RF: 0 PreserVision AREDS 14,320-226-200 gurp-nv-jlpv capsule 1 cap PO BID RF: 0 timolol maleate 0.5 % drops, once daily 1 drops OP HS RF: 0 calcium citrate-vitamin D3 200 mg-3.125 mcg (125 unit) Tablet 1 tab PO BID RF: 0 Discontinued amlodipine 5 mg tablet 5 mg PO DAILY Qty: 90 RF: 3 telmisartan 80 mg tablet 80 mg PO DAILY Qty: 90 RF: 3 alendronate 70 mg tablet 70 mg PO WEEKLY Qty: 12 RF: 3 metformin 1,000 mg tablet 1,000 mg PO PM Qty: 90 RF: 3 rosuvastatin 20 mg tablet 20 mg PO DAILY Qty: 90 RF: 3 aspirin 81 mg tablet,delayed release (DR/EC) 81 mg PO DAILY Qty: 90 RF: 0 polyethylene glycol 3350 [Miralax] 17 gram/dose powder 17 g PO DAILY PRN (Reason: constipation) Qty: 119 RF: 0 sulfamethoxazole-trimethoprim 800-160 mg tablet 1 tab PO BID RF: 0 diltiazem HCl 30 mg tablet 30 mg PO Q6H RF: 0 Eliquis 2.5 mg Tablet 0 mg PO BID RF: 0 Discharge Orders: Discharge Order (Routine); Ordered 05/10/21 Ordered By: Karlene Moreau Admission Data Admit Date/Time: 05/04/21 14:42 Attending Provider: Karlene Moreau Admit Provider: Glenn Maciel Primary Care Provider: Sabas Phillip Other Providers: [facility] ; Cuong Shields ; Glenn Maciel ; James Garcia ; Ti Salazar ; Paco Bullock ; Tree Verduzco ; Lj Chicas ; Larry Ware Jr ; Randolph Frias ; Brittaney Carrasquillo ; Saida Chaudhari ; Marcel Zabala ; Jaskaran Riley ; Rayray Christian ; Sarah Ryan ; Isabel Rey ; Jose Matos ; Shaka Jaffe ; Rohit Harper ; Hollis Lacey ; Rayray Ricks Other Interventions: Discharge Summary Assessment (RN) Last Done: 05/10/21 22:01 Coding Level of Care Code D/C DAY MANAGEMENT >30 MINS Diagnoses GI bleed K92.2 Hypovolemic shock R57.1 Left upper extremity deep vein thrombosis I82.622 Deep vein thrombosis, lower left extremity I82.402 Atrial fibrillation I48.91 Hyperkalemia E87.5 Acute kidney injury N17.9 Left nephrolithiasis N20.0 Type II diabetes mellitus with complication E11.8 HTN (hypertension) I10 Hyperlipidemia E78.5 Hypocalcemia E83.51
[2021-05-10 20:24] LABS: INR 1.3 (0.9-1.1); Partial Thromboplastin Ratio 0.8; Partial Thromboplastin Time 22.5 Seconds (21.0-31.0); Prothrombin Time 13.3 Seconds (9.0-12.0)
[2021-05-10 20:33] LABS: Hematocrit (blood only) 23.6 % (37-47); Mean Corpuscular Hemoglobin 31.1 pg (25-34); Mean Corpuscular Hgb Conc 33.9 g/dL (32-36); Mean Corpuscular Volume 91.8 fL (80-100); Mean Platelet Volume 10.9 fL (7.4-10.4); Nucleated RBC # (auto) 0.19 K/uL (0-0); Nucleated RBC % (auto) 1.5 %; Platelet Count 191 K/uL (130-400); RDW Coefficient of Variation 15.5 % (11.5-14.5); RDW Standard Deviation 50.5 fL (36.4-46.3); Red Blood Count 2.57 M/uL (4.2-5.4); White Blood Count 12.45 K/uL (4.8-10.8)
--- NOTE | 2021-05-10 21:18 | Communication Note ---
Date of Service: May 10, 2021 Patient was noted to have a large volumes of melanotic diarrheal stool late this afternoon/evening. Orders placed by hospitalist service for transfusion of 2 units PRBCs. Bleeding scan results are pending at this time. I was approached by hospitalist team regarding ongoing management versus transfer. I did reach out to GI. There is concerns that given the patient's current bleeding as well as location of lesion and continued manipulation of the planned duodenum would result in worsening injury and possible need for emergent surgical intervention. Per general surgery's recommendation, intervention at this institution without appropriate backup would not be warranted. There is question with a positive bleeding scan noted this evening that the patient may benefit from interventional radiology. 2015: Reached out to [facility]. Discussed the case with Dr. Nicolas. Patient accepted to [facility] pending need for evaluation of iron care including interventional radiology. Orders placed for copy chart and imaging studies. Discussed with the patient's daughter at bedside. Awaiting transfer to this time. Patient to be transferred to [facility] when transport available. I have personally spent 32 minutes of critical care time in the direct management of this patient. This is a life/limb threatening event. This includes time spent evaluating patient, direct bedside care, chart review, placing orders, interpretation of diagnostic studies, discussion with consultants, patient, and family members, as well as other required patient management activities. This time is exclusive of all separately billable procedures, and teaching time and separate from and in addition to any other critical care service time. Coding Level of Care Code Critical Care ea addt'l 30 min Time Spent (min) 32
[2021-05-11] MEDS: PANTOprazole 40 MG in DEXTROSE 5% 100 ML IV SCH (00:26)
[2021-05-11 02:16] LABS: Hematocrit (blood only) 30.8 % (37-47); Hemoglobin 10.2 g/dL (12.0-16.0)
[2021-05-11] MEDS ORDERED: AMPICILLIN/SULBACTAM SOD 3,000 MG in 0.9 % SODIUM CHLORIDE 100 ML IV SCH (23:00)
== END 2021-05-11 03:07 | disposition short-term general hospital (02) | DRG 377 ==
LOC: ED 13:16 → SUATTDRO 14:42 → 1E 14:42 → 2E 05-07 13:33 → 1E 05-09 14:10